=== PATIENT | female | born 1950 | race Caucasian/White ===

== ENCOUNTER 2024-08-17 13:52 | Outpatient (AMB) | payer OTHER, SELFPAY ==
--- NOTE | 2024-08-17 13:57 | A.OFFVIS_ITS ---
Vital Signs 08/17/24 14:08 Height 5 ft Weight 180 lb BMI 35.2 Handedness Right Intake Visit Reasons: Right knee pain and giving way Intake Note: Carmela is a 74 year old male who presents with complaints of progressively worsening right knee pain and giving way. The patient describes her pain as sharp in nature. Most of the pain is along the medial aspect of her knee. She has failed the last 6 weeks of conservative treatment which has included a home exercise program, Tylenol, Celebrex, a knee brace and application of ice. 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 Allergies tramadol [From Ultram] Allergy (Unknown, Verified 08/17/24 14:09) syncope Medication List - Last Reconciled 08/17/24 by Duane Soria MD atorvastatin 40 mg PO DAILY celecoxib 200 mg PO DAILY lisinopril-hydrochlorothiazide 20-25 mg 1 tab PO DAILY nystatin topical DAILY omeprazole 20 mg PO DAILY solifenacin 10 mg PO DAILY valacyclovir 1,000 mg PO TID PFSH Social History (Updated 08/17/24 @ 14:10 by CHAD Yusuf) Patient Tobacco Use Status: Former Tobacco user Current occupational status: retired Current occupation: rt handed Physical Exam Vital Signs: BMI result Body Mass Index 35.2 Const Other: Well-nourished well-developed very friendly female awake alert and oriented x3 in no acute distress Extrem Other: Bilateral lower extremity examination shows good capillary refill, no skin lesions noted, normal sensation light touch Right knee examination shows a minimal effusion, minimal crepitus with range of motion, tenderness along her medial joint line, positive Amna's test, no instability Results Reviewed Results Reviewed: X-rays of the patient's right knee show mild diffuse joint space narrowing, no acute bony abnormalities Assessment & Plan Assessment & Plan (1) Right knee pain: Code(s): M25.561 - Pain in right knee Category: Medical (2) Tear of medial meniscus of right knee: Code(s): S83.241A - Other tear of medial meniscus, current injury, right knee, initial encounter Category: Medical Plan Ms. Linton presents with progressively worsening right knee pain and mechanical symptoms most likely due to a medial meniscus tear. Thus, I will send the patient for an MRI of her right knee for further evaluation. I will see her back once the MRI is completed to discuss the findings and treatment options. Feel free to call me at any time should questions regarding her orthopedic management arise. I spent 20 minutes in reviewing the patient's records and imaging studies, seeing the patient and documenting in the medical record. Orders: Orders MR knee RT wo con 08/17/24 S83.241A - Other tear of medial meniscus, current injury, right knee, initial encounter XR knee RT 3V 08/17/24 M25.561 - Pain in right knee Coding Level of Care Code New Pt Level 3 (11682) Complex EM visit Add On G2211 Diagnoses Right knee pain M25.561 Tear of medial meniscus of right knee S83.241A
[2024-08-17 14:08] VITALS: BMI 35.2
--- OUTSIDE RECORDS SUMMARY | 2024-08-17 14:24 | XMS_ITS | Continuity of Care Document ---
Author Organization [place] - [facility],, DAYANA TAMEZ MD Address [address] [facility] [address] [place] [address] Care Team Providers Care Gold Leaf Gilder Name Role Phone TIFFANY MILIAN Primary Care Provider [phone] Assessment No assessment recorded. Plan of Treatment Reminders Order Date Submit Date Provider Last Modified By Organization Details Last Modified Time Details Appointments None recorded. Lab herpes simplex, culture, unspecified specimen - right vulva 2024 025 [facility] (Centralized Electronic Ordering - All Locations), Patient Can Go To The Location Of Their Choice, [id number] 13:32:51 Referral None recorded. Procedures None recorded. Surgeries None recorded. Imaging None recorded. Medication Orders valacyclovi r 1 gram tablet 2024 025 [id number], [id number] [place], [address], 13:30:17 acyclovir 5 % topical ointment 2024 025 [id number], [address] [place], [address], 14:02:07 Patient TargetsNo targets recorded. Patient Instructions Encounter Date Encounter Id Patient Instructions Last Modified By Organization Details Last Modified Time 08/15/2024 [id number] shingles: care instructions Not available 08/15/2024 13:30:15 genital herpes: care instructions Not available 08/15/2024 13:32:40 She is here for a small cluster of tender blisters on her right labia that she first noted on Thursday, it is Thursday now she has a past history of herpes and has been taking acyclovir without improvement, she feels that this is not typical of a herpes infection. This could be shingles as it does not cross the midline, or could be herpes as she has a past history of herpes. Rx valtrex at shingles dose just in case, and herpes culture taken. Advised on good hand washing, etc. all questions answered. She has had both shingles vaccines. Face to face discussion, chart review and coordination of care: 25 minutes marjan Not available 08/15/2024 14:01:15 Reason for Referral None Reported. 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 Active 2016 Dayana Tamez MD [address], [place], , [place] - [facility], 7 11:19:20 Polyp of corpus uteri 04299045 Active 2016 Dayana Tamez MD [address], [place], , [place] - [facility], 7 12:19:18 Postmenopausa l bleeding 53758780 Active 2016 Dayana Tamez MD [address], [place], , [place] - [facility], 7 12:19:29 Essential hypertension 49609216 Active 2016 Valerie quevedo [place] - [facility], 7 13:17:12 Anogenital hidradenitis suppurativa 618520846 Active Not Available [facility] 3 03:01:06 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 Procedures Surgical History Date Name Laterality Status Provider Name and Address Organization Details Recorded Time 04/12/19 25 Endometrial Biopsy completed Dayana Tamez MD [address], [place], [address], [place] - [facility], 04/12/2024 14:54:20 12/30/19 24 Most Recent Mammogram completed Sasha Lowery [place] - [facility], 03/01/2024 13:46:16 12/30/19 24 Most Recent Bone Density completed Sasha Lowery [place] - [facility], 03/01/2024 13:46:25 03/25/20 16 Endometrial Biopsy completed Dayana Tamez MD [address], [place], [address], [place] - [facility], 03/25/2016 13:50:12 03/30/19 09 Other completed Dayana Tamez MD [address], [place], [address], [place] - [facility], 07/09/2012 14:33:12 03/30/18 76 Tonsillectomy completed Sasha Lowery [place] - [facility], 07/09/2012 14:25:04 Imaging Results None recorded. Procedure Notes None recorded. Medical Equipment None Reported. Allergies Allergen ID Allergen Name Allergen Category Reaction Reaction Severity Criticality Documentation Date Start Date Code Code System Note Provider Name and Address Organization Details Recorded Time 7661 Ultram medicatio n other severe Not available 07/09/2012 36256 6 RxNorm weak and sleep y Sasha Beverley quevedo [place] [facility], 3 14:25:04 Medications Name Sig Start Date Stop Date Status Note LastModified by Organization Details LastModified Time celecoxib 200 mg capsule TAKE 1 CAPSULE BY MOUTH DAILY NEEDED FOR PAIN. TAKE WITH FOOD. active Not Available Not Available No t Available cyclobenzap rine 10 mg tablet 04/28 completed Not Available Not Available Not Available amoxicillin 500 mg capsule TAKE 1 CAPSULE BY MOUTH EVERY 8 HOURS UNTIL FINISHED 03/01 completed Not Available Not Available Not Available medroxyprog esterone 10 mg tablet Take 1 tablet every day by oral route. 09/08 completed Not Available Not Available Not Available atorvastati n 40 mg tablet TAKE 1 TABLET BY MOUTH EVERY DAY active Not Available Not Available No t Available atorvastati n 10 mg tablet 03/01 completed Not Available Not Available Not Available oxybutynin chloride ER 10 mg tablet,exte nded release 24 hr TK 1 T PO QD 09/08 completed Not Available Not Available Not Available azithromyci n 250 mg tablet TAKE 2 TABLETS BY MOUTH TODAY, THEN TAKE 1 TABLET DAILY FOR 4 DAYS 01/21 completed Not Available Not Available Not Available fluconazole 150 mg tablet TAKE 1 TABLET BY MOUTH FOR 1 DOSE 03/01 completed Not Available Not Available Not Available valacyclovi r 1 gram tablet Take 1 tablet 3 times a day by oral route for 7 days. 2024 active Not Available Not Available Not Avai lable meloxicam 15 mg tablet 04/28 completed Not Available Not Available Not Available prednisone 20 mg tablet TAKE 3 TABLETS DAILY FOR 3 DAYS TAKE 2 TABLETS DAILY FOR 3 DAYS TAKE 1 TABLET DAILY FOR 3 DAYS 03/01 completed Not Available Not Available Not Available ciprofloxac in 500 mg tablet TAKE 1 TABLET BY MOUTH 2 TIMES DAILY DIRECTED FOR UTI WHEN TRAVELING 01/21 completed Not Available Not Available Not Available omeprazole 40 mg capsule,del ayed release TAKE 1 CAPSULE BY MOUTH EVERY DAY 04/12 completed Not Available Not Available Not Available simvastatin 40 mg tablet TAKE 1 TABLET BY MOUTH DAILY 09/08 completed Not Available Not Available Not Available acyclovir 5 % topical ointment APPLY 1 APPLICATI ON 5 TIMES A DAY BY TOPICAL ROUTE NEEDED FOR 30 DAYS. 2024 active Not Available Not Available Not Avai lable oxybutynin chloride ER 5 mg tablet,exte nded release 24 hr 02/17 completed Not Available Not Available Not Available gabapentin 300 mg capsule 12/25 completed Not Available Not Available Not Available omeprazole 20 mg capsule,del ayed release TAKE 1 CAPSULE BY MOUTH EVERY DAY -DO NOT CRUSH, CHEW, OR SPLIT active Not Available Not Available No t Available lisinopril 20 mg-hydrochl orothiazide 25 mg tablet TAKE 1 TABLET BY MOUTH EVERY DAY. active Not Available Not Available No t Available bisacodyl 5 mg tablet,filipe yed release TAKE 4 TABLETS BY MOUTH 1 HOUR PRIOR TO DRINKING YOUR LIQUID PREP. 03/01 completed Not Available Not Available Not Available nystatin 100,000 unit/gram topical powder APPLY LOCAL TWICE A DAY active Not Available Not Available No t Available ibuprofen 600 mg tablet TAKE 1 TABLET BY MOUTH EVERY 6 HOURS NEEDED FOR PAIN active Not Available Not Available No t Available oxybutynin chloride 5 mg tablet TK 1 T PO BID 01/21 completed Not Available Not Available Not Available fluticasone propionate 50 mcg/actuati on nasal spray,suspe nsion USE 1 SPRAY BY NASAL ROUTE DAILY active Not Available Not Available No t Available naproxen 500 mg tablet 04/28 completed Not Available Not Available Not Available oxycodone 5 mg tablet TAKE 1 TABLET BY MOUTH EVERY 4 HOURS NEEDED FOR SEVERE PAIN 08/15 completed Not Available Not Available Not Available Asprin Ec Low Dose 81 mg tablet,filipe yed release Take 1 tablet every day by oral route. 04/12 completed Not Available Not Available Not Available cyclobenzap rine 5 mg tablet TAKE 1 TABLET BY MOUTH AT BEDTIME NEEDED FOR MUSCLE SPASMS. 03/01 completed Not Available Not Available Not Available nitrofurant oin monohydrate /macrocryst als 100 mg capsule TAKE 1 CAPSULE BY MOUTH TWICE A DAY 01/21 completed Not Available Not Available Not Available trospium 20 mg tablet TAKE 1 TABLET BY MOUTH TWICE A DAY 01/21 completed Not Available Not Available Not Available solifenacin 5 mg tablet TAKE 1 TABLET BY MOUTH EVERY DAY 03/01 completed Not Available Not Available Not Available solifenacin 10 mg tablet TAKE 1 TABLET BY MOUTH EVERY DAY active Not Available Not Available No t Available Boostrix Tdap 2.5 Lf unit-8 mcg-5 Lf/0.5 mL intramuscul ar suspension ADM 0.5ML IM UTD active Not Available Not Available No t Available calcium 02/17 completed Not Available Not Available Not Available Fish Oil 04/28 completed Not Available Not Available Not Available sodium fluoride 1.1 % dental paste COVER 1/2 OF TOOTHBRUS H AND BRUSH TEETH FOR 2 MINUTES AT BEDTIME. DO NOT RINSE. 03/01 completed Not Available Not Available Not Available Zostavax (PF) 19,400 unit/0.65 mL subcutaneou s suspension TO BE ADMINISTE RED BY PHARMACIS T FOR IMMUNIZAT ION 06/02 completed Not Available Not Available Not Available Glucos Chond Cplx Advanced active Not Available Not Available Not Available Multi Vitamin active Not Available Not Available Not Available Fluzone High-Dose 2064-9262 (PF) 180 mcg/0.5 mL intramuscul ar syringe TO BE ADMINISTE RED BY PHARMACIS T FOR IMMUNIZAT ION active Not Available Not Available No t Available Fluad 65yr up(PF)45 mcg(15 mcgx3)/0.5 mL intramuscul ar syringe ADMINISTE R 0.5ML IN THE MUSCLE DIRECTED active Not Available Not Available No t Available Fluad Quad (6 5yr up)(PF) 60 mcg (15 mcg x 4)/0.5mL IM syringe ADM 0.5ML IM UTD active Not Available Not Available No t Available Vitals Date Recorded Body height Body mass index (BMI) Body weight Heart rate Systolic blood pressure Diastolic blood pressure Provider Name and Address Organization Details Last Updated DateTime 5 152.4 cm 36.2 kg/m2 94850.0 3 g 74 /min 131 mm[Hg] 51 mm[Hg] Sasha Lowery [place] - [facility], 5 13:04:42 Social History Question Answer Notes LastModified by Organizat ion Details LastModified Time Tobacco Smoking Status Former Smoker over 15 yrs ago Not Available [facility] 01/31/2020 03:19:42 How Many Years Have You Consumed Alcohol? 50 Information not available 01/21/2022 What Is Your Level Of Caffeine Consumption? Occasional [id number] Information not available 01/31/2020 In The 14 Days Before Symptom Onset, Have You Had Close Contact With A Laboratory-confi rmed COVID-19 While That Case Was Ill? No Information not available 01/21/2022 In The 14 Days Before Symptom Onset, Have You Had Close Contact With A Person Who Is Under Investigation For COVID-19 While That Person Was Ill? No Information not available 01/21/2022 Have You Been To An Area Known To Be High Risk For COVID-19? No Information not available 01/21/2022 What Type Of Diet Are You Following? REGULAR [id number] Information not available 01/31/2020 Which Illicit Or Recreational Drugs Have You Used? Yes Marijuana On Weekends [id number] Information not available 01/31/2020 Do You Reside In Or Have You Traveled To An Area Where Ebola Virus Transmission Is Active? No [id number] Information not available 01/31/2020 Education 2 Year College Information not available 07/09/2012 What Is The Highest Grade Or Level Of School You Have Completed Or The Highest Degree You Have Received? [id number] Information not available 01/21/2022 How Many Days In The Past Year Have You Had A Heavy Drinking Consumption (4+ Female, 5+ Male)? 0 Information not available 02/18/2016 Are There Any Guns Present In Your Home? No Information not available 01/21/2022 High Number Of Sexual Partners No Information not available 02/18/2016 How Many Years Have You Used Illicit Or Recreational Drugs? 50 Information not available 01/21/2022 To Which Gender Do You Self-identify? Female Information not available 02/18/2016 Marital Status Informatio n not available 07/09/2012 What Was The Date Of Your Most Recent Tobacco Screening? 04/12/2024 Information not available 04/12/2024 What Is Your Relationship Status? Information not available 01/21/2022 Are You Sexually Active? No [id number] Information not available 01/31/2020 At What Age Did You Start Smoking Tobacco? 18 Information not available 01/21/2022 How Much Tobacco Do You Smoke? No [id number] Information not available 01/31/2020 General Stress Level Low Information not available 07/09/2012 How Many Years Have You Smoked Tobacco? 33 [id number] Information not available 01/31/2020 Have You Recently (within The Last 12 Weeks, Or During A Current ) Traveled To Or Lived In A Zika-affected Area? No [place] Information not available 02/18/2016 How Many Days In The Past Year Have You Consumed 4 Or More Drinks? 0 Information not available 01/21/2022 Sex: Female Functional Status Question Answer Note LastModified by Organizat ion Details LastModified Time Do you use any illicit or recreational drugs? Yes Information not available 01/21/2022 Do you or have you ever used any other forms of tobacco or nicotine? Yes Information not available 03/01/2024 What is your level of alcohol consumption? Occasional [id number] Information not available 01/31/2020 Do you or have you ever used smokeless tobacco? Never used smokeless tobacco [id number] Information not available 01/31/2020 Are you currently employed? 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 Never used electronic cigarettes [id number] Information not available 01/31/2020 What is your exercise level? Moderate [id number] Information not available 01/31/2020 Mental Status Question Answer Note LastModified by Organization D etails LastModified Time Do you feel stressed (tense, restless, nervous, or anxious, or unable to sleep at night)? [id number] Information not available 01/21/2022 Family History Relationship Description Onset Age of this Age Resolved Age Notes LastModified by Organization Details LastModified Time Father Myocardial infarction previo usly record ed as Heart Attack ([place]) Not available 08/11/2014 14:42:51 Mother Problem lung/ copd (previ ously record ed as Other) Not available 08/11/2014 14:42:51 Medical History Condition Response Anesthesia complications N High Blood Pressure Y Candidate for MyRisk panel N Autoimmune Condition N Kidney or Bladder Problems N Thyroid Problems N Depression N Lung Disease N GI Problems N Defects or Inherited Disease N Anemia N History of Ovarian Cancer N History of Breast Cancer N GENARO exposure N BRCA testing in past N Osteopenia N Psychiatric Illness N Anxiety Disorder N Diabetes N Arthritis N Headaches or Migraines N Infertility N Asthma N History of Cancer N Endometriosis N Hepatitis N Heart Disease N Hypertension Y Osteoporosis N Gynecological History Statement/Question Response If Post Menopausal, Age at Menopause 53 Most Recent Bone Density 12/30/2023 Menses Monthly N Age at Menarche 13 Most Recent Mammogram 12/30/2023 Age at First Child 28 Hormone Replacement Therapy N Obstetrics History GPAL:G 1 P 1 0 0 1 Type Value Full Term 1 Living 1 Total 1 Immunizations Vaccine Type Date Status Note Provider Nam e and Address Organization Details Recorded Time influenza, unspecified formulation 6 completed JOYCE Piper in [facility], 02/18/2016 13:37:31 pneumococcal, unspecified formulation 6 completed SashaJOYCE Campbell in [facility], 03/25/2016 13:29:20 Influenza, split virus, quadrivalent, preservative 7 completed JOYCE Petty in [facility], 09/08/2017 13:14:34 Pneumococcal Conjugate, unspecified formulation 7 completed JOYCE Petty in [facility], 09/08/2017 13:15:30 influenza, unspecified formulation 8 completed JOYCE Piper in [facility], 12/29/2017 13:32:45 Influenza, split virus, quadrivalent, preservative 9 completed JOYCE Petty in [facility], 04/28/2019 14:33:16 Influenza, split virus, trivalent, preservative 0 completed Sasha Meczywor null[place] [facility], 01/21/2022 10:03:32 COVID-19, mRNA, LNP-S, PF, 30 mcg/0.3 mL dose 1 completed Sasha Meczywor [place] [facility], 01/21/2022 10:03:32 Influenza, split virus, trivalent, preservative 3 completed Sasha Meczywor [place] [facility], 01/21/2022 10:03:32 Influenza, split virus, trivalent, PF 4 completed Sasha Meczywor [place] [facility], 01/21/2022 10:03:32 Influenza, high-dose, trivalent, PF 6 completed Sasha Meczywor [place] [facility], 01/21/2022 10:03:32 zoster recombinant 2 completed Sasha Meczywor [place] [facility], 01/21/2022 10:03:33 Influenza, high-dose, trivalent, PF 8 completed Sasha Meczywor [place] [facility], 01/21/2022 10:03:33 Influenza, split virus, trivalent, preservative 2 completed Sasha Meczywor [place] [facility], 01/21/2022 10:03:33 zoster live 4 completed Sasha Meczywor [place] [facility], 01/21/2022 10:03:33 Pneumococcal conjugate PCV 13 6 completed Sasha Meczywor [place] [facility], 01/21/2022 10:03:33 COVID-19, mRNA, LNP-S, bivalent, PF, 50 mcg/0.5 mL or 25mcg/0.25 mL dose 2 completed Sasha Meczywor [place] [facility], 01/21/2022 10:03:33 Influenza, high-dose, trivalent, PF 9 completed Sasha Meczywor [place] [facility], 01/21/2022 10:03:33 COVID-19, mRNA, LNP-S, PF, 30 mcg/0.3 mL dose 1 completed Sasha Mec[place]wor [place] [facility], 01/21/2022 10:03:33 Influenza, adjuvanted, quadrivalent, PF 1 completed Sasha Meczywor [place] [facility], 01/21/2022 10:03:33 Tdap 8 completed Sasha Meczywor [place] [facility], 01/21/2022 10:03:33 COVID-19, mRNA, LNP-S, PF, 30 mcg/0.3 mL dose 1 completed Sasha Meczywor [place] [facility], 01/21/2022 10:03:33 Influenza, split virus, quadrivalent, PF 5 completed Sasha Meczywor null[place] [facility], 01/21/2022 10:03:33 Influenza, split virus, trivalent, preservative 6 completed Sasha Meczywor null[place] [facility], 01/21/2022 10:03:33 Influenza, split virus, trivalent, preservative 2 completed Sasha Meczywor null[place] [facility], 01/21/2022 10:03:33 Tdap 8 completed Sasha Meczywor null[place] [facility], 01/21/2022 10:03:33 Influenza, split virus, trivalent, preservative 8 completed Sasha Meczywor null[place] [facility], 01/21/2022 10:03:33 Influenza, high-dose, trivalent, PF 7 completed Sasha Meczywor [place] [facility], 01/21/2022 10:03:33 pneumococcal polysaccharide PPV23 7 completed Sasha Meczywor null[place] [facility], 01/21/2022 10:03:33 Influenza, high-dose, quadrivalent, PF 2 completed Sasha Meczywor [place] [facility], 01/21/2022 10:03:33 Influenza, split virus, trivalent, preservative 4 completed Sasha Meczywor [place] [facility], 01/21/2022 10:03:33 Influenza, adjuvanted, quadrivalent, PF 0 completed Sasha Meczywor [place] [facility], 01/21/2022 10:03:33 Influenza, split virus, trivalent, preservative 7 completed Sasha Meczywor [place] [facility], 01/21/2022 10:03:33 COVID-19, mRNA, LNP-S, PF, 30 mcg/0.3 mL dose, hanna-sucrose 2 completed Sasha Meczywor null[place] [facility], 01/21/2022 10:03:33 Influenza, adjuvanted, trivalent, PF 4 completed Sasha Meczywor [place] [facility], 03/01/2024 13:42:05 zoster recombinant 3 completed Sasha Meczywor [place] [facility], 03/01/2024 13:42:05 Influenza, adjuvanted, quadrivalent, PF 3 completed Sasha Meczywor [place] [facility], 03/01/2024 13:42:05 COVID-19, mRNA, LNP-S, PF, 50 mcg/0.5 mL 4 completed Sasha Meczywor [place] qu[place] in [facility], 03/01/2024 13:42:05 COVID-19, mRNA, LNP-S, PF, 50 mcg/0.5 mL 3 completed Sasha Meczywor [place] in [facility], 03/01/2024 13:42:05 Past Encounters Encounter ID Performer Location Encounter Start Date Encounter Closed Date Diagnosis/Indication Diagnosis SNOMED-CT Code Diagnosis ICD10 Code Diagnosis Note [id number] MD DAYANA Herman MD [address] [facility] [place] [id number] 08/15/2024 12:56:29 08/15/2024 15:31:53 Herpes zoster 6518141 B02.9 Ulceration of vulva 6864 0004 N76.6 Herpetic u lceration of vulva 28512793 A60.04 A60.09 Health Concerns Section Related Observation LastModified by Organization Detai ls LastModified Time None Recorded Concern Status LastModified by Organization Details LastModified Time None Recorded Payers Encounter Date Sequence Insurance Name Policy Number Policy Payan Covered Member ID Payan Member ID Guarantor Name 08/15/2024 1 [employer] (MEDICARE REPLACEMENT/ ADVANTAGE - PPO) [id number] Carmela Linton [id number] Carmela Linton Notes Date Note Type Note Provider Name and Address Organization Details Recorded Time 08/15/2024 text/html She is here for a small cluster of tender blisters on her right labia that she first noted on Thursday, it is Thursday now she has a past history of herpes and has been taking acyclovir without improvement, she feels that this is not typical of a herpes infection. Dayana Tamez MD [address] [facility],[address], [place], [address], [place] [facility], 08/15/2024 14:05:34 OBGyn Episode No OBEpisode recorded.
--- OUTSIDE RECORDS SUMMARY | 2024-08-17 14:24 | XMS_ITS | Data Portability ---
Author Organization [facility], Main Office Address [address] [facility] 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 Patient consented to telephone visit Patient was located at at home Provider was located in the office. No other persons participated in the telemedicine visit except for the patient unless otherwise indicated here. Total time of visit was 17 minutes. [email or web address] Not available 02/08/2020 10:17:36 Plan of Treatment Reminders Order Date Submit Date Provider Last Modified By Organization Details Last Modified Time Details Appointments None recorded . Lab unlisted lab - covid-19 (novel coronavi marielle) PCR 2019 020 [facility], [address], [address] , [place], [address], 0 10:13:05 unlisted lab - covid-19 (novel coronavi marielle) PCR 2019 020 [facility], [address], [address], [place], [address], 0 10:15:07 lipid panel, serum 2019 [facility], [address], [place], [address], 1 17:21:25 culture, urine 2019 [facility], [address], [place], [address], 0 08:20:58 urinalys is, complete 2019 [facility], [address], [place], [address], 0 03:04:08 urinalys is, dipstick 2019 [email or web address] In-Office Order, Internal Use Only DO Not Attach Compendium DO Not Attach Compendium, Do Not Delete/merge, [id number] 0 13:30:[address] referral - Intermit tent upper abdomina l pain with radiatio n into the back over the last few years now getting stronger and more frequent . Not related to food or activity . Each episode lasting less than 30 minutes. 2020 021 [email or web address] Gilles [facility], [address] [facility], [place], [address], 1 10:09:11 physical therapis t referral - At risk for falling 2019 020 [facility]iel [facility], [address], [place], [address], 0 16:44:53 Procedures None recorded . Surgeries None recorded . Imaging electroc ardiogra m 2020 021 [email or web address] In-Office Order, Internal Use Only DO Not Attach Compendium DO Not Attach Compendium, Do Not Delete/merge, [id number] 1 16:08:59 XR, cervical spine - Neck pain starting late April . R/o DJD 2019 020 [facility]CHO [facility], [address] [place], [address], 0 13:07:51 US, kidney - Right flank pain for 1 week worse with movement s r/o kidney stones and hydronep hrosis 2019 020 [email or web address] [facility], [address] [facility], [place], [address], 0 11:39:11 Medication Orders Celebrex 100 mg capsule 2020 021 INTERFACE-20 [id number] [facility] #[id number], [address], [place], [id number], 2 08:40:44 atorvast atin 20 mg tablet 2019 020 INTERFACE [facility] #[id number], [address], [place], [id number], 0 18:41:09 gabapent in 300 mg capsule 2019 020 [email or web address] [facility] #08171, [address], [place], [id number], 0 14:57:36 atorvast atin 10 mg tablet 2019 020 [email or web address] [facility] #01018, [address], [place], [id number], 0 18:41:11 Patient TargetsNo targets recorded. Patient Instructions Encounter Date Encounter Id Patient Instructions Last Modified By Organization Details Last Modified Time 05/10/2019 [id number] Urinary Tract Infection (UTI) in Women: Care Instructions [email or web address] Not available 05/10/2019 13:30:00 06/07/2019 [id number] neck pain: care instructions [email or web address] Not available 06/07/2019 13:15:05 high blood pressure: care instructions [email or web address] Not available 06/07/2019 13:04:32 learning about high blood pressure acennerazzo Not available 06/07/2019 13:04:32 high cholesterol: care instructions [email or web address] Not available 06/07/2019 13:12:22 01/04/2020 [id number] bladder training: care instructions [email or web address] Not available 01/04/2020 15:23:36 kegel exercises: care instructions [email or web address] Not available 01/04/2020 15:23:36 Stress Incontinence: Care Instructions [email or web address] Not available 01/04/2020 15:23:36 high blood pressure: care instructions acennerazzo Not available 01/04/2020 15:23:36 learning about high blood pressure acennerazzo Not available 01/04/2020 15:23:36 high cholesterol: care instructions [email or web address] Not available 01/04/2020 15:23:36 preventing falls: care instructions acennerazzo Not available 01/04/2020 16:44:53 medicare preventive services guide (female 74yrs and under) [email or web address] Not available 01/04/2020 16:44:53 02/08/2020 [id number] lab* [email or web address] Not available 02/07 10:59:26 lab* tfrisino Not available 2019 10:58:32 call or return for worsening or concerns [email or web address] Not available 02/08/2020 10:13:02 07/04/2020 [id number] high blood pressure: care instructions acennerazzo Not available 07/04/2020 16:08:59 learning about high blood pressure acennerazzo Not available 07/04/2020 16:08:59 high cholesterol: care instructions acennerazzo Not available 07/04/2020 15:44:40 Reason for Referral Physical Therapist Referral for Adult health examination At risk for falling Referring Physician: [facility], Encounter Date: 01/04/2020 [employer] Referral for Upper abdominal pain Intermittent upper abdominal pain with radiation into the back over the last few years now getting stronger and more frequent. Not related to food or activity. Each episode lasting less than 30 minutes. Referring Physician: Family [facility], Encounter Date: 07/04/2020 Results Created Date Observation Date Name Description Value Unit Range Abnormal Flag Note LastModifiedBy Organization Detail LastModifiedTime 05/10/1905/11/2019 urina lysis , compl ete appear/color LIGHT YELLO W CLEAR Not Available [facility] (Centralized Electronic Ordering - All Locations) Patient Can Go To The Location Of Their Choice, 05/11/2019 03:04:08 05/10/1905/11/2019 urina lysis , compl ete sp. gravity 1.008 (1.002 -1.030 ) Not Available [facility] (Centralized Electronic Ordering - All Locations) Patient Can Go To The Location Of Their Choice, 05/11/2019 03:04:08 05/10/1905/11/2019 urina lysis , compl ete urine pH 7.0 (5.0-8 .0) Not Available [facility] (Centralized Electronic Ordering - All Locations) Patient Can Go To The Location Of Their Choice, 05/11/2019 03:04:08 05/10/1905/11/2019 urina lysis , compl ete urine albumin NEGATI VE (neg) Not Available [facility] (Centralized Electronic Ordering - All Locations) Patient Can Go To The Location Of Their Choice, 05/11/2019 03:04:08 05/10/1905/11/2019 urina lysis , compl ete urine glucose NEGATI VE (neg) Not Available [facility] (Centralized Electronic Ordering - All Locations) Patient Can Go To The Location Of Their Choice, 05/11/2019 03:04:08 05/10/1905/11/2019 urina lysis , compl ete urine ketones NEGATI VE (neg) Not Available [facility] (Centralized Electronic Ordering - All Locations) Patient Can Go To The Location Of Their Choice, 05/11/2019 03:04:08 05/10/1905/11/2019 urina lysis , compl ete urine bilirubin NEGATI VE (neg) Not Available [facility] (Centralized Electronic Ordering - All Locations) Patient Can Go To The Location Of Their Choice, 05/11/2019 03:04:08 05/10/1905/11/2019 urina lysis , compl ete urine hemoglobin NEGATI VE (neg) Not Available [facility] (Centralized Electronic Ordering - All Locations) Patient Can Go To The Location Of Their Choice, 05/11/2019 03:04:08 05/10/1905/11/2019 urina lysis , compl ete urine nitrite NEGATI VE (neg) Not Available [facility] (Centralized Electronic Ordering - All Locations) Patient Can Go To The Location Of Their Choice, 05/11/2019 03:04:08 05/10/1905/11/2019 urina lysis , compl ete urine leukocyte NEGATI VE (neg) Not Available [facility] (Centralized Electronic Ordering - All Locations) Patient Can Go To The Location Of Their Choice, 05/11/2019 03:04:08 05/10/1905/11/2019 urina lysis , compl ete urobilinogen NORMAL mg/dL (norm) Not Available [facility] (Centralized [facility] Ordering - All Locations) Patient Can Go To The Location Of Their Choice, 05/11/2019 03:04:08 05/10/1905/11/2019 urina lysis , compl ete urine WBCs 1 /hpf (0-5) Not Available [facility] (Centralized Electronic Ordering - All Locations) Patient Can Go To The Location Of Their Choice, 05/11/2019 03:04:08 05/10/1905/11/2019 urina lysis , compl ete urine RBCs 1 /hpf (<3) Not Available [facility] (Centralized Electronic Ordering - All Locations) Patient Can Go To The Location Of Their Choice, 05/11/2019 03:04:08 05/10/1905/11/2019 urina lysis , compl ete bacteria SLIGHT hpf (neg) abnormal Not Available [facility] (Centralized Electronic Ordering - All Locations) Patient Can Go To The Location Of Their Choice, 05/11/2019 03:04:08 05/10/1905/11/2019 urina lysis , compl ete squamous epith <1 /hpf Not Available [facility] (Centralized Electronic Ordering - All Locations) Patient Can Go To The Location Of Their Choice, 05/11/2019 03:04:08 05/10/1905/10/2019 cultu re, urine specimen description CLEAN CATCH (URINE ) Not Available [facility] (Centralized Electronic Ordering - All Locations) Patient Can Go To The Location Of Their Choice, [id number] 05/12/2019 08:20:58 05/10/19 20 05/10/2019 cultu re, urine special requests NONE Not Available [facility] (Centralized Electronic Ordering - All Locations) Patient Can Go To The Location Of Their Choice, [id number] 05/12/2019 08:20:58 05/10/19 20 05/12/2019 cultu re, urine culture NO GROWTH Not Available [facility] (Centralized Electronic Ordering - All Locations) Patient Can Go To The Location Of Their Choice, [id number] 05/12/2019 08:20:58 05/10/1905/12/2019 cultu re, urine report status FINAL 2019 Not Available [facility] (Centralized Electronic Ordering - All Locations) Patient Can Go To The Location Of Their Choice, [id number] 05/12/2019 08:20:58 05/10/1905/10/2019 urina lysis , dipst ick Leukocytes Negati ve Not Available In-Office Order Internal Use Only DO Not Attach Compendium DO Not Attach Compendium, Do Not Delete/merge, 05/10/2019 13:05:01 05/10/19 20 05/10/2019 urina lysis , dipst ick Nitritie negati ve Not Available In-Office Order Internal Use Only DO Not Attach Compendium DO Not Attach Compendium, Do Not Delete/merge, 05/10/2019 13:05:01 05/10/19 20 05/10/2019 urina lysis , dipst ick Urobilinogen .2 Not Available In-Of fice Order Internal Use Only DO Not Attach Compendium DO Not Attach Compendium, Do Not Delete/merge, [id number] 05/10/2019 13:05:01 05/10/19 20 05/10/2019 urina lysis , dipst ick Protein Negati ve Not Available In-Office Order Internal Use Only DO Not Attach Compendium DO Not Attach Compendium, Do Not Delete/merge, 05/10/2019 13:05:01 05/10/19 20 05/10/2019 urina lysis , dipst ick pH 7.0 Not Available In-Office Order Internal Use Only DO Not Attach Compendium DO Not Attach Compendium, Do Not Delete/merge, [id number] 05/10/2019 13:05:01 05/10/19 20 05/10/2019 urina lysis , dipst ick Blood Negati ve Not Available In-Office Order Internal Use Only DO Not Attach Compendium DO Not Attach Compendium, Do Not Delete/merge, [id number] 05/10/2019 13:05:01 05/10/19 20 05/10/2019 urina lysis , dipst ick Specific Preston 1.010 Not Available In-Off ice Order Internal Use Only DO Not Attach Compendium DO Not Attach Compendium, Do Not Delete/merge, 05/10/2019 13:05:01 05/10/19 20 05/10/2019 urina lysis , dipst ick Ketone Negati ve Not Available In-Office Order Internal Use Only DO Not Attach Compendium DO Not Attach Compendium, Do Not Delete/merge, 05/10/2019 13:05:01 05/10/19 20 05/10/2019 urina lysis , dipst ick Bilirubin Negati ve Not Available In-Office Order Internal Use Only DO Not Attach Compendium DO Not Attach Compendium, Do Not Delete/merge, 05/10/2019 13:05:01 05/10/19 20 05/10/2019 urina lysis , dipst ick Glucose Negati ve Not Available In-Office Order Internal Use Only DO Not Attach Compendium DO Not Attach Compendium, Do Not Delete/merge, 05/10/2019 13:05:01 05/10/19 20 05/10/2019 urina lysis , dipst ick Appearance Cloudy Not Available In-Offi ce Order Internal Use Only DO Not Attach Compendium DO Not Attach Compendium, Do Not Delete/merge, 05/10/2019 13:05:01 05/10/19 20 05/10/2019 urina lysis , dipst ick Color Yellow Not Available In-Office Order Internal Use Only DO Not Attach Compendium DO Not Attach Compendium, Do Not Delete/merge, 05/10/2019 13:05:01 05/30/19 20 05/30/2019 CMP, serum or plasm a comments [facility] [address] [facility] [place] [address] Medic al Direc brandon plascencia MD Not Available [facility] [address] [place] [address], [id number], 05/30/2019 11:52:54 05/30/19 20 05/30/2019 CMP, serum or plasm a glucose 90 mg/dL 70-100 Refer ence range appli cable to fasti ng speci mens only Not Available [facility] [address] [place] [address], [id number], 05/30/2019 11:52:54 05/30/1905/30/2019 CMP, serum or plasm a BUN 16 mg/dL 5-25 Not Available [facility] [address] [place] [address], [id number], 05/30/2019 11:52:54 05/30/1905/30/2019 CMP, serum or plasm a creat 0.58 mg/dL 0.5-1. 1 Not Available [facility] [address] [place] [address], [id number], 05/30/2019 11:52:54 05/30/1905/30/2019 CMP, serum or plasm a glomerular filtration rate > 60 If patie nt is Afric an-Am yeny n, multi ply resul t by 1.21 Chron ic Kidne y Disea se: < 60 ml/mi n/1.7 3 squar e meter s Kidne y Failu re: < 15 ml/mi n/1.7 3 squar e meter s Not Available [facility] [address] [place] [address], [id number], 05/30/2019 11:52:54 05/30/1905/30/2019 CMP, serum or plasm a sodium 139 mEq/L 135-14 5 Not Available [facility] [address] [place] [address], [id number], 05/30/2019 11:52:54 05/30/19 20 05/30/2019 CMP, serum or plasm a potassium 4.2 mmol/ L 3.5-5. 5 Not Available [facility] [address] [place], [address], 05/30/2019 11:52:54 05/30/1905/30/2019 CMP, serum or plasm a chloride 106 mmol/ L 96-110 Not Available [facility] [address] [place], [address], 05/30/2019 11:52:54 05/30/1905/30/2019 CMP, serum or plasm a CO2 27 mmol/ L 21-32 Not Available [facility] [address] [place], [address], 05/30/2019 11:52:54 05/30/1905/30/2019 CMP, serum or plasm a anion gap 6 3-11 Not Available [facility] [address] [place] [address], [address], 05/30/2019 11:52:54 05/30/1905/30/2019 CMP, serum or plasm a calcium 9.1 mg/dL 8.5-10 .5 Not Available [facility] [address] [place], [address], 05/30/2019 11:52:54 05/30/1905/30/2019 CMP, serum or plasm a total protein 7.1 g/dL 6.0-8. 0 Not Available [facility] [address] [place], [address], 05/30/2019 11:52:54 05/30/1905/30/2019 CMP, serum or plasm a albumin 3.6 g/dL 3.2-5. 0 Not Available [facility] [address] [place], [address], 05/30/2019 11:52:54 05/30/1905/30/2019 CMP, serum or plasm a bili,total 0.5 mg/dL 0.0-1. 4 Not Available [facility] [address] [place], [address], 05/30/2019 11:52:54 05/30/1905/30/2019 CMP, serum or plasm a SGOT 16 U/L 10-42 Not Available [facility] [address] [place] [address], [id number], 05/30/2019 11:52:54 05/30/1905/30/2019 CMP, serum or plasm a SGPT 26 U/L 10-60 Not Available [facility] [address] [place] [address], [id number], 05/30/2019 11:52:54 05/30/1905/30/2019 CMP, serum or plasm a alk phos 62 U/L 42-121 Not Available [facility] [address] [place] [address], [id number], 05/30/2019 11:52:54 05/30/1905/30/2019 lipid panel , serum comments [facility] [address] [place] [address] Medic al Direc brandon plascencia MD Not Available [facility] [address] [place] [address], [address], 05/30/2019 11:52:57 05/30/1905/30/2019 lipid panel , serum cholesterol 171 mg/dL 0-200 Not Available [facility] [address] [place] [address], [address], 05/30/2019 11:52:57 05/30/1905/30/2019 lipid panel , serum triglyceride s 185 mg/dL 0-150 high Not Available [facility] [address] [place] [address], [address], 05/30/2019 11:52:57 05/30/1905/30/2019 lipid panel , serum HDL cholesterol 56 mg/dL >40 Not Available [facility] [address] [place] [address], [address], 05/30/2019 11:52:57 05/30/1905/30/2019 lipid panel , serum LDL calculated 78 mg/dL 0-100 Not Available [facility] [address] [place] [address], [id number], 05/30/2019 11:52:57 05/30/1905/30/2019 lipid panel , serum TC-HDLC ratio 3.1 mg/dL 0-4.4 Not Available [facility] [address] [place] [address], [place], [address], 05/30/2019 11:52:57 01/02/2001/02/2020 CBC w/ auto diff WBC 7.0 K/mm3 (4.0-1 1.0) Not Available [facility] (Centralized Electronic Ordering - All Locations) Patient Can Go To The Location Of Their Choice, 01/02/2020 15:29:01/02/2001/02/2020 CBC w/ auto diff RBC 4.18 M/mm3 (4.20- 5.40) low Not Available [facility] (Centralized Electronic Ordering - All Locations) Patient Can Go To The Location Of Their Choice, 01/02/2020 15:29:01/02/2001/02/2020 CBC w/ auto diff HGB 13.2 gm/dL (11.7- 15.5) Not Available [facility] (Centralized Electronic Ordering - All Locations) Patient Can Go To The Location Of Their Choice, 01/02/2020 15:29:01/02/2001/02/2020 CBC w/ auto diff HCT 40.4 % (35.7- 45.8) Not Available [facility] (Centralized Electronic Ordering - All Locations) Patient Can Go To The Location Of Their Choice, 01/02/2020 15:29:01/02/2001/02/2020 CBC w/ auto diff MCV 96.7 fL (80.0- 100.0) Not Available [facility] (Centralized Electronic Ordering - All Locations) Patient Can Go To The Location Of Their Choice, 01/02/2020 15:29:06 01/02/2001/02/2020 CBC w/ auto diff MCH 31.6 pg (27.0- 34.0) Not Available [facility] (Centralized Electronic Ordering - All Locations) Patient Can Go To The Location Of Their Choice, 01/02/2020 15:29:06 01/02/2001/02/2020 CBC w/ auto diff MCHC 32.7 g/dL (33.0- 37.0) low Not Available [facility] (Centralized Electronic Ordering - All Locations) Patient Can Go To The Location Of Their Choice, 01/02/2020 15::01/02/2001/02/2020 CBC w/ auto diff plt 384 K/mm3 (150-4 60) Not Available [facility] (Centralized Electronic Ordering - All Locations) Patient Can Go To The Location Of Their Choice, 01/02/2020 15:29:01/02/2001/02/2020 CBC w/ auto diff RDW-SD 44.9 fL (<47.0 ) Not Available [facility] (Centralized Electronic Ordering - All Locations) Patient Can Go To The Location Of Their Choice, 01/02/2020 15:01/02/2001/02/2020 CBC w/ auto diff MPV 9.1 fL (9.4-1 2.4) low Not Available [facility] (Centralized Electronic Ordering - All Locations) Patient Can Go To The Location Of Their Choice, 01/02/2020 15:29:01/02/2001/02/2020 CBC w/ auto diff automated NRBC 0.0 #/100 _WBC' s Not Available [facility] (Centralized Electronic Ordering - All Locations) Patient Can Go To The Location Of Their Choice, 01/02/2020 15:01/02/2001/02/2020 CBC w/ auto diff abs. NRBC 0.0 K/mm3 Not Available [facility] (Centralized Electronic Ordering - All Locations) Patient Can Go To The Location Of Their Choice, 01/02/2020 15:29:01/02/2001/02/2020 CMP, serum or plasm a glucose 99 mg/dL (70-99 ) Not Available [facility] (Centralized Electronic Ordering - All Locations) Patient Can Go To The Location Of Their Choice, 01/02/2020 20:40:42 01/02/2001/02/2020 CMP, serum or plasm a BUN 16 mg/dL (8-23) Not Available [facility] (Centralized Electronic Ordering - All Locations) Patient Can Go To The Location Of Their Choice, 01/02/2020 20:40:42 01/02/2001/02/2020 CMP, serum or plasm a creatinine 0.6 mg/dL (0.5-1 .0) Not Available [facility] (Centralized Electronic Ordering - All Locations) Patient Can Go To The Location Of Their Choice, 01/02/2020 20:40:42 01/02/2001/02/2020 CMP, serum or plasm a sodium 140 mmol/ L (133-1 45) Not Available [facility] (Centralized Electronic Ordering - All Locations) Patient Can Go To The Location Of Their Choice, 01/02/2020 20:40:42 01/02/2001/02/2020 CMP, serum or plasm a potassium 4.3 mmol/ L (3.6-5 .2) Not Available [facility] (Centralized Electronic Ordering - All Locations) Patient Can Go To The Location Of Their Choice, 01/02/2020 20:40:42 01/02/2001/02/2020 CMP, serum or plasm a chloride 100 mmol/ L (98-10 7) Not Available [facility] (Centralized Electronic Ordering - All Locations) Patient Can Go To The Location Of Their Choice, 01/02/2020 20:40:42 01/02/2001/02/2020 CMP, serum or plasm a bicarbonate 28 mmol/ L (22-29 ) Not Available [facility] (Centralized Electronic Ordering - All Locations) Patient Can Go To The Location Of Their Choice, 01/02/2020 20:40:42 01/02/2001/02/2020 CMP, serum or plasm a anion gap 12 (4-17) Not Available [facility] (Centralized Electronic Ordering - All Locations) Patient Can Go To The Location Of Their Choice, 01/02/2020 20:40:42 01/02/2001/02/2020 CMP, serum or plasm a albumin 4.4 gm/dL (3.4-4 .8) Not Available [facility] (Centralized Electronic Ordering - All Locations) Patient Can Go To The Location Of Their Choice, 01/02/2020 20:40:42 01/02/2001/02/2020 CMP, serum or plasm a calcium 9.8 mg/dL (8.6-1 0.5) Not Available [facility] (Centralized Electronic Ordering - All Locations) Patient Can Go To The Location Of Their Choice, 01/02/2020 20:40:42 01/02/2001/02/2020 CMP, serum or plasm a bilirubin,to ector 0.3 mg/dL (0-1.2 ) Not Available [facility] (Centralized Electronic Ordering - All Locations) Patient Can Go To The Location Of Their Choice, 01/02/2020 20:40:42 01/02/2001/02/2020 CMP, serum or plasm a total protein 6.7 gm/dL (6.2-8 .2) Not Available [facility] (Centralized Electronic Ordering - All Locations) Patient Can Go To The Location Of Their Choice, 01/02/2020 20:40:42 01/02/2001/02/2020 CMP, serum or plasm a Ag ratio 1.9 Not Available [facility] (Centralized Electronic Ordering - All Locations) Patient Can Go To The Location Of Their Choice, 01/02/2020 20:40:42 01/02/2001/02/2020 CMP, serum or plasm a AST 15 U/L (0-32) Not Available [facility] (Centralized Electronic Ordering - All Locations) Patient Can Go To The Location Of Their Choice, 01/02/2020 20:40:42 01/02/2001/02/2020 CMP, serum or plasm a alk phos 55 U/L (35-10 4) Not Available [facility] (Centralized Electronic Ordering - All Locations) Patient Can Go To The Location Of Their Choice, 01/02/2020 20:40:42 01/02/2001/02/2020 CMP, serum or plasm a ALT 19 U/L (0-33) Not Available [facility] (Centralized Electronic Ordering - All Locations) Patient Can Go To The Location Of Their Choice, 01/02/2020 20:40:42 01/02/2001/02/2020 CMP, serum or plasm a est GFR non 95 mL/mi n/1.7 3_M2 Creat inine based estim ated glome rular filtr ation rate (eGFR ) is calcu lated using the Chron ic Kidne y Disea se Epide miolo gy Colla borat ion (CKD- EPI). The CKD-E PI creat inine equat ion has not been valid ated in child nguyen (<18 years ), pregn ant women or in some racia l or ethni c subgr oups other than Cauca sians and Afric an Ameri cans. Not Available [facility] (Centralized Electronic Ordering - All Locations) Patient Can Go To The Location Of Their Choice, 01/02/2020 20:40:42 01/02/2001/02/2020 CMP, serum or plasm a est GFR 110 mL/mi n/1.7 3_M2 Creat inine based estim ated glome rular filtr ation rate (eGFR ) is calcu lated using the Chron ic Kidne y Disea se Epide miolo gy Colla borat ion (CKD- EPI). The CKD-E PI creat inine equat ion has not been valid ated in child nguyen (<18 years ), pregn ant women or in some racia l or ethni c subgr oups other than Cauca sians and Afric an Ameri cans. Not Available [facility] (Centralized Electronic Ordering - All Locations) Patient Can Go To The Location Of Their Choice, 01/02/2020 20:40:42 01/02/2001/02/2020 lipid panel , serum cholesterol, total 217 mg/dL (<200) high Not Available [facility] (Centralized [facility] Ordering - All Locations) Patient Can Go To The Location Of Their Choice, 01/02/2020 20:40:44 01/02/2001/02/2020 lipid panel , serum triglyceride 226 mg/dL (<150) high Fasti ng Not Available [facility] (Centralized Electronic Ordering - All Locations) Patient Can Go To The Location Of Their Choice, 01/02/2020 20:40:44 01/02/2001/02/2020 lipid panel , serum HDL chol 55 mg/dL (>39) Not Available [facility] (Centralized Electronic Ordering - All Locations) Patient Can Go To The Location Of Their Choice, 01/02/2020 20:40:44 01/02/2001/02/2020 lipid panel , serum LDL cholesterol, calculated 117 mg/dL (0-130 ) Not Available [facility] (Centralized Electronic Ordering - All Locations) Patient Can Go To The Location Of Their Choice, 01/02/2020 20:40:44 01/02/20 20 01/02/2020 lipid panel , serum non HDL cholesterol (calc) 162 mg/dL (<160) high Not Available [facility] (Centralized Electronic Ordering - All Locations) Patient Can Go To The Location Of Their Choice, [id number] 01/02/2020 20:40:44 02/16/20 20 02/18/2020 SARS CoV 2 RNA (COVI D-19) , QL, 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 This nucle ic acid ampli ficat ion test was devel oped and its perfo rmanc e eve cteri stics deter mined by [facility]. Nucle ic acid ampli ficat ion tests inclu de PCR and TMA. This test has not been FDA clear ed or appro radha. This test has been autho rized by FDA under an Emerg ency Use Autho rizat ion (EUA) . This test is only autho rized for the durat ion of time the decla ratio n that circu mstan justen exist justi fying the autho rizat ion of the emerg ency use of in vitro diagn ostic tests for detec tion of SARS- CoV-2 virus and/o r diagn osis of COVID -19 infec tion under secti on 564(b )(1) of the Act, 21 U.S.C . 360bb b-3(b ) (1), unles s the autho rizat ion is termi nated or revok ed soone r. When diagn ostic testi ng is negat brittney, the possi bilit y of a false negat brittney resul t shoul d be consi dered in the jennifer xt of a patie nt's recen t expos ures and the prese nce of clini bebeto signs and sympt oms consi stent with COVID -19. An indiv idual witho ut sympt oms of COVID - 19 and who is not joshua ing SARS- CoV-2 virus would expec t to have a negat brittney (not detec jacey) resul t in this assay . TEST PERFO RMED BY [facility], ENRIQUETA AN, CELENA BARBOZA Y Not Available [facility] (Centralized Electronic Ordering - All Locations) Patient Can Go To The Location Of Their Choice, [id number] 02/18/2020 10:14:35 04/06/19 21 04/06/2020 lipid panel , serum cholesterol, total 187 mg/dL (<200) Not Available [facility] (Centralized Electronic Ordering - All Locations) Patient Can Go To The Location Of Their Choice, [id number] 04/06/2020 17:21:25 04/06/1904/06/2020 lipid panel , serum triglyceride 210 mg/dL (<150) high Fasti ng Not Available [facility] (Centralized Electronic Ordering - All Locations) Patient Can Go To The Location Of Their Choice, [id number] 04/06/2020 17:21:25 04/06/1904/06/2020 lipid panel , serum HDL chol 52 mg/dL (>39) Not Available [facility] (Centralized Electronic Ordering - All Locations) Patient Can Go To The Location Of Their Choice, [facility] 04/06/2020 17:21:25 04/06/1904/06/2020 lipid panel , serum LDL cholesterol, calculated 93 mg/dL (0-130 ) Not Available [facility] (Centralized Electronic Ordering - All Locations) Patient Can Go To The Location Of Their Choice, [id number] 04/06/2020 17:21:25 04/06/1904/06/2020 lipid panel , serum non HDL cholesterol (calc) 135 mg/dL (<160) Not Available [facility] (Centralized Electronic Ordering - All Locations) Patient Can Go To The Location Of Their Choice, [id number] 04/06/2020 17:21:25 06/08/19 20 06/08/2019 XR, cervi bebeto spine Cervic al Spine 3 Views or Less Reason : cervic algia COMPAR DAWSON: 019 and chest films dating back to 007 FINDIN GS: Stable josh listhe sis C4-C5 and C7-T1. Stable disc space narrow ing and endpla te osteop hytes throug hout the cervic al spine. Findin gs are most signif icant at C6-C7 Stable facet arthro sis throug hout the cervic al spine. 0.3 cm right apical pulmon amee nodule IMPRES MONICA: Stable degene rative change s throug hout the cervic al spine Right apical pulmon amee nodule stable since at least 018. WSN: [id number] Orderi ng Physic marysol: Brendan Goodson Dictat ed By: Ab Delgado MD Dictat ed Date/T jaclyn: 1:04 pm Review ed By: Ab Delgado MD Signed By: Ab Delgado MD Signed Date/T jaclyn: 1:04 pm Transc ribed By: SWAPNIL Transc ribed Date/T jaclyn: 1:01 pm Patien t Class: [facility] [address] [place], [address], 06/22/2019 07:21:31 12/30/19 20 12/30/2019 bone densi ty No observ ation record ed. [address] Diagnosit Imaging Dept [address] [place], [address], 01/02/2020 08:41:53 12/30/19 20 12/30/2019 MAMMO , scree christiano, digit al, bilat eral No observ ation record ed. [address] [facility] Dept [address] [place], [address], 01/02/2020 08:41:53 01/11/20 20 12/30/2019 bone densi ty No observ ation record ed. acenneracarissa Not Available 12/28 19:44:42 07/05/19 21 07/05/2020 norma lafleur am No observ ation record ed. acennerazzo In-Office Order Internal Use Only DO Not Attach Compendium DO Not Attach Compendium, Do Not Delete/merge, [id number] 07/06/2020 14:43:50 07/05/19 21 elect rocar diogr am No observ ation record ed. [facility] Order Internal Use Only DO Not Attach Compendium DO Not Attach Compendium, Do Not Delete/merge, [id number] 07/04/2020 16:05:08 08/01/19 21 07/31/2020 XR, chest , 2 view No observ ation record ed. [address], [address], 07/31/2020 18:47:11 08/09/19 21 08/08/2020 US, abdom en No observ ation record ed. [address], [address], 08/09/2020 08:10:37 Result Notes None recorded. Problems Name Problem SNOMED Code Status Onset Date Resolution Date Notes Provider Name and Address Organization Details Recorded Time Acute pharyngi tis 824880892 Completed 200710/11/2013 RESOLVED DATE: 08/20/19 08; RECORDED 08/20/19 08 1:38PM BY BRENDAN YOUNG MD, ANNOTATI ON/ADDEN DUM Brendan Burnett MD [address] [address], [place], [address] , [facility] 6 17:09:31 Tobacco user [id number] Completed 201301/19/2014 RECORDED 07/06/19 14 1:20PM BY AHSAN SALDANA I, OFFICE VISIT Brendan Burnett MD [address] [address], [place], [address] , [facility] 6 17:09:31 History of clinical finding in subject [id number] Completed 201301/19/2014 RECORDED 07/06/19 14 1:20PM BY AHSAN SALDANA I, OFFICE VISIT Brendan Burnett MD [address] [place], [address] , [facility] 6 17:09:31 Screenin g for malignan t neoplasm of breast Completed 201110/11/2013 RECORDED 11/14/19 12 12:57PM BY DEENA ZARATE ON/RA Burnett MD [address] [facility] [address], [place], [address] , [facility] 6 17:09:31 Screenin g for malignan t neoplasm of colon Completed 200710/11/2013 RECORDED 02/15/20 08 9:45AM BY DEENA ROMERO ON/RA Burnett MD [address] [facility] [address], [place], [address] , [facility] 6 17:09:31 Contact dermatit is [id number] Completed 200810/11/2013 RECORDED 10/04/19 09 10:05AM BY DEENA SALMERON ON/RA Burnett MD [address] [facility] [address], [place], [address] , [facility] 6 17:09:31 Essentia l hyperten monica [id number] Completed 201210/11/2013 RECORDED 04/22/19 13 1:46AM BY RONALD REYES MA, DEENA ON/RA Burnett MD [address] [facility] [address], [place], [address] , [facility] 6 17:09:31 Syncope and collapse 858637246 Completed 201210/11/2013 IMPRESSI ON: OVER THE WEEKEND WHILE AT FRIENDS HOUSE, SITTING PLAYING GAMES AFTER TWO GLASSES OF WINE. NO CLEAR S/SXS TO SUGGEST UNDERLYI NG CARDIO, PULM OR NEURO CAUSE. NL EXAM IN OFFICE, NL EKG. CHECK LABS. LIKELY VASOVAGA L EPISODE, COUNSELE D PT RE COMMON CAUSES. WILL REVIEW WITH PCP TO SEE IF FURTHER W/U DESIRED, FROM WHAT I CAN SEE WE CAN CONTINUE TO MONITOR. ; RECORDED 06/11/19 13 10:04AM BY AHSAN SALDANA I, BLANCAATI ON/ADDEN DUM Brendan Burntet MD [address], [place], [address] , [facility] 6 17:09:31 Influenz a vaccine needed [id number] 06 Completed 201210/11/2013 RECORDED 06/01/19 13 1:37PM BY RONALD REYES MA, DEENA ON/ADDEN DUM Brendan Burnett MD [address] [facility] [address], [place], [address] , [facility] 6 17:09:31 General examinat ion of patient Completed 200710/11/2013 RECORDED 08/20/19 08 1:38PM BY BRENDAN YOUNG MD, DEENA ON/RA Burnett MD [address] [facility] [address], [place], [address] , [facility] 6 17:09:31 Herpes simplex 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 Active Not Available [facility] 2 08:40:45 Hyperlip idemia 07320036 Active Not Available [facility] 2 08:40:45 Essentia l hyperten monica 47620074 Active Not Available [facility] 2 08:40:45 Knee pain Completed 201210/11/2013 RECORDED 06/01/19 13 1:37PM BY RONALD REYES MA, DEENA ON/RA Burnett MD [address] [facility] [address], [place], [address] , [facility] 6 17:09:31 Major depressi on single episode, in partial remissio n 05028636 Completed 12/09/2018 Brendan Burnett MD [address] [facility] [address], [place], [address] , [facility] 9 13:35:28 Screenin g for malignan t neoplasm of breast Completed 201301/19/2014 RECORDED 08/16/19 14 3:00PM BY DARIUS CORRALES AL SUMMARY Brendan Burnett MD [address] [facility] [address], [place], [address] , [facility] 6 17:09:31 Amnesia 83607665 Completed 200810/11/2013 RECORDED 10/04/19 09 10:04AM BY DEENA SALMERON ON/RA Burnett MD [address] [facility] [address], [place], [address] , [facility] 6 17:09:31 Administ ration of bacteria l and viral vaccine Completed 200710/11/2013 RECORDED 02/15/20 08 3:19PM BY ROSY REYES, OFFICE VISIT Brendan Burnett MD [address] [facility] [address], [place], [address] , [facility] 6 17:09:31 Clinical finding Completed 200810/11/2013 RECORDED 10/04/19 09 10:04AM BY DEENA SALMERON ON/RA Burnett MD [address] [facility] [address], [place], [address] , [facility] 6 17:09:31 Pain of joint 61097033 Completed 200810/11/2013 IMPRESSI ON: LEFT BUTTOCKS PAIN WITH PYRIFORM IS PAIN, PT WAS TAUGHT HOW TO STRETCH, USE MOTRIN 800MG TID AND STRETCH, CALL IF NOT BETTER; RECORDED 10/04/19 09 10:04AM BY DEENA SALMERON ON/RA Burnett MD [address] [facility] [address], [place], [address] , [facility] 6 17:09:31 Adult health examinat ion Completed 201301/19/2014 RECORDED 07/06/19 14 1:14PM BY AHSAN SALDANA I, OFFICE VISIT Brendan Burnett MD [address] [facility] [address], [place], [address] , [facility] 6 17:09:31 Adult health examinat ion Completed 201110/11/2013 RECORDED 11/14/19 12 12:57PM BY DEENA ZARATE ON/RA Burnett MD [address] [facility] [address], [place], [address] , [facility] 6 17:09:31 Sciatica 34650199 Completed 201110/11/2013 RECORDED 11/14/19 12 12:57PM BY DEENA ZARATE ON/RA Burnett MD [address] [facility] [address], [place], [address] , [facility] 6 17:09:31 Dermatop hytosis of the perianal area Completed 201110/11/2013 RECORDED 11/14/19 12 12:57PM BY DEENA ZARATE ON/RA Burnett MD [address] [facility] [address], [place], [address] , [facility] 6 17:09:31 Hearing loss 45304749 Completed 200810/11/2013 RECORDED 10/04/19 09 10:05AM BY DEENA SALMERON ON/RA Burnett MD [address] [facility] [address], [place], [address] , [facility] 6 17:09:31 Acute upper respirat ory infectio n 91676887 Completed 201110/11/2013 IMPRESSI ON: SORE THROAT WITH COUGH STARTED ONE DAY AGO, NORMAL EXAM, APPEARS VIRAL; RECORDED 11/14/19 12 12:57PM BY DEENA ZARATE ON/ DUM Brendan Burnett MD [address] [facility] [address], [place], [address] , [facility] 6 17:09:31 Urinary incontin ence 040272096 Completed 10/24/2015 Brendan Burnett MD [address] [facility] [address], [place], [address] , [facility] 6 17:09:31 Administ ration of viral vaccine Completed 201301/19/2014 RECORDED 07/06/19 14 1:39PM BY BRENDAN YOUNG MD, OFFICE VISIT Brendan Burnett MD [address] [facility] [address], [place], [address] , [facility] 6 17:09:31 Acute pharyngi tis 403743029 Completed 200711/07/2013 RESOLVED DATE: 08/20/19 08; RECORDED 08/20/19 08 1:38PM BY BRENDAN YOUNG MD, ANNOTATI ON/ Brendan Burnett MD [address] [facility] [address], [place], [address] , [facility] 6 17:09:31 Screenin g for malignan t neoplasm of breast Completed 201111/07/2013 RECORDED 11/14/19 12 12:57PM BY DEENA ZARATE ON/ADD DUM Brendan Burnett MD [address] [facility] [address], [place], [address] , [facility] 6 17:09:31 Screenin g for malignan t neoplasm of colon Completed 200711/07/2013 RECORDED 02/15/20 08 9:45AM BY DEENA ROMERO ON/RA Burnett MD [address] [facility] [address], [place], [address] , [facility] 6 17:09:31 Contact dermatit is [id number] Completed 200811/07/2013 RECORDED 10/04/19 09 10:05AM BY DEENA SALMERON ON/RA Burnett MD [address] [facility] [address], [place], [address] , [facility] 6 17:09:31 Essentia l hyperten monica 64070087 Completed 201211/07/2013 RECORDED 04/22/19 13 1:46AM BY RONALD REYES MA, ANNOTATI ON/RA Burnett MD [address] [facility] [address], [place], [address] , [facility] 6 17:09:31 Syncope and collapse 564534811 Completed 201211/07/2013 IMPRESSI ON: OVER THE WEEKEND WHILE AT [employer]RIENDS HOUSE, SITTING PLAYING GAMES AFTER TWO GLASSES OF WINE. NO CLEAR S/SXS TO SUGGEST UNDERLYI NG CARDIO, PULM OR NEURO CAUSE. NL EXAM IN OFFICE, NL EKG. CHECK LABS. LIKELY VASOVAGA L EPISODE, COUNSELE D PT RE COMMON CAUSES. WILL REVIEW WITH PCP TO SEE IF FURTHER W/U DESIRED, FROM WHAT I CAN SEE WE CAN CONTINUE TO MONITOR. ; RECORDED 06/11/19 13 10:04AM BY DEENA ZARATE/RA Burnett MD [address] [facility] [address], [place], [address] , [facility] 6 17:09:31 Influenz a vaccine needed [id number] 06 Completed 201211/07/2013 RECORDED 06/01/19 13 1:37PM BY RONALD REYES MA, ANNOTATI ON/RA Burnett MD [address], [place], [address] , [facility] 6 17:09:31 General examinat ion of patient Completed 200711/07/2013 RECORDED 08/20/19 08 1:38PM BY BRENDAN YOUNG MD, ANNOTATI ON/RA Burnett MD [address] [facility] [address], [place], [address] , [facility] 6 17:09:31 Knee pain Completed 201211/07/2013 RECORDED 06/01/19 13 1:37PM BY RONALD REYES MA, ANNOTATI ON/RA Burnett MD [address] [facility] [address], [place], [address] , [facility] 6 17:09:31 Amnesia [id number] Completed 200811/07/2013 RECORDED 10/04/19 09 10:04AM BY DEENA SALMERON ON/RA Burnett MD [address] [facility] [address], [place], [address] , [facility] 6 17:09:31 Administ ration of bacteria l and viral vaccine Completed 200711/07/2013 RECORDED 02/15/20 08 3:19PM BY ROSY REYES, OFFICE VISIT Brendan Burnett MD [address] [facility] [address], [place], [address] , [facility] 6 17:09:31 Clinical finding Completed 200811/07/2013 RECORDED 10/04/19 09 10:04AM BY DEENA SALMERON ON/RA Burnett MD [address] [facility] [address], [place], [address] , [facility] 6 17:09:31 Pain of joint 47929049 Completed 200811/07/2013 IMPRESSI ON: LEFT BUTTOCKS PAIN WITH PYRIFORM IS PAIN, PT WAS TAUGHT HOW TO STRETCH, USE MOTRIN 800MG TID AND STRETCH, CALL IF NOT BETTER; RECORDED 10/04/19 09 10:04AM BY DEENA SALMERON ON/RA Burnett MD [address] [address], [place], [address] , [facility] 6 17:09:31 Sciatica 04677365 Completed 201111/07/2013 RECORDED 11/14/19 12 12:57PM BY DEENA ZARATE/RA Burnett MD [address] [address], [place], [address] , [facility] 6 17:09:31 Dermatop hytosis of the perianal area Completed 201111/07/2013 RECORDED 11/14/19 12 12:57PM BY DEENA ZARATE/RA Burnett MD [address] [address], [place], [address] , [facility] 6 17:09:31 Hearing loss 50697807 Completed 200811/07/2013 RECORDED 10/04/19 09 10:05AM BY DEENA SALMERON ON/RA Burnett MD [address] [address], [place], [address] , [facility] 6 17:09:31 Acute upper respirat ory infectio n 87781222 Completed 201111/07/2013 IMPRESSI ON: SORE THROAT WITH COUGH STARTED ONE DAY AGO, NORMAL EXAM, APPEARS VIRAL; RECORDED 11/14/19 12 12:57PM BY DEENA ZARATE/RA Burnett MD [address] [facility] [address], [place], [address] , [facility] 6 17:09:31 Body mass index 30+ - obesity 165119301 Active Not Available [facility] 2 08:40:45 Pain of joint of wrist 459674002 Completed 11/24/2016 Ninfa Burnette MA [facility], [facility] 7 14:58:56 Female stress incontin ence 75737834 Active sees Dr Richardson Not Available [facility] 2 08:40:45 Urge incontin ence of urine 07099599 Active followed by urology Not Available [facility] 2 08:40:45 Polyp of corpus uteri 39969233 Active 2016 Not Available [facility] 2 08:40:45 Complex endometr ial hyperpla cortney 514969754 Active 2016 Not Available [facility] 2 08:40:45 Postmeno pausal bleeding 80056142 Active 2016 Not Available [facility] 2 08:40:45 Anogenit al hidraden itis suppurat medardo 141638393 Active Not Available [facility] 08:40:45 Candidia sis of skin 96590579 Active Not Available [facility] 2 08:40:45 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 Not Available [facility] 2 08:40:45 Neck pain 46826898 Active 2018 Not Available [facility] 2 08:40:45 Exposure to SARS-CoV -2 Completed 07/04/2020 Removal Reason: Problem added by user raya ferrer from the COVID-19 watch flag Brendan Burnett MD [address] [facility] [address], [place], [address] , [facility] 1 15:40:17 Pain in left knee Active 2020 Not Available [facility] 2 08:40:45 Steatoti c liver disease 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 Procedures Surgical History Date Name Laterality Status Provider Name and Address Organization Details Recorded Time 01/04/20 20 Six-Item Cognitive Test completed Inez Knott MA [facility] 01/04/2020 15:00:50 12/30/19 20 Most Recent Mammogram completed [facility] 01/02/2020 08:41:48 12/30/19 20 Mammogram screening completed [facility] 01/02/2020 08:41:42 12/30/19 20 Dxa bone density josé vrt fx completed [facility] 01/02/2020 08:41:15 12/10/19 19 Mini-Cog Test completed Ahsan Garcia [facility] 12/09/2018 13:07:35 01/19/20 18 Date of Last Colonoscopy completed Marylou Saldana [facility] 01/18/2018 15:00:01 01/19/20 18 colonoscopy completed Marylou Saldana [facility] 01/18/2018 14:59:45 12/08/19 18 Most Recent Bone Density completed Marylou Saldana [facility] 12/15/2017 14:14:35 12/02/19 18 Mini-Cog Test completed Katie Deras MA [facility] 12/01/2017 13:12:11 11/25/19 17 Fall Risk Assessment completed Ninfa Burnette MA [facility] 11/24/2016 15:13:38 11/25/19 17 Mini-Cog Test completed Ninfa Burnette MA [facility] 11/24/2016 15:15:21 06/17/19 17 Hysteroscopy completed Ronald rodríguez MA [facility] 02/08/2020 09:40:17 06/17/19 17 Dilation and curettage completed Ronald rodríguez MA [facility] 02/08/2020 09:40:12 09/28/19 16 Fall Risk Assessment [facility] 09/28/2015 14:42:10 09/28/19 16 [facility] 09/28/2015 14:42:10 09/28/19 16 Advanced Care Planning completed [facility] 09/28/2015 14:42:10 08/12/19 15 Date of Last Pap Smear completed [facility] 09/28/2015 14:42:09 06/08/19 11 repair of stress incontinence by suprapubic sling completed Ronald rodríguez [facility] 02/08/2020 09:39:54 Tonsillectomy completed Brendan Burnett MD [address] [address], [place], [address], [facility] 01/19/2014 14:56:33 Imaging Results Imaging Date Name Status LastModified by Organization Details LastModified Time 06/08/2019 XR, cervical spine completed [facility] (Outpt Imaging) [address] [place], [address], 06/22/2019 07:21:31 12/30/2019 bone density completed [address] Diagnosit Imaging Dept [address] [place], [address], 01/02/2020 08:41:53 12/30/2019 MAMMO, screening, digital, bilateral completed [address] [facility] Dept [address] [place], [address], 01/02/2020 08:41:53 12/30/2019 bone density completed Information not available 01/11/2020 19:44:42 07/05/2020 electrocardiogram completed acennerazzo In-Off ice Order Internal Use Only DO Not Attach Compendium DO Not Attach Compendium, Do Not Delete/merge, [id number] 07/06/2020 14:43:50 07/04/2020 electrocardiogram completed acennerazzo In-Off ice Order Internal Use Only DO Not Attach Compendium DO Not Attach Compendium, Do Not Delete/merge, [id number] 07/04/2020 16:05:08 07/31/2020 XR, chest, 2 view completed [facility]enner[facility] [address], [address], 07/31/2020 18:47:11 08/08/2020 US, abdomen completed acennerazzo [facility] [address], [address], 08/09/2020 08:10:37 Procedure Notes None recorded. Medical Equipment None Reported. Allergies Allergen ID Allergen Name Allergen Category Reaction Reaction Severity Criticality Documentation Date Start Date Code Code System Note Provider Name and Address Organization Details Recorded Time 7678 Ultra medicatio n Not available Not available Not available 10/11/2013 08795 6 RxNorm Synco pe Gabriel Corrales, [place] [address] [facility] [address], [place], [address], [facility] 5 22:23:38 Medications Name Sig Start Date Stop Date Status Note LastModified by Organization Details LastModified Time cyclobenz aprine 10 mg tablet Take 1 tablet 3 times a day by oral route for 7 days. 05/10 completed Not Available Not Available Not Available amoxicill in 500 mg capsule TAKE 1 CAPSULE BY MOUTH EVERY 8 HOURS UNTIL GONE active Not Available Not Available No t Available medroxypr ogesteron e 10 mg tablet Take 1 tablet every day by oral route. 11/24 completed Not Available Not Available Not Available atorvasta tin 40 mg tablet TAKE 1 TABLET BY MOUTH EVERY DAY 03/01 completed Not Available Not Available Not Available atorvasta tin 20 mg tablet TAKE 1 TABLET BY MOUTH EVERY DAY 2020 active Not Available Not Available Not Avai lable atorvasta tin 10 mg tablet Take 1 tablet every day by oral route for 90 days. 01/03 completed Not Available Not Available Not Available oxybutyni n chloride ER 10 mg tablet,ex tended release 24 hr Take 1 tablet every day by oral route as directed for 90 days. 06/24 completed Not Available Not Available Not Available azithromy laura 250 mg tablet 02/17 completed Not Available Not Available Not Available valacyclo vir 1 gram tablet TAKE 1 TABLET BY MOUTH TWICE A DAY FOR 7 DAYS active Not Available Not Available No t Available meloxicam 15 mg tablet TAKE 1 TABLET BY MOUTH EVERY DAY 05/10 completed Not Available Not Available Not Available Paxil 20 mg tablet DAILY 12/18 completed RECORDED 12/19/19 10 9:13AM BY BRENDAN YOUNG MD, ANNOTATI ON/ADDCODY DUM; Not Available Not Available Not Available simvastat in 40 mg tablet TAKE ONE TABLET BY MOUTH AT BEDTIME 12/03 completed Not Available Not Available Not Available oxycodone -acetamin ophen 5 mg-325 mg tablet Q8 HRS PRN PAIN 05/02 completed RECORDED 05/02/19 09 3:54PM BY BRENDAN YOUNG MD, MEDICATI ON AUTO-SHYANN CTIVATIO N; Not Available Not Available Not Available ascorbic acid (vitamin C) ER 500 mg capsule,e xtended release DAILY 05/31 completed RECORDED 06/01/19 13 1:40PM BY RONALD REYES MA, OFFICE VISIT; Not Available Not Available Not Available oxybutyni n chloride ER 5 mg tablet,ex tended release 24 hr 02/26 completed Not Available Not Available Not Available gabapenti n 300 mg capsule Take 1 capsule 3 times a day by oral route. 01/03 completed Not Available Not Available Not Available lisinopri l 20 mg-hydroc hlorothia zide 25 mg tablet TAKE 1 TABLET BY MOUTH EVERY DAY active Not Available Not Available No t Available folic acid 1 mg tablet DAILY 05/31 completed RECORDED 06/01/19 13 1:40PM BY RONALD REYES MA, OFFICE VISIT; Not Available Not Available Not Available nystatin 100,000 unit/gram topical powder APPLY 2-3 TIMES PER DAY 06/01 completed prn Not Available Not Available Not Available Transderm -Scop 1 mg over 3 days transderm al patch Apply 1 patch every 72 hours by transder mal route. 12/09 completed Not Available Not Available Not Available triamcino lone acetonide 0.1 % lotion BID/PRN 12/18 completed RECORDED 12/19/19 10 9:13AM BY BRENDAN YOUNG MD, DEENA ON/ADDEN DUM; Not Available Not Available Not Available celecoxib 100 mg capsule Take 1 capsule every day by oral route as needed for 30 days. 2020 active TAKE 1 CAPSULE BY MOUTH EVERY DAY NEEDED Not Available Not Available Not Available ketoconaz ole 2 % topical cream TWO TIMES DAILY 12/18 completed RECORDED 12/19/19 10 9:13AM BY BRENDAN YOUNG MD, DEENA ON/ADDEN DUM; Not Available Not Available Not Available oxybutyni n chloride 5 mg tablet TAKE 1 TABLET BY MOUTH TWICE DAILY 2020 active Not Available Not Available Not Avai lable dicyclomi ne 10 mg capsule TAKE 1 CAPSULE BY MOUTH THREE TIMES DAILY NEEDED active Not Available Not Available No t Available naproxen 500 mg tablet 12/01 completed Not Available Not Available Not Available Calcium 500 + D 500 mg-5 mcg (200 unit) tablet Take 1 tablet every day by oral route as directed . active Not Available Not Available No t Available Asprin Ec Low Dose 81 mg tablet,de layed release Take 1 tablet every day by oral route. active Not Available Not Available No t Available acyclovir 5 % topical cream NEEDED 05/31 completed RECORDED 06/01/19 13 11:09AM BY DEENA SHANKAR ON/ADDEN DUM; Not Available Not Available Not Available nitrofura ntoin monohydra te/macroc rystals 100 mg capsule 05/10 completed Not Available Not Available Not Available Boostrix Tdap 2.5 Lf unit-8 mcg-5 Lf/0.5 mL intramusc ular suspensio n 06/01 completed Not Available Not Available Not Available vitamin A TAKE 1 TAB DAILY PO 12/01 completed Not Available Not Available Not Available calcium TAKE 1 TAB DAILY PO 06/09 completed Not Available Not Available Not Available Fish Oil 06/09 completed Not Available Not Available Not Available Glucosami ne Complex DAILY 06/09 completed Not Available Not Available Not Available Triamcino lone Acetate BID/PRN 12/18 completed RECORDED 12/19/19 10 9:13AM BY BREDNAN YOUNG MD, ANNOTATI ON/ADDEN DUM; Not Available Not Available Not Available Zostavax (PF) 19,400 unit/0.65 mL subcutane ous suspensio n TO BE ADMINIST ERED BY PHARMACI ST FOR IMMUNIZA TION 06/02 completed Not Available Not Available Not Available Vitamin D2 1 daily 06/09 completed Not Available Not Available Not Available Multi Vitamin TAKE 1 TABLET PO DAILY active Not Available Not Available No t Available Belviq 10 mg tablet Take 1 tablet twice a day by oral route for 15 days. 02/07 completed Not Available Not Available Not Available glucosami ne 116 mg-chondr oitin 100 mg-dietar y supplemen t no.25 capsule Take 1 capsule every day by oral route as directed . active Not Available Not Available No t Available Fluzone High-Dose 8102-0754 (PF) 180 mcg/0.5 mL intramusc ular syringe TO BE ADMINIST ERED BY PHARMACI Easy Eye FOR IMMUNIZA TION 11/24 completed Not Available Not Available Not Available Fish Oil 1,000 mg (120 mg-180 mg) capsule Take 1 capsule every day by oral route as directed . 06/01 completed Not Available Not Available Not Available Fluad Quad 4274-3508 (65yr up)(PF) 60 mcg (15 mcg x 4)/0.5mL IM syringe ADM 0.5ML IM UTD 01/03 completed Not Available Not Available Not Available Vitals Date Recorded Body height Body mass index (BMI) Body weight Body temperature Oxygen saturation Oxygen saturation in Arterial blood by Pulse oximetry Heart rate Systolic blood pressure Diastolic blood pressure Provider Name and Address Organization Details Last Updated DateTime 0 152.4 cm 29.5 kg/m2 02664.4 5 g 98.2 [degF] 98 % 98 % 57 /min 116 mm[Hg] 63 mm[Hg] Katie Deras MA [facility] 0 13:03:05 Date Recorded Body height Body mass index (BMI) Body weight Heart rate Oxygen saturation Oxygen saturation in Arterial blood by Pulse oximetry Body temperature Systolic blood pressure Diastolic blood pressure Provider Name and Address Organization Details Last Updated DateTime 0 152.4 cm 29.9 kg/m2 74339.6 3 g 60 /min 98 % 98 % 97.5 [degF] 114 mm[Hg] 62 mm[Hg] Ahsan Garcia [facility] 0 12:52:21 Date Recorded Body height Body mass index (BMI) Body weight Heart rate Oxygen saturation Oxygen saturation in Arterial blood by Pulse oximetry Body temperature Systolic blood pressure Diastolic blood pressure Provider Name and Address Organization Details Last Updated DateTime 0 152.4 cm 30.1 kg/m2 44034.2 2 g 56 /min 98 % 98 % 97.88 [degF] 122 mm[Hg] 61 mm[Hg] Inez Knott MA [facility] 0 15:02:48 Date Recorded Body height Provider Name an d Address Organization Details Last Updated DateTime 02/08/2020 152.4 cm Ronald Vega MA [facility] 02/08/2020 09:37:46 Date Recorded Body height Body mass index (BMI) Body weight Heart rate Oxygen saturation Oxygen saturation in Arterial blood by Pulse oximetry Body temperature Systolic blood pressure Diastolic blood pressure Provider Name and Address Organization Details Last Updated DateTime 1 152.4 cm 31.6 kg/m2 97414.9 6 g 60 /min 98 % 98 % 97.52 [degF] 100 mm[Hg] 64 mm[Hg] Inez Knott MA [facility] 1 15:35:01 Social History Question Answer Notes LastModified by Organizat ion Details LastModified Time Tobacco Smoking Status Former Smoker Not Available [facility] 01/31/2020 03:36:37 Do You Have An Advance Directive? No [id number] Information not available 01/31/2020 Is Blood Transfusion Acceptable In An Emergency? Yes [id number] Information not available 01/31/2020 What Is Your Level Of Caffeine Consumption? Moderate [id number] Information not available 01/31/2020 How Much Tobacco Do You Chew? None [id number] Information not available 01/31/2020 What Type Of Diet Are You Following? REGULAR [id number] Information not available 01/31/2020 Which Illicit Or Recreational Drugs Have You Used? No [id number] Information not available 01/31/2020 Live Alone Or With Others? With Others Roommate Information not available 01/19/2014 Do You Take Precautions To Prevent Distracted Driving? Yes Information not available 09/28/2015 How Often Do You Need To Have Someone Help You When You Read Instructions, Pamphlets, Or Other Written Material From Your Doctor Or Pharmacy? Never Information not available 09/28/2015 Have You Served In The ? No [email or web address] Information not available 11/24/2016 Have You Or Anyone In Your Household Had Any Of The Following Symptoms In The Last 14 Days: Sore Throat, Cough, Chills, Body Aches For Unknown Reasons, Shortness Of Breath For Unknown Reasons, Loss Of Smell, Loss Of Taste, Fever At Or Greater Than 100 Degrees Fahrenheit? No [email or web address] Information not available 01/04/2020 Are You Or Anyone In Your Household A Health Care Provider Or Emergency Responder? No [email or web address] Information not available 01/04/2020 To The Best Of Your Knowledge Have You Been In Close Proximity To Any Individual Who Tested Positive For COVID-19? Yes [email or web address] Information not available 02/08/2020 What Was The Date Of Your Most Recent Tobacco Screening? 01/04/2020 [id number] Information not available 01/31/2020 How Many Children Do You Have? 1 Daughter [id number] Information not available 01/31/2020 Seat Belts Used Routinely Yes Information not available 09/28/2015 Are You Sexually Active? No [id number] Information not available 01/31/2020 Smoke Alarm In Home Yes Information not available 09/28/2015 Are You Passively Exposed To Smoke? No Information not available 09/28/2015 Do You Use Sunscreen Routinely? Yes [id number] Information not available 01/31/2020 Sex: Unknown Functional Status Question Answer Note LastModified by Organizat ion Details LastModified Time What is your level of alcohol consumption? Occasional [id number] Information not available 01/31/2020 Do you or have you ever used smokeless tobacco? Never used smokeless tobacco [id number] Information not available 01/31/2020 Are you currently employed? No retired February 2015 [email or web address] Information not available 02/08/2020 Are you able to care for yourself? 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 Never used electronic cigarettes [id number] Information not available 01/31/2020 What is your exercise level? Moderate walking [id number] Information not available 01/31/2020 Mental Status None recorded. Family History Relationship Description Onset Age of this Age Resolved Age Notes LastModified by Organization Details LastModified Time Mother Chronic obstructive pulmonary disease 80 [email or web address] Not available 03/2015 14:42:10 Father Coronary arterioscler osis 60 [email or web address] Not available 03/2015 14:42:10 Medical History No medical history recorded. Gynecological History Statement/Question Response HPV Vaccine N Age at Menarche 15 Current Control Method None Most Recent Mammogram 12/30/2019 Age at First Child 28 Date of Last Colonoscopy 01/18/2018 Most Recent Bone Density 12/07/2017 Menses Monthly N Date of Last Pap Smear 08/11/2014 Sexual Problems? N LMP Unknown Desired Control Method N/A Obstetrics History GPAL:G 0 P 0 0 0 0 Immunizations Vaccine Type Date Status Note Provider Nam e and Address Organization Details Recorded Time zoster live 4 completed Kmii Kamara null, [facility] 07/26/2021 15:00:52 influenza, unspecified formulation 6 completed Kimi Kamara null, [facility] 07/26/2021 15:00:52 pneumococcal, unspecified formulation 6 completed Kimi Kamara null, [facility] 07/26/2021 15:00:52 Tdap 8 completed Kimi Kamara null, [facility] 07/26/2021 15:00:52 Influenza, high-dose, trivalent, PF 9 completed Kimi Kamara null, [facility] 07/26/2021 15:00:52 Influenza, split virus, quadrivalent, preservative 0 completed Kimi Kamara null, [facility] 07/26/2021 15:00:52 Influenza, adjuvanted, quadrivalent, PF 1 completed Kimi Kamara null, [facility] 07/26/2021 15:00:52 Influenza, split virus, quadrivalent, PF 5 completed Not Available [facility] 04/16/2019 02:22:01 COVID-19, mRNA, LNP-S, PF, 30 mcg/0.3 mL dose, hanna-sucrose 2 completed Kimi Kamara null, [facility] 07/26/2021 15:00:52 Pneumococcal conjugate PCV 13 6 completed Not Available [facility] 04/16/2019 02:21:36 Influenza, high-dose, trivalent, PF 7 completed Not Available [facility] 04/16/2019 02:22:21 pneumococcal polysaccharide PPV23 7 completed Not Available [facility] 04/16/2019 02:21:26 Influenza, high-dose, trivalent, PF 8 completed Not Available [facility] 04/16/2019 02:22:14 Influenza, split virus, trivalent, PF 4 completed Not Available [facility] 04/16/2019 02:21:57 Influenza, split virus, trivalent, preservative 6 completed Kimi Kamara null, [facility] 07/26/2021 15:00:52 Influenza, split virus, trivalent, preservative 7 completed Kimi Kamara null, [facility] 07/26/2021 15:00:52 Tdap 8 completed Kimi Kamara null, [facility] 07/26/2021 15:00:52 Influenza, split virus, trivalent, preservative 8 completed Kimi Kamara null, [facility] 07/26/2021 15:00:52 Influenza, split virus, trivalent, preservative 0 completed Kimi Kamara null, [facility] 07/26/2021 15:00:52 Influenza, split virus, trivalent, preservative 2 completed Kimi Kamara null, [facility] 07/26/2021 15:00:52 Past Encounters Encounter ID Performer Location Encounter Start Date Encounter Closed Date Diagnosis/Indication Diagnosis SNOMED-CT Code Diagnosis ICD10 Code Diagnosis Note [id number] [facility] [id number] [facility],[address] [place] [address] 03/04/2006 00:00:00 [id number] [facility] [address] [facility] [place] [address] 03/04/2005 00:00:00 [id number] [facility] [address] [facility],[address] [place] [address] 09/01/2006 00:00:00 [id number] [facility] [address] [facility],[address] [place] [address] 11/04/2006 00:00:00 [id number] [facility] [address] [facility],[address] [place] [address] 01/18/2007 00:00:00 [id number] [facility] [address] [facility] [place] [address] 02/04/2007 00:00:00 [id number] [facility] [address] [facility],[address] [place] [address] 08/20/2007 00:00:00 [id number] [facility] [address] [facility],[address] [place] [address] 09/24/2007 00:00:00 [id number] [facility] [address] [place] [address] 02/15/2008 00:00:00 [id number] [facility] [address] [place] [address] 04/20/2008 00:00:00 [id number] [facility] [address] [place] [address] 10/03/2008 00:00:00 [id number] [facility] [address] [place] [address] 10/16/2009 00:00:00 [id number] auto[facility] [address] [place] [address] 08/20/2010 00:00:00 [id number] auto[facility] er[facility] [address] [facility],[address] [place] [address] 11/05/2010 00:00:00 [id number] [facility] [address] [facility] [place] [address] 11/14/2011 00:00:00 [id number] auto[facility] er[facility] [address] [facility],[address] [place] [address] 05/31/2012 00:00:00 [id number] [facility] [address] [facility],[address] [place] [address] 06/10/2012 00:00:00 [id number] auto[facility]Comm erce [address] [facility] [place] [address] 07/05/2013 00:00:00 [id number] Brendan Burnett MD Main Office [address] [facility] [address] [place], [place] [address] 01/19/2014 14:14:21 01/19/2014 15:22:41 Needs influenza immunization 311831138 Essential hypertension 73522800 Body mass index 30+ - obesity 237469047 [id number] Brendan Burnett MD Main Office [address] [address] [place] [address] 07/24/2014 15:01:58 07/24/2014 15:34:52 Adult health examination 521106860 Hyperlipidemia 62701381 Essential hypertension 66075642 [id number] Brendan Burnett MD Main Office [address] [address] [place] [address] 11/24/2014 15:32:09 11/24/2014 16:16:30 Pain of joint of wrist 460970984 advised her to take NSAIDs on a regular basis and to make an appointmen t with hand surgery. 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 Adult [facility] th examination 118479784 Z00.00 UTD with colonoscop y, bone density and mammogram. Will give pneumovax today. At [facility] risk for falls 342260898 Z91.81 Administra tion of pneumococcal vaccine 03366158 Z23 [id number] Brendan Burnett MD Main Office [address] [address] [place] [address] 2016 11:32:38 2016 12:01:49 Essential hypertension 59834793 I10 good control; continue current meds Chest pain 54620058 R07. 9 She had 2 episodes of CP and has concerns because her father in his 60's of heart disease. We will get a stress test to look at this further. [id number] Juan Pablo Hernández PA-C Main Office [address] [address] [place] [address] 06/09/2016 13:59:14 06/09/2016 14:50:51 Pre-surgery evaluation 666102927 Z01.818 Endometria l hyperplasia 447995769 N85.00 Essential hypertension 70332201 I10 Hyperlipidemia 26559578 E78.5 [id number] Brendan Burnett MD Main Office [address] [address] [place] [address] 11/24/2016 14:58:00 11/24/2016 15:56:20 Adult health examination 233890072 Z00.00 UTD with colonoscop y, bone density and mammogram. Will give pneumovax today. Influenza vaccine needed 4926265596 106 Z23 Administra tion of pneumococcal vaccine 79259812 Z23 Hyperlipidemia 15146202 E78.5 [id number] Brendan Burnett MD Main Office [address] [address] [place] [address] 06/24/2017 12:45:12 06/24/2017 13:21:20 Essential hypertension 87706295 I10 good control; continue current meds Hyperlipidemia 93232360 E78.5 Started a new cholestero l med (lipitor) 6 months ago so will check cholestero l level. 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 [id number] Brendan Burnett MD Main Office [address] [place] [address] 12/01/2017 12:59:34 12/01/2017 14:11:33 Adult health examination 328420744 Z00.00 UTD with colonoscop y, bone density and mammogram. Will give pneumovax today. 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 Upper resp iratory infection 55259516 J06.9 Symptomati c treatment Hyperlipidemia 15369475 E78.5 Started a new cholestero l med (lipitor) 6 months ago so will check cholestero l level. [id number] Brendan Burnett MD Main Office [address] [address] [place] [address] 12/09/2018 12:53:45 12/09/2018 14:52:38 Adult health examination 431885031 Z00.00 UTD with colonoscop y (due again in 2022), bone density and mammogram. Urge incon tinence of urine 89893424 N39.41 Hyperlipidemia 56604978 E78.5 We will cut back on her atorvastat in from 40 to 20 mg and recheck her lipids next appointmen t. Essential hypertension 99841707 I10 good control; continue current meds [id number] Brendan Burnett MD Main Office [address] [address] [place] [address] 03/01/2019 12:33:51 03/01/2019 13:20:57 Neck pain 41159895 M54.2 [id number] Brendan Burnett MD Main Office [address] [address] [place] [address] 05/10/2019 12:37:55 05/10/2019 13:25:31 Dysuria 47400342 R30.0 Right flank pain 0810857 09 R10.9 Possible muscle pain vs kidney stone. She will try NSAIDs and we will get an U/S. [id number] Brendan Burnett MD Main Office [address] [address] [place] [address] 06/07/2019 12:43:05 06/07/2019 13:18:43 Essential hypertension 32533137 I10 good control; continue current meds Hyperlipidemia 78215832 E78.5 Will cut dose of lipitor to 10 mg daily and follow her lipid level. 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 Influenza vaccine needed 6698472625 106 Z23 Had at her pharmacy Essential hypertension 49317318 I10 good control; continue current meds Female str ess incontinence 34266056 N39.[address] Richardson. On meds and currently under control. Hyperlipidemia 04055051 E78.5 Will increase her lipitor from 10 to 20 mg. [id number] Brendan Burnett MD [facility] [address] [place] [address] 02/08/2020 09:05:48 02/08/2020 11:28:24 Exposure to viral disease 2763763241 09872 Z03.818 1 week ago was exposed to friend with sx of covid/ fever. friends result is pending. Patient currently has no symptoms. She [place] also [place] for the [place] and would like to be tested before she goes. [id number] Brendan Burnett MD Main Office [address] [place] [address] 07/04/2020 15:29:16 07/04/2020 15:56:48 Essential hypertension 80690886 I10 good control; continue current meds Hyperlipidemia 22532953 E78.5 Increased her dose of atorvastat in from 10 to 20 mg 6 months ago and LDL at goal. Pain in left knee 342920 5322 01731 M25.562 Probable OA. Seen by ortho in the past. Upper abdominal pain 831 85012 R10.10 Chronic and intermitte nt. Health Concerns Section Related Observation LastModified by Organization Detai ls LastModified Time None Recorded Concern Status LastModified by Organization Details LastModified Time None Recorded Advance Directives Directive N: Payers Encounter Date Sequence Insurance Name Policy Number Policy Payan Covered Member ID Payan Member ID Guarantor Name 05/10/2019 2 [place] [id number] Sosa Blue Royer [id number] Sosa Blue Royer 05/10/2019 2 [place] Sosa Blue Royer [id number] Sosa Blue Royer 06/07/2019 2 [place] [id number] Sosa Blue Royer [id number] Sosa Blue Royer 06/07/2019 2 [place] SERVICES Sosa Blue Royer [id number] Sosa Mirza Royer 01/04/2020 2 [place] [id number] Sosa Blue Royer [id number] Sosa Blue Royer 01/04/2020 2 [place] Sosa Blue Royer [id number] Sosa Blue Royer 02/08/2020 2 [place] [id number] Sosa Blue Royer [id number] Sosa Mirza Royer 02/08/2020 2 [place] Sosa Blue Royer [id number] Sosa Blue Royer 07/04/2020 2 [place] [id number] Sosa Blue Royer [id number] Sosa M Royer 07/04/2020 2 [place] Sosa Blue Royer [id number] Sosa Blue Royer Notes Date Note Type Note Provider Name and Address Organization Details Recorded Time 0 text/html She was treated for a presumed UTI 04/28 with abx for dysuria. This improved but a few days later she developed right flank pain which has persisted. She gets the pain with certain movements. Hasn't taken any meds. Denies f/c or n/v. Brendan Burnett MD [address], [phone], [facility] 05/10/2019 13:30:37 0 text/html HyperlipidemiaReported bypatient.Type of hyperlipidemia:hypercholest erolemia Duration:chronic Control:usually well controlled; at goal Current Therapy:currently taking: (lipitor) Compliance:compliant; compliant with diet; exercises Complications:no coronary artery disease; no peripheral artery disease; no cardiovascular diseaseHypertension F/UReported bypatient.Associated Symptoms:no dizziness; no lightheadedness; no chest pain; no shortness of breath; no palpitations; no edema; no calf pain with exertion Lifestyle:regular exercise; limiting/avoiding salt Medications:taking medications as directed; no side effects from medication She has been having neck pain at the left side for about 10 days. Denies radiation. Meds (NSAIDs, flexeril) not helping. No weakness. There day and night. Has a burning sensation in the area but no rash. Brendan Burnett MD [address], [phone], [facility] 06/07/2019 13:25:59 0 text/html Medicare Annual Wellness VisitReported bypatient.Diet and Nutrition:healthy diet Fracture Risk:no history of fractures Physical Activity:exercises on a regular basis (walks 2 miles 3-4 times balance); discussed exercise habits Depression Risk:never feels sad, empty, or tearful; no loss of interest in activities; no significant changes in weight; no sleep disturbances or insomnia; no agitation; no loss of energy; no feelings of worthlessness or guilt; no thoughts of suicide; no history of depression; no history of mood disorders Orientation:no disorientation to time; no disorientation to date; no disorientation to place Concentration and Memory:no decreased concentrating ability; no memory lapses or loss; does not forget words Activities of Daily Living:able to bathe with limited or no assistance; able to contol urination and bowels; able to dress with limited or no assistance; able to feed self with limited or no assistance; able to get out of chair or bed with limited or no assistance; able to groom with limited or no assistance; able to toilet with limited or no assistance Instrumental Activities of Daily Living:able to do house work with limited or no assistance; able to grocery shop with limited or no assistance; able to manage medications with limited or no assistance; able to manage money with limited or no assistance; able to prepare meals with limited or no assistance; able to use the phone with limited or no assistance Falls Risk Assessment:no frequent falls while walking; no fall in the past year; no fall since last visit; no dizziness/vertigo Brendan Burnett MD [address], [phone], [facility] 01/04/2020 18:43:08 0 text/html COVID- Symptoms July 2019Reported bypatient.Notes:Phone visit: last thu she took a friend to a 's appt. they wore maska but her car is small. Over the weekend her friend had cold sx, risky behaviors and fever. patient has no symptoms. Was exposed 1 week ago today. GABRIELA Garnett [address], [phone], [facility] 02/08/2020 10:19:08 1 text/html HyperlipidemiaReported bypatient.Type of hyperlipidemia:hypercholest erolemia Duration:chronic Control:usually well controlled; at goal Current Therapy:currently taking: (lipitor) Compliance:compliant; compliant with diet; exercises Complications:no coronary artery disease; no peripheral artery disease; no cardiovascular diseaseHypertension F/UReported bypatient.Associated Symptoms:no dizziness; no lightheadedness; no chest pain; no shortness of breath; no palpitations; no edema; no calf pain with exertion Lifestyle:regular exercise; limiting/avoiding salt Medications:taking medications as directed; no side effects from medication She has been having intermittent upper abdominal pain with radiation into her back over the last few years which has been getting more severe and more frequent. She denies n/v. Each episode lasts for less than 30 minutes. She may get multiple episodes in a week or can go for weeks w/o a problem. The episodes are not related to activity or foods. She has chronic left knee pain that is currently manageable with NSAIDs. Brendan Burnett MD [address] [address], [place], [phone], [facility] 07/04/2020 16:46:59 OBGyn Episode No OBEpisode recorded.
--- OUTSIDE RECORDS SUMMARY | 2024-08-17 14:24 | XMS_ITS | Data Portability ---
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 Plan of Treatment Reminders Order Date Submit Date Provider Last Modified By Organization Details Last Modified Time Details Appointments None recorded. Lab herpes simplex, culture, unspecifie d specimen - right vulva 2024 025 [facility] (Centralized Electronic Ordering - All Locations), Patient Can Go To The Location Of Their Choice, [address] 5 13:32:51 biopsy, endometria l 2024 025 [facility] - [facility]), Patient Can Go To The Location Of Their Choice, [address] 5 07:16:45 pap test, thinprep, cervical 2021 022 [facility] (Central[facility] Ordering - All Locations), Patient Can Go To The Location Of Their Choice, [address] 07:44:41 Referral None recorded. Procedures biopsy, endometriu m (PROC) 2024 025 [email or web address] In-Office Order, Internal Use Only DO Not Attach Compendium DO Not Attach Compendium, Do Not Delete/merge, [address] 15:39:27 Surgeries None recorded. Imaging US, pelvis, transabdom inal + transvagin al - pmb for a week 2023 024 [facility] (Central Scheduling Radiology), [address] [place] [address], [address], 4 08:46:36 MAMMO, screening, digital, bilateral 2021 [facility] (Mammography) , [address] [place], [address], 3 13:24:37 bone density 2021 [facility] (Central Scheduling Radiology), [address] [place], [address], 4 07:22:38 Medication Orders valacyclov ir 1 gram tablet 2024 025 [facility]/Pharmacy #[id number], [address] [place], [address], 5 13:30:17 acyclovir 5 % topical ointment 2024 025 smacmillan 1 [facility]/Pharmacy #[id number], [address] [place], [address], 5 14:02:07 Patient TargetsNo targets recorded. Patient Instructions Encounter Date Encounter Id Patient Instructions Last Modified By Organization Details Last Modified Time 01/21/2022 [id number] atrophic vaginitis: care instructions Not available 01/21/2022 10:29:49 learning about healthy weight Not available 01/21/2022 10:29:49 She is here for annual exam, is doing well, recently returned from [facility]. She appears to be doing well. Monthly self breast exam was taught, and stressed, and is advised to call if she discovers any new mass in the breast. Not available 01/21/2022 10:30:00 03/01/2024 [id number] vaginal bleeding after menopause: care instructions Not available 03/01/2024 13:52:47 She is here for a one week history of red vaginal bleeding, it was like a flow at first, now is more like mucous every day . In 2017 she had a D and C to remove a hyperplastic endometrial polyp without atypia. She had no bleeding from then until now. She is not taking HRT, nor any menopause or soy supplement, has never had a steroid injection. In 2017 she had a D and C to remove a hyperplastic polyp, she may have one again. Will check pelvic sonogram and then decide it f we will do an emb, or a D and C again. All questions answered, the decision tree was reviewed in detail. Face to face discussion, chart review and coordination of care: 25 minutes Not available 03/01/2024 14:44:33 04/12/2024 [id number] postmenopausal bleeding information Not available 04/12/2024 14:42:42 endometrial biopsy: about this test Not available 04/12/2024 14:42:42 She is here for emb for PMB, the sono shows an endometrial thickness of 1.0 cm. She has a past history of hyperplastic endometrial polyp without atypia. ____ Note from 03/01/24: She is here for a one week history of red vaginal bleeding, it was like a flow at first, now is more like mucous every day . In 2017 she had a D and C to remove a hyperplastic endometrial polyp without atypia. She had no bleeding from then until now. She is not taking HRT, nor any menopause or soy supplement, has never had a steroid injection. In 2017 she had a D and C to remove a hyperplastic polyp, she may have one again. Will check pelvic sonogram and then decide it f we will do an emb, or a D and C again. She tolerated emb well, the tissue was lush, await results. We discussed the possible options for management depending on the findings and we discussed that if EIN or atypia or cancer is found we will refer to online community manager oncology, and discussed possible hysterectomy in that case. She understands. All questions answered. Not available 04/12/2024 14:56:03 04/19/2024 [id number] She is here to discuss the results of her recent endometrial biopsy, it shows FIGO grade 3, favor poorly differentiated endometrioid carcinoma. She is aware that this is cancer of the uterus. She is aware that the grade is grade 3, which is usually more aggressive than grade 1, ad so will need a specialized management plan. The emb was done for pmb, the sonogram shows a normal size uterus, and a 1 cm endometrium. We discussed the diagnosis, and the usual management. We discussed that after hysterectomy/ lymph node dissection she may need chemo and /or radiation because of the histology, and she understands. We discussed the typical surgery, and post op course. All questions answered. 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 Will refer to online community manager oncology for consultation and management. Face to face discussion, chart review and coordination of care: 25 minutes Not available 04/19/2024 15:50:51 08/15/2024 [id number] shingles: care instructions Not available 08/15/2024 13:30:15 [...] review and coordination of care: 25 minutes Not available 08/15/2024 14:01:15 Reason for Referral None Reported. Results Created Date Observation Date Name Description Value Unit Range Abnormal Flag Note LastModifiedBy Organization Detail LastModifiedTime 01/22/20 22 01/21/2022 [facility] CYTOL OGY results Christianne garcia Name: CARMELA LINTON radha : 1949 (Age: 71) Lab Acces monica #: [id number] Colle ction Date: 01/21 Acces monica Date: 01/22 Sign Out Date: 01/23 Tissu e Sourc e: 1: THINP REP DEPARTMENTAL SHIPPING CLERK PAP TEST, CERVI BEBETO: Final Diagn osis: NEGAT CT FOR INTRA EPITH ELIAL LESIO N OR MALIG ROGER . Satis facto ry for evalu ation . Endoc ervic al/tr ansfo rmati on zone prese nt. Clini bebeto Histo ry: Date of Last Menst rual Perio d: not avail able Menst rual Histo ry: Post- menop ausal Contr acept ct Histo ry: not avail able Ancil lisa Testi ng: HPV (ASCU S) Case image d by the ThinP rep Imagi ng Syste m with rosa mtzr jc marina or reji tineo. Perfo rmed at [facility] ate Refer ence [facility] Cytol ogy, [address] [place] Clini bebeto Histo ry (othe r): Z12.4 , LPS 12/[address], routi ne scree n Phone #: [phone], On-Ca ll Patho logis t: [id number] Not Available [facility] (Centralized Electronic Ordering - All Locations) Patient Can Go To The Location Of Their Choice, [id number] 01/23/2022 10:25:18 04/12/19 25 04/12/2024 [facility] SURGI BEBETO PATHO LOGY results Patie nt Name: CARMELA LINTON Lab Acces monica #: [id number] Patie nt : 1949 (Age: 74) Colle ction Date: 2024 Acces monica Date: 2024 Sign Out Date: 2024 Tissu e Sourc e: 1:EMB Final Diagn osis: Endom etria l biops y: - High- grade mulle hasmukh carci noma, favor poorl y diffe renti ated endom etrio id carci noma, FIGO grade 3. Note: A p53 stain is mildl y incre ased, but inter prete d as wild- type. HER2/ ivone stain ing is negat ct (scor e 0-1+) . There is nucle ar loss of MLH1 and PMS2; studi es for MLH1 hyper -meth ylati on will be submi tted and the resul t will be repor jacey separ ately . Micro scopi c Descr iptio n: Recog nizab le gland formi ng endom etrio id carci noma, FIGO grade 1-2 is seen withi n infla med mikey a formi ng singl e gland s and cribr iform struc tures . Most of the tumor consi sts of sheet s and papil lisa struc tures lined by thick ened, atypi bebeto epith elium compo sed of monom orphi c mediu m to large sized , round cells with promi nent nucle ton, abund ant mitot ic figur es and apopt otic debri s. The high- grade compo nent has trans ition al cell like featu res. - Immun ohist ochem ical studi es are perfo rmed; the resul ts are as follo ws: Kerat in cockt ail: Posit ct in both low-g rade and high- grade tumor . p53: Incre ased, heter ogene ous stain ing in both low and high- grade tumor , inter prete d as wild- type. PAX8: Posit ct in low-g rade tumor and negat ct in high- grade tumor . p16: Patch y, heter ogene ous stain ing. Ki-67 : 85% proli ferat ion in both low and high- grade tumor . p63: Mostl y negat ct. WT1: Mostl y negat ct, membr anous posit ivity in high- grade tumor . ER: Stron gly posit ct in low-g rade tumor , mostl y negat ct in high- grade tumor . LIBERTY: Stron g membr anous posit ivity in low-g rade tumor , patch y membr anous stain ing in high- grade tumor . PAX2: Focal nucle ar posit ivity in high- grade tumor and negat ct in low-g rade tumor . GATA3 : Rare focal nucle ar posit ivity in high- grade tumor ; negat ct in low-g rade tumor . Chrom ogran in: Negat ct. INSM1 : Heter ogene ous nucle ar posit ivity in high- grade tumor ; negat ct in low-g rade tumor . BAF 47 (INI1 ): Retai lorena. BRG1: Retai lorena. Her-2 /ivone: Negat ct membr anous stain ing in high grade tumor ; weak- membr anous stain ing in low grade tumor . Inter preta tion: Immun ohist ochem ical profi le is somew hat nonsp ecifi c, but suppo rts the diagn ostic impre ssion . Misma tch repai r immun ohist ochem istry (MMR IHC): Retai lorena nucle ar stain ing for MSH6 and MSH2 in entir e tumor ; loss of nucle ar MLH1 and PMS2 expre ssion in entir e tumor . Studi es for MLH1 hyper -meth ylati on will be perfo rmed and the resul t will be repor jacey separ ately . As of June 06, 2023, the techn ical compo nent is perfo rmed by [facility], [address], [place] [address] . This test was devel oped, and its perfo rmanc e eve cteri stics deter mined by [facility]. It has not been clear ed or appro radha by the U.S. Food and Drug Admin istra tion. The FDA has deter mined that such clear ance or appro alfa is not neces lionel. This test is used for clini bebeto purpo ses. It shoul d not be regar ded as inves tigat ional or for resea rch. The posit ct and negat ct contr ols have been revie wed and are satis facto ry. Prima ry Patho logis t:David greco M.D. elect stephanie garcia sujata d out by: Tunde greco M.D. / Clini bebeto Histo ry: Postm enopa usal bleed ing Thick ened endom etriu m Histo ry hyper plasi a polyp Gross Descr iptio n: Label ed endo metri al biops y . Recei radha in forma omaira is a 4.8 x 4.0 x 0.[address] of demarco, red tissu e with trans lucen t mucus . The speci men is entir ankita submi tted. 1 and 2-mul tiple piece s, x 2. (EG)* As of June 06, 2023, the speci men proce ssing and stain ing is perfo rmed at [facility] [place] [facility] , [address], [place] (CLIA #[id number]). Its perfo rmanc e eve cteri stics deter mined by [facility]. Shanika Doss M.D. [facility] Surgi bebeto Patho logy, Antonia good M.D. Medic al Direc tor Cytop athol ogy Phone #: [phone], On-Ca ll Patho logis t: [id number] Not Available [facility] (Centralized Electronic Ordering - All Locations) Patient Can Go To The Location Of Their Choice, [id number] 04/19/2024 12:38:33 04/12/19 25 04/12/2024 [facility]O LOG[facility] results Patie nt Name: CARMELA LINTON Lab Acces monica #: [id number] Patie nt : 1949 (Age: 74) Colle ction Date: 2024 Acces monica Date: 2024 Sign Out Date: 2024 ADD ENDUM (See Entri es Benea th Diagn osis) Tissu e Sourc e: 1:EMB Final Diagn osis: Endom etria l biops y: - High- grade mulle hasmukh carci noma, favor poorl y diffe renti ated endom etrio id carci noma, FIGO grade 3. Note: A p53 stain is mildl y incre ased, but inter prete d as wild- type. HER2/ ivone stain ing is negat ct (scor e 0-1+) . There is nucle ar loss of MLH1 and PMS2; studi es for MLH1 hyper -meth ylati on will be submi tted and the resul t will be repor jacey separ ately . Micro scopi c Descr iptio n: Recog nizab le gland formi ng endom etrio id carci noma, FIGO grade 1-2 is seen withi n infla med mikey a formi ng singl e gland s and cribr iform struc tures . Most of the tumor consi sts of sheet s and papil lisa struc tures lined by thick ened, atypi bebeto epith elium compo sed of monom orphi c mediu m to large sized , round cells with promi nent nucle ton, abund ant mitot ic figur es and apopt otic debri s. The high- grade compo nent has trans ition al cell like featu res. - Immun ohist ochem ical studi es are perfo rmed; the resul ts are as follo ws: Kerat in cockt ail: Posit ct in both low-g rade and high- grade tumor . p53: Incre ased, heter ogene ous stain ing in both low and high- grade tumor , inter prete d as wild- type. PAX8: Posit ct in low-g rade tumor and negat ct in high- grade tumor . p16: Patch y, heter ogene ous stain ing. Ki-67 : 85% proli ferat ion in both low and high- grade tumor . p63: Mostl y negat ct. WT1: Mostl y negat ct, membr anous posit ivity in high- grade tumor . ER: Stron gly posit ct in low-g rade tumor , mostl y negat ct in high- grade tumor . LIBERTY: Stron g membr anous posit ivity in low-g rade tumor , patch y membr anous stain ing in high- grade tumor . PAX2: Focal nucle ar posit ivity in high- grade tumor and negat ct in low-g rade tumor . GATA3 : Rare focal nucle ar posit ivity in high- grade tumor ; negat ct in low-g rade tumor . Chrom ogran in: Negat ct. INSM1 : Heter ogene ous nucle ar posit ivity in high- grade tumor ; negat ct in low-g rade tumor . BAF 47 (INI1 ): Retai lorena. BRG1: Retai lorena. Her-2 /ivone: Negat ct membr anous stain ing in high grade tumor ; weak- membr anous stain ing in low grade tumor . Inter preta tion: Immun ohist ochem ical profi le is somew hat nonsp ecifi c, but suppo rts the diagn ostic impre ssion . Misma tch repai r immun ohist ochem istry (MMR IHC): Retai lorena nucle ar stain ing for MSH6 and MSH2 in entir e tumor ; loss of nucle ar MLH1 and PMS2 expre ssion in entir e tumor . Studi es for MLH1 hyper -meth ylati on will be perfo rmed and the resul t will be repor jacey separ ately . As of June 06, 2023, the techn ical compo nent is perfo rmed by [facility] [place], [address], [place] [address] . This test was devel oped, and its perfo rmanc e eve cteri stics deter mined by [employer] [facility]. It has not been clear ed or appro radha by the U.S. Food and Drug Admin istra tion. The FDA has deter mined that such clear ance or appro alfa is not neces lionel. This test is used for clini bebeto purpo ses. It shoul d not be regar ded as inves tigat ional or for resea rch. The posit ct and negat ct contr ols have been revie wed and are satis facto ry. Prima ry Patho logis t:David greco M.D. elect stephanie garcia sujata d out by: Tunde greco M.D. / Proce dures /Adde nda Adden dum Statu s: Sujata d Out Date Order ed: 025 Date Compl ete: 025 By: Tunde greco M.D. Date Repor jacey: 025 Adden dum Diagn osis: Posit ct for MLH1 hyper methy latio n (outs qasim repor t, [facility]). Tunde greco M.D. Clini bebeto Histo ry: Postm enopa usal bleed ing Thick ened endom etriu m Histo ry hyper plasi a polyp Gross Descr iptio n: Label ed endo metri al biops y . Recei radha in forma omaira is a 4.8 x 4.0 x 0.[address] gate of demarco, red tissu e with trans lucen t mucus . The speci men is entir ankita submi tted. 1 and 2-mul tiple piece s, x 2. (EG)* As of June 06, 2023, the speci men proce ssing and stain ing is perfo rmed at [facility] [place] [facility] , [address], [place] (CLIA #[id number]). Its perfo rmanc e eve cteri stics deter mined by [facility]. Shanika Doss M.D. Medic al [facility] Surgi bebeto Antonia Mohr M.D. Medic al Direc tor Cytop athol ogy Phone #: [phone], On-Ca ll Patho logis t: [id number] Not Available [facility] (Centralized Electronic Ordering - All Locations) Patient Can Go To The Location Of Their Choice, [id number] 05/03/2024 11:20:30 05/15/19 23 05/15/2022 MAMMO , scree christiano, digit al, bilat eral No observ ation record ed. [facility]osit Imaging Dept [address] [place], [address], 05/16/2022 08:54:30 03/17/20 24 03/15/2024 US, pelvi s, trans abdom inal + trans vagin al No observ ation record ed. [email or web address] [facility] [address] [facility], [place], [address], 03/17/2024 10:41:52 Result Notes None recorded. Problems Name Problem SNOMED Code Status Onset Date Resolution Date Notes Provider Name and Address Organization Details Recorded Time Candidiasis of skin 65161343 Active Dayana Bey MD [address], [place], [address] , [place] - [facility], 5 15:53:04 Menopausal syndrome 519122853 Active Dayana Bey MD [address], [place], [address] , [place] - [facility], 5 09:05:05 Complex endometrial hyperplasia 665687523 Active 2016 Dayana Bey MD [address], [place], [address] , [place] - [facility], 7 11:19:20 Polyp of corpus uteri 38275862 Active 2016 Dayana Bey MD [address], [place], [address] , [place] - [facility], 7 12:19:18 Postmenopausa l bleeding 10760062 Active 2016 Dayana Bey MD [address], [place], [address] , [place] - [facility], 7 12:19:29 Essential hypertension 96521996 Active 2016 Valerie quevedo [place] - 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, 8 14:06:34 Endometrioid carcinoma of endometrium Active 2024 FIGO grade 3 Dayana Bey MD [address], [place], [address] , [place] - [facility], 5 15:34:34 Problem Notes None recorded. Procedures Surgical History Date Name Laterality Status Provider Name and Address Organization Details Recorded Time 04/12/19 25 Endometrial Biopsy completed Dayana Bey MD [address], [place], , [place] - [facility], 04/12/2024 14:54:20 12/30/19 24 Most Recent Mammogram completed aSsha Roas in [facility], 03/01/2024 13:46:16 12/30/19 24 Most Recent Bone Density completed Sasha Rosa in [facility], 03/01/2024 13:46:25 03/25/20 16 Endometrial Biopsy completed Dayana Bey MD [address], [place], [address], [place] - [facility], 03/25/2016 13:50:12 03/30/19 09 Other completed Dayana Bey MD [address], [place], [address], [place] - [facility], 07/09/2012 14:33:12 03/30/18 76 Tonsillectomy completed Sasha Rosa in [facility], 07/09/2012 14:25:04 Imaging Results Imaging Date Name Status LastModified by Organization Details LastModified Time 05/15/2022 MAMMO, screening, digital, bilateral completed [email or web address] [facility] Dept [address] [place] [address], [address], 05/16/2022 08:54:30 03/15/2024 US, pelvis, transabdominal + transvaginal completed [email or web address], [address], 03/17/2024 10:41:52 Procedure Notes None recorded. Medical Equipment None Reported. Allergies Allergen ID Allergen Name Allergen Category Reaction Reaction Severity Criticality Documentation Date Start Date Code Code System Note Provider Name and Address Organization Details Recorded Time 7661 Ultram medicatio n other severe Not available 07/09/2012 94734 6 RxNorm weak and sleep y Sasha quevedo, [place] - [facility], 3 14:25:04 Medications Name Sig Start Date [...] Available Not Available Not Available Fluzone High-Dose (PF) 180 mcg/0.5 mL intramuscul ar syringe [...] No t Available Vitals Date Recorded Body weight Body mass index (BMI) Body height Body temperature Heart rate Systolic blood pressure Diastolic blood pressure Provider Name and Address Organization Details Last Updated DateTime 2 89655.3 8 g 34.2 kg/m2 152.4 cm 97.2 [degF] 69 /min 135 mm[Hg] 52 mm[Hg] Sasha Rosa in [facility], 2 10:02:26 Date Recorded Body weight Body mass index (BMI) Body height Heart rate Systolic blood pressure Diastolic blood pressure Provider Name and Address Organization Details Last Updated DateTime 4 41914.9 4 g 35.4 kg/m2 152.4 cm 69 /min 125 mm[Hg] 55 mm[Hg] Sasha Rosa in [facility], 4 13:42:28 Date Recorded Body height Body mass index (BMI) Body weight Body temperature Heart rate Systolic blood pressure Diastolic blood pressure Provider Name and Address Organization Details Last Updated DateTime 5 152.4 cm 35.4 kg/m2 11408.6 6 g 97.4 [degF] 55 /min 129 mm[Hg] 49 mm[Hg] Sasha Rosa in [facility], 5 14:36:51 Date Recorded Body height Body mass index (BMI) Body weight Heart rate Systolic blood pressure Diastolic blood pressure Provider Name and Address Organization Details Last Updated DateTime 5 152.4 cm 35.3 kg/m2 71984.2 2 g 58 /min 155 mm[Hg] 51 mm[Hg] Sasha Lowery [place] - Moe in [facility], 5 14:54:30 Date Recorded Body height Body mass index (BMI) Body weight Heart rate Systolic blood pressure Diastolic blood pressure Provider Name and Address Organization Details Last Updated DateTime 5 152.4 cm 36.2 kg/m2 62169.0 3 g 74 /min 131 mm[Hg] 51 mm[Hg] Sasha Rosa in [facility], 5 13:04:42 Social History Question Answer Notes LastModified by Organizat ion Details LastModified Time Tobacco Smoking Status Former Smoker over 15 yrs ago Not Available [facility] 01/31/2020 03:19:42 How Many Years Have You Consumed Alcohol? 50 Information not available 01/21/2022 What Is Your Level Of Caffeine Consumption? Occasional [id number] Information not available 01/31/2020 In The 14 [...] Type Of Diet Are You Following? REGULAR [id number] Information not available 01/31/2020 Which Illicit Or Recreational Drugs Have You Used? Yes Marijuana On Weekends [id number] Information not available 01/31/2020 Do You Reside In Or Have You Traveled To An Area Where Ebola Virus Transmission Is Active? No [id number] Information not available 01/31/2020 Education 2 Year College Information not available 07/09/2012 What Is The Highest Grade Or Level Of School You Have Completed Or The Highest Degree You Have Received? [id number] Information not available 01/21/2022 How Many Days [...] available 01/21/2022 Are You Sexually Active? No [id number] Information not available 01/31/2020 At What Age Did You Start Smoking Tobacco? 18 Information not available 01/21/2022 How Much Tobacco Do You Smoke? No [id number] Information not available 01/31/2020 General Stress Level Low Information not available 07/09/2012 How Many Years Have You Smoked Tobacco? 33 [id number] Information not available 01/31/2020 Have You Recently (within The Last 12 Weeks, Or During A Current ) Traveled To Or Lived In A Zika-affected Area? No Information not available 02/18/2016 How Many Days [...] is your level of alcohol consumption? Occasional [id number] Information not available 01/31/2020 Do you or have you ever used smokeless tobacco? Never used smokeless tobacco [id number] Information not available 01/31/2020 Are you currently employed? 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 Never used electronic cigarettes [id number] Information not available 01/31/2020 What is your exercise level? Moderate [id number] Information not available 01/31/2020 Mental Status Question Answer Note LastModified by Organization D etails LastModified Time Do you feel stressed (tense, restless, nervous, or anxious, or unable to sleep at night)? [id number] Information not available 01/21/2022 Family History Relationship Description Onset Age of this Age Resolved Age Notes LastModified by Organization Details LastModified Time Father Myocardial infarction previo usly record ed as Heart Attack ([place]) Not available 08/11/2014 14:42:51 Mother Problem lung/ copd (previ ously record ed as Other) Not available 08/11/2014 14:42:51 Medical History Condition Response Anesthesia complications N High Blood Pressure Y Candidate for MyRisk panel N Autoimmune Condition N Thyroid Problems N Kidney or Bladder Problems N GI Problems N Lung Disease N Depression N Defects or Inherited Disease N Anemia [...] Recorded Time influenza, unspecified formulation 6 completed Valerie Potorski null, [place] [facility], 02/18/2016 13:37:31 pneumococcal, unspecified formulation 6 completed Sasha Meczywor null, [place] - [facility], 03/25/2016 13:29:20 Influenza, split virus, quadrivalent, preservative 7 completed Sasha Meczywor null, [place] - [facility], 09/08/2017 13:14:34 Pneumococcal Conjugate, unspecified formulation 7 completed Sasha Meczywor null, [place] - [facility], 09/08/2017 13:15:30 influenza, unspecified formulation 8 completed Valerie Potorski null, [place] - [facility], 12/29/2017 13:32:45 Influenza, split virus, quadrivalent, preservative 9 completed Sasha Meczywor null, [place] - [facility], 04/28/2019 14:33:16 Influenza, split virus, trivalent, preservative 0 completed Sasha Meczywor null, [place] - [facility], 01/21/2022 10:03:32 COVID-19, mRNA, LNP-S, PF, 30 mcg/0.3 mL dose 1 completed [facility], [place] [facility] 01/21/2022 10:03:32 Influenza, split virus, trivalent, preservative 3 completed Sasha Meczywor null, [place] - [facility], 01/21/2022 10:03:32 Influenza, split virus, trivalent, PF 4 completed Sasha Meczywor null, [place] - [facility], 01/21/2022 10:03:32 Influenza, high-dose, trivalent, PF [...] Sasha Meczywor null, [place] [facility], 01/21/2022 10:03:33 COVID-19, mRNA, LNP-S, PF, 30 mcg/0.3 mL dose, hanna-sucrose 2 completed Sasha Meczywor null, [place] - [facility], 01/21/2022 10:03:33 Influenza, adjuvanted, trivalent, PF 4 completed Sasha Meczywor null, [place] - [facility], 03/01/2024 13:42:05 zoster recombinant 3 completed Sasha Meczywor null, [place] - [facility], 03/01/2024 13:42:05 Influenza, adjuvanted, quadrivalent, PF 3 completed Sasha Meczywor null, [place] - [facility], 03/01/2024 13:42:05 COVID-19, mRNA, LNP-S, PF, 50 mcg/0.5 mL 4 completed Sasha Meczywor null, [place] - [facility], 03/01/2024 13:42:05 COVID-19, mRNA, LNP-S, PF, 50 mcg/0.5 mL 3 completed Sasha Meczywor null, [place] - [facility], 03/01/2024 13:42:05 Past Encounters Encounter ID Performer Location Encounter Start Date Encounter Closed Date Diagnosis/Indication Diagnosis SNOMED-CT Code Diagnosis ICD10 Code Diagnosis Note [id number] MD DAYANA Herman MD [address] [facility] [address] [place] [address] 07/09/2012 14:07:52 07/09/2012 16:06:14 [id number] MD DAYANA Herman MD [address] [place] [address],[place] [address] 03/24/2014 10:38:35 03/24/2014 11:39:24 Candidiasis of skin [id number] MD DAYANA Herman MD [address] [place] [address], [place] [address] 08/11/2014 13:59:37 08/11/2014 16:11:48 Specialized medical examination [id number] Screening for malignant neoplasm of rectum 984966363 Screening mammography [id number] MD DAYANA Herman MD [address] [place] [address],[facility] [address] 02/18/2016 13:23:38 02/18/2016 16:13:04 Acute lower urinary tract infection 014443534 R30.0 Postmenopa usal bleeding 12895895 N95.0 [id number] MD DAYANA Herman MD [address] [place] [address],[facility] [place] [address] 03/25/2016 13:22:00 03/25/2016 15:17:36 Endometrium thickened 719313472 R93.8 Postmenopa usal bleeding 12555428 N95.0 [id number] MD DAYANA Herman MD [address] [place] [address],[address] [address] 04/02/2016 10:44:29 04/03/2016 10:35:26 Complex endometrial hyperplasia 202741443 N85.02 Polyp of corpus uteri 11 363140 N84.0 Postmenopa usal bleeding 63413852 N95.0 Cares for self 423961227 Z76.89 [id number] MD DAYANA Herman MD [address] [place] [address],[facility] [address] 06/02/2016 13:02:10 06/02/2016 16:24:23 Polyp of corpus uteri 82019210 N84.0 Endometria l hyperplasia 721840708 N85.00 [id number] MD DAYANA Herman MD [address] [place] [address],[address] [place] [address] 06/24/2016 13:00:56 06/24/2016 14:34:38 Polyp of corpus uteri 30245730 N84.0 Complex en dometrial hyperplasia 501293910 N85.02 [id number] MD DAYANA Herman MD [address] [place] [address] [place] [address] 09/08/2017 12:59:41 09/08/2017 15:26:23 Screening for malignant neoplasm of cervix 742997835 Z12.4 Screening mammography 24 571014 Z12.31 Menopausal syndrome 1237 16126 N95.9 Cares for self 868554172 Z76.89 [id number] MD DAYANA Herman MD [address] [place], [place] [address] [place] [address] 12/29/2017 13:20:54 12/29/2017 14:55:38 Anogenital hidradenitis suppurativa 302097529 L73.2 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 [id number] MD DAYANA Herman MD [address] [place] [address] [place] [address] 04/28/2019 14:21:07 04/28/2019 15:35:51 Dysuria 91236838 R30.0 [id number] MD DAYANA Herman MD [address] [place] [address] [place] [address] 12/26/2019 10:32:43 12/26/2019 11:17:29 Screening for malignant neoplasm of cervix 949324294 Z12.4 Screening mammography 24 834651 Z12.31 Screening for osteoporosis 625661479 Z13.820 [id number] MD DAYANA Herman MD [address] [place], [place] [address] [address] 01/21/2022 09:57:40 01/21/2022 12:08:16 Screening for malignant neoplasm of cervix 127262335 Z12.4 Screening mammography 24 897851 Z12.31 Screening for osteoporosis 974586935 N95.8 [id number] MD DAYANA Herman MD [address] [place] [address] 03/01/2024 13:34:46 03/02/2024 10:00:03 Postmenopausal bleeding 79703415 N95.0 [id number] MD DAYANA Herman MD [address] [facility],[place] [address] 04/12/2024 14:27:00 04/12/2024 15:39:09 Postmenopausal bleeding 05302761 N95.0 [id number] MD DAYANA Herman MD [address] [facility],[place] [address] 04/19/2024 14:40:51 04/19/2024 15:53:28 Endometrioid carcinoma of endometrium 2497887494 C54.1 [id number] MD DAYANA Herman MD [address] [facility], [place] [address] 08/15/2024 12:56:29 08/15/2024 15:31:53 Herpes zoster 4788200 B02.9 Ulceration of vulva 6864 0004 N76.6 Herpetic u lceration of vulva 35991353 A60.04 A60.09 Health Concerns Section Related Observation LastModified by Organization Detai ls LastModified Time None Recorded Concern Status LastModified by Organization Details LastModified Time None Recorded Advance Directives Directive None Recorded Payers Encounter Date Sequence Insurance Name Policy Number Policy Payan Covered Member ID Payan Member ID Guarantor Name 01/21/2022 1 [employer] (MEDICARE REPLACEMENT/ ADVANTAGE - PPO) [id number] Carmela Royer [id number] Carmela Royer 03/01/2024 1 [employer] (MEDICARE REPLACEMENT/ ADVANTAGE - PPO) [id number] Carmela Royer [id number] Carmela Royer 04/12/2024 1 [employer] (MEDICARE REPLACEMENT/ ADVANTAGE - PPO) [id number] Carmela Royer [id number] Carmela Royer 04/19/2024 1 [employer] (MEDICARE REPLACEMENT/ ADVANTAGE - PPO) [id number] Caremla Royer [id number] Carmela Royer 08/15/2024 1 [employer] (MEDICARE REPLACEMENT/ ADVANTAGE - PPO) [id number] Carmela Linton [id number] Carmela Linton Notes Date Note Type Note Provider Name and Address Organization Details Recorded Time 01/21/2022 text/html She is here for annual exam, is doing well, recently returned from [facility]. Dayana Bey MD [address] [facility],[address], [place], [address], [employer] [facility], 01/21/2022 10:30:19 03/01/2024 text/html She is here for a one week history of red vaginal bleeding, it was like a flow at first, now is more like mucous every day . In 2017 she had a D and C to remove a hyperplastic endometrial polyp without atypia. She had no bleeding from then until now. She is not taking HRT, nor any menopause or soy supplement, has never had a steroid injection. Dayana Bey MD [address] [facility],[address], [place], [address], [employer] [facility], 03/01/2024 14:46:10 04/12/2024 text/html She is here for emb for PMB, the sono shows an endometrial thickness of 1.0 cm. She has a past history of hyperplastic endometrial polyp without atypia. __ Note from 03/01/24: She is here for a one week history of red vaginal bleeding, it was like a flow at first, now is more like mucous every day .In 2017 she had a D and C to remove a hyperplastic endometrial polyp without atypia. She had no bleeding from then until now.She is not taking HRT, nor any menopause or soy supplement, has never had a steroid injection.In 2017 she had a D and C to remove a hyperplastic polyp, she may have one again. Will check pelvic sonogram and then decide it f we will do an emb, or a D and C again. Dayana Bey MD [address], [place], [address], [employer] [facility], 04/12/2024 14:56:19 04/19/2024 text/html She is here to discuss the results of her recent endometrial biopsy, it shows FIGO grade 3, favor poorly differentiated endometrioid carcinoma. The emb was done for pmb, the sonogram shows a normal size uterus, and a 1 cm endometrium. Dayana Bey MD [address] [facility],[address], [place], [address], [place] - [facility], 04/19/2024 15:51:06 08/15/2024 text/html She is here for a small cluster of tender blisters on her right labia that she first noted on Thursday, it is Thursday now she has a past history of herpes and has been taking acyclovir without improvement, she feels that this is not typical of a herpes infection. Dayana Bey MD [address] [facility],[address], [place], [address], [place] - [facility], 08/15/2024 14:05:34 OBGyn Episode No OBEpisode recorded.
--- OUTSIDE RECORDS SUMMARY | 2024-08-17 14:24 | XMS_ITS | Clinical Summary ---
Author Organization 175 [facility] Address [address] [place] [address] Phone Care Team Providers Care Maintenance Mechanic 2Nd Shift Name Role Phone Judith Gill MD Primary Care Provider [phone] Allergies Active Allergy Reactions Criticality Noted Date Comments Tramadol Disorientated Medium 06/08/2017 Medications solifenacin (VESICARE) 5 mg tablet 09/10/19 22 Active multivitamin (MULTIPLE VITAMINS ORAL) Multi Vitamin Active lisinopril-hyd roCHLOROthiazi de (PRINZIDE,ZEST ORETIC) 20-25 mg per tablet TAKE 1 TABLET BY MOUTH EVERY DAY. 90 tablet 3 03/04/20 24 Active vibegron (GEMTESA) 75 mg tablet tablet Take 1 tablet (75 mg total) by mouth 1 (one) time each day. Active celecoxib (CeleBREX) 200 mg capsule Take 1 capsule (200 mg total) by mouth 1 (one) time each day. 90 capsule 07/26/19 25 Active omeprazole OTC (PriLOSEC OTC) 20 mg EC tablet Take 1 tablet (20 mg total) by mouth 1 (one) time each day. Do not crush, chew, or split. 90 tablet 3 07/26/19 25 Active atorvastatin (LIPITOR) 40 mg tablet TAKE 1 TABLET BY MOUTH EVERY DAY 90 tablet 1 07/28/19 25 Active omeprazole (PriLOSEC) [address] capsule Take 1 capsule (40 mg total) by mouth 1 (one) time each day. 04/27/19 24 025 Discontinued(Do se adjustment) celecoxib (CeleBREX) 200 mg capsule Take 1 Capsule by mouth daily as needed for Pain. Take with food. 08/03/19 24 025 Discontinued(Re order) aspirin 81 mg chewable tablet Asprin Ec Low Dose 81 mg tablet,filipe yed release Take 1 tablet every day by oral route. 025 Discontinued atorvastatin (LIPITOR) 40 mg tablet TAKE 1 TABLET BY MOUTH EVERY DAY 90 tablet 1 03/29/20 24 025 Discontinued aspirin/calciu m carb/magnesium (BUFFERIN ORAL) Take 81 mg by mouth. 025 Discontinued ibuprofen (ADVIL,MOTRIN) 600 mg tablet Take 1 tablet (600 mg total) by mouth every 6 (six) hours if needed. for pain 10/12/19 24 025 Discontinued oxyCODONE (ROXICODONE) 5 mg immediate release tabletIndicati ons:Endometria l cancer ([facility] V24, [facility] V28) Take 1 tablet (5 mg total) by mouth every 4 (four) hours if needed for severe pain. Max Daily Amount: 30 mg 12 tablet 05/09/19 25 025 Discontinued omeprazole OTC (PriLOSEC OTC) 20 mg EC tablet Take 1 tablet (20 mg total) by mouth 1 (one) time each day. Do not crush, chew, or split. 025 Discontinued(Re order) Active Problems Problem Noted Date Diagnosed Date Endometrial cancer ([facility] V24, [facility] V28) Assessment & Plan (07/25/2024 9:45 AM EDT): Prediabetes 08/22/2022 Assessment & Plan (07/25/2024 9:45 AM EDT): Orders: Hemoglobin A1c; Future Lipid panel with reflex to direct LDL; Future Magnesium; Future Candidiasis of skin 01/01/2021 Chronic pain of left knee 01/01/2021 Overview (12/28/2023): Manageable with NSAIDS. DDD (degenerative disc disease), cervical 2020 Overview (12/28/2023): 06/08/2019 imaging Essential hypertension 01/01/2021 Female stress incontinence 01/01/2021 Overview (12/28/2023): Dr. Richardson Herpes simplex 01/01/2021 Hidradenitis suppurativa of anus 01/01/2021 Hyperlipidemia 01/01/2021 Assessment & Plan (07/25/2024 9:45 AM EDT): Orders: Hemoglobin A1c; Future Lipid panel with reflex to direct LDL; Future Magnesium; Future Polyp of corpus uteri 01/01/2021 Overview (12/28/2023): 04/02/2016 Pulmonary nodule 01/01/2021 Overview (12/28/2023): Right apical, stable since at least 06/24/2017. Urge incontinence 01/01/2021 Overview (12/28/2023): Followed by urology. Resolved Problems Problem Noted Date Diagnosed Date Resolved Date Complex endometrial hyperplasia 01/01/2021 04/28/2024 Overview (12/28/2023): 04/02/2016 Encounters Date Type Department Care Team Description 07/25/2024 8:45 AM EDT Office Visit Internal Medicine [facility] 175 [facility] [address] [place] [phone] Judith Gill MD Mixed hyperlipidemia (Primary Dx); Prediabetes; Hyperglycemia; Encounter for subsequent annual wellness visit (AWV) in Medicare patient; Endometrial cancer (CMS/HCC V24, CMS/HCC V28) 07/25/2024 Telephone [facility] 271 [facility] [address] [place] [phone] Gustavo Azar MD 07/04/2024 11:00 AM EDT Office Visit [facility] [address] [phone] Gustavo Azar MD Endometrial cancer (CMS/[facility] V24, CMS/HCC V28) (Primary Dx) 06/13/[address] [place] [address] Gustavo Azar MD 05/24/2024 11:40 AM EST Office Visit [address] [phone] Gustavo Azar MD S/P total hysterectomy and bilateral salpingo-oophorectomy (Primary Dx) from Last 3 Months Immunizations Name Administration Dates Next Due Influenza trivalent, 0.5mL ( Fluzone High-dose) 65yo and older 12/23/2019,12/12/2018,12/01/2017,11/24,12/28/2015 Influenza trivalent, 0.5mL, preservative free (Fluarix; FluLaval; Fluzone) ages 6mo and older (Afluria) 3 years and older 01/19/2014 Influenza trivalent, with pr eservative (Fluzone; Afluria) 6mo and older 01/19/2019,12/25/2017,12/30/2016,11/05,01/22/2015,12/28/2013,02/11/2013 ,02/28/2012,11/14/2011,03/08/2010,01/28,02/04/2007,03/04/2006 Pneumococcal conjugate 13 va lent (Prevnar 13, PCV13) 2mo and older 09/28/2015 Pneumococcal polysaccharide 23 valent (Pneumovax 23) 2yo and older 03/09/2017,11/24/2016,01/29/2016 Tdap Tetanus diptheria acell ular pertussis (Boostrix; Adacel) 7yo and older 12/07/2017,02/15/2008 Zoster Live 05/21/2022,11/29/2013 Surgical History Surgery Date Site/Laterality Comments TONSILLECTOMY PROCEDURE: HISTORICAL TONSILLECTOMY COLONOSCOPY 01/18/2018 PROCEDURE: HISTORICAL COLONOSCOPY OTHER SURGICAL HISTORY 06/16/2016 PROCEDURE: IN DILATION & CURETTAGE DX&/THER NONOBSTETRIC; COMMENT: and hysteroscopy OTHER SURGICAL HISTORY 06/07/2010 PROCEDURE: IN RMVL/REVJ SLING STRESS INCONTINENCE; COMMENT: Repair suprapubic sling ROBOTIC ASSISTED HYSTERECTOMY 05/09/2024 Robot assisted total laparoscopic hysterectomy, bilateral salpingo-oophorectomy, sentinel lymph node biopsy. Medical History Medical History Date Comments Essential hypertension 01/01/2021 DX:Essent ial hypertension Polyp of corpus uteri 01/01/2021 DX:Polyp o f corpus uteri; COMMENT: 04/02/2016 Hidradenitis suppurativa of anus 01/01/2021 DX:Hidradenitis suppurativa of anus Urge incontinence 01/01/2021 DX:Urge incont inence; COMMENT: Followed by urology. Female stress incontinence 01/01/2021 DX:Fe male stress incontinence; COMMENT: Dr. Richardson Herpes simplex 01/01/2021 DX:Herpes simple x Hyperlipidemia 01/01/2021 DX:Hyperlipidemi a Candidiasis of skin 01/01/2021 DX:Candidias is of skin Chronic pain of left knee 01/01/2021 DX:Chr onic pain of left knee; COMMENT: Manageable with NSAIDS. DDD (degenerative disc disea se), cervical 01/01/2021 DX:DDD (degenerative disc di sease), cervical; COMMENT: 06/08/2019 imaging Pulmonary nodule 01/01/2021 DX:Pulmonary no dule; COMMENT: Right apical, stable since at least 06/24/2017. Prediabetes DX:Prediabetes Family History Medical History Relation Name Comments Coronary artery disease Father at 60 COPD Mother at 80 Relation Name Status Comments Father Mother Social History Tobacco Use Types Packs/Day Years Used Date Smoking Tobacco: Former Cigarettes Smokeless Tobacco: Never Tobacco Cessation:Counseling Given: Not Answered Alcohol Use Standard Drinks/Week Comments Not Currently 0 (1 standard drink = 0.6 oz pur e alcohol) Interpersonal Safety Answer Date Record ed Physical Abuse 05/09/2024 Verbal Abuse 05/09/2024 Comments Unknown Sex and Gender Information Value Date Recorded Sex Assigned at Female 05/04/2024 10:08 AM EST Legal Sex Female 4:08 PM EST Gender Identity Female 05/04/2024 10:08 AM EST Sexual Orientation Straight 05/04/2024 10 :08 AM EST Obstetrics History Last Filed Vital Signs Vital Sign Reading Time Taken Comments Blood Pressure 130/80 07/25/2024 8:51 AM EDT Pulse 73 07/25/2024 8:51 AM EDT Temperature 36.4 ??C (97.5 ??F) 07/25/2024 8:51 AM ED T Respiratory Rate 20 05/09/2024 5:58 PM EST Oxygen Saturation 98% 07/25/2024 8:51 AM EDT Inhaled Oxygen Concentration - - Weight 85.3 kg (188 lb) 07/25/2024 8:51 AM EDT Height 152.4 cm (5') 05/09/2024 12:46 PM EST Body Mass Index 36.72 05/09/2024 12:46 PM EST Plan of Treatment Upcoming Encounters Date Type Department Care Team (Late st Contact Info) Description 09/29/2024 9:40 AM EDT Office Visit [facility] [address] [phone] Gustavo Azar MD [address] [phone] 01/05/2025 11:00 AM EDT Office Visit [facility] [address] [phone] Gustavo Azar MD [address] [phone] 01/24/2025 1:00 PM EDT Office Visit Internal Medicine [facility] [address] [phone] Judith Gill MD [address] [phone] Health Maintenance Due Date Last Done Comments Cervical Cancer Screening: Pap Smear 08/15/2015 08/14/2014 Hepatitis C Screening 03/09/2022 Social Influencers of Health Screening 03/09/2022 Zoster Vaccines (2 of 2) 07/16/2022 023, 11/14/2021, 11/29/2013 COVID-19 Vaccine ( season) 2024 11/13/2023, 01/16/2023, 01/20/2022, Additional history exists RSV Immunization Adult Patients (1 - 1-dose 75+ series) 2025 Hypertension/CHF/CAD Annual BMP Blood Test 05/03/2025 05/03/2024, 03/18/2024, 08/03/2023, Additional history exists Breast Cancer Screening 06/25/2025 06/26/19 24, 05/15/2022, 04/17/2021, Additional history exists Depression Screening 07/25/2025 07/25/2024 Falls Risk Assessment 07/25/2025 07/25/2024, 025 Medicare Annual Wellness Visit 07/25/2025 07/25/2024 DTaP,Tdap,and Td Vaccines (3 - Td or Tdap) 12/08/2027 12/07/2017, 02/15/2008 Colorectal Cancer Screening: Colonoscopy 10/20/2028 10/21/2023 Cholesterol Screening (Lipid Panel) 08/03/2029 08/03/2024, 03/18/2024, 08/03/2023, Additional history exists Osteoporosis Screening (Bone Density Screening) 02/14/2034 02/15/2024, 01/15/2022, 12/30/2019, Additional history exists Pneumococcal Vaccine: 50+ Years Completed 03/09/2017, 11/24/2016, 01/29/2016, Additional history exists Influenza Vaccine Completed 01/26/2024, , 01/20/2022, Additional history exists HIB Vaccines Aged Out No longer eligi ble based on patient's age to complete this topic HPV Vaccines Aged Out No longer eligi ble based on patient's age to complete this topic Hepatitis A Vaccines Aged Out No long er eligible based on patient's age to complete this topic Hepatitis B Vaccines Aged Out No long er eligible based on patient's age to complete this topic IPV Vaccines Aged Out No longer eligi ble based on patient's age to complete this topic MMR Vaccines Aged Out No longer eligi ble based on patient's age to complete this topic Meningococcal ACWY Vaccine Aged Out N o longer eligible based on patient's age to complete this topic Meningococcal B Vaccine Aged Out No l onger eligible based on patient's age to complete this topic RSV Immunization Patients Under 20 months Aged Out No longer eligible based on patient's age to complete this topic Varicella Vaccines Aged Out No longer eligible based on patient's age to complete this topic Medical Devices Implanted Type Area Duco Polisher Device Identifier Shelf Expiration Date Model / Serial / Lot Hemostat Absorb Surgicel 2x4in [facility] - [id number] Implanted:Qty: 1 on 05/09/2024 by Gustavo Azar MD at [facility] Hemostasis N/A: Abdomen [employer] [id number] 05/27/2026 1962 / NA / [id number] Procedures Procedure Name Priority Date/Time Associated Diagnosis Comments LIPID PANEL WITH REFLEX TO DIRECT LDL Routine 08/03/2024 10:10 AM EDT Mixed hyperlipidemia Prediabetes Hyperglycemia HEMOGLOBIN A1C Routine 08/03/2024 10:10 AM EDT Mixed hyperlipidemia Prediabetes Hyperglycemia MAGNESIUM Routine 08/03/2024 10:10 AM EDT Mixed hyperlipidemia Prediabetes Hyperglycemia BASIC METABOLIC PANEL Routine 05/03/2024 12:00 PM EST Endometrial cancer (CMS/HCC V24, CMS/HCC V28) BD BONE DENSITY DXA AXIAL SKELETON Routine 02/15/2024 10:24 AM EST Postmenopausal state HM COLONOSCOPY Routine 10/21/2023 JACK SCREENING DIGITAL Routine 06/26/2023 2:17 PM EDT Encounter for screening mammogram for malignant neoplasm of breast HM PAP SMEAR Routine 08/14/2014 from Last 3 Months or Most Recently Relevant to Health Maintenance Results * (ABNORMAL) Lipid panel with reflex to direct LDL (08/03/2024 10:10 AM EDT) Cholesterol 163 0 - 200 mg/dL LAB CHEMISTRY METHOD 08/03/2024 1:16 PM EDT [facility] Triglycerides 279(H) 0 - 150 mg/dL LAB CHEMISTRY METHOD 08/03/2024 1:16 PM EDT [facility] HDL 46 >=40 mg/dL LAB CHEMISTRY METHOD 08/03/2024 1:16 PM EDT [facility] LDL Calculated 61 0 - 100 mg/dL LAB CHEMISTRY METHOD 08/03/2024 1:16 PM EDT [facility] VLDL Cholesterol David 55.8 mg/dL LAB CHEMISTRY METHOD 08/03/2024 1:16 PM EDT [facility] Non HDL Chol. (LDL+VLDL) 117 <145 mg/dL LAB CHEMISTRY METHOD 08/03/2024 1:16 PM EDT [facility] Chol/HDL Ratio 3.5 0.0 - 4.4 LAB CHEMISTRY METHOD 08/03/2024 1:16 PM EDT [facility] Blood Venous blood specimen / Unknown Venipuncture / Unknown 08/03/2024 10:10 AM EDT 08/03/2024 10:11 AM EDT us Judith Gill MD LAB BLOOD ORDERABLES Final Res ult [facility] [address] [place] [address], * Magnesium (08/03/2024 10:10 AM EDT) Magnesium 1.9 1.9 - 2.6 mg/dL LAB CHEMISTRY METHOD 08/03/2024 1:07 PM EDT [facility] Blood Venous blood specimen / Unknown Venipuncture / Unknown 08/03/2024 10:10 AM EDT 08/03/2024 10:11 AM EDT us Judith Gill MD LAB BLOOD ORDERABLES Final Res ult Performing Organization Address City/[facility]/ZIP Co de Phone Number [facility] [address] [place] [address], [place] [phone] * Hemoglobin A1c (08/03/2024 10:10 AM EDT) Pathologist [facility] Hemoglobin A1C 6.1 <6.5 % LAB CHEMISTRY METHOD 08/03/2024 9:30 PM EDT [facility] Mean Bld Glu Estim. 128 mg/dL LAB CHEMISTRY METHOD 08/03/2024 9:30 PM EDT [facility] Blood Venous blood specimen / Unknown Venipuncture / Unknown 08/03/2024 10:10 AM EDT 08/03/2024 10:11 AM EDT Judith Gill MD LAB BLOOD ORDERABLES Final Res ult Performing Organization Address [facility]/ZIP Co de Phone Number [facility] [address] [place] [address], [place] [phone] * (ABNORMAL) Basic metabolic panel (05/03/2024 12:00 PM EST) [facility] Sodium 136 133 - 145 mmol/L LAB CHEMISTRY METHOD 05/03/2024 1:26 PM EST [facility] Potassium 4.1 3.5 - 5.5 mmol/L LAB CHEMISTRY METHOD 05/03/2024 1:26 PM EST [facility] Chloride 104 96 - 110 mmol/L LAB CHEMISTRY METHOD 05/03/2024 1:26 PM [facility] CO2 28 21 - 32 mmol/L LAB CHEMISTRY METHOD 05/03/2024 1:26 PM EST [facility] Anion Gap 4 3 - 11 LAB CHEMISTRY METHOD 05/03/2024 1:26 PM [facility] Glucose 125(H) 70 - 100 mg/dL LAB CHEMISTRY METHOD 05/03/2024 1:26 PM [facility] BUN 15 5 - 25 mg/dL LAB CHEMISTRY METHOD 05/03/2024 1:26 PM EST [facility] Creatinine 0.76 0.50 - 1.10 mg/dL LAB CHEMISTRY METHOD 05/03/2024 1:26 PM EST [facility] eGFR 82 >=60 mL/min/1. 73m2 LAB CHEMISTRY METHOD 05/03/2024 1:26 PM EST [facility] Comment:Calculation based on the??Chronic Kidney Disease Epidemiology Collaboration (CKD-EPI) equation refit??without adjustment for race. BUN/Creatinine Ratio 19.7 LAB CHEMISTRY METHOD 05/03/2024 1:26 PM EST [facility] Calcium 9.3 8.5 - 10.5 mg/dL LAB CHEMISTRY METHOD 05/03/2024 1:26 PM EST [facility] Blood Venous blood specimen / Unknown Venipuncture / Unknown 05/03/2024 12:00 PM EST 05/03/2024 12:54 PM EST us Gustavo Azar MD LAB BLOOD ORDERABLES Final Resul t [facility] [address] [place] [address], * BD Bone Density DXA Axial Skeleton (02/15/2024 10:24 AM EST) Anatomical Region Laterality Modality Wrist, Hip, L-spine Bone Densito metry 02/15/2024 10:3 2 AM EST Addenda Addendum by Seamus Varner MD on 02/15/2024 10:34 AM EST HISTORY: ??The patient is a 73-year-old postmenopausal female with clinical concern for metabolic bone disease. FINDINGS: ??Dual energy x-ray absorptiometry of the lumbar spine and femurs is performed. The mean bone mineral density at L1-L4 is 1.191 gm/cm2 which is 101% of that of young normals and 115% of that of age matched controls. This yields a T-score of 0.1 and a Z-score of 1.3 and there is therefore no evidence of osteoporosis or osteopenia here. The mean bone mineral density of the femurs bilaterally is 1.122 gm/cm2 which is 111% of that of young normals and 132% of that of age matched controls. ??This yields a T-score of 0.9 and a Z-score of 2.2 and there is therefore no evidence of osteoporosis or osteopenia here. IMPRESSION: 1. There is no evidence of osteoporosis or osteopenia. ??There has been a decrease of 1.8% in bone mineral density in the lumbar spine since the prior examination of 01/14/2022. ??There has been an increase of 1.4% in bone mineral density in the right femur and an increase of 1.7% in bone mineral density in the left femur. 2. FRAX analysis yields a 10-year probability of major osteoporotic fracture of 6.6% and a 10-year probability of hip fracture of 0.4%. Code 98889 CT Teleradiology -------- FINAL REPORT -------- Dictated By: Seamus Varner Dictated Date: 02/15/2024 10:32 ET Assigned Physician: Seamus Varner Reviewed and Electronically Signed By: Seamus Varner Signed Date: 02/15/2024 10:34 ET Workstation ID: [id number] Transcribed By: Self Edit Transcribed Date: 02/15/2024 10:32 ET Impressions 02/15/2024 10:34 AM EST 1. There is no evidence of osteoporosis or osteopenia. ??There has been a decrease of 1.8% in bone mineral density in the lumbar spine since the prior examination of 01/14/2022. ??There has been an increase of 1.4% in bone mineral density in the right femur and an increase of 1.7% in bone mineral density in the left femur. 2. FRAX analysis yields a 10-year probability of major osteoporotic fracture of 6.6% and a 10-year probability of hip fracture of 0.4%. Code 83970 CT Teleradiology -------- FINAL REPORT -------- Dictated By: Seamus Varner Dictated Date: 02/15/2024 10:32 ET Assigned Physician: Seamus Varner Reviewed and Electronically Signed By: Seamus Varner Signed Date: 02/15/2024 10:34 ET Workstation ID: [id number] Transcribed By: Self Edit Transcribed Date: 02/15/2024 10:32 ET Narrative 02/15/2024 10:34 AM EST HISTORY: ??The patient is a 73-year-old postmenopausal female with clinical concern for metabolic bone disease. FINDINGS: ??Dual energy x-ray absorptiometry of the lumbar spine and femurs is performed. The mean bone mineral density at L1-L4 is 1.191 gm/cm2 which is 101% of that of young normals and 115% of that of age matched controls. This yields a T- score of 0.1 and a Z-score of 1.3 and there is therefore no evidence of osteoporosis or osteopenia here. The mean bone mineral density of the femurs bilaterally is 1.122 gm/cm2 which is 111% of that of young normals and 132% of that of age matched controls. ??This yields a T-score of 0.9 and a Z-score of 2.2 and there is therefore no evidence of osteoporosis or osteopenia here. Procedure Note Seamus Varner MD - 02/15/2024 HISTORY: The patient is a 73-year-old postmenopausal female with clinicalconcern for metabolic bone disease. FINDINGS: Dual energy x-ray absorptiometry of the lumbar spine and femursis performed. The mean bone mineral density at L1-L4 is 1.191 gm/cm2 whichis 101% of that of young normals and 115% of that of age matched controls.This yields a T- score of 0.1 and a Z-score of 1.3 and there is thereforeno evidence of osteoporosis or osteopenia here. The mean bone mineral density of the femurs bilaterally is 1.122 gm/qc4dmzly is 111% of that of young normals and 132% of that of age matchedcontrols. This yields a T-score of 0.9 and a Z-score of 2.2 and there istherefore no evidence of osteoporosis or osteopenia here. IMPRESSION: 1. There is no evidence of osteoporosis or osteopenia. There has been adecrease of 1.8% in bone mineral density in the lumbar spine since theprior examination of 01/14/2022. There has been an increase of 1.4% inbone mineral density in the right femur and an increase of 1.7% in bonemineral density in the left femur. 2. FRAX analysis yields a 10-year probability of major osteoporoticfracture of 6.6% and a 10-year probability of hip fracture of 0.4%. Code 74909 CT Teleradiology -------- FINAL REPORT -------- Dictated By: Seamus Varner Dictated Date: 02/15/2024 10:32 ET Assigned Physician: Seamus Varner Reviewed and Electronically Signed By: Seamus Varner Signed Date: 02/15/2024 10:34 ET Workstation ID: [id number] Transcribed By: Self Edit Transcribed Date: 02/15/2024 10:32 ET Judith Gill MD IM DXA PROCEDURES Edited Resu lt - Final * Colonoscopy (10/21/2023) Colonoscopy no interpretation , abstracted Anatomical Region Laterality Modality Other us Historical Provider HEALTH MAINTENANCE Final Result * JACK SCREENING DIGITAL (06/26/2023 2:17 PM EDT) Anatomical Region Laterality Modality Mammography 06/26/2023 1:32 PM EDT Narrative 06/26/2023 2:17 PM EDT [facility] Diagnostic Imaging Department [address] [place] [phone] Patient: ??CARMELA CARTER ?/Age/Sex: 1950 - 73 - F Unit#: ??[id number] ? Location/Status: ??SPDIMAM/REG CLI ? Mnemonic/Ordering Site: ??DIGSC/SPMAM Ordering Physician: ??JUDITH GILL MD [facility] Screening Digital - 06/26/23 - 1350 Report Status:Signed EXAM: [facility] Screening Digital EXAM DATE AND TIME: 06/26/2023 1:51 PM HISTORY: ??Annual screening COMPARISON: ??Multiple exams dating back to 2003 TECHNIQUE: Bilateral digital breast tomosynthesis was performed in the CC and MLO projections. Computer aided detection with SomnoMed 3D 3.1 was employed. TISSUE DENSITY: b. There are scattered areas of fibroglandular density. FINDINGS: No suspicious masses, grouped microcalcifications, or areas of architectural distortion are seen. The skin and vascularity are unremarkable. IMPRESSION: Stable mammographic appearance of the breasts. ??No evidence of malignancy is seen. A negative mammogram in the presence of a clinically suspicious palpable abnormality does not preclude the possibility of malignancy or alter the indications for biopsy. BI-RADS: ??Category 1: Negative RECOMMENDATION(S): 1: Routine screening mammogram BILATERAL in 1 year. 3341F, 7025F Dictating Physician: ??ANNE-MARIE HAMMOND MD Electronically Signed by: ??ANNE-MARIE HAMMOND MD Dic Date/Time: ??06/26/23 1416 Sign date/Time: ??06/26/23 1417 Procedure Note Anne-Marie Hammond MD - 11/16/2023 [facility] Diagnostic Imaging Department [address] [place] [address] Patient: CARMELA CARTER./Age/Sex: 1950 - 73 - F Unit#: [id number] Location/Status: SPDIMAM/REG CLI Mnemonic/Ordering Site: [facility] Ordering Physician: JUDITH GILL MD [facility] Screening Digital - 06/26/23 - 1350 Report Status:Signed EXAM: [facility] Screening Digital EXAM DATE AND TIME: 06/26/2023 1:51 PM HISTORY: Annual screening COMPARISON: Multiple exams dating back to 2003 TECHNIQUE: Bilateral digital breast tomosynthesis was performed in the CCand MLO projections. Computer aided detection with SomnoMed 3D 3.1was employed. TISSUE DENSITY: b. There are scattered areas of fibroglandular density. FINDINGS: No suspicious masses, grouped microcalcifications, or areas ofarchitectural distortion are seen. The skin and vascularity are unremarkable. IMPRESSION: Stable mammographic appearance of the breasts. No evidence of malignancyis seen. A negative mammogram in the presence of a clinically suspicious palpable abnormality does not preclude the possibility of malignancy or alter the indications for biopsy. BI-RADS: Category 1: Negative RECOMMENDATION(S): 1: Routine screening mammogram BILATERAL in 1 year. 3341F, [id number] Dictating Physician: ANNE-MARIE HAMMOND MD Electronically Signed by: ANNE-MARIE HAMMOND MD Dic Date/Time: 06/26/23 1416 Sign date/Time: 06/26/23 1417 Judith Gill MD IMG BI PROCEDURES Final Result * Pap Smear (08/14/2014) Pap smear no interpretation , abstracted Historical Provider HEALTH MAINTENANCE Final Result from Last 3 Months or Most Recently Relevant to Health Maintenance Insurance [employer] MEDICARE ADVANTAGE Advance Directives * Full Code - Default (Latest Code Status on File) Date Activated Date Inactivated Comments 05/09/2024 12:42 PM 05/09/2024 9:13 PM This is ord er is used when code status has not been discussed with the patient, or code status is otherwise unknown/unconfirmed To update the patient's code status, place a code status order. Do not modify or discontinue any currently active code status orders. Care Teams Maintenance Mechanic 2Nd Shift Relationship Specialty Start Date End Date Judith Gill MD [address] [place] [address] [address] [place] [address] PCP - General Internal Medicine 12/24/20
--- OUTSIDE RECORDS SUMMARY | 2024-08-17 14:24 | XMS_ITS | Clinical Summary ---
Author Organization [facility] Address [address] [place] [address] Care Team Providers Care Cream Beater Name Role Phone Tom Burnett MD Primary Care Provider [phone] [phone] Allergies Active Allergy Reactions Criticality Noted Date Comments Tramadol Other (See Comments) High 06/08/2017 Medications Medication Sig Dispensed Refills Start Date End Date Status Aspirin Buf,VpEhyc-DqGgfi-Yk O, 81 MG TABS Take 81 mg by mouth. 0 A ctive atorvastatin (LIPITOR) tablet 20 mg Take 20 mg by mouth daily. 0 08/13/2020 Active oxybutynin (DITROPAN) 5 MG tablet Take 5 mg by mouth 2 (two) times a day. 0 06/18/2020 Active lisinopril-hydroCHLO ROthiazide (PRINZIDE,ZESTORETIC ) tablet 20-25 mg lisinopril 20 mg-hydrochlorothiazi de 25 mg tablet 0 Active Social History Tobacco Use Types Packs/Day Years Used Date Smoking Tobacco: Never Assessed Sex and Gender Information Value Date Recorded Sex Assigned at Not on file Gender Identity Not on file Sexual Orientation Not on file Job Start Date Occupation Industry Not on file Not on file Not on file Last Filed Vital Signs Vital Sign Reading Time Taken Comments Blood Pressure - - Pulse - - Temperature - - Respiratory Rate - - Oxygen Saturation - - Inhaled Oxygen Concentration - - Weight 74.8 kg (165 lb) 09/13/2020 10:02 AM EDT Height 152.4 cm (5') 09/13/2020 10:02 AM EDT Body Mass Index 32.22 09/13/2020 10:02 AM EDT Plan of Treatment Health Maintenance Due Date Last Done Comments Hepatitis C Screening 1950 COVID-19 Vaccine (#1) 1950 Depression Screening 1962 BMI Counseling 02/28/1968 Preventative Health Evaluation 02/28/1968 DTap / Tdap / Td (1 - Tdap) 1969 Colon Cancer Screening (Colonoscopy) 1995 Breast Cancer Screening (Mammogram) 02/28/2000 Shingrix-Zoster Vaccine (1 of 2) 02/28/2000 Fall Risk Assessment 2015 Osteoporosis Screening (DEXA Scan) 2015 Pneumococcal Vaccine (1 of 1 - PCV) 2015 Influenza Vaccine (#1) 2023 0, 01/19/2019, 12/30/2016, Additional history exists RSV Adult > 60+ Yrs or (1 - 1-dose 75+ series) 2025 Hepatitis B Vaccines Aged Out No long er eligible based on patient's age to complete this topic RSV Ped < 20 months Aged Out No longe r eligible based on patient's age to complete this topic Care Teams Cream Beater Relationship Specialty [place] [address] [place] [id number] PCP - General Internal Medicine 09/10/20
== END 2024-08-17 14:18 | disposition home or self-care (01) ==
LOC: HO.HOS 13:52
PROVIDERS: PCP Internal Medicine; Visit Provider Orthopaedic Surgery
DX: M25.561 Pain in right knee (principal); S83.241A Other tear of medial meniscus, current injury, right knee, initial encounter
CPT/HCPCS: 99203; G2211

== ENCOUNTER 2024-08-17 13:52 | Outpatient (REF) | payer OTHER, SELFPAY ==
--- NOTE | ~2024-08-17 | XR_ITS ---
CLINICAL HISTORY: M25.561 - Pain in right knee 3 view right knee Comparison: None Findings: No fractures or dislocations. Mild medial compartment joint space narrowing. No joint effusion. No radiopaque foreign body. IMPRESSION: 1. No acute osseous injury. 2. Mild medial compartment joint space narrowing. This document has been electronically signed by: Byron Carrington MD on 08/17/2024 21:45:19
--- OUTSIDE RECORDS SUMMARY | 2024-08-17 14:26 | XMS_ITS | Encounter Summary ---
Author Organization [facility] Address [address] [place] [address] Care Team Providers Care Political Science Faculty Member Name Role Phone Judith Gill MD Primary Care Provider [phone]- [phone] [facility], Pcp [facility] Judith Booth MD Primary Care Provider [phone]- [phone] Reason for Visit * Reason Onset Date Comments Prior Authorization 10/02/2021 Encounter Details Date Type Department Care Team Description 10/02/2021 Telephone Gastroenterology - [place] [address] [facility] [address] [place] [phone] Bruce Stallings MD [address] [facility] [address] [place] [address] Prior Authorization Social History Tobacco Use Types Packs/Day Years Used Date Smoking Tobacco: Former Cigarettes 1 35 Smokeless Tobacco: Never Comments:Smoked from 15 to [age] years old Alcohol Use Standard Drinks/Week Comments Not Currently 0 (1 standard drink = 0.6 oz pur e alcohol) Glass of wine rarely Sex Assigned at Date Recorded Not on file Job Start Date Occupation Industry Not on file Not on file Not on file COVID-19 Exposure Response Date Recorded In the last 10 days, have yo u been in contact with someone who was confirmed or suspected to have Coronavirus/COVID-19? No / Unsure 10/02/2021 2:58 PM EDT documented as of this encounter Miscellaneous Notes * Telephone Encounter - Jasmin Ojeda - 10/02/2021 3:45 PM EDT PRIOR AUTH SENT VIA STAFF MESSAGE documented in this encounter Plan of Treatment Not on file documented as of this encounter Visit Diagnoses Not on filedocumented in this encounter Care Teams Political Science Faculty Member Relationship Specialty Start Date End Date Judith Gill MD PCP - General Internal Medicine 12/24/20 04/03/22 [facility], Pcp PCP - General Internal Medicine 04/04/22 07/30/22 Judith Gill MD PCP - General Internal Medicine 07/31/22 documented as of this encounter
--- OUTSIDE RECORDS SUMMARY | 2024-08-17 14:27 | XMS_ITS | Encounter Summary ---
Author Organization [facility] Address [address] [place] [address] Care Team Providers Care Collar Padder Blindstitch Name Role Phone Judith Gill MD Primary Care Provider [phone] Encounter Details Date Type Department Care Team Description 12/03/2023 Orders Only Internal Medicine - [address], [address] [place] [address] Judith Gill MD [address] [place] [phone] Pain of right hip Social History Tobacco Use Types Packs/Day Years [...] file Not on file Not on file documented as of this encounter Plan of Treatment Not on file documented as of this encounter Procedures Procedure Name Priority Date/Time Associated Diagnosis Comments CHG RADEX HIP UNILATERAL WITH PELVIS 2-3 VIEWS Routine 12/02/2023 Pain of right hip documented in this encounter Results * RADEX HIP UNILATERAL WITH PELVIS 2-3 VIEWS (12/02/2023) Judith Gill MD RADIOLOGY documented in this encounter Visit Diagnoses Diagnosis Pain of right hip documented in this encounter Care Teams Collar Padder Blindstitch Relationship Specialty Start Date End Date Judith Gill MD PCP - General Internal Medicine 07/31/22 documented as of this encounter
--- OUTSIDE RECORDS SUMMARY | 2024-08-17 14:27 | XMS_ITS | Encounter Summary ---
Author Organization [facility] Address [address] [place] [address] Care Team Providers Care Kettle Chipper Name Role Phone Judith Gill MD Primary Care Provider [phone]- [phone] [facility], Pcp [facility] Judith Gill MD Primary Care Provider +1- [phone] Reason for Referral * Non SONA (Routine) - Closed Specialty Diagnoses / Procedures Referred By Jennie pratt Referred To Contact General Surgery Procedures REFERRAL TO GENERAL SURGERY (IN NETWORK) Judith Gill MD [address] [place] [phone] Terrence Kay MD [address] [place] [phone] Referral ID Status Reason Start Date Expiration Date Visits Re quested Visits Authorized [id number] Closed 09/04/2021 09/04/2022 1 1 Encounter Details Date Type Department Care Team Description 09/04/2021 Orders Only Internal Medicine - [place] [address] [facility], [address] [place] [address] Judith Gill MD [address] [place] [phone] Splenomegaly Social History Tobacco Use Types Packs/Day Years [...] suspected to have Coronavirus/COVID-19? No / Unsure 08/12/2021 2:27 PM EDT documented as of this encounter Plan of Treatment Not on file documented as of this encounter Procedures Procedure Name Priority Date/Time Associated Diagnosis Comments MRI ABD W/WO CONTRAST Routine 09/04/2021 Splenomegaly documented in this encounter Results * MRI ABD W/WO CONTRAST (09/04/2021) Judith Gill MD MRI documented in this encounter Visit Diagnoses Diagnosis Splenomegaly documented in this encounter Care Teams Kettle Chipper Relationship Specialty Start Date End Date Judith Gill MD PCP - General Internal Medicine 12/24/20 04/03/22 [facility], Pcp PCP - General Internal Medicine 04/04/22 07/30/22 Judith Gill MD PCP - General Internal Medicine 07/31/22 documented as of this encounter
--- OUTSIDE RECORDS SUMMARY | 2024-08-17 14:27 | XMS_ITS | Encounter Summary ---
Author Organization [facility] Address [address] [place] [address] Care Team Providers Care Blow Molder Name Role Phone Judith Gill MD Primary Care Provider [phone]- [phone] Community, Pcp [facility] Judith Booth MD Primary Care Provider [phone]- [phone] Reason for Visit * Reason Onset Date Comments Medication 01/13/2022 Encounter Details Date Type Department Care Team Description 01/13/2022 Refill Gastroenterology - [place] [address] [facility] [address] [place] [phone] Bruce Stallings MD [address] [facility] [address] [place] [address] Medication Social History Tobacco Use Types Packs/Day Years [...] on filedocumented in this encounter Care Teams Blow Molder Relationship Specialty Start Date End Date Judith Gill MD PCP - General Internal Medicine 12/24/20 04/03/22 [facility], Pcp PCP - General Internal Medicine 04/04/22 07/30/22 Judith Gill MD PCP - General Internal Medicine 07/31/22 documented as of this encounter
--- OUTSIDE RECORDS SUMMARY | 2024-08-17 14:27 | XMS_ITS | Encounter Summary ---
Author Organization [facility] Address [address] [place] [address] Care Team Providers Care Computer Patternmaker Name Role Phone Community, Pcp Primary Care Provider Judith Sellers MD Primary Care Provider [phone]- [phone] Reason for Visit * Reason Comments E-prescribe Rx Request Encounter Details Date Type Department Care Team Description 07/03/2022 Refill Gastroenterology - [address] [place] [address] Dayana Katz DScPAS E-prescribe Rx Request Social History Tobacco Use Types Packs/Day Years [...] on file documented as of this encounter Miscellaneous Notes * Telephone Encounter - Dorota Arreola - 07/03/2022 8:58 AM EDT Arelis- 10/02/21 Nov- none documented in this encounter Plan of Treatment Not on file documented as of this encounter Visit Diagnoses Not on filedocumented in this encounter Care Teams Computer Patternmaker Relationship Specialty Start Date End Date Community, Pcp PCP - General Internal Medicine 04/04/22 07/30/22 Judith Gill MD PCP - General Internal Medicine 07/31/22 documented as of this encounter
--- OUTSIDE RECORDS SUMMARY | 2024-08-17 14:27 | XMS_ITS | Encounter Summary ---
Author Organization [facility] Address [address] [place] [address] Care Team Providers Care Director Of Staff Development Name Role Phone Judith Gill MD Primary Care Provider [phone]- [phone] [facility], Pcp [facility] Judith Booth MD Primary Care Provider [phone]- [phone] Reason for Visit * Reason Onset Date Comments Provider Call Back 08/28/2021 Encounter Details Date Type Department Care Team Description 08/28/2021 Telephone Internal Medicine - [address], [address] [place] [address] Judith Gill MD [address] [place] [phone] Provider Call Back Social History Tobacco Use Types Packs/Day Years [...] encounter Miscellaneous Notes * Telephone Encounter - Christina Begum M.A. - 09/06/2021 9:37 AM EDT I spoke with patient and informed her reviewed her MRI results. Also, informed her that[facility] * Telephone Encounter - Lacey Peacock - 09/05/2021 12:55 PM EDT Patient was notified that she now needs an ultrasound- her question is WHY - she has no idea why all these tests have been ordered. Her diagnosis has not been shared - She does realize something was found on CT scan - other than that -has no Idea what they are looking for. She needs to be contacted today due to her concern. * Telephone Encounter - Christina Begum M.A. - 08/28/2021 3:21 PM EDT I spoke to patient and she was happy to hear back from me. I just called to confirm that she did schedule her MRI * Telephone Encounter - Jeni Patel - 08/28/2021 2:47 PM EDT Caller requesting call back from provider: Is the caller the patient? YES If caller is not the patient, what is the callers name? N/A Callers relationship to patient? N/A If person calling is not the patient themselves, is there a verbal release in FYI or permanent comments for this person: NO / Reason for call back: Patient is calling to notify Christina that her MRI was approved and she is schedule for 09/04/2021. Caller offered to speak with the nurse for assistance: YES Response: Patient offered to speak with nurse for assistance and patient agreed. Message forwarded to nurse. documented in this encounter Plan of Treatment Not on file documented as of this encounter Visit Diagnoses Not on filedocumented in this encounter Care Teams Director Of Staff Development Relationship Specialty Start Date End Date Judith Gill MD PCP - General Internal Medicine 12/24/20 04/03/22 [facility], Pcp PCP - General Internal Medicine 04/04/22 07/30/22 Judith Gill MD PCP - General Internal Medicine 07/31/22 documented as of this encounter
--- OUTSIDE RECORDS SUMMARY | 2024-08-17 14:27 | XMS_ITS | Encounter Summary ---
Author Organization [facility] Address [address] [place] [address] Care Team Providers Care File Clerk Name Role Phone Judith Gill MD Primary Care Provider [phone]- [phone] Encounter Details Date Type Department Care Team Description 10/26/2023 Orders Only Medical Records [address] [id number] Deven Hernandez DO [address] [facility] [address] [facility] [place] [address] Social History Tobacco Use Types Packs/Day Years [...] on file documented as of this encounter Progress Notes * Dorota Arreola - 11/09/2023 1:17 PM EDT Letter mailed. Recall placed. * Deven Hernandez DO - 11/06/2023 5:48 AM EDT Please let the patient know that her colon biopsies were completely normal. There are no signs of infection, inflammation, precancer lesions or allergic conditions identified. These are great news. Her colon polyp was benign and not precancerous. Given her personal history of colon polyps in the past, I recommend that she has a repeat screening colonoscopy in 5 years. Thank you. documented in this encounter Plan of Treatment Not on file documented as of this encounter Procedures Procedure Name Priority Date/Time Associated Diagnosis Comments OUTSIDE PATHOLOGY Routine 10/21/2023 documented in this encounter Results * OUTSIDE PATHOLOGY (10/21/2023) Deven Hernandez DO OUTSIDE LAB documented in this encounter Visit Diagnoses Not on filedocumented in this encounter Care Teams File Clerk Relationship Specialty Start Date End Date Judith Gill MD PCP - General Internal Medicine 07/31/22 documented as of this encounter
--- OUTSIDE RECORDS SUMMARY | 2024-08-17 14:27 | XMS_ITS | Encounter Summary ---
Author Organization [facility] Address [facility] [place] [address] Care Team Providers Care Dyeing Machine Back Tender Name Role Phone Community, Pcp Primary Care Provider Judith Sellers MD Primary Care Provider Reason for Visit * Reason Onset Date Comments Prior Authorization 05/12/2022 MRI abd Encounter Details Date Type Department Care Team Description 05/12/2022 Telephone General Surgery - [place] 175 [facility] [address] [place] [phone] Terrence Kay MD 175 [facility] [address] [place] [address] Prior Authorization (MRI abd) Social History Tobacco Use Types Packs/Day Years [...] encounter Miscellaneous Notes * Telephone Encounter - Ning Cuenca - 05/12/2022 10:15 AM EST Re: MRI abd / [id number] Patient is Self-Pay as no insurance is listed. Self-Pay patients book their own appt. Thank you. documented in this encounter Plan of Treatment Not on file documented as of this encounter Visit Diagnoses Not on filedocumented in this encounter Care Teams Dyeing Machine Back Tender Relationship Specialty Start Date End Date Community, Pcp PCP - General Internal Medicine 04/04/22 07/30/22 Judith Gill MD PCP - General Internal Medicine 07/31/22 documented as of this encounter
--- OUTSIDE RECORDS SUMMARY | 2024-08-17 14:27 | XMS_ITS | Encounter Summary ---
Author Organization [facility] Address [address] [place] [address] Care Team Providers Care Growth Media Mixer Mushroom Name Role Phone Judith Gill MD Primary Care Provider [phone]- [phone] [facility], Pcp Primary Care Provider Unavailabl e Judith Gill MD Primary Care Provider +1- [phone] Reason for Visit * Reason Comments E-prescribe Rx Request Encounter Details Date Type Department Care Team Description 10/10/2021 Refill Gastroenterology - [place] [address] [phone] Gonzalez Rajput PA-C [address] [address] E-prescribe Rx Request Social History Tobacco Use [...] on filedocumented in this encounter Care Teams Growth Media Mixer Mushroom Relationship Specialty Start Date End Date Judith Gill MD PCP - General Internal Medicine 12/24/20 04/03/22 [facility], Pcp PCP - General Internal Medicine 04/04/22 07/30/22 Judith Gill MD PCP - General Internal Medicine 07/31/22 documented as of this encounter
--- OUTSIDE RECORDS SUMMARY | 2024-08-17 14:27 | XMS_ITS | Encounter Summary ---
Author Organization [facility] Address [address] [place] [address] Care Team Providers Care Silk Crepe Machine Operator Name Role Phone Judith Gill MD Primary Care Provider [phone]- [phone] Community, Pcp [facility] Judith Gill MD Primary Care Provider [phone]- [phone] Encounter Details Date Type Department Care Team Description 08/08/2021 Release of Information Medical Records [address] [place] [address] Abstract, Provider Social History Tobacco Use Types Packs/Day Years [...] suspected to have Coronavirus/COVID-19? No / Unsure 08/06/2021 9:11 AM EDT documented as of this encounter Plan of Treatment Not on file documented as of this encounter Visit Diagnoses Not on filedocumented in this encounter Care Teams Silk Crepe Machine Operator Relationship Specialty Start Date End Date Judith Gill MD PCP - General Internal Medicine 12/24/20 04/03/22 [facility], Pcp PCP - General Internal Medicine 04/04/22 07/30/22 Judith Gill MD PCP - General Internal Medicine 07/31/22 documented as of this encounter
--- OUTSIDE RECORDS SUMMARY | 2024-08-17 14:27 | XMS_ITS | Encounter Summary ---
Author Organization [facility] Address [address] [place] [address] Care Team Providers Care Animal Tech Name Role Phone Judith Gill MD Primary Care Provider +[phone] Reason for Visit * Reason Onset Date Comments refill request 07/08/2023 Encounter Details Date Type Department Care Team Description 07/08/2023 Refill Internal Medicine - [address], [address] [place], [place] [phone] Judith Gill MD [address] [place] [phone] refill request Social History Tobacco Use Types Packs/Day Years [...] encounter Miscellaneous Notes * Telephone Encounter - Teresa Tapia - 07/08/2023 12:59 PM EDT Patient would like script to be: E-PRESCRIBED/FAXED TO PHARMACY WHEN WAS THE PATIENT'S LAST APPOINTMENT IN ADULT MEDICINE? 02/02/2023 WHEN WAS THE LAST TIME THE PATIENT SAW THEIR PCP? Same as above Does patient have an upcoming appointment? Yes 08/03/2023 (THE MEDICATION REQUESTED IS ON THE MED LIST ABOVE) All of the medications requested were on the CURRENT MEDS list Did you check the Pharmacy information above?: YES Patient wants: 30 -day supply Is this a mail order prescription request ? NO If the refill is from a FAXED refill request what is the RX # listed on the fax? N/A Patients current insurance carrier is: Payor: AET[employer] / Plan: [employer] PPO F 1- 30/$0/$[id number]/20% / Product Type: PPO [id number] documented in this encounter Plan of Treatment Not on file documented as of this encounter Visit Diagnoses Not on filedocumented in this encounter Care Teams Animal Tech Relationship Specialty Start Date End Date Judith Gill MD PCP - General Internal Medicine 07/31/22 documented as of this encounter
--- OUTSIDE RECORDS SUMMARY | 2024-08-17 14:27 | XMS_ITS | Encounter Summary ---
Author Organization [facility] Address [address] [place] [address] Care Team Providers Care Bilingual Speech Therapist Name Role Phone Judith Gill MD Primary Care Provider [phone]- [phone] Community, Pcp [facility] Judith Booth MD Primary Care Provider Reason for Visit * Reason Onset Date Comments Medication 01/21/2022 Encounter Details Date Type Department Care Team Description 01/21/2022 Refill Gastroenterology - [place] 175 [facility] [address] [place] [phone] Kishan Verdugo MD [address] [place] [phone] Medication Social History Tobacco Use Types Packs/Day [...] on filedocumented in this encounter Care Teams Bilingual Speech Therapist Relationship Specialty Start Date End Date Judith Gill MD PCP - General Internal Medicine 12/24/20 04/03/22 [facility], Pcp PCP - General Internal Medicine 04/04/22 07/30/22 Judith Gill MD PCP - General Internal Medicine 07/31/22 documented as of this encounter
--- OUTSIDE RECORDS SUMMARY | 2024-08-17 14:27 | XMS_ITS | Encounter Summary ---
Author Organization [facility] Address [address] [place] [address] Care Team Providers Care Clinical Dietician Name Role Phone Judith Gill MD Primary Care Provider +1 [phone] Encounter Details Date Type Department Care Team Description 09/04/2022 Telephone Internal Medicine - [address], [address] [place], [place] [phone] Judith Gill MD [address] [place] [phone] Social History Tobacco Use Types Packs/Day Years [...] suspected to have Coronavirus/COVID-19? No / Unsure 08/26/2022 1:00 PM EDT documented as of this encounter Miscellaneous Notes * Telephone Encounter - Naya Vivas - 09/04/2022 3:07 PM EDT Lvm for pt to contact our office regarding lab results. * Telephone Encounter - Naya Vivas - 09/04/2022 3:07 PM EDT ----- Message from Lizzy Anderson PA-C sent at 08/31/2022 10:23 AM EDT ----- Please advise patient that her chest x-ray is negative. I will reexamine her lungs at her follow-upin October. Wondering if she may be has some underlying COPD as she has history of smoking. Regardless she is asymptomatic at this time, so we will continue to monitor. Thank you. documented in this encounter Plan of Treatment Not on file documented as of this encounter Visit Diagnoses Not on filedocumented in this encounter Care Teams Clinical Dietician Relationship Specialty Start Date End Date Judith Gill MD PCP - General Internal Medicine 07/31/22 documented as of this encounter
--- OUTSIDE RECORDS SUMMARY | 2024-08-17 14:27 | XMS_ITS | Encounter Summary ---
Author Organization [facility] Address [address] [place] [address] Care Team Providers Care Dyer And Washer Name Role Phone Judith Gill MD Primary Care Provider [phone] [phone] Encounter Details Date Type Department Care Team Description 10/23/2023 Orders Only Medical Records [address] [place] [address] Deven Hernandez DO 175 [facility] [address] [facility] [place] [address] Social History Tobacco Use Types Packs/Day Years [...] Name Priority Date/Time Associated Diagnosis Comments OUTSIDE COLONOSCOPY Routine 10/21/2023 documented in this encounter Results * OUTSIDE COLONOSCOPY (10/21/2023) Deven Hernandez DO RADIOLOGY documented in this encounter Visit Diagnoses Not on filedocumented in this encounter Care Teams Dyer And Washer Relationship Specialty Start Date End Date Judith Gill MD PCP - General Internal Medicine 07/31/22 documented as of this encounter
--- OUTSIDE RECORDS SUMMARY | 2024-08-17 14:27 | XMS_ITS | Encounter Summary ---
Author Organization [facility] Address [address] [place] [address] Care Team Providers Care Pot Annealer Name Role Phone Tom Burnett MD Primary Care Provider U Geneva Dodson MD Primary Care Provider Judith Bills MD Primary Care Provider [phone]- [phone] [facility], Pcp Primary Care Provider Judith Sellers MD Primary Care Provider +1- [phone] Encounter Details Date Type Department Care Team Description 06/12/2017 Release of Information Medical Records [address] [place] [id number] Abstract, Provider Social History Tobacco Use Types Packs/Day Years Used Date Smoking Tobacco: Never Assessed Sex Assigned at Date Recorded Not on file Job Start Date Occupation Industry Not on file Not on file Not on file documented as of this encounter Plan of Treatment Not on file documented as of this encounter Visit Diagnoses Not on filedocumented in this encounter Care Teams Pot Annealer Relationship Specialty Start Date End Date Tom Burnett MD PCP - General Internal Medicine 12/22/1611/11 Geneva March MD PCP - General Internal Medicine 11/12/20 12/23/20 Judith Gill MD PCP - General Internal Medicine 12/24/20 04/03/22 [facility], Pcp PCP - General Internal Medicine 04/04/22 07/30/22 Judith Gill MD PCP - General Internal Medicine 07/31/22 documented as of this encounter
--- OUTSIDE RECORDS SUMMARY | 2024-08-17 14:27 | XMS_ITS | Encounter Summary ---
Author Organization [facility] Address [address] [place] [address] Care Team Providers Care Display Screen Fabricator Name Role Phone Judith Gill MD Primary Care Provider [phone]- [phone] [facility], [facility] Primary Care Provider [facility] Judith Gill MD Primary Care Provider [phone]- [phone] Reason for Visit * Reason Onset Date Comments refill request 11/25/2021 Encounter Details Date Type Department Care Team Description 11/25/2021 Refill Internal Medicine - [address], [address] [place] [address] Judith Gill MD [address] [place] [phone] refill request Social History Tobacco Use [...] Telephone Encounter - Christina Begum M.A. - 11/25/2021 12:10 PM EDT Patient needs a prescription to be sent to the pharmacy * Telephone Encounter - Mitzi Alaniz - 11/25/2021 11:10 AM EDT Arelis 07/31/21 Nov 01/31/22 documented in this encounter Plan of Treatment Not on file documented as of this encounter Visit Diagnoses Not on filedocumented in this encounter Care Teams Display Screen Fabricator Relationship Specialty Start Date End Date Judith Gill MD PCP - General Internal Medicine 12/24/20 04/03/22 [facility], Pcp PCP - General Internal Medicine 04/04/22 07/30/22 Judith Gill MD PCP - General Internal Medicine 07/31/22 documented as of this encounter
--- OUTSIDE RECORDS SUMMARY | 2024-08-17 14:27 | XMS_ITS | Encounter Summary ---
Author Organization [facility] Address [address] [place] [address] Care Team Providers Care Foundry Melt Supervisor Name Role Phone Judith Gill MD Primary Care Provider [phone]- [phone] Reason for Visit * Reason Comments E-prescribe Rx Request Encounter Details Date Type Department Care Team Description 11/12/2022 Refill Gastroenterology - [address] [place] [phone] Dayana Katz DScPAS E-prescribe Rx Request Social [...] suspected to have Coronavirus/COVID-19? No / Unsure 11/04/2022 8:55 AM EDT documented as of this encounter Miscellaneous Notes * Telephone Encounter - Jonah Gonzalez M.A. - 11/12/2022 10:50 AM EDT Arelis- 09/2021- 05/2023 90 day documented in this encounter Plan of Treatment Not on file documented as of this encounter Visit Diagnoses Not on filedocumented in this encounter Care Teams Foundry Melt Supervisor Relationship Specialty Start Date End Date Judith Gill MD PCP - General Internal Medicine 07/31/22 documented as of this encounter
--- OUTSIDE RECORDS SUMMARY | 2024-08-17 14:27 | XMS_ITS | Encounter Summary ---
Author Organization [facility] Address [facility] [place] [address] Care Team Providers Care Veneer Glue Spreader Name Role Phone Judith Gill MD Primary Care Provider [phone]- [phone] [facility], Pcp Primary Care Provider Unavailabl e Judith Gill MD Primary Care Provider +1- [phone] Encounter Details Date Type Department Care Team Description 10/14/2021 Orders Only General Surgery - [place] 175 [facility] [address] [place] [phone] Terrence Kay MD 175 [facility] [address] [place] [address] Splenic lesion; Epigastric pain Social History Tobacco Use Types Packs/Day Years [...] Procedure Name Priority Date/Time Associated Diagnosis Comments NUCLEAR SCAN OF LIVER SPLEEN STAT 10/11/2021 Splenic lesion Epigastric pain documented in this encounter Results * NUCLEAR SCAN OF LIVER SPLEEN (10/11/2021) Terrence SOTO documented in this encounter Visit Diagnoses Diagnosis Splenic lesion Disease of spleen, unspecified Epigastric pain Abdominal pain, epigastric documented in this encounter Care Teams Veneer Glue Spreader Relationship Specialty Start Date End Date Judith Gill MD PCP - General Internal Medicine 12/24/20 04/03/22 [facility], Pcp PCP - General Internal Medicine 04/04/22 07/30/22 Judith Gill MD PCP - General Internal Medicine 07/31/22 documented as of this encounter
--- OUTSIDE RECORDS SUMMARY | 2024-08-17 14:27 | XMS_ITS | Encounter Summary ---
Author Organization [facility] Address [address] [place] [address] Care Team Providers Care Pottery Decoration Designer Name Role Phone Judith Gill MD Primary Care Provider [phone] Encounter Details Date Type Department Care Team Description 08/14/2022 Telephone Internal Medicine - [address], [address] [place] [address] Judith Gill MD [address] [place] [phone] Social History Tobacco Use Types Packs/Day [...] suspected to have Coronavirus/COVID-19? No / Unsure 07/31/2022 12:51 PM EDT documented as of this encounter Plan of Treatment Not on file documented as of this encounter Visit Diagnoses Not on filedocumented in this encounter Care Teams Pottery Decoration Designer Relationship Specialty Start Date End Date Judith Gill MD PCP - General Internal Medicine 07/31/22 documented as of this encounter
--- OUTSIDE RECORDS SUMMARY | 2024-08-17 14:27 | XMS_ITS | Encounter Summary ---
Author Organization [facility] Address [facility] [place] [address] Care Team Providers Care Cloth Spreader Name Role Phone Judith Gill MD Primary Care Provider [phone]- [phone] [facility], [facility] Primary Care Provider [facility] Judith Booth MD Primary Care Provider [phone]- [phone] Reason for Visit * Reason Onset Date Comments Provider Call Back 03/11/2022 Encounter Details Date Type Department Care Team Description 03/11/2022 Telephone General Surgery - [place] [address] [phone] Terrence Kay MD [address] [phone] Provider Call Back Social History Tobacco Use [...] encounter Miscellaneous Notes * Telephone Encounter - Torie Hyde - 03/11/2022 1:17 PM EST I called and lvm to advise pt this was ordered. * Telephone Encounter - Torie Hyde - 03/11/2022 11:16 AM EST Please advise. * Telephone Encounter - Sujata Lennon - 03/11/2022 9:43 AM EST Patient called and is reminding Dr. Kay to make the referral for the patient's MRI for the spleen and schedule in for mid March. documented in this encounter Plan of Treatment Not on file documented as of this encounter Visit Diagnoses Not on filedocumented in this encounter Care Teams Cloth Spreader Relationship Specialty Start Date End Date Judith Gill MD PCP - General Internal Medicine 12/24/20 04/03/22 [facility], Pcp PCP - General Internal Medicine 04/04/22 07/30/22 Judith Gill MD PCP - General Internal Medicine 07/31/22 documented as of this encounter
--- OUTSIDE RECORDS SUMMARY | 2024-08-17 14:27 | XMS_ITS | Encounter Summary ---
Author Organization [facility] Address [address] [place] [address] Care Team Providers Care Videogame Tester Name Role Phone Judith Gill MD Primary Care Provider [phone]- [phone] [facility], [facility] Care [facility] Judith Gill MD Primary Care Provider [phone]- [phone] Reason for Visit * Reason Onset Date Comments Medication 02/01/2021 Encounter Details Date Type Department Care Team Description 02/01/2021 Telephone Internal Medicine - [address], [address] [place] [address] Judith Gill MD [address] [place] [phone] Medication Social History Tobacco Use Types Packs/Day [...] Exposure Response Date Recorded In the last month, have you been in contact with someone who was confirmed or suspected to have Coronavirus / COVID-19? No / Unsure 02/04/2021 9:53 AM EST documented as of this encounter Miscellaneous Notes * Telephone Encounter - Liane Whitt M.A. - 02/07/2021 10:03 AM EST Pt advised of Barbara Dawn' message below. She understannds and will contact Mock Up Assembler. * Telephone Encounter - Susan Dawn PA-C - 02/07/2021 8:50 AM EST Patient would need to see TEST AUTOMATION ARCHITECT for a flare up. PCP had declined to fill this medication in my absence. 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 * Telephone Encounter - Terrence Valdivia - 02/01/2021 1:16 PM EDT Patient would like script to be: E-PRESCRIBED/FAXED TO PHARMACY When was the patients last office visit in Adult Medicine?: 01/30/21 When was the last time the patient saw their PCP? (the patient hasn't met Dr. Judith Gill yet) Does patient have an upcoming appointment? Yes 07/31/21 (THE MEDICATION IS NOT ON THE MED LIST AND IS IDENTIFIED BELOW): {MED LIST:11963) Med name: Valcyclovir HCL Dosage: 1 gram tablet # of tablets: 14 Local pharmacy with request for 30 -day supply Instructions: Take 1 tablet by mouth twice a day for 7 days. Did you check the pharmacy information above?: YES Patients current insurance carrier: Payor: [employer] / Plan: PPO $0 [place] [id number] / Product Type: POS [id number] Insurance ID #: [id number] documented in this encounter Plan of Treatment Not on file documented as of this encounter Visit Diagnoses Not on filedocumented in this encounter Care Teams Videogame Tester Relationship Specialty Start Date End Date Judith Gill MD PCP - General Internal Medicine 12/24/20 04/03/22 [facility], Pcp PCP - General Internal Medicine 04/04/22 07/30/22 Judith Gill MD PCP - General Internal Medicine 07/31/22 documented as of this encounter
--- OUTSIDE RECORDS SUMMARY | 2024-08-17 14:27 | XMS_ITS | Encounter Summary ---
Author Organization [facility] Address [address] [place] [address] Care Team Providers Care Building Carpenter Helper Name Role Phone Judith Gill MD Primary Care Provider [phone] [phone] Encounter Details Date Type Department Care Team Description 08/06/2022 Telephone Gastroenterology - [place] 175 [facility] [address] [place] [address] Kishan Verdugo MD [address] [place] [address] Social History Tobacco Use Types Packs/Day Years [...] encounter Miscellaneous Notes * Telephone Encounter - Eriberto Houser - 08/06/2022 8:48 AM EDT I have been unable to reach this patient by phone to schedule a colonoscopy. A letter is being sent. documented in this encounter Plan of Treatment Not on file documented as of this encounter Visit Diagnoses Not on filedocumented in this encounter Care Teams Building Carpenter Helper Relationship Specialty Start Date End Date Judith Gill MD PCP - General Internal Medicine 07/31/22 documented as of this encounter
--- OUTSIDE RECORDS SUMMARY | 2024-08-17 14:27 | XMS_ITS | Encounter Summary ---
Author Organization [facility] Address [address] [place] [address] Care Team Providers Care Tax Analyst Name Role Phone Judith Gill MD Primary Care Provider [phone]- [phone] [facility], Pcp Primary Care Provider [facility] Judith Gill MD Primary Care Provider +1- [phone] Encounter Details Date Type Department Care Team Description 01/15/2022 Orders Only Internal Medicine - [address], [address] [place] [address] Judith Gill MD [address] [place] [phone] Routine medical exam Social History Tobacco Use Types Packs/Day Years [...] Procedure Name Priority Date/Time Associated Diagnosis Comments DXA BONE DENSITY STUDY 1+ SITS AXIAL SKEL Routine 01/14/2022 Routine medical exam documented in this encounter Results * DXA BONE DENSITY STUDY 1+ SITS AXIAL SKEL (01/14/2022) Judith Gill MD DEXA documented in this encounter Visit Diagnoses Diagnosis Routine medical exam Routine general medical examination at a health care facility documented in this encounter Care Teams Tax Analyst Relationship Specialty Start Date End Date Judith Gill MD PCP - General Internal Medicine 12/24/20 04/03/22 [facility], Pcp PCP - General Internal Medicine 04/04/22 07/30/22 Judith Gill MD PCP - General Internal Medicine 07/31/22 documented as of this encounter
== END 2024-08-17 13:53 | disposition home or self-care (01) ==
LOC: HO.HOSX 13:52
PROVIDERS: PCP Internal Medicine; Visit Provider Orthopaedic Surgery
DX: S83.241A Other tear of medial meniscus, current injury, right knee, initial encounter (principal)
CPT/HCPCS: 73562

== ENCOUNTER → 2024-08-17 13:59 | Outpatient (BNV) | payer OTHER, SELFPAY | PROVIDERS: PCP Internal Medicine; Visit Provider Radiology Diagnostic Radiology | DX: M17.11 Unilateral primary osteoarthritis, right knee (principal) | CPT/HCPCS: 73562 ==

== ENCOUNTER 2024-09-08 12:42 | Outpatient (REF) | payer OTHER, SELFPAY ==
--- NOTE | ~2024-09-08 | MR_ITS ---
EXAMINATION: MR KNEE WITHOUT CONTRAST, RIGHT CLINICAL INFORMATION: Anteromedial knee pain for 2 months, swelling, no recent injury COMPARISON: X-ray August 17, 2024 TECHNIQUE: MRI of the knee without contrast was performed using routine sequences on a high-field scanner. FINDINGS: Menisci: Lateral meniscus: Oblique intermediate signal extends to the femoral surface and anterior horn. The inferior margin of the posterior horn is degenerated and frayed. The body of the meniscus is moderately extruded from the joint line. On T2 coronal images, there is linear fluid signal at the meniscocapsular junction with the tibial coronary ligament that could represent a small undersurface tear in the anterior body (coronal PD fat sat image 13-14). Medial meniscus: Inner free margin of the posterior horn demonstrates mild intermediate signal consistent with degeneration/fraying. No linear signal extends to an articular surface. There is mild extrusion of the medial meniscal body. ACL/PCL: ACL and PCL demonstrate streaky increased signal but appear grossly intact. Extensor mechanism: There is a physiologic volume of joint fluid. There is physiologic signal in the suprapatellar fat pad. The fat pads are also within normal limits. There is mild intermediate signal in the deep proximal fibers of patellar tendon. MCL/LCL: There is mild thickening and increased signal in proximal MCL. MCL is bowed by the extruded meniscus. MCL is intact. There is increased signal on fluid sensitive sequences in the soft tissues interposed between IT band and lateral femoral condyle. LCL complex is intact. Articular cartilage: Lateral compartment There is heterogeneous signal in the articular cartilage overlying the central weightbearing region of the lateral femoral condyle. There is a bilobed central osteophyte in the posterior central weightbearing region of the lateral femoral condyle extending through more than half of the cartilage thickness. There is a 3 mm linear high signal coursing through the central articular cartilage of the lateral tibial plateau probably representing a fissure, full-thickness. Medial compartment There is focal fissuring involving less than half of the articular cartilage thickness at the middle third region of the medial femoral condyle, near the intercondylar notch. Patellofemoral There is a full-thickness fissure in the articular cartilage at the junction of the middle third and lower third patella, at the junction of median ridge and medial facet. Upper third medial facet of the trochlea demonstrates a partial thickness articular cartilage defect extending through more than half of the cartilage thickness. Otherwise, there is mild diffuse thinning of trochlear cartilage. Bones/Marrow: Small medium sized marginal osteophyte are present along the medial and lateral joint line, not regions of the femoral condyles, and tibial spines. Soft tissues: A small amount of fluid is present in a Oliva's cyst. MR/MR knee RT wo con IMPRESSION: Mild osteoarthritis with articular cartilage defects as detailed above. Anterior horn lateral meniscus tear. Probable tear at the meniscocapsular junction with tibial coronary ligament in the body of the lateral meniscus. Very mild tendinopathy of the proximal patellar tendon. Changes consistent with a grade 1 sprain of proximal MCL. Patient denies recent injury and synovitis could be a chronic change from a remote injury. IT band friction syndrome: There is increased fluid signal in the soft tissues interposed between lateral femoral condyle and IT band. Electronically signed by: Ruben Sarmiento MD 09/08/2024 03:59 PM EDT
== END 2024-09-08 12:43 | disposition home or self-care (01) ==
LOC: HO.MRI 12:42
PROVIDERS: PCP Internal Medicine; Visit Provider Orthopaedic Surgery
DX: S83.241A Other tear of medial meniscus, current injury, right knee, initial encounter (principal)
CPT/HCPCS: 73721

== ENCOUNTER → 2024-09-08 12:47 | Outpatient (BNV) | payer OTHER, SELFPAY | PROVIDERS: PCP Internal Medicine; Visit Provider Radiology Diagnostic Radiology | DX: M23.241 Derangement of anterior horn of lateral meniscus due to old tear or injury, right knee (principal) | CPT/HCPCS: 73721 ==

== ENCOUNTER 2024-09-27 14:48 | Outpatient (AMB) | payer OTHER, SELFPAY ==
--- NOTE | 2024-09-27 14:57 | A.OFFVIS_ITS ---
Vital Signs 09/27/24 15:00 Height 5 ft Weight 180 lb BMI 35.2 Intake Visit Reasons: OV-Rt knee MRI review Intake Note: Carmela is a 74 year old male who presents with complaints of progressively worsening right knee pain and giving way. The patient describes her pain as sharp in nature. Most of the pain is along the medial aspect of her knee. She has failed the last 6 weeks of conservative treatment which has included a home exercise program, Tylenol, Celebrex, a knee brace and application of ice. 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 Allergies tramadol (From [employer]) Allergy (Unknown, Verified 09/27/24 14:58) syncope Medication List - Last Reconciled 09/28/24 by Duane Soria MD atorvastatin 40 mg PO DAILY celecoxib 200 mg PO DAILY lisinopril-hydrochlorothiazide 20-25 mg 1 tab PO DAILY nystatin topical DAILY omeprazole 20 mg PO DAILY solifenacin 10 mg PO DAILY valacyclovir 1,000 mg PO TID PFSH Social History Patient Tobacco Use Status: Former Tobacco user Current occupational status: retired Current occupation: rt handed Physical Exam Vital Signs: BMI result Body Mass Index 35.2 Const Other: Well-nourished well-developed very friendly female awake alert and oriented x3 in no acute distress Extrem Other: Bilateral lower extremity examination shows good capillary refill, no skin lesions noted, normal sensation light touch Right knee examination shows a minimal effusion, mild crepitus with range of motion, tenderness along her medial and lateral joint lines, positive Amna's test, no instability Results Reviewed Results Reviewed: Standing full weight-bearing x-rays of the patient's right knee show mild diffuse joint space narrowing, no acute bony abnormalities MRI of the patient's right knee shows mild diffuse degenerative changes as well as tearing of her medial and lateral menisci Assessment & Plan Assessment & Plan (1) Tear of medial meniscus of right knee: Code(s): S83.241A - Other tear of medial meniscus, current injury, right knee, initial encounter Category: Medical Plan Ms. Linton presents with progressively worsening right knee pain and mechanical symptoms due to tearing of her medial and lateral menisci. I had a lengthy discussion with the patient regarding the treatment options. At this point she has failed continued non operative treatments. The risks and benefits of right knee arthroscopic surgery were discussed at length with the patient. The patient wishes to proceed with surgery. Surgery will involve right knee arthroscopic partial medial and lateral meniscectomies. The patient does understand that she may not get 100% relief from the procedure depending on the severity of her degenerative changes. She will be scheduled for next available date. She will follow up as instructed. Feel free to call me at any time should questions regarding her orthopedic management arise. I spent 20 minutes in reviewing the patient's records and imaging studies, seeing the patient and documenting in the medical record. Coding Level of Care Code Est Pt Level 3 (95394) Complex EM visit Add On G2211 Diagnoses Tear of medial meniscus of right knee S83.241A
[2024-09-27 15:00] VITALS: BMI 35.2
--- OUTSIDE RECORDS SUMMARY | 2024-09-27 15:47 | XMS_ITS | Data Portability ---
Author Organization [place] - [facility],, DAYANA BEY MD Address [address] [place] [address] Care Team Providers Care Infection Control Specialist Name Role Phone TIFFANY MILIAN Primary Care Provider Assessment No assessment recorded. Plan of Treatment Reminders Order Date Submit Date Provider Last Modified By Organization Details Last Modified Time Details Appointments None recorded. Lab herpes simplex, culture, unspecifie d specimen - right vulva 2024 025 [employer] [facility] (Centralized Electronic Ordering - All Locations), Patient Can Go To The Location Of Their Choice, [id number] 16:06:30 biopsy, endometria l 2024 025 [facility] ([facility] Order[facility] - All Locations), Patient Can Go To The Location Of Their Choice, [address] 5 07:16:45 pap test, thinprep, cervical 2021 022 [facility] ([facility] Order[facility] - All Locations), Patient Can Go To The Location Of Their Choice, [address] 07:44:41 Referral None recorded. Procedures biopsy, endometriu m (PROC) 2024 025 [email or web address] In-Office Order, Internal Use Only DO Not Attach Compendium DO Not Attach Compendium, Do Not Delete/merge, [address]14 15:39:27 Surgeries None recorded. Imaging US, pelvis, transabdom inal + transvagin al - pmb for a week 2023 024 [facility] (Central Scheduling Radiology), [address] [place], [address], 4 08:46:36 MAMMO, screening, digital, bilateral 2021 [facility] (Mammography) , [address] [place], [address], 3 13:24:37 bone density 2021 [facility] (Central Scheduling Radiology), [address] [place], [address], 4 07:22:38 Medication Orders valacyclov ir 1 gram tablet 2024 025 [facility]/Pharmacy #[id number], [address] [place], [address], 5 13:30:17 acyclovir 5 % topical ointment 2024 025 smacmillan 1 [facility]/Pharmacy #[id number], [address] [place], [address], 5 14:02:07 Patient TargetsNo targets recorded. Patient Instructions Encounter Date Encounter Id Patient Instructions Last Modified By Organization Details Last Modified Time 01/21/2022 [id number] atrophic vaginitis: care instructions Not available 01/21/2022 10:29:49 learning about healthy weight Not available 01/21/2022 10:29:49 She is here for annual exam, is doing well, recently returned from [facility]. She appears to be doing well. Monthly self breast exam was taught, and stressed, and is advised to call if she discovers any new mass in the breast. Not available 01/21/2022 10:30:00 03/01/2024 [id number] vaginal bleeding after menopause: care instructions Not [...] 25 minutes Not available 03/01/2024 14:44:33 04/12/2024 [id number] postmenopausal bleeding information Not available 04/12/2024 14:42:42 endometrial biopsy: about this test [email or web address] Not available 04/12/2024 14:42:42 She is here [...] cancer is found we will refer to [facility], and discussed possible hysterectomy in that case. She understands. All questions answered. Not available 04/12/2024 14:56:03 04/19/2024 [id number] She is here to discuss the results [...] All questions answered. 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 Will refer to [facility] for consultation and management. Face to face discussion, chart review and coordination of care: 25 minutes Not available 04/19/2024 15:50:51 08/15/2024 [id number] shingles: care instructions Not available 08/15/2024 13:30:15 [...] Tissu e Sourc e: 1: THINP REP FAMILY PRACTITIONER PAP TEST, CERVI BEBETO: Final Diagn osis: [...] rep Imagi ng Syste m with rosa marina or reji marie Perfo rmed at [facility] ate Refer ence Labor atory depar tment of Cytol ogy, [address] [place] Clini bebeto Histo ry (othe r): Z12.4 , LPS 12/[address], routi ne scree n Phone #: [phone], On-Ca ll Patho logis t: [id number] Not Available [facility] (Centralized Electronic Ordering - All Locations) Patient Can Go To The Location Of Their Choice, [id number] 01/23/2022 10:25:18 04/12/19 25 04/12/2024 [facility] SURGI BEBETO PATHO LOGY results Patiwilly nt Name: CARMELA LINTON Lab Acces monica [...] compo nent is perfo rmed by [facility], [address], [place] [address] . This test was devel oped, and its perfo rmanc e eve cteri stics deter mined by [employer] . It has not been clear ed or [...] [facility] [place] [facility] , [address], [place] (CLIA #[id number] 2). Its perfo rmanc e eve cteri stics deter mined by [facility]. Shanika Doss M.D. Medic al Direc tor of Surgi bebeto Patho logy, Antonia good M.D. Medic al Direc tor Cytop athol ogy Phone #: [phone], On-Ca ll Patho logis t: [id number] Not Available [facility] (Centralized Electronic Ordering - All Locations) Patient Can Go To The Location Of Their Choice, [id number] 04/19/2024 12:38:33 04/12/19 25 04/12/2024 [employer] [...] . Misma tch repai r immun ohist gordon istry (MMR IHC): Retai lorena nucle ar [...] [address], [place] [address] . This test was devel oped, and its perfo rmanc e eve cteri stics deter mined by [employer] . It has not been clear ed or [...] Avenu e, [place] (CLIA #[id number] 2). Its perfo rmanc e eve cteri stics deter mined by [facility]. Shanika Doss M.D. Medic al Direc tor of Surgi bebeto Patho Antonia webster M.D. Medic al Direc tor Cytop athol ogy Phone #: [phone], On-Ca ll Patho logis t: [id number] Not Available [facility] (Centralized Electronic Ordering - All Locations) Patient Can Go To The Location Of Their Choice, [id number] 05/03/2024 11:20:30 08/16/1908/18/2024 HSV CULTU RE AND TYPIN G hsv culture/type COMMEN T Negat ct No Herpe s simpl ex virus isola jacey. Not Available [facility] ([facility]) [address] [facility], [place], [address], 08/18/2024 16:06:30 05/15/19 23 05/15/2022 MAMMO , scree christiano, digit al, bilat eral No observ ation record ed. [facility] [address] [place] [address], [address], 05/16/2022 08:54:30 03/17/20 24 03/15/2024 US, pelvi s, trans abdom inal + trans vagin al No observ ation record ed. [email or web address] [address], [address], 03/17/2024 10:41:52 Result Notes None recorded. Problems Name Problem SNOMED Code Status Onset Date Resolution Date Notes Provider Name and Address Organization Details Recorded Time Candidiasis of skin 23044090 Active Dayana Bey MD [address], [place], , [place] - [facility], 5 15:53:04 Menopausal syndrome 492479765 Active Dayana Bey MD [address], [place], , [place] - [facility], 5 09:05:05 Complex endometrial hyperplasia 550766210 Active 2016 Dayana Bey MD [address], [place], , [place] [facility], 7 11:19:20 Polyp of corpus uteri 29339001 Active 2016 Dayana Bey MD [address], [place], , [place] - [facility], 7 12:19:18 Postmenopausa l bleeding 66124446 Active 2016 Dayana Bey MD [address], [place], , [place] - [facility], 7 12:19:29 Essential hypertension 84834983 Active 2016 Valerie quevedo [place] - [facility], 7 13:17:12 Anogenital hidradenitis suppurativa 824783069 Active Not Available [facility] 3 03:01:06 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 Procedures Surgical History Date Name Laterality Status Provider Name and Address Organization Details Recorded Time 04/12/19 25 Endometrial Biopsy completed Dayana eBy MD [address], [place], [address], [place] - [facility], 04/12/2024 14:54:20 12/30/19 24 Most Recent Mammogram completed Sasha Lowery [place] - [facility], 03/01/2024 13:46:16 12/30/19 24 Most Recent Bone Density completed Sasha Lowery [place] - [facility], 03/01/2024 13:46:25 03/25/20 16 Endometrial Biopsy completed Dayana Bey MD [address], [place], [address], [place] [facility], 03/25/2016 13:50:12 03/30/19 09 Other completed Dayana Bey MD [address], [place], [address], [place] [facility], 07/09/2012 14:33:12 03/30/18 76 Tonsillectomy completed Sasha Lowery [place] - [facility], 07/09/2012 14:25:04 Imaging Results None recorded. Procedure Notes None recorded. Medical Equipment None Reported. Allergies Allergen ID Allergen Name Allergen Category Reaction Reaction Severity Criticality Documentation Date Start Date Code Code System Note Provider Name and Address Organization Details Recorded Time 7661 Ultram medicatio n other severe Not available 07/09/2012 58885 6 RxNorm weak and sleep y Sasha quevedo [place] - [facility], 3 14:25:04 Medications Name Sig Start Date [...] Not Available valacyclovi r 1 gram tablet TAKE 1 TABLET BY MOUTH THREE TIMES A DAY FOR 7 DAYS active Not Available Not Available No t Available meloxicam 15 mg tablet 04/28 completed Not [...] Updated DateTime 5 152.4 cm 35.4 kg/m2 61931.6 6 g 97.4 [degF] 55 /min 129 mm[Hg] 49 mm[Hg] Sasha Rosa in [facility], 5 14:36:51 Date Recorded Body height Body mass index (BMI) Body weight Heart rate Systolic blood pressure Diastolic blood pressure Provider Name and Address Organization Details Last Updated DateTime 5 152.4 cm 35.3 kg/m2 76815.2 2 g 58 /min 155 mm[Hg] 51 mm[Hg] Sasha Rosa in [facility], 5 14:54:30 Date Recorded Body height Body mass index (BMI) Body weight Heart rate Systolic blood pressure Diastolic blood pressure Provider Name and Address Organization Details Last Updated DateTime 5 152.4 cm 36.2 kg/m2 98295.0 3 g 74 /min 131 mm[Hg] 51 mm[Hg] Sasha Rosa in [facility], 5 13:04:42 Date Recorded Body weight Body mass index (BMI) Body height Body temperature Heart rate Systolic blood pressure Diastolic blood pressure Provider Name and Address Organization Details Last Updated DateTime 2 05866.3 8 g 34.2 kg/m2 152.4 cm 97.2 [degF] 69 /min 135 mm[Hg] 52 mm[Hg] Sasha Rosa in [facility], 2 10:02:26 Date Recorded Body weight Body mass index (BMI) Body height Heart rate Systolic blood pressure Diastolic blood pressure Provider Name and Address Organization Details Last Updated DateTime 4 60755.9 4 g 35.4 kg/m2 152.4 cm 69 /min 125 mm[Hg] 55 mm[Hg] Sasha Lowery [place] - [facility], 4 13:42:28 Social History Question Answer Notes LastModified by Organizat ion Details LastModified Time Tobacco Smoking Status Former Smoker over 15 yrs ago Not Available [employer] 01/31/2020 03:19:42 How Many Years Have You Consumed Alcohol? 50 Information not available 01/21/2022 What Is Your Level Of Caffeine Consumption? Occasional [id number] Information not available 01/31/2020 In The 14 [...] Type Of Diet Are You Following? REGULAR [id number] Information not available 01/31/2020 Which Illicit Or Recreational Drugs Have You Used? Yes Marijuana On Weekends [id number] Information not available 01/31/2020 Do You Reside In Or Have You Traveled To An Area Where Ebola Virus Transmission Is Active? No [id number] Information not available 01/31/2020 Education 2 Year College Information not available 07/09/2012 What Is The Highest Grade Or Level Of School You Have Completed Or The Highest Degree You Have Received? [id number] Information not available 01/21/2022 How Many Days [...] available 01/21/2022 Are You Sexually Active? No [id number] Information not available 01/31/2020 At What Age Did You Start Smoking Tobacco? 18 Information not available 01/21/2022 How Much Tobacco Do You Smoke? No [id number] Information not available 01/31/2020 General Stress Level Low Information not available 07/09/2012 How Many Years Have You Smoked Tobacco? 33 [id number] Information not available 01/31/2020 Have You Recently [...] is your level of alcohol consumption? Occasional [id number] Information not available 01/31/2020 Do you or have you ever used smokeless tobacco? Never used smokeless tobacco [id number] Information not available 01/31/2020 Are you currently employed? 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 Never used electronic cigarettes [id number] Information not available 01/31/2020 What is your exercise level? Moderate [id number] Information not available 01/31/2020 Mental Status Question Answer Note LastModified by Organization D etails LastModified Time Do you feel stressed (tense, restless, nervous, or anxious, or unable to sleep at night)? EQ1411-1 Information not available 01/21/2022 Family History Relationship Description Onset Age of this Age Resolved Age Notes LastModified by Organization Details LastModified Time Father Myocardial infarction previo usly record ed as Heart Attack ([place]) Not available 08/11/2014 14:42:51 Mother Problem lung/ copd (previ ously record ed as Other) Not available 08/11/2014 14:42:51 Medical History Condition Response Anesthesia complications N High Blood Pressure Y Candidate for MyRisk panel N Autoimmune Condition N Thyroid Problems N Kidney or Bladder Problems N GI Problems N Lung Disease N Depression N Defects or Inherited Disease N History of Ovarian Cancer N Anemia N History of Breast Cancer N GENARO [...] Time influenza, unspecified formulation 6 completed Valerie Careyki null, [place] [facility], 02/18/2016 13:37:31 pneumococcal, unspecified formulation 6 completed Sasha Meczywor null, [place] [facility], 03/25/2016 13:29:20 Influenza, split virus, quadrivalent, preservative 7 completed Sasha Meczywor null, [place] [facility], 09/08/2017 13:14:34 Pneumococcal Conjugate, unspecified formulation 7 completed Sasha Meczywor null, [place] [facility], 09/08/2017 13:15:30 influenza, unspecified formulation 8 completed Valerie Potorski null, [place] [facility], 12/29/2017 13:32:45 Influenza, split virus, quadrivalent, preservative 9 completed Sasha Meczywor null, [place] [facility], 04/28/2019 14:33:16 Influenza, split virus, [...] Meczywor null, [place] - [facility], 01/21/2022 10:03:33 COVID-19, mRNA, LNP-S, PF, 30 mcg/0.3 mL dose, hanna-sucrose 2 completed Sasha Meczywor null, [place] [facility], 01/21/2022 10:03:33 Influenza, adjuvanted, trivalent, PF 4 completed Sasha Meczywor null, [place] - [facility], 03/01/2024 13:42:05 zoster recombinant 3 completed Sasha Meczywor null, [place] [facility], 03/01/2024 13:42:05 Influenza, adjuvanted, quadrivalent, PF 3 completed Sasha Meczywor null, [place] - [facility], 03/01/2024 13:42:05 COVID-19, mRNA, LNP-S, PF, 50 mcg/0.5 mL 4 completed Sasha Meczywor null, [place] - [facility], 03/01/2024 13:42:05 COVID-19, mRNA, LNP-S, PF, 50 mcg/0.5 mL 3 completed Sasha Meczywor null, [place] - [facility], 03/01/2024 13:42:05 Past Encounters Encounter ID Performer Location Encounter Start Date Encounter Closed Date Diagnosis/Indication Diagnosis SNOMED-CT Code Diagnosis ICD10 Code Diagnosis Note [id number] MD DAYANA Herman MD [address] [place] [address] 07/09/2012 14:07:52 07/09/2012 16:06:14 [id number] MD DAYANA Herman MD [address] [place] [address] 03/24/2014 10:38:35 03/24/2014 11:39:24 Candidiasis of skin 57377179 [id number] MD DAYANA Herman MD [address] [place] [address],[address] [address] 08/11/2014 13:59:37 08/11/2014 16:11:48 Specialized medical examination 54481860 Screening for malignant neoplasm of rectum 008482648 Screening mammography 13272032 [id number] MD DAYANA Herman MD [address] [place] [address],[address] [address] 02/18/2016 13:23:38 02/18/2016 16:13:04 Acute lower urinary tract infection 064125396 R30.0 Postmenopa usal bleeding 70229685 N95.0 [id number] MD DAYANA Herman MD [address] [place] [address],[address] [address] 03/25/2016 13:22:00 03/25/2016 15:17:36 Endometrium thickened 727603709 R93.8 Postmenopa usal bleeding 01638473 N95.0 [id number] MD DAYANA Herman MD [address] [place] [address],[address] [address] 04/02/2016 10:44:29 04/03/2016 10:35:26 Complex endometrial hyperplasia 894294843 N85.02 Polyp of corpus uteri 11 543039 N84.0 Postmenopa usal bleeding 79986433 N95.0 Cares for self 122278562 Z76.89 [id number] MD DAYANA Herman MD [address] [place] [address],[address] [address] 06/02/2016 13:02:10 06/02/2016 16:24:23 Polyp of corpus uteri 47042060 N84.0 Endometria l hyperplasia 959664445 N85.00 [id number] MD DAYANA Herman MD [address] [place] [address] 06/24/2016 13:00:56 06/24/2016 14:34:38 Polyp of corpus uteri 10922367 N84.0 Complex en dometrial hyperplasia 483329262 N85.02 [id number] MD DAYANA Herman MD [address] [place] [address],[facility] [place] [address] 09/08/2017 12:59:41 09/08/2017 15:26:23 Screening for malignant neoplasm of cervix 679989072 Z12.4 Screening mammography 24 951574 Z12.31 Menopausal syndrome 1237 64221 N95.9 Cares for self 430674679 Z76.89 [id number] MD DAYANA Herman MD [address] [place] [address],[facility] [place] [address] 12/29/2017 13:20:54 12/29/2017 14:55:38 Anogenital hidradenitis suppurativa 538126109 L73.2 Climacteric arthritis 77 452059 M13.851 [id number] MD DAYANA Herman MD [address] [place] [address],[facility] [place] [address] 04/28/2019 14:21:07 04/28/2019 15:35:51 Dysuria 00774680 R30.0 [id number] MD DAYANA Herman MD [address] [place] [address],[facility] [place] [address] 12/26/2019 10:32:43 12/26/2019 11:17:29 Screening for malignant neoplasm of cervix 975599663 Z12.4 Screening mammography 24 195931 Z12.31 Screening for osteoporosis 210813766 Z13.820 [id number] MD DAYANA Herman MD [address] [place] [address] [place] [address] 01/21/2022 09:57:40 01/21/2022 12:08:16 Screening for malignant neoplasm of cervix 812290924 Z12.4 Screening mammography 24 198961 Z12.31 Screening for osteoporosis 252833435 N95.8 [id number] MD DAYANA Herman MD [address] [place] [address],[facility] [place] [address] 03/01/2024 13:34:46 03/02/2024 10:00:03 Postmenopausal bleeding 73512854 N95.0 [id number] MD DAYANA Herman MD [address], [place] [address] 04/12/2024 14:27:00 04/12/2024 15:39:09 Postmenopausal bleeding 04108661 N95.0 [id number] MD DAYANA Herman MD [address],[facility] [place] [address] 04/19/2024 14:40:51 04/19/2024 15:53:28 Endometrioid carcinoma of endometrium 1778695910 C54.1 [id number] MD DAYANA Herman MD [address],[facility] [place] [address] 08/15/2024 12:56:29 08/15/2024 15:31:53 Herpes zoster 6446155 B02.9 Ulceration of vulva 6864 0004 N76.6 Herpetic u lceration of vulva 77289032 A60.04 A60.09 Health Concerns Section Related Observation LastModified by Organization Detai ls LastModified Time None Recorded Concern Status LastModified by Organization Details LastModified Time None Recorded Advance Directives Directive None Recorded Payers Insurance Date Sequence Insurance Name Policy Number Policy Payan Covered Member ID Payan Member ID Guarantor Name 03/01/2024 1 [facility] ([facility] Carmela Linton [id number] Carmela Linton 03/01/2024 2 [place] [id number] Carmela Linton [id number] Carmela Linton 03/01/2024 1 [facility] PREMIUM SAVER 1999 [id number] Carmela Linton [id number] Carmela Linton 03/01/2024 1 [place] [employer] Carmela Linton [id number] Carmela Linton 08/15/2024 1 [employer] (MEDICARE REPLACEMENT /ADVANTAGE - PPO) [id number] Carmela Linton [id number] Carmela Linton Notes Date Note Type Note Provider Name and Address Organization Details Recorded Time 01/21/2022 text/html She is here for annual exam, is doing well, recently returned from [facility]. Dayana Bey MD [address], [place], [address], [place] - [facility], 01/21/2022 10:30:19 03/01/2024 text/html She is here [...] a steroid injection. Dayana Bey MD [address] [facility],[address], [place], [address], [place] [facility], 03/01/2024 14:46:10 04/12/2024 text/html She is here [...] and C again. Dayana Bey MD [address], [place], [address], [place] [facility], 04/12/2024 14:56:19 04/19/2024 text/html She is here to discuss the results of her recent endometrial biopsy, it shows FIGO grade 3, favor poorly differentiated endometrioid carcinoma. The emb was done for pmb, the sonogram shows a normal size uterus, and a 1 cm endometrium. Dayana Bey MD [address] [facility],[address], [place], [address], [place] - [facility], 04/19/2024 15:51:06 08/15/2024 text/html She is here for a small cluster of tender blisters on her right labia that she first noted on Thursday, it is Thursday now she has a past history of herpes and has been taking acyclovir without improvement, she feels that this is not typical of a herpes infection. Dayana Bey MD [address] [facility],[address], [place], [address], [place] [facility], 08/15/2024 14:05:34 OBGyn Episode No OBEpisode recorded.
--- OUTSIDE RECORDS SUMMARY | 2024-09-27 15:47 | XMS_ITS | Clinical Summary ---
Author Organization 175 [facility] Address [address] [place] [address] Phone Care Team Providers Care Acute Care Nurse Name Role Phone Judith Gill MD Primary Care Provider [phone] Allergies Active Allergy Reactions Criticality Noted Date Comments Tramadol Disorientated Medium 06/08/2017 Medications solifenacin (VESICARE) 5 mg tablet 09/09/2021 Active multivitamin (MULTIPLE VITAMINS ORAL) Multi Vitamin Active lisinopril-hydr oCHLOROthiazide (PRINZIDE,ZESTO RETIC) 20-25 mg per tablet TAKE 1 TABLET BY MOUTH EVERY DAY. 90 tablet 3 03/04/2024 Active vibegron (GEMTESA) 75 mg tablet tablet Take 1 tablet (75 mg total) by mouth 1 (one) time each day. Active celecoxib (CeleBREX) 200 mg capsule Take 1 capsule (200 mg total) by mouth 1 (one) time each day. 90 capsule 07/25/2024 Active omeprazole OTC (PriLOSEC OTC) 20 mg EC tablet Take 1 tablet (20 mg total) by mouth 1 (one) time each day. Do not crush, chew, or split. 90 tablet 3 07/25/2024 Active atorvastatin (LIPITOR) 40 mg tablet TAKE 1 TABLET BY MOUTH EVERY DAY 90 tablet 1 07/27/2024 Active Active Problems Problem Noted Date Diagnosed Date Endometrial cancer (CMS/HCC V24, CMS/HCC V28) Assessment & Plan (07/25/2024 9:45 AM [...] Encounters Date Type Department Care Team Description 08/19/2024 Telephone Breast Care [address] [place] [address] Susan Campos MA 07/25/2024 8:45 AM EDT Office Visit Internal Medicine - [place] [address] [place] [phone] Judith Gill MD Mixed hyperlipidemia (Primary Dx); Prediabetes; Hyperglycemia; Encounter for subsequent annual wellness visit (AWV) in Medicare patient; Endometrial cancer ([facility] V24, [facility] V28) 07/25/2024 Telephone [facility] [address] [place] [address] Gustavo Azar MD 07/04/2024 11:00 AM EDT Office Visit [facility] [address] [place] [phone] Gustavo Azar MD Endometrial cancer ([facility] V24, [facility] V28) (Primary Dx) from Last 3 Months Immunizations [...] 73 07/25/2024 8:51 AM EDT Temperature 36.4 C (97.5 F) 07/25/2024 8:51 AM EDT Respiratory Rate 20 05/09/2024 5:58 PM EST Oxygen Saturation 98% 07/25/2024 8:51 AM EDT Inhaled Oxygen Concentration - - Weight 85.3 kg (188 lb) 07/25/2024 8:51 AM EDT Height 152.4 cm (5') 05/09/2024 12:46 PM EST Body Mass Index 36.72 05/09/2024 12:46 PM EST Plan of Treatment Upcoming Encounters Date Type Department Care Team (Late st Contact Info) Description 10/03/2024 9:00 AM EDT Office Visit [facility] [address] [phone] Gustavo Azar MD [address] [place] [address] 01/05/2025 11:00 AM EDT Office Visit [facility] [address] [phone] Gustavo Azar MD [address] [place] [address] 01/24/2025 1:00 PM EDT Office Visit Internal Medicine [facility] [address] [phone] Judith Gill MD [address] [phone] Health Maintenance Due Date Last Done Comments [...] Additional history exists Breast Cancer Screening 06/25/2025 06/26/19, 05/15/2022, 04/17/2021, Additional history exists Depression Screening [...] this topic Medical Devices Implanted Type Area Student Life Coordinator Device Identifier Shelf Expiration Date Model / Serial / Lot Hemostat Absorb Surgicel 2x4in [facility] - [id number] Implanted:Qty: 1 on 05/09/2024 by Gustavo Azar MD at [facility] Hemostasis N/A: Abdomen [employer] [id number] 05/27/2026 1962 / NA / [id number] Procedures Procedure Name Priority Date/Time Associated Diagnosis Comments EXTERNAL XRAY REPORT 08/17/2024 LIPID PANEL WITH REFLEX TO DIRECT LDL [...] Recently Relevant to Health Maintenance Results * External Xray Report (08/17/2024) Anatomical Region Laterality Modality Radiographic Raina ging us Provider [facility] IMG XR PROCEDURES Final Result * (ABNORMAL) Lipid panel with reflex to direct LDL (08/03/2024 10:10 AM EDT) Cholesterol 163 0 - 200 mg/dL LAB CHEMISTRY METHOD 08/03/2024 1:16 PM EDT [facility] Triglycerides 279(H) 0 - 150 mg/dL LAB CHEMISTRY METHOD 08/03/2024 1:16 PM EDT [facility] HDL 46 >=40 mg/dL LAB CHEMISTRY METHOD 08/03/2024 1:16 PM EDT [facility] LDL Calculated 61 0 - 100 mg/dL LAB CHEMISTRY METHOD 08/03/2024 1:16 PM EDT [facility] VLDL Cholesterol David 55.8 mg/dL LAB CHEMISTRY METHOD 08/03/2024 1:16 PM EDT [facility] Non HDL Chol. (LDL+VLDL) 117 <145 mg/dL LAB CHEMISTRY METHOD 08/03/2024 1:16 PM EDT [facility] Chol/HDL Ratio 3.5 0.0 - 4.4 LAB CHEMISTRY METHOD 08/03/2024 1:16 PM EDT [facility] Blood Venous blood specimen / Unknown Venipuncture / Unknown 08/03/2024 10:10 AM EDT 08/03/2024 10:11 AM EDT us Judith Gill MD LAB BLOOD ORDERABLES Final Res ult [facility] [address] [place] [address], [place] [phone] * Magnesium (08/03/2024 10:10 AM EDT) Magnesium 1.9 1.9 - 2.6 mg/dL LAB CHEMISTRY METHOD 08/03/2024 1:07 PM EDT [facility] Blood Venous blood specimen / Unknown Venipuncture / Unknown 08/03/2024 10:10 AM EDT 08/03/2024 10:11 AM EDT Judith Gill MD LAB BLOOD ORDERABLES Final Res ult Performing Organization Address [facility]/ZIP Co de Phone Number [facility] [address] [place] [address], [place] [phone] * Hemoglobin A1c (08/03/2024 10:10 AM EDT) [facility] Hemoglobin A1C 6.1 <6.5 % LAB CHEMISTRY METHOD 08/03/2024 9:30 PM EDT [facility] Mean Bld Glu Estim. 128 mg/dL LAB CHEMISTRY METHOD 08/03/2024 9:30 PM EDT [facility] Blood Venous blood specimen / Unknown Venipuncture / Unknown 08/03/2024 10:10 AM EDT 08/03/2024 10:11 AM EDT us Judith Gill MD LAB BLOOD ORDERABLES Final Res ult Performing Organization Address City/[facility]/ZIP Co de Phone Number [facility] [address] [place] [address], [place] [phone] * (ABNORMAL) Basic metabolic panel (05/03/2024 12:00 PM EST) [facility] Sodium 136 133 - 145 mmol/L LAB CHEMISTRY METHOD 05/03/2024 1:26 PM EST [facility] Potassium 4.1 3.5 - 5.5 mmol/L LAB CHEMISTRY METHOD 05/03/2024 1:26 PM EST [facility] Chloride 104 96 - 110 mmol/L LAB CHEMISTRY METHOD 05/03/2024 1:26 PM [facility] CO2 28 21 - 32 mmol/L LAB CHEMISTRY METHOD 05/03/2024 1:26 PM [facility] Anion Gap 4 3 - 11 LAB CHEMISTRY METHOD 05/03/2024 1:26 PM [facility] Glucose 125(H) 70 - 100 mg/dL LAB CHEMISTRY METHOD 05/03/2024 1:26 PM [facility] BUN 15 5 - 25 mg/dL LAB CHEMISTRY METHOD 05/03/2024 1:26 PM [facility] Creatinine 0.76 0.50 - 1.10 mg/dL LAB CHEMISTRY METHOD 05/03/2024 1:26 PM [facility] eGFR 82 >=60 mL/min/1. 73m2 LAB CHEMISTRY METHOD 05/03/2024 1:26 PM [facility] Comment:Calculation based on the Chronic Kidney Disease Epidemiology Collaboration (CKD-EPI) equation refit without adjustment for race. BUN/Creatinine Ratio 19.7 LAB CHEMISTRY METHOD 05/03/2024 1:26 PM [facility] Calcium 9.3 8.5 - 10.5 mg/dL LAB CHEMISTRY METHOD 05/03/2024 1:26 PM [facility] Blood Venous blood specimen / Unknown Venipuncture / Unknown 05/03/2024 12:00 PM EST 05/03/2024 12:54 PM EST us Gustavo Azar MD LAB BLOOD ORDERABLES Final Resul t [facility] [address] [place] [address], * BD Bone Density DXA Axial Skeleton (02/15/2024 10:24 AM EST) Anatomical Region Laterality Modality Wrist, Hip, L-spine Bone Densito metry 02/15/2024 10:3 2 AM EST Addenda Addendum by Seamus Varner MD on 02/15/2024 10:34 AM EST HISTORY: The patient is a 73-year-old postmenopausal female with clinical concern for metabolic bone disease. FINDINGS: Dual energy [...] 132% of that of age matched controls. This yields a T-score of 0.9 and a Z-score of 2.2 and there is therefore no evidence of osteoporosis or osteopenia here. IMPRESSION: 1. There is no evidence of osteoporosis or osteopenia. There has been a decrease of 1.8% in bone mineral density in the lumbar spine since the prior examination of 01/14/2022. There has been an increase of 1.4% in bone mineral density in the right femur and an increase of 1.7% in bone mineral density in the left femur. 2. FRAX analysis yields a 10-year probability of major osteoporotic fracture of 6.6% and a 10-year probability of hip fracture of 0.4%. Code 00554 CT Teleradiology -------- FINAL REPORT -------- Dictated By: Seamus Varner Dictated Date: 02/15/2024 10:32 ET Assigned Physician: Seamus Varner Reviewed and Electronically Signed By: Seamus Varner Signed Date: 02/15/2024 10:34 ET Workstation ID: [id number] Transcribed By: Self Edit Transcribed Date: 02/15/2024 10:32 ET Impressions 02/15/2024 10:34 AM EST 1. There is no evidence of osteoporosis or osteopenia. There has been a decrease of 1.8% in bone mineral density in the lumbar spine since the prior examination of 01/14/2022. There has been an increase of 1.4% in bone mineral density in the right femur and an increase of 1.7% in bone mineral density in the left femur. 2. FRAX analysis yields a 10-year probability of major osteoporotic fracture of 6.6% and a 10-year probability of hip fracture of 0.4%. Code 45424 CT Teleradiology -------- FINAL REPORT -------- Dictated By: Seamus Varner Dictated Date: 02/15/2024 10:32 ET Assigned Physician: Seamus Varner Reviewed and Electronically Signed By: Seamus Varner Signed Date: 02/15/2024 10:34 ET Workstation ID: [id number] Transcribed By: Self Edit Transcribed Date: 02/15/2024 10:32 ET Narrative 02/15/2024 10:34 AM EST HISTORY: The patient is a 73-year-old postmenopausal female with clinical concern for metabolic bone disease. FINDINGS: Dual energy [...] 132% of that of age matched controls. This yields a T-score of 0.9 and [...] density of the femurs bilaterally is 1.122 gm/oz2vxbmc is 111% of that of young normals [...] probability of hip fracture of 0.4%. Code 56902 CT Teleradiology -------- FINAL REPORT -------- Dictated By: Seamus Varner Dictated Date: 02/15/2024 10:32 ET Assigned Physician: Seamus Varner Reviewed and Electronically Signed By: Seamus Varner Signed Date: 02/15/2024 10:34 ET Workstation ID: [id number] Transcribed By: Self Edit Transcribed Date: 02/15/2024 10:32 ET Judith Gill MD [facility] [place] [place] DXA PROCEDURES Edited Resu lt - Final * Colonoscopy (10/21/2023) Colonoscopy no interpretation , abstracted Anatomical Region Laterality Modality Other Historical Provider HEALTH MAINTENANCE Final Result * JACK SCREENING DIGITAL (06/26/2023 2:17 PM EDT) Anatomical Region Laterality Modality Mammography 06/26/2023 1:32 PM EDT Narrative 06/26/2023 2:17 PM EDT [facility] Diagnostic Imaging Department [address] [place] [address] [phone] Patient: CARMELA CARTER /Age/Sex: 1950 73 - F Unit#: [id number] Location/Status: SPDIMAM/REG CLI Mnemonic/Ordering Site: [facility] Ordering Physician: JUDITH GILL MD [facility] [place] [facility] Screening Digital - 06/26/23 - 1350 Report Status:Signed EXAM: [place] [facility] Screening Digital EXAM DATE AND TIME: 06/26/2023 1:51 PM HISTORY: Annual screening COMPARISON: Multiple exams dating back to 2003 TECHNIQUE: Bilateral digital breast tomosynthesis was performed in the CC and MLO projections. Computer aided detection with Didasco 3D 3.1 was employed. TISSUE DENSITY: b. There are scattered areas of fibroglandular density. FINDINGS: No suspicious masses, grouped microcalcifications, or areas of architectural distortion are seen. The skin and vascularity are unremarkable. IMPRESSION: Stable mammographic appearance of the breasts. No evidence of malignancy is seen. A negative mammogram in the presence of a clinically suspicious palpable abnormality does not preclude the possibility of malignancy or alter the indications for biopsy. BI-RADS: Category 1: Negative RECOMMENDATION(S): 1: Routine screening mammogram BILATERAL in 1 year. 4261F, 8441F Dictating Physician: ANNE-MARIE HAMMOND MD Electronically Signed by: ANNE-MARIE HAMMOND MD Dic Date/Time: 06/26/23 1416 Sign date/Time: 06/26/23 1417 Procedure Note Anne-Marie Hammond MD - 11/16/2023 [facility] Diagnostic Imaging Department [address] [place] [address] [phone] Patient: CARMELA CARTER /Age/Sex: 1950 73 - F Unit#: [id number] Location/Status: SPDIMAM/REG CLI Mnemonic/Ordering Site: [facility] Ordering Physician: JUDITH GILL MD [facility] [place] [facility] Screening Digital - 06/26/23 - 1350 Report Status:Signed EXAM: [facility] [place] [facility] Screening Digital EXAM DATE AND TIME: 06/26/2023 1:51 PM HISTORY: Annual screening COMPARISON: Multiple exams dating back to 2003 TECHNIQUE: Bilateral digital breast tomosynthesis was performed in the CCand MLO projections. Computer aided detection with Didasco 3D 3.1was employed. TISSUE DENSITY: b. There [...] MD IMG BI PROCEDURES Final Result * Hm Pap Smear (08/14/2014) Pap smear no interpretation [...] currently active code status orders. Care Teams Acute Care Nurse Relationship Specialty Start Date End Date Judith Gill MD [address] [place] [address] [address] [place] [address] PCP - General Internal Medicine 12/24/20
--- OUTSIDE RECORDS SUMMARY | 2024-09-27 15:47 | XMS_ITS | Clinical Summary ---
Author Organization [facility] Address [address] [place] [address] Care Team Providers Care Outside Sales Associate Name Role Phone Tom Burnett MD Primary Care Provider [phone] Allergies Active Allergy Reactions Criticality Noted Date Comments Tramadol Other (See Comments) High 06/08/2017 Medications Medication Sig Dispensed Refills Start Date End Date Status Aspirin Buf,UtUepi-JqYtgp-Rv O, 81 MG TABS Take 81 mg [...] of 1 - PCV) 2015 Influenza Vaccine (Season Ended) 2024 12/23/2019, 01/19/2019, 12/30/2016, Additional history exists RSV Adult > 60+ Yrs or (1 - 1-dose 75+ series) 2025 Hepatitis B Vaccines Aged Out No long er eligible based on patient's age to complete this topic RSV Ped < 20 months Aged Out No longe r eligible based on patient's age to complete this topic Care Teams Outside Sales Associate Relationship Specialty [place] [address] [place] [phone] PCP - General Internal Medicine 09/10/20
== END 2024-09-27 15:24 | disposition home or self-care (01) ==
LOC: HO.HOS 14:49
PROVIDERS: PCP Internal Medicine; Visit Provider Orthopaedic Surgery
DX: S83.241A Other tear of medial meniscus, current injury, right knee, initial encounter (principal)
CPT/HCPCS: 99214; G2211

== ENCOUNTER 2024-10-17 10:24 | Outpatient (AMB) | payer MEDICARE, SELFPAY ==
--- NOTE | 2024-10-17 10:29 | MHC.OFFVIS ---
Vital Signs 10/17/24 10:35 Height 5 ft Weight 180 lb BMI 35.2 Intake Visit Reasons: Inj-Rt knee cortisone inj Intake Note: Carmela is a 74 year old female who presents with complaints of progressively worsening right knee pain and giving way. The patient describes her pain as sharp in nature. Most of the pain is along the medial aspect of her knee. She has failed the last 6 weeks of conservative treatment which has included a home exercise program, Tylenol, Celebrex, a knee brace and application of ice. 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 Allergies tramadol (From [employer]) Allergy (Unknown, Verified 10/17/24 10:35) syncope Medication List - Last Reconciled 10/17/24 by Duane Soria MD atorvastatin 40 mg PO DAILY celecoxib 200 mg PO DAILY lisinopril-hydrochlorothiazide 20-25 mg 1 tab PO DAILY nystatin topical DAILY omeprazole 20 mg PO DAILY solifenacin 10 mg PO DAILY valacyclovir 1,000 mg PO TID PFSH Social History Patient Tobacco Use Status: Former Tobacco user Current occupational status: retired Current occupation: rt handed Physical Exam Vital Signs: BMI result Body Mass Index 35.2 Const Other: Well-nourished well-developed very friendly female awake alert and oriented x3 in no acute distress Extrem Other: Right knee examination shows a minimal effusion, minimal crepitus with range of motion, tenderness along her medial joint line, positive Amna's test, no instability Office Procedures AMB Joint Injection/Aspiration Joint Injection/Aspiration Primary Site: right knee Prep: site was prepped using aseptic technique Injected: 40 mg of, DepoMedrol and 1% plain lidocaine Procedure: The patient tolerated the procedure well Coding 52801 - Large joint Procedure code (CPT) selection complete Assessment & Plan Assessment & Plan (1) Tear of medial meniscus of right knee: Code(s): S83.241A - Other tear of medial meniscus, current injury, right knee, initial encounter Category: Medical Plan Ms. Linton presents with right knee pain and mechanical symptoms due to early degenerative joint disease as well as a medial meniscus tear. The patient was previously interested in right knee arthroscopic surgery. That surgery was denied by her insurance company. The risks and benefits of a right knee cortisone injection were discussed at length with the patient. The patient wished to proceed. She tolerated the injection well. She will continue with her home exercise program. She will contact me prior to her follow-up appointment in 3 months should any questions or concerns arise. I spent 20 minutes in reviewing the patient's records and imaging studies, seeing the patient and documenting in the medical record. Orders: Orders AMB Joint Injection/Aspiration Today S83.241A - Other tear of medial meniscus, current injury, right knee, initial encounter Coding Level of Care Code Est Pt Level 3 (50222) Complex EM visit Add On G2211 Diagnoses Tear of medial meniscus of right knee S83.241A CPT Codes Coding - 33716 Large joint: 45782 - Large joint ([id number])
[2024-10-17 10:35] VITALS: BMI 35.2
--- OUTSIDE RECORDS SUMMARY | 2024-10-17 11:24 | XMS_ITS | Data Portability ---
Author Organization [place] - [facility],, DAYANA BEY MD Address [address] [facility] [address] [place] [address] Care Team Providers Care Converter Skimmer Name Role Phone TIFFANY MILIAN Primary Care Provider Assessment No assessment recorded. Plan of Treatment Reminders Order Date Submit Date Provider Last Modified By Organization Details Last Modified Time Details Appointments None recorded. Lab herpes simplex, culture, unspecifie d specimen - right vulva 2024 025 MONCHO [facility] (Centralized Electronic Ordering - All Locations), Patient Can Go To The Location Of Their Choice, [id number] 16:06:30 biopsy, endometria l 2024 025 [facility] - [facility]), Patient Can Go To The Location Of Their Choice, [id number] 5 07:16:45 pap test, thinprep, cervical 2021 022 [facility] (Central[facility] Ordering - All Locations), Patient Can Go To The Location Of Their Choice, [id number] 07:44:41 Referral None recorded. Procedures biopsy, endometriu m (PROC) 2024 025 [email or web address] In-Office Order, Internal Use Only DO Not Attach Compendium DO Not Attach Compendium, Do Not Delete/merge, 43490 15:39:27 Surgeries None recorded. Imaging US, pelvis, transabdom inal + transvagin al - pmb for a week 2023 024 [facility] (Central Scheduling Radiology), [address] [place], [address], 4 08:46:36 MAMMO, screening, digital, bilateral 2021 [facility] (Mammography) , [address] [place], [address], 3 13:24:37 bone density 2021 [facility] (Central Scheduling Radiology), [address] [place], [address], 4 07:22:38 Medication Orders valacyclov ir 1 gram tablet 2024 025 [facility]/Pharmacy #[id number], [address] [place], [address], 5 13:30:17 acyclovir 5 % topical ointment 2024 025 smacmillan 1 [facility]/Pharmacy #[id number], [address] [place], [address], 5 14:02:07 Patient TargetsNo targets recorded. Patient Instructions Encounter Date Encounter Id Patient Instructions Last Modified By Organization Details Last Modified Time 01/21/2022 [id number] atrophic vaginitis: care instructions Not available 01/21/2022 10:29:49 learning about healthy weight Not available 01/21/2022 10:29:49 She is here for annual exam, is doing well, recently returned from [facility]. She appears to be doing well. Monthly self breast exam was taught, and stressed, and is advised to call if she discovers any new mass in the breast. Not available 01/21/2022 10:30:00 03/01/2024 [id number] vaginal bleeding after menopause: care instructions Not [...] 25 minutes Not available 03/01/2024 14:44:33 04/12/2024 [id number] postmenopausal bleeding information Not available 04/12/2024 14:42:42 [...] cancer is found we will refer to [facility], and discussed possible hysterectomy in that case. She understands. All questions answered. Not available 04/12/2024 14:56:03 04/19/2024 [id number] She is here to discuss the results [...] All questions answered. 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 Will refer to [facility] for consultation and management. Face to face discussion, chart review and coordination of care: 25 minutes Not available 04/19/2024 15:50:51 08/15/2024 [id number] shingles: care instructions Not available 08/15/2024 13:30:15 [...] Tissu e Sourc e: 1: THINP REP TEXTILE CONVERTER PAP TEST, CERVI BEBETO: Final Diagn osis: [...] marina or reji marie Perfo rmed at [facility] ate Refer ence Labor atory depar tment of Cytol ogy, [address] [place] Clini bebeto Histo ry (othe r): Z12.4 , LPS 12/[address], routi ne scree n Phone #: [phone], On-Ca ll Patho logis t: [id number] Not Available [facility] (Centralized Electronic Ordering - All Locations) Patient Can Go To The Location Of Their Choice, [id number] 01/23/2022 10:25:18 04/12/19 25 04/12/2024 [facility] [...] [address], [place] [address] . This test was devel oped, and its perfo rmanc e eve cteri stics deter mined by [facility] . It has not been clear ed [...] Veena Isbell, [place] (CLIA #[id number] 2). Its perfo rmanc e eve cteri stics deter mined by [facility]. Shanika Doss M.D. Medic al Direc tor of Surgi bebeto Patho logy, Antonia good M.D. Medic al Direc tor Cytop athol ogy Phone #: [phone], On-Ca ll Patho logis t: [id number] Not Available [facility] (Centralized Electronic Ordering - All Locations) Patient Can Go To The Location Of Their Choice, [id number] 04/19/2024 12:38:33 04/12/19 25 04/12/2024 [facility] SUR[facility] BEBETO PATHO LOGY results Patie nt [...] [address], [place] [address] . This test was devel oped, and its perfo rmanc e eve cteri stics deter mined by [facility] . It has not been clear ed [...] Avenu e, [place] (CLIA #[id number] 2). Its perfo rmanc e eve cteri stics deter mined by [facility]. Shanika Doss M.D. Medic al Direc tor of Surgi bebeto Patho Antonia webster M.D. Medic al Direc tor Cytop athol ogy Phone #: [phone], On-Ca ll Patho logis t: [id number] Not Available [facility] (Centralized Electronic Ordering - All Locations) Patient Can Go To The Location Of Their Choice, [id number] 05/03/2024 11:20:30 08/16/1908/18/2024 HSV CULTU RE AND TYPIN G hsv culture/type COMMEN T Negat ct No Herpe s simpl ex virus isola jacey. Not Available [facility] ([facility]) [address] [facility], [place], [address], 08/18/2024 16:06:30 05/15/19 23 05/15/2022 MAMMO , scree christiano, digit al, bilat eral No observ ation record ed. [facility] Diagnosit Imaging Dept [address] [place] [address], [address], 05/16/2022 08:54:30 03/17/20 24 03/15/2024 US, pelvi s, trans abdom inal + trans vagin al No observ ation record ed. tm[facility]wor [address], [address], 03/17/2024 10:41:52 Result Notes None recorded. Problems Name Problem SNOMED Code Status Onset Date Resolution Date Notes Provider Name and Address Organization Details Recorded Time Candidiasis of skin 38541492 Active Dayana Bey MD [address], [place], [address] , [place] - [facility], 5 15:53:04 Menopausal syndrome 568723327 Active Dayana Bey MD [address], [place], [address] , [place] [facility], 5 09:05:05 Anogenital hidradenitis suppurativa 102529169 Active Not Available [facility] 3 03:01:06 Complex endometrial hyperplasia 555109035 Active 2016 MD Tati Herman,[address], [place], [address] , [place] [facility], 7 11:19:20 Polyp of corpus uteri 92544009 Active 2016 MD Tati Herman,[address], [place], [address] , [place] [facility], 7 12:19:18 Postmenopausa l bleeding 77592011 Active 2016 Dayana Bey MD [address], [place], , [place] - [facility], 7 12:19:29 Essential hypertension 51035764 Active 2016 Valerie quevedo [place] - [facility], 7 13:17:12 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 Procedures Surgical History Date Name Laterality Status Provider Name and Address Organization Details Recorded Time 04/12/19 25 Endometrial Biopsy completed Dayana Bey MD [address], [place], [address], [place] [facility], 04/12/2024 14:54:20 12/30/19 24 Most Recent Mammogram completed Sasha Lowery [place] [facility], 03/01/2024 13:46:16 12/30/19 24 Most Recent Bone Density completed Sasha Lowery [place] [facility], 03/01/2024 13:46:25 03/25/20 16 Endometrial Biopsy completed Dayana Bey MD [address], [place], [address], [place] [facility], 03/25/2016 13:50:12 03/30/19 09 Other completed Dayana Bey MD [address], [place], [address], [place] [facility], 07/09/2012 14:33:12 03/30/18 76 Tonsillectomy completed Sasha Lowery [place] [facility], 07/09/2012 14:25:04 Imaging Results None recorded. Procedure Notes None recorded. Medical Equipment None Reported. Allergies Allergen ID Allergen Name Allergen Category Reaction Reaction Severity Criticality Documentation Date Start Date Code Code System Note Provider Name and Address Organization Details Recorded Time 7661 Ultram medicatio n other severe Not available 07/09/2012 03689 6 RxNorm weak and sleep y Sasha quevedo [place] - [facility], 3 14:25:04 Medications Name Sig Start Date [...] Body weight Body temperature Heart rate Systolic And Diastolic Provider Name and Address Organization Details Last Updated DateTime 152.4 cm 35.4 kg/m2 78363.6 6 g 97.4 [degF] 55 /min 129/49 mm[Hg] Sasha Rosa in [facility], 14:36:51 Date Recorded Body height Body mass index (BMI) Body weight Heart rate Systolic And Diastolic Provider Name and Address Organization Details Last Updated DateTime 04/19/2024 152.4 cm 35.3 kg/m2 47567.22 g 58 /min 155/51 mm[Hg] Sasha Rosa in [facility], 04/19/2024 14:54:30 Date Recorded Body height Body mass index (BMI) Body weight Heart rate Systolic And Diastolic Provider Name and Address Organization Details Last Updated DateTime 08/15/2024 152.4 cm 36.2 kg/m2 50086.03 g 74 /min 131/51 mm[Hg] Sasha Rosa in [facility], 08/15/2024 13:04:42 Date Recorded Body weight Body mass index (BMI) Body height Body temperature Heart rate Systolic And Diastolic Provider Name and Address Organization Details Last Updated DateTime 2 70245.3 8 g 34.2 kg/m2 152.4 cm 97.2 [degF] 69 /min 135/52 mm[Hg] Sasha Rosa in [facility], 2 10:02:26 Date Recorded Body weight Body mass index (BMI) Body height Heart rate Systolic And Diastolic Provider Name and Address Organization Details Last Updated DateTime 03/01/2024 55003.94 g 35.4 kg/m2 152.4 cm 69 /min 125/55 mm[Hg] Sasha Rosa in [facility], 03/01/2024 13:42:28 Social History Question Answer Notes LastModified by Organizat ion Details LastModified Time Tobacco Smoking Status Former Smoker over 15 yrs ago Not Available [facility] 01/31/2020 03:19:42 How Many Years Have You Consumed Alcohol? 50 Information not available 01/21/2022 What Is Your Level Of Caffeine Consumption? Occasional [id number] Information not available 01/31/2020 In The 14 [...] Type Of Diet Are You Following? REGULAR [id number] Information not available 01/31/2020 Which Illicit Or Recreational Drugs Have You Used? Yes Marijuana On Weekends [id number] Information not available 01/31/2020 Do You Reside In Or Have You Traveled To An Area Where Ebola Virus Transmission Is Active? No [id number] Information not available 01/31/2020 Education 2 Year College Information not available 07/09/2012 What Is The Highest Grade Or Level Of School You Have Completed Or The Highest Degree You Have Received? [id number] Information not available 01/21/2022 How Many Days [...] available 01/21/2022 Are You Sexually Active? No [id number] Information not available 01/31/2020 At What Age Did You Start Smoking Tobacco? 18 Information not available 01/21/2022 How Much Tobacco Do You Smoke? No [id number] Information not available 01/31/2020 General Stress Level Low Information not available 07/09/2012 How Many Years Have You Smoked Tobacco? 33 [id number] Information not available 01/31/2020 Have You Recently [...] is your level of alcohol consumption? Occasional [id number] Information not available 01/31/2020 Do you or have you ever used smokeless tobacco? Never used smokeless tobacco [id number] Information not available 01/31/2020 Are you currently employed? 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 Never used electronic cigarettes [id number] Information not available 01/31/2020 What is your exercise level? Moderate [id number] Information not available 01/31/2020 Mental Status Question Answer Note LastModified by Organization D etails LastModified Time Do you feel stressed (tense, restless, nervous, or anxious, or unable to sleep at night)? [id number] Information not available 01/21/2022 Family History Relationship Description Onset Age of this Age Resolved Age Notes LastModified by Organization Details LastModified Time Father Myocardial infarction previo usly record ed as Heart Attack ([place]) Not available 08/11/2014 14:42:51 Mother Problem lung/ [...] Immunizations Vaccine Type Date Status Note Provider Narciso aguilera and Address Organization Details Recorded Time influenza, unspecified formulation 6 completed Valerie quevedo [place] [facility] [...] 13:15:30 influenza, unspecified formulation 8 completed Valerie Ulloa null, [place] [facility] [...] Care, 01/21/2022 10:03:33 zoster live 4 completed Sahsa Meczywor [place], [place] [facility] [...] Sasha Meczywor null, [place] [facility], 01/21/2022 10:03:33 Influenza, adjuvanted, trivalent, PF 4 completed Sasha Meczywor [place] [facility], 03/01/2024 13:42:05 zoster recombinant 3 completed Sasha Meczywor [place], [place] [facility], 03/01/2024 13:42:05 Influenza, adjuvanted, quadrivalent, PF 3 completed Sasha Meczywor [place], [place] [facility], 03/01/2024 13:42:05 COVID-19, mRNA, LNP-S, PF, 50 mcg/0.5 mL 4 completed Sasha Meczywor null, [place] [facility], 03/01/2024 13:42:05 COVID-19, mRNA, LNP-S, PF, 50 mcg/0.5 mL 3 completed Sasha Meczywor null, [place] [facility], 03/01/2024 13:42:05 Past Encounters Encounter ID Performer Location Encounter Start Date Encounter Closed Date Diagnosis/Indication Diagnosis SNOMED-CT Code Diagnosis ICD10 Code Diagnosis Note [id number] MD DAYANA Herman MD [address] [place] [address] 07/09/2012 14:07:52 07/09/2012 16:06:14 [id number] MD DAYANA Herman MD [address] [facility] [place] [address] 03/24/2014 10:38:35 03/24/2014 11:39:24 Candidiasis of skin 91727561 [id number] MD DAYANA Herman MD [address] [place] [address] 08/11/2014 13:59:37 08/11/2014 16:11:48 Specialized medical examination 45946638 Screening for malignant neoplasm of rectum 360762010 Screening mammography 13539991 [id number] MD DAYANA Hemran MD [address] [place] [address],[facility] [place] [address] 02/18/2016 13:23:38 02/18/2016 16:13:04 Acute lower urinary tract infection 805539899 R30.0 Postmenopa usal bleeding 08700694 N95.0 [id number] MD DAYANA Herman MD [address] [place] [address],[facility] [place] [address] 03/25/2016 13:22:00 03/25/2016 15:17:36 Endometrium thickened 926983512 R93.8 Postmenopa usal bleeding 67699950 N95.0 [id number] MD DAYANA Herman MD [address] [place] [address],[facility] [place] [address] 04/02/2016 10:44:29 04/03/2016 10:35:26 Complex endometrial hyperplasia 080658127 N85.02 Polyp of corpus uteri 11 500549 N84.0 Postmenopa usal bleeding 00669893 N95.0 Cares for self 971550041 Z76.89 [id number] MD DAYANA Herman MD [address] [place] [address],[facility] [place] [address] 06/02/2016 13:02:10 06/02/2016 16:24:23 Polyp of corpus uteri 74283719 N84.0 Endometria l hyperplasia 811689515 N85.00 [id number] MD DAYANA Herman MD [address] [place] [address],[facility] [place] [address] 06/24/2016 13:00:56 06/24/2016 14:34:38 Polyp of corpus uteri 36348060 N84.0 Complex en dometrial hyperplasia 269253477 N85.02 [id number] MD DAYANA Herman MD [address] [place] [address],[facility] [place] [address] 09/08/2017 12:59:41 09/08/2017 15:26:23 Screening for malignant neoplasm of cervix 909955885 Z12.4 Screening mammography 24 236562 Z12.31 Menopausal syndrome 1237 13546 N95.9 Cares for self 674761819 Z76.89 [id number] MD DAYANA Herman MD [address] [place] [address] [place] [address] 12/29/2017 13:20:54 12/29/2017 14:55:38 Anogenital hidradenitis suppurativa 864125179 L73.2 Climacteric arthritis 77 293416 M13.851 [id number] MD DAYANA Herman MD [address] [place] [address] [place] [address] 04/28/2019 14:21:07 04/28/2019 15:35:51 Dysuria 25903522 R30.0 [id number] MD DAYANA Herman MD [address] [place] [address] [place] [address] 12/26/2019 10:32:43 12/26/2019 11:17:29 Screening for malignant neoplasm of cervix 702106142 Z12.4 Screening mammography 24 282673 Z12.31 Screening for osteoporosis 389271909 Z13.820 [id number] MD DAYANA Herman MD [address] [place] [address] [place] [address] 01/21/2022 09:57:40 01/21/2022 12:08:16 Screening for malignant neoplasm of cervix 936435154 Z12.4 Screening mammography 24 110722 Z12.31 Screening for osteoporosis 524428956 N95.8 [id number] MD DAYANA Herman MD [address] [place] [address] [place] [address] 03/01/2024 13:34:46 03/02/2024 10:00:03 Postmenopausal bleeding 07766303 N95.0 [id number] MD DAYANA Herman MD [address] [place], [place] [address], [place] [address] 04/12/2024 14:27:00 04/12/2024 15:39:09 Postmenopausal bleeding 27984821 N95.0 [id number] MD DAYANA Herman MD [address] [facility] [place] [address] 04/19/2024 14:40:51 04/19/2024 15:53:28 Endometrioid carcinoma of endometrium 7096155659 C54.1 [id number] MD DAYANA Herman MD [address] [facility] [address] 08/15/2024 12:56:29 08/15/2024 15:31:53 Herpes zoster 4204417 B02.9 Ulceration of vulva 6864 0004 N76.6 Herpetic u lceration of vulva 14324355 A60.04 A60.09 Health Concerns Section Related Observation LastModified by Organization Detai ls LastModified Time None Recorded Concern Status LastModified by Organization Details LastModified Time None Recorded Advance Directives Directive None Recorded Payers Insurance Date Sequence Insurance Name Policy Number Policy Payan Covered Member ID Payan Member ID Guarantor Name 03/01/2024 1 [facility] ([facility]) Carmela Linton [id number] Carmela Linton 03/01/2024 2 [place] [id number] Carmela Linton [id number] Carmela Linton 03/01/2024 1 [facility] [employer] 1999 [id number] Carmela Linton [id number] Carmela Linton 03/01/2024 1 [place] [employer] Carmela Linton [id number] Carmela Linton 08/15/2024 1 [employer] (MEDICARE REPLACEMENT /ADVANTAGE - PPO) [id number] Carmela Linton [id number] Carmela Linton Notes Date Note Type Note Provider Name and Address Organization Details Recorded Time 01/21/2022 text/html She is here for annual exam, is doing well, recently returned from [facility]. Dayana Bey MD [address] [facility],[address], [place], [address], [place] [facility], 01/21/2022 10:30:19 03/01/2024 text/html She is here [...] a steroid injection. Dayana Bey MD [address], [place], [address], [place] [facility], 03/01/2024 14:46:10 04/12/2024 text/html She is here [...] and C again. Dayana Bey MD [address] [facility],[address], [place], [address], [place] [facility], 04/12/2024 14:56:19 04/19/2024 text/html She is here to discuss the results of her recent endometrial biopsy, it shows FIGO grade 3, favor poorly differentiated endometrioid carcinoma. The emb was done for pmb, the sonogram shows a normal size uterus, and a 1 cm endometrium. Dayana Bey MD [address] [facility],[address], [place], [address], [place] - [facility], 04/19/2024 15:51:06 08/15/2024 text/html She is here for a small cluster of tender blisters on her right labia that she first noted on Thursday, it is Thursday now she has a past history of herpes and has been taking acyclovir without improvement, she feels that this is not typical of a herpes infection. Dayana Bey MD [address], [place], [address], [place] - [facility], 08/15/2024 14:05:34 OBGyn Episode No OBEpisode recorded.
--- OUTSIDE RECORDS SUMMARY | 2024-10-17 11:24 | XMS_ITS | Clinical Summary ---
Author Organization 175 [facility] Address 175 [place] [address] Phone Care Team Providers Care Computer Consultant Name Role Phone Judith Gill MD Primary Care Provider [phone] Allergies Active Allergy Reactions Criticality Noted Date [...] Encounters Date Type Department Care Team Description 10/11/2024 Telephone Breast Care [address] [place] [address] Gustavo Azar MD 10/03/2024 9:00 AM EDT Office Visit [facility] 271 [facility] 200 [place] [phone] Gustavo Azar MD Endometrial cancer ([facility] V24, [facility] V28) 08/19/2024 Telephone [facility] [address] [phone] Susan Campos [place] 07/25/2024 8:45 AM EDT Office Visit Internal Medicine - [place] [address] [phone] Judith Gill MD Mixed hyperlipidemia (Primary Dx); Prediabetes; Hyperglycemia; Encounter for subsequent annual wellness visit (AWV) in Medicare patient; Endometrial cancer ([facility] V24, [facility] V28) 07/25/2024 Telephone [facility] [address] [phone] Gustavo Azar MD from Last 3 Months Immunizations Name Administration [...] HISTORICAL COLONOSCOPY OTHER SURGICAL HISTORY 06/16/2016 PROCEDURE: LA DILATION & CURETTAGE DX&/THER NONOBSTETRIC; COMMENT: and hysteroscopy OTHER SURGICAL HISTORY 06/07/2010 PROCEDURE: [place] RMVL/REVJ SLING STRESS INCONTINENCE; COMMENT: Repair suprapubic [...] Sign Reading Time Taken Comments Blood Pressure 130/73 10/03/2024 9:03 AM EDT Pulse 68 10/03/2024 9:03 AM EDT Temperature 36.5 C (97.7 F) 10/03/2024 9:03 AM EDT Respiratory Rate 20 05/09/2024 5:58 PM EST Oxygen Saturation 98% 07/25/2024 8:51 AM EDT Inhaled Oxygen Concentration - - Weight 85.3 kg (188 lb) 10/03/2024 9:03 AM EDT Height 152.4 cm (5') 05/09/2024 12:46 PM EST Body Mass Index 36.72 05/09/2024 12:46 PM EST Plan of Treatment Upcoming Encounters Date Type Department Care Team (Late st Contact Info) Description 01/05/2025 11:00 AM EDT Office Visit Breast Care Center [facility] [address] [phone] Gustavo Azar MD [address] [place] [address] 01/24/2025 1:00 PM EDT Office Visit Internal Medicine [facility] [address] [phone] Judith Gill MD [address] [phone] Health Maintenance Due Date Last Done Comments Cervical Cancer Screening: Pap Smear 08/15/2015 08/14/2014 Hepatitis C Screening 03/09/2022 Social Influencers of Health Screening 03/09/2022 Zoster Vaccines (2 of 2) 07/16/2022 023, 11/14/2021, 11/29/2013 COVID-19 Vaccine ( season) 2024 11/13/2023, 01/16/2023, 01/20/2022, Additional history exists Influenza Vaccine (#1) 2024 , 01/22/2023, 01/20/2022, Additional history exists RSV Immunization Adult Patients (1 - 1-dose 75+ series) 2025 Hypertension/CHF/CAD Annual BMP Blood Test 05/03/2025 05/03/2024, 03/18/2024, 08/03/2023, Additional history exists Breast Cancer Screening 06/25/2025 06/26/19, 05/15/2022, 04/17/2021, Additional history exists Falls Risk Assessment 07/25/2025 07/25/2024, 025 Medicare Annual Wellness Visit 07/25/2025 07/25/2024 DTaP,Tdap,and Td Vaccines (3 - Td or Tdap) 12/08/2027 12/07/2017, 02/15/2008 Colorectal Cancer Screening: Colonoscopy 10/20/2028 10/21/2023 Cholesterol Screening (Lipid Panel) 08/03/2029 08/03/2024, 03/18/2024, 08/03/2023, Additional history exists Osteoporosis Screening (Bone Density Screening) 02/14/2034 02/15/2024, 01/15/2022, 12/30/2019, Additional history exists Pneumococcal Vaccine: 50+ Years Completed 03/09/2017, 11/24/2016, 01/29/2016, Additional history exists Depression Screening Completed 07/25/2024 HIB Vaccines Aged Out No longer eligi [...] this topic Medical Devices Implanted Type Area Pilot Supervisor Device Identifier Shelf Expiration Date Model / Serial / Lot Hemostat Absorb Surgicel 2x4in [facility] - [id number] Implanted:Qty: 1 on 05/09/2024 by Gustavo Azar MD at [facility] Hemostasis N/A: Abdomen [employer] [id number] 05/27/20261961 / NA / [id number] Procedures Procedure Name [...] LAB CHEMISTRY METHOD 08/03/2024 1:16 PM EDT [facility] Triglycerides 279(H) 0 - 150 mg/dL LAB CHEMISTRY METHOD 08/03/2024 1:16 PM EDT [facility] HDL 46 >=40 mg/dL LAB CHEMISTRY METHOD 08/03/2024 1:16 PM EDT [facility] LDL Calculated 61 0 - 100 mg/dL LAB CHEMISTRY METHOD 08/03/2024 1:16 PM EDT [facility] VLDL Cholesterol David 55.8 mg/dL LAB CHEMISTRY METHOD 08/03/2024 1:16 PM EDT [facility] Non HDL Chol. (LDL+VLDL) 117 <145 mg/dL LAB CHEMISTRY METHOD 08/03/2024 1:16 PM EDT [facility] Chol/HDL Ratio 3.5 0.0 - 4.4 LAB CHEMISTRY METHOD 08/03/2024 1:16 PM EDT [facility] Blood Venous blood specimen / Unknown Venipuncture / Unknown 08/03/2024 10:10 AM EDT 08/03/2024 10:11 AM EDT us Judith Gill MD LAB BLOOD ORDERABLES Final Res ult [facility] [address] [place] [address], * Magnesium (08/03/2024 10:10 AM EDT) Magnesium 1.9 1.9 - 2.6 mg/dL LAB CHEMISTRY METHOD 08/03/2024 1:07 PM EDT [facility] Blood Venous blood specimen / Unknown Venipuncture / Unknown 08/03/2024 10:10 AM EDT 08/03/2024 10:11 AM EDT Judith Gill MD LAB BLOOD ORDERABLES Final Res ult Performing Organization Address [facility]/ZIP Co de Phone Number [facility] [address] [place] [address], [place] [phone] * Hemoglobin A1c (08/03/2024 10:10 AM EDT) Pathologist [facility] Hemoglobin A1C 6.1 <6.5 % LAB CHEMISTRY METHOD 08/03/2024 9:30 PM EDT [facility] Mean Bld Glu Estim. 128 mg/dL LAB CHEMISTRY METHOD 08/03/2024 9:30 PM EDT [facility] Blood Venous blood specimen / Unknown Venipuncture / Unknown 08/03/2024 10:10 AM EDT 08/03/2024 10:11 AM EDT us Judith Gill MD LAB BLOOD ORDERABLES Final Res ult Performing Organization Address [facility]/ZIP Co de Phone Number [facility] [address] [place] [address], [place] [phone] * (ABNORMAL) Basic metabolic panel (05/03/2024 12:00 PM EST) [facility] Sodium 136 133 - 145 mmol/L LAB CHEMISTRY METHOD 05/03/2024 1:26 PM EST [facility] Potassium 4.1 3.5 - 5.5 mmol/L LAB CHEMISTRY METHOD 05/03/2024 1:26 PM EST [facility] Chloride 104 96 - 110 mmol/L LAB CHEMISTRY METHOD 05/03/2024 1:26 PM EST [facility] CO2 28 21 - 32 mmol/L LAB CHEMISTRY METHOD 05/03/2024 1:26 PM EST [facility] Anion Gap 4 3 - 11 LAB CHEMISTRY METHOD 05/03/2024 1:26 PM [facility] Glucose 125(H) 70 - 100 mg/dL LAB CHEMISTRY METHOD 05/03/2024 1:26 PM [facility] BUN 15 5 - 25 mg/dL LAB CHEMISTRY METHOD 05/03/2024 1:26 PM [facility] Creatinine 0.76 0.50 - 1.10 mg/dL LAB CHEMISTRY METHOD 05/03/2024 1:26 PM [facility] eGFR 82 >=60 mL/min/1. 73m2 LAB CHEMISTRY METHOD 05/03/2024 1:26 PM [facility] Comment:Calculation based on the Chronic Kidney Disease Epidemiology Collaboration (CKD-EPI) equation refit without adjustment for race. BUN/Creatinine Ratio 19.7 LAB CHEMISTRY METHOD 05/03/2024 1:26 PM [facility] Calcium 9.3 8.5 - 10.5 mg/dL LAB CHEMISTRY METHOD 05/03/2024 1:26 PM [facility] Blood Venous blood specimen / Unknown Venipuncture / Unknown 05/03/2024 12:00 PM EST 05/03/2024 12:54 PM EST us Gustavo Azar MD LAB BLOOD ORDERABLES Final Resul t [facility] [address] [place] [address], * BD Bone Density DXA Axial Skeleton [...] probability of hip fracture of 0.4%. Code [address] CT [facility] -------- FINAL REPORT -------- Dictated By: Seamus Varner Dictated Date: 02/15/2024 10:32 ET Assigned Physician: Seamus Varner Reviewed and Electronically Signed By: Seamus Varner Signed Date: 02/15/2024 10:34 ET Workstation ID: [id number] Transcribed By: Self Edit Transcribed Date: 02/15/2024 [...] probability of hip fracture of 0.4%. Code [address]267 CT [facility] -------- FINAL REPORT -------- Dictated By: Seamus Varner Dictated Date: 02/15/2024 10:32 ET Assigned Physician: Seamus Varner Reviewed and Electronically Signed By: Seamus Varner Signed Date: 02/15/2024 10:34 ET Workstation ID: [id number] Transcribed By: Self Edit Transcribed Date: 02/15/2024 [...] density of the femurs bilaterally is 1.122 gm/ip7dvkkh is 111% of that of young normals [...] probability of hip fracture of 0.4%. Code [address]08 [facility] -------- FINAL REPORT -------- Dictated By: Seamus Varner Dictated Date: 02/15/2024 10:32 ET Assigned Physician: Seamus Varner Reviewed and Electronically Signed By: Seamus Varner Signed Date: 02/15/2024 10:34 ET Workstation ID: [id number] Transcribed By: Self Edit Transcribed Date: 02/15/2024 10:32 ET Judith Gill MD IM DXA PROCEDURES Edited Resu lt - Final * Colonoscopy (10/21/2023) Colonoscopy no interpretation , abstracted Anatomical Region Laterality Modality Other Historical Provider [facility] Final Result * JACK SCREENING DIGITAL (06/26/2023 2:17 PM EDT) Anatomical Region Laterality Modality Mammography 06/26/2023 1:32 PM EDT Narrative 06/26/2023 2:[address] [facility] Diagnostic Imaging Department [address] [place] [address] Patient: CARMELA CARTERO.B./Age/Sex: 1950 - - F Unit#: [id number] Location/Status: SPDIMAM/REG CLI Mnemonic/Ordering Site: [facility] Ordering Physician: JUDITH GILL MD [facility] Screening Digital - 06/26/23 - 1350 Report Status:Signed EXAM: [facility] Screening Digital EXAM DATE AND TIME: 06/26/2023 1:51 PM HISTORY: Annual screening COMPARISON: Multiple exams dating back to 2003 TECHNIQUE: Bilateral digital breast tomosynthesis was performed in the CC and MLO projections. Computer aided detection with Gameology 3D 3.1 was employed. TISSUE DENSITY: b. [...] Procedure Note Anne-Marie Hammond MD - 11/16/2023 [facility] Diagnostic Imaging Department [address] [place] [address] Patient: CARMELA CARTER.O.B./Age/Sex: 1950 - 73 - F Unit#: [id number] Location/Status: SPDIMAM/REG CLI Mnemonic/Ordering Site: [facility] Ordering Physician: JUDITH GILL MD [facility] Screening Digital - 06/26/23 - 1350 Report Status:Signed EXAM: [facility] Screening Digital EXAM DATE AND TIME: 06/26/2023 1:51 PM HISTORY: Annual screening COMPARISON: Multiple exams dating back to 2003 TECHNIQUE: Bilateral digital breast tomosynthesis was performed in the CCand MLO projections. Computer aided detection with Game[employer] 3D 3.1was employed. TISSUE DENSITY: b. There [...] currently active code status orders. Care Teams Computer Consultant Relationship Specialty Start Date End Date Judith Gill MD [address] [place] [address] [address] [place] [address] PCP - General Internal Medicine 12/24/20
--- OUTSIDE RECORDS SUMMARY | 2024-10-17 11:24 | XMS_ITS | Clinical Summary ---
Author Organization [facility] Address [address] [place] [address] Care Team Providers Care Damage Assessor Name Role Phone Tom Burnett MD Primary Care Provider [phone] Allergies Active Allergy Reactions Criticality Noted Date Comments Tramadol Other (See Comments) High 06/08/2017 Medications Medication Sig Dispensed Refills Start Date End Date Status Aspirin Buf,YpUykf-XzFrjc-Ea O, 81 MG TABS Take 81 mg [...] 1 - PCV) 2015 Influenza Vaccine (#1) 2024 0, 01/19/2019, 12/30/2016, Additional history exists RSV Adult > 60+ Yrs or (1 - 1-dose 75+ series) 2025 Hepatitis B Vaccines Aged Out No long er eligible based on patient's age to complete this topic RSV Ped < 20 months Aged Out No longe r eligible based on patient's age to complete this topic Care Teams Damage Assessor Relationship Specialty [place] [address] [place] [id number] PCP - General Internal Medicine 09/10/20
== END 2024-10-17 10:56 | disposition home or self-care (01) ==
LOC: HO.HOS 10:24
PROVIDERS: PCP Internal Medicine; Visit Provider Orthopaedic Surgery
DX: S83.241A Other tear of medial meniscus, current injury, right knee, initial encounter (principal)
CPT/HCPCS: 20610; 99213

== ENCOUNTER → 2024-10-17 10:24 | Outpatient (BNVA) | payer MEDICARE, SELFPAY | PROVIDERS: PCP Internal Medicine; Visit Provider Orthopaedic Surgery | DX: M25.561 Pain in right knee (principal); S83.241A Other tear of medial meniscus, current injury, right knee, initial encounter; M17.11 Unilateral primary osteoarthritis, right knee | CPT/HCPCS: 20610; 99212; J1010; J2003 ==

== ENCOUNTER 2024-12-28 08:26 | Outpatient (AMB) | payer MEDICARE, SELFPAY ==
--- NOTE | 2024-12-28 08:38 | MHC.OFFVIS ---
Intake Visit Reasons: Right shoulder pain and weakness Intake Note: Carmela is a 74 year old female who presents with complaints of progressively worsening right shoulder pain and weakness. The patient describes her pain as sharp in nature. Her pain has gotten worse over the last few months in spite of continued non operative treatments. She has failed the last 6 weeks of conservative treatment which has included Tylenol, Celebrex, physical therapy exercises and a home exercise program. She reports weakness when lifting her right hand above shoulder height. She denies any numbness or tingling in either upper extremity. Allergies tramadol (From [facility]) Allergy (Unknown, Verified 12/28/24 08:43) syncope Medication List - Last Reconciled 12/28/24 by Duane Soria MD atorvastatin 40 mg PO DAILY celecoxib 200 mg PO DAILY lisinopril-hydrochlorothiazide 20-25 mg 1 tab PO DAILY nystatin topical DAILY omeprazole 20 mg PO DAILY solifenacin 10 mg PO DAILY valacyclovir 1,000 mg PO TID PFSH Social History Patient Tobacco Use Status: Former Tobacco user Current occupational status: retired Current occupation: rt handed Physical Exam Const Other: Well-nourished well-developed very friendly female awake alert and oriented x3 in no acute distress Extrem Other: Bilateral upper extremity examination shows good capillary refill, no skin lesions noted, normal sensation light touch Right shoulder examination shows decreased range of motion when compared to her left shoulder, 4/5 strength with supraspinatus testing, positive impingement signs, no instability Results Reviewed Results Reviewed: X-rays of the patient's right shoulder show severe acromioclavicular joint narrowing, a type 2 acromion, no acute bony abnormalities Assessment & Plan Assessment & Plan (1) Rotator cuff insufficiency of right shoulder: Code(s): M25.311 - Other instability, right shoulder Category: Medical Plan Ms. Linton presents with progressively worsening right shoulder pain and weakness due to impingement syndrome and possible rotator cuff tearing. Thus, I will send the patient for an MRI of her right shoulder for further evaluation. I will see her back once the MRI is completed to discuss the findings and treatment options. Feel free to call me at any time should questions regarding her orthopedic management arise. I spent 22 minutes in reviewing the patient's records and imaging studies, seeing the patient and documenting in the medical record. Orders: Orders XR shoulder RT min 2V Today M25.511 - Pain in right shoulder MR shoulder RT wo con 12/29/24 M25.311 - Other instability, right shoulder Coding Level of Care Code Est Pt Level 3 (56725) Complex EM visit Add On G2211 Diagnoses Rotator cuff insufficiency of right shoulder M25.311
--- OUTSIDE RECORDS SUMMARY | 2024-12-28 08:58 | XMS_ITS | Clinical Summary ---
Author Organization [facility] Address [address] [place] [address] Care Team Providers Care Blind Hooker Name Role Phone Tom Burnett MD Primary Care Provider [phone] Allergies Active Allergy Reactions Criticality Noted Date Comments Tramadol Other (See Comments) High 06/08/2017 Medications Medication Sig Dispensed Refills Start Date End Date Status Aspirin Buf,VuBxoz-DmCgwp-Uo O, 81 MG TABS Take 81 mg [...] age to complete this topic Care Teams Blind Hooker Relationship Specialty [place] [address] [place] [id number] PCP - General Internal Medicine 09/10/20
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
== END 2024-12-28 08:55 | disposition home or self-care (01) ==
LOC: HO.HOS 08:27
PROVIDERS: PCP Internal Medicine; Visit Provider Orthopaedic Surgery
DX: M25.311 Other instability, right shoulder (principal)
CPT/HCPCS: 99213; G2211

== ENCOUNTER → 2024-12-28 08:29 | Outpatient (BNV) | payer MEDICARE, SELFPAY | PROVIDERS: Visit Provider Radiology Diagnostic Radiology | DX: M25.511 Pain in right shoulder (principal) | CPT/HCPCS: 73030 ==

== ENCOUNTER 2024-12-28 10:58 | Outpatient (REF) | payer MEDICARE, SELFPAY ==
--- NOTE | ~2024-12-28 | XR_ITS ---
EXAMINATION: XR SHOULDER, RIGHT CLINICAL INFORMATION: M25.511 - Pain in right shoulder COMPARISON: None available. TECHNIQUE: Two views of the right shoulder. FINDINGS: Normal bone mineralization. No fracture, dislocation, or suspicious bone lesion. Normal alignment. The glenohumeral joint is normal. The AC joint demonstrates mild spurring. There is a type I acromion. No undersurface spurring. The subacromial space is preserved. Remainder of the soft tissue and bony structures appear normal. XR/XR shoulder RT min 2V IMPRESSION: 1. Mild spurring of the AC joint. Otherwise normal right shoulder. Electronically signed by: Smith Epstein MD 12/28/2024 08:41 AM EDT RP
--- OUTSIDE RECORDS SUMMARY | 2024-12-29 12:53 | XMS_ITS | Clinical Summary ---
Author Organization 175 [facility] Address [address] [place] [address] Phone Care Team Providers Care Computer Builder Name Role Phone Judith Gill MD Primary Care Provider [phone] Allergies Active Allergy Reactions Criticality Noted Date [...] Team Description 11/16/2024 Telephone Breast Care [address] [address] Gustavo Azar MD 10/11/[address] [address] Gustavo Azar MD 10/03/2024 9:00 AM EDT Office Visit [address] [address] Gustavo Azar MD Endometrial cancer ([facility] V24, [facility] V28) from Last 3 Months Immunizations Immunization [...] HISTORICAL COLONOSCOPY OTHER SURGICAL HISTORY 06/16/2016 PROCEDURE: [place] DILATION & CURETTAGE DX&/THER NONOBSTETRIC; COMMENT: and hysteroscopy OTHER SURGICAL HISTORY 06/07/2010 PROCEDURE: [place] RMVL/REVJ SLING STRESS INCONTINENCE; COMMENT: Repair suprapubic [...] AM EDT Office Visit Breast Care Center [facility] [address] [place] [address] Gustavo Azar MD [address] [place] [address] 01/24/2025 1:00 PM EDT Office Visit Internal Medicine [facility] [address] [phone] Judith Gill MD [address] [phone] Health Maintenance Due Date Last Done Comments [...] this topic Medical Devices Implanted Type Area Lotus Notes Administrator Device Identifier Shelf Expiration Date Model / Serial / Lot Hemostat Absorb Surgicel 2x4in Fibrillar - Sna - [id number] Implanted:Qty: 1 on 05/09/2024 by Gustavo Azar MD at [facility] Hemostasis N/A: Abdomen [employer] [id number] 05/27/2026 1962 / NA / [id number] Procedures Procedure Name Priority Date/Time Associated Diagnosis Comments LIPID PANEL WITH REFLEX TO DIRECT LDL Routine 08/03/2024 10:10 AM EDT Mixed hyperlipidemia Prediabetes Hyperglycemia BASIC METABOLIC PANEL Routine 05/03/2024 12:00 PM EST Endometrial cancer (CMS/HCC V24, CMS/HCC V28) BD BONE DENSITY DXA AXIAL SKELETON Routine 02/15/2024 10:24 AM EST Postmenopausal state HM COLONOSCOPY Routine 10/21/2023 [facility] SCREENING DIGITAL Routine 06/26/2023 2:17 PM EDT Encounter for screening mammogram for malignant neoplasm of breast PAP SMEAR Routine 08/14/2014 from Last 3 Months or Most Recently Relevant to Health Maintenance Results * (ABNORMAL) Lipid panel with reflex to direct LDL (08/03/2024 10:10 AM EDT) Cholesterol 163 0 - 200 mg/dL LAB CHEMISTRY METHOD 08/03/2024 1:16 PM EDT [facility] Triglycerides 279(H) 0 - 150 mg/dL LAB CHEMISTRY METHOD 08/03/2024 1:16 PM EDT [facility] HDL 46 >=40 mg/dL LAB CHEMISTRY METHOD 08/03/2024 1:16 PM EDT [facility] LDL Calculated 61 0 - 100 mg/dL LAB CHEMISTRY METHOD 08/03/2024 1:16 PM EDT [facility] VLDL Cholesterol David 55.8 mg/dL LAB CHEMISTRY METHOD 08/03/2024 1:16 PM EDT [facility] Non HDL Chol. (LDL+VLDL) 117 <145 mg/dL LAB CHEMISTRY METHOD 08/03/2024 1:16 PM EDT [facility] Chol/HDL Ratio 3.5 0.0 - 4.4 LAB CHEMISTRY METHOD 08/03/2024 1:16 PM EDT [facility] Blood Venous blood specimen / Unknown Venipuncture / Unknown 08/03/2024 10:10 AM EDT 08/03/2024 10:11 AM EDT us Judith Gill MD LAB BLOOD ORDERABLES Final Res ult [facility] [address] [place] [address], [place] [phone] * (ABNORMAL) Basic metabolic panel (05/03/2024 12:00 PM EST) Sodium 136 133 - 145 mmol/L LAB CHEMISTRY METHOD 05/03/2024 1:26 PM [facility] Potassium 4.1 3.5 - 5.5 mmol/L LAB CHEMISTRY METHOD 05/03/2024 1:26 PM [facility] Chloride 104 96 - 110 mmol/L LAB CHEMISTRY METHOD 05/03/2024 1:26 PM [facility] CO2 28 21 - 32 mmol/L LAB CHEMISTRY METHOD 05/03/2024 1:26 PM [facility] Anion Gap 4 3 - 11 LAB CHEMISTRY METHOD 05/03/2024 1:26 PM [facility] Glucose 125(H) 70 - 100 mg/dL LAB CHEMISTRY METHOD 05/03/2024 1:26 PM [facility] BUN 15 5 - 25 mg/dL LAB CHEMISTRY METHOD 05/03/2024 1:26 PM [facility] Creatinine 0.76 0.50 - 1.10 mg/dL LAB CHEMISTRY METHOD 05/03/2024 1:26 PM EST [facility] eGFR 82 >=60 mL/min/1. 73m2 LAB CHEMISTRY METHOD 05/03/2024 1:26 PM EST [facility] Comment:Calculation based on the Chronic Kidney Disease Epidemiology Collaboration (CKD-EPI) equation refit without adjustment for race. BUN/Creatinine Ratio 19.7 LAB CHEMISTRY METHOD 05/03/2024 1:26 PM EST [facility] Calcium 9.3 8.5 - 10.5 mg/dL LAB CHEMISTRY METHOD 05/03/2024 1:26 PM EST [facility] Blood Venous blood specimen / Unknown Venipuncture / Unknown 05/03/2024 12:00 PM EST 05/03/2024 12:54 PM EST us Gustavo Azar MD LAB BLOOD ORDERABLES Final Resul t [facility] [address] [place] [address], * BD Bone Density DXA Axial Skeleton [...] probability of hip fracture of 0.4%. Code [address] CT Teleradiology -------- FINAL REPORT -------- Dictated By: Seamus Varner Dictated Date: 02/15/2024 10:32 ET Assigned Physician: Seamus Varner Reviewed and Electronically Signed By: Seamus Varner Signed Date: 02/15/2024 10:34 ET Workstation ID: [id number] Transcribed By: Self Edit Transcribed Date: 02/15/2024 [...] probability of hip fracture of 0.4%. Code [address]754 CT Teleradiology -------- FINAL REPORT -------- Dictated By: Seamus Varner Dictated Date: 02/15/2024 10:32 ET Assigned Physician: Seamus Varner Reviewed and Electronically Signed By: Seamus Varner Signed Date: 02/15/2024 10:34 ET Workstation ID: [id number] Transcribed By: Self Edit Transcribed Date: 02/15/2024 [...] density of the femurs bilaterally is 1.122 gm/mv9kigje is 111% of that of young normals [...] probability of hip fracture of 0.4%. Code [address] CT Teleradiology -------- FINAL REPORT -------- Dictated By: Seamus Varner Dictated Date: 02/15/2024 10:32 ET Assigned Physician: Seamus Varner Reviewed and Electronically Signed By: Seamus Varner Signed Date: 02/15/2024 10:34 ET Workstation ID: [id number] Transcribed By: Self Edit Transcribed Date: 02/15/2024 10:32 ET Judith Gill MD IMG DXA PROCEDURES Edited Resu lt - Final * Colonoscopy (10/21/2023) Colonoscopy no interpretation , abstracted Anatomical Region Laterality Modality Other us Historical Provider [facility] Final Result * ALYSE SCREENING DIGITAL (06/26/2023 2:17 PM EDT) Anatomical Region Laterality Modality Mammography 06/26/2023 1:32 PM EDT Narrative 06/26/2023 2:17 PM EDT [facility] Diagnostic Imaging Department [address] [place] [address] Patient: RAULCARMELAO.B./Age/Sex: 1950 - 73 - F Unit#: [id number] Location/Status: SPDIMAM/REG CLI Mnemonic/Ordering Site: DIGSC/SPMAM Ordering Physician: JUDITH GILL MD Alyse Screening Digital - 06/26/23 - 7477 Report Status:Signed EXAM: [facility] Screening Digital EXAM DATE AND TIME: 06/26/2023 1:51 PM HISTORY: Annual screening COMPARISON: Multiple exams dating back to 2003 TECHNIQUE: Bilateral digital breast tomosynthesis was performed in the CC and MLO projections. Computer aided detection with [employer] 3D 3.1 was employed. TISSUE DENSITY: b. [...] screening mammogram BILATERAL in 1 year. 3341F, 7050F Dictating Physician: ANNE-MARIE HAMMOND MD Electronically Signed by: ANNE-MARIE HAMMOND MD Dic Date/Time: 06/26/23 1416 Sign date/Time: 06/26/23 1417 Procedure Note Anne-Marie Hammond MD - 11/16/2023 [facility] Diagnostic Imaging Department [address] [place] [address] Patient: RAULCARMELAO.B./Age/Sex: 1950 - 73 - F Unit#: [id number] [facility]ing [facility] Ordering Physician: JUDITH GILL MD [facility] Screening Digital - 06/26/23 - 1350 Report Status:Signed EXAM: [facility] Screening Digital EXAM DATE AND TIME: 06/26/2023 1:51 PM HISTORY: Annual screening COMPARISON: Multiple exams dating back to 2003 TECHNIQUE: Bilateral digital breast tomosynthesis was performed in the CCand MLO projections. Computer aided detection with [employer]CAD [employer] AI 3D 3.1was employed. TISSUE DENSITY: b. [...] active code status orders. Care Teams Computer Builder Relationship Specialty Start Date End Date Judith Gill MD [address] [place] [phone] PCP - General Internal Medicine 12/24/20
--- OUTSIDE RECORDS SUMMARY | 2024-12-29 12:53 | XMS_ITS | Clinical Summary ---
Author Organization [facility] Address [address] [place] [address] Care Team Providers Care National Accounts Recruiter Name Role Phone Tom Burnett MD Primary Care Provider [phone] Allergies Active Allergy Reactions Criticality Noted Date Comments Tramadol Other (See Comments) High 06/08/2017 Medications Medication Sig Dispensed Refills Start Date End Date Status Aspirin Buf,SkUhkj-EoCqub-Sc O, 81 MG TABS Take 81 mg [...] age to complete this topic Care Teams National Accounts Recruiter Relationship Specialty [place] [address] [place] [phone] PCP - General Internal Medicine 09/10/20
--- OUTSIDE RECORDS SUMMARY | 2024-12-29 12:53 | XMS_ITS | Data Portability ---
Author Organization [facility], Main Office Address [address] [facility] [address] [place] [address] Care Team Providers Care Crop Insurance Claims Adjuster Name Role Phone EFREN STOUT Handle Maker ZAK TAMEZ Food Processor SOSA RICHARDSON Urologist GILLES PRESTON Wet Process Head Miller [phone] LUIS CORRAL Primary Care Provider Assessment Encounter [...] marielle) PCR 2019 020 [facility], [address], [address] , [place], [address], 0 10:13:05 unlisted lab - covid-19 (novel coronavi marielle) PCR 2019 020 [facility], [address], [place], [address], 0 10:15:07 lipid panel, serum 2019 020 [facility], [address], [place], [address], 1 17:21:25 culture, urine 2019 [facility], [address], [place], [address], 0 08:20:58 urinalys is, complete 2019 [facility], [address], [place], [address], 0 03:04:08 urinalys is, dipstick 2019 [email or web address] In-Office Order, Internal Use Only DO Not Attach Compendium DO Not Attach Compendium, Do Not Delete/merge, [id number] 0 13:30:[address] referral - Intermit tent upper abdomina l pain with radiatio n into the back over the last few years now getting stronger and more frequent . Not related to food or activity . Each episode lasting less than 30 minutes. 2020 021 tfrisino Gilles Koantonioranda, [address] [facility], [place], [address], 1 10:09:11 physical therapis t referral - At risk for falling 2019 020 yadirao [facility], [address], [place], [address], 0 16:44:53 Procedures None recorded . Surgeries None recorded . Imaging electroc ardiogra m 2020 021 acennerazzo In-Office Order, Internal Use Only DO Not Attach Compendium DO Not Attach Compendium, Do Not Delete/merge, [id number] 1 16:08:59 XR, cervical spine - Neck pain starting late April . R/o DJD 2019 020 MONCHO [facility], [address] [place], [address], 0 13:07:51 US, kidney - Right flank pain for 1 week worse with movement s r/o kidney stones and hydronep hrosis 2019 020 tfrisino [facility], [address] [place], [address], 0 11:39:11 Medication Orders Celebrex 100 mg capsule 2020 021 INTERFACE-20 [id number] [facility] #[id number], [address], [place], [id number], 2 08:40:44 atorvast atin 20 mg tablet 2019 020 INTERFACE [facility] #[id number], [address], [place], [id number], 0 18:41:09 gabapent in 300 mg capsule 2019 020 [email or web address] [facility] #[id number], [address] [place], [place], [id number], 0 14:57:36 atorvast atin 10 mg tablet 2019 020 acennerazzo [facility] #41573, [address] [place], [place], [id number], 0 18:41:11 Patient TargetsNo targets recorded. Patient Instructions Encounter Date Encounter Id Patient Instructions Last Modified By Organization Details Last Modified Time 05/10/2019 [id number] Urinary Tract Infection (UTI) in Women: Care Instructions [email or web address] Not available 05/10/2019 13:30:00 06/07/2019 [id number] neck pain: care instructions acennerazzo Not available 06/07/2019 13:15:05 high blood pressure: care instructions acennerazzo Not available 06/07/2019 13:04:32 learning about high blood pressure acennerazzo Not available 06/07/2019 13:04:32 high cholesterol: care instructions acennerazzo Not available 06/07/2019 13:12:22 01/04/2020 [id number] bladder training: care instructions acennerazzo Not available [...] under) acennerazzo Not available 01/04/2020 16:44:53 02/08/2020 [id number] lab* tfrisino Not available 02/07 10:59:26 lab* tfrisino Not available 2019 10:58:32 call or return for worsening or concerns jthabet Not available 02/08/2020 10:13:02 07/04/2020 [id number] high blood pressure: care instructions acennerazzo Not available 07/04/2020 16:08:59 learning about high blood pressure acennerazzo Not available 07/04/2020 16:08:59 high cholesterol: care instructions acennerazzo Not available 07/04/2020 15:44:40 Reason for Referral Physical Therapist Referral for Adult health examination At risk for falling Referring Physician: Brendan Burnett Family [facility], Encounter Date: 01/04/2020 Wet Process Head Miller Referral for Upper abdominal pain Intermittent upper [...] Go To The Location Of Their Choice, 05/12/2019 08:20:58 05/10/19 20 05/10/2019 cultu re, urine special requests NONE Not Available [facility] (Centralized Electronic Ordering - All Locations) Patient Can Go To The Location Of Their Choice, 05/12/2019 08:20:58 05/10/19 20 05/12/2019 cultu re, urine culture NO GROWTH Not Available [facility] (Centralized Electronic Ordering - All Locations) Patient Can Go To The Location Of Their Choice, 05/12/2019 08:20:58 05/10/19 20 05/12/2019 cultu re, urine report status FINAL 2019 Not Available [facility] (Centralized Electronic Ordering - All Locations) Patient Can Go To The Location Of Their Choice, 05/12/2019 08:20:58 05/10/1905/10/2019 urina lysis , dipst ick Leukocytes Negati ve Not Available In-Office Order Internal Use Only DO Not Attach Compendium DO Not Attach Compendium, Do Not Delete/merge, 05/10/2019 13:05:01 05/10/1905/10/2019 urina lysis , dipst ick Nitritie negati ve Not Available In-Office Order Internal Use Only DO Not Attach Compendium DO Not Attach Compendium, Do Not Delete/merge, 05/10/2019 13:05:01 05/10/1905/10/2019 urina lysis , dipst ick Urobilinogen .2 Not Available In-Of fice Order Internal Use Only DO Not Attach Compendium DO Not Attach Compendium, Do Not Delete/merge, 05/10/2019 13:05:01 05/10/1905/10/2019 urina lysis , dipst ick Protein Negati ve Not Available In-Office Order Internal Use Only DO Not Attach Compendium DO Not Attach Compendium, Do Not Delete/merge, 05/10/2019 13:05:01 05/10/19 20 05/10/2019 urina lysis , dipst ick pH 7.0 Not Available In-Office Order Internal Use Only DO Not Attach Compendium DO Not Attach Compendium, Do Not Delete/merge, [id number] 05/10/2019 13:05:01 05/10/19 20 05/10/2019 urina lysis , dipst ick Blood Negati ve Not Available In-Office Order Internal Use Only DO Not Attach Compendium DO Not Attach Compendium, Do Not Delete/merge, [id number] 05/10/2019 13:05:01 05/10/19 20 05/10/2019 urina lysis , dipst ick Specific [place] 1.010 Not Available In-Off ice Order Internal Use Only DO Not Attach Compendium DO Not Attach Compendium, Do Not Delete/merge, [id number] 05/10/2019 13:05:01 05/10/19 20 05/10/2019 urina lysis , dipst ick Ketone Negati ve Not Available In-Office Order Internal Use Only DO Not Attach Compendium DO Not Attach Compendium, Do Not Delete/merge, [id number] 05/10/2019 13:05:01 05/10/19 20 05/10/2019 urina lysis , dipst ick Bilirubin Negati ve Not Available In-Office Order Internal Use Only DO Not Attach Compendium DO Not Attach Compendium, Do Not Delete/merge, [id number] 05/10/2019 13:05:01 05/10/19 20 05/10/2019 urina lysis , dipst ick Glucose Negati ve Not Available In-Office Order Internal Use Only DO Not Attach Compendium DO Not Attach Compendium, Do Not Delete/merge, [id number] 05/10/2019 13:05:01 05/10/19 20 05/10/2019 urina lysis , dipst ick Appearance Cloudy Not Available In-Offi ce Order Internal Use Only DO Not Attach Compendium DO Not Attach Compendium, Do Not Delete/merge, 05/10/2019 13:05:01 05/10/19 20 05/10/2019 urina lysis , dipst ick Color Yellow Not Available In-Office Order Internal Use Only DO Not Attach Compendium DO Not Attach Compendium, Do Not Delete/merge, [id number] 05/10/2019 13:05:01 05/30/19 20 05/30/2019 CMP, serum or plasm a comments [facility] nd [address] [place] [address]. [place] [address] Medic al Dire brandon plascencia MD Not Available [facility] [address] [place] [address], [address], 05/30/2019 11:52:54 05/30/19 20 05/30/2019 CMP, serum or plasm a glucose 90 mg/dL 70-100 Refer ence range appli cable to fasti ng speci mens only Not Available [facility] [address] [place] [address], [address], 05/30/2019 11:52:54 05/30/1905/30/2019 CMP, serum or plasm a BUN 16 mg/dL 5-25 Not Available [facility] [address] [place] [address], [address], 05/30/2019 11:52:54 05/30/1905/30/2019 CMP, serum or plasm a creat 0.58 mg/dL 0.5-1. 1 Not Available [facility] [address] [place] [address], [address], 05/30/2019 11:52:54 05/30/1905/30/2019 CMP, serum or plasm a glomerular filtration rate > 60 If patie nt is Afric an-Am yeny n, multi ply resul t by 1.21 Chron ic Kidne y Disea se: < 60 ml/mi n/1.7 3 squar e meter s Kidne y Failu re: < 15 ml/mi n/1.7 3 squar e meter s Not Available [facility] [address] [place] [address], [address], 05/30/2019 11:52:54 05/30/1905/30/2019 CMP, serum or plasm a sodium 139 mEq/L 135-14 5 Not Available [facility] [address] [place] [address], [address], 05/30/2019 11:52:54 05/30/19 20 05/30/2019 CMP, serum or plasm a potassium 4.2 mmol/ L 3.5-5. 5 Not Available [facility] [address] [place], [address], 05/30/2019 11:52:54 05/30/1905/30/2019 CMP, serum or plasm a chloride 106 mmol/ L 96-110 Not Available [facility] [address] [place], [address], 05/30/2019 11:52:54 05/30/1905/30/2019 CMP, serum or plasm a CO2 27 mmol/ L 21-32 Not Available [facility] [address] [place], [address], 05/30/2019 11:52:54 05/30/1905/30/2019 CMP, serum or plasm a anion gap 6 3-11 Not Available [facility] [address] [place], [address], 05/30/2019 11:52:54 05/30/1905/30/2019 CMP, serum or plasm a calcium 9.1 mg/dL 8.5-10 .5 Not Available [facility] [address] [place], [address], 05/30/2019 11:52:54 05/30/1905/30/2019 CMP, serum or plasm a total protein 7.1 g/dL 6.0-8. 0 Not Available [facility] [address] [place], [address], 05/30/2019 11:52:54 05/30/1905/30/2019 CMP, serum or plasm a albumin 3.6 g/dL 3.2-5. 0 Not Available [facility] [address] [place], [address], 05/30/2019 11:52:54 05/30/1905/30/2019 CMP, serum or plasm a bili,total 0.5 mg/dL 0.0-1. 4 Not Available [facility] [address] [place], [address], 05/30/2019 11:52:54 05/30/1905/30/2019 CMP, serum or plasm a SGOT 16 U/L 10-42 Not Available [facility] [address] [place] [address], [address], 05/30/2019 11:52:54 05/30/1905/30/2019 CMP, serum or plasm a SGPT 26 U/L 10-60 Not Available [facility] [address] [place] [address], [address], 05/30/2019 11:52:54 05/30/1905/30/2019 CMP, serum or plasm a alk phos 62 U/L 42-121 Not Available [facility] [address] [place] [address], [address], 05/30/2019 11:52:54 05/30/1905/30/2019 lipid panel , serum comments [facility] a [facility] of [facility] Of [address] [place] [address] Medic al Direc brandon plascencia MD Not Available [facility] [address] [place] [address], [address], 05/30/2019 11:52:57 05/30/1905/30/2019 lipid panel , serum cholesterol 171 mg/dL 0-200 Not Available [facility] [address] [place] [address], [address], 05/30/2019 11:52:57 05/30/1905/30/2019 lipid panel , serum triglyceride s 185 mg/dL 0-150 high Not Available [facility] [address] [place] [address], [address], 05/30/2019 11:52:57 05/30/1905/30/2019 lipid panel , serum HDL cholesterol 56 mg/dL >40 Not Available [facility] [address] [place] [address], [address], 05/30/2019 11:52:57 05/30/1905/30/2019 lipid panel , serum LDL calculated 78 mg/dL 0-100 Not Available [facility] [address] [place] [address], [address], 05/30/2019 11:52:57 05/30/1905/30/2019 lipid panel , serum TC-HDLC ratio 3.1 mg/dL 0-4.4 Not Available [facility] [address] [place] [address], [place], [address], 05/30/2019 11:52:57 01/02/2001/02/2020 CBC w/ auto diff [...] Choice, 01/02/2020 15:29:01/02/2001/02/2020 CBC w/ auto diff MCH 31.6 pg (27.0- 34.0) Not Available [facility] (Centralized Electronic Ordering - All Locations) Patient Can Go To The Location Of Their Choice, 01/02/2020 15:29:01/02/2001/02/2020 CBC w/ auto diff MCHC 32.7 g/dL (33.0- 37.0) low Not Available [facility] (Centralized Electronic Ordering - All Locations) Patient Can Go To The Location Of Their Choice, 01/02/2020 15:29:01/02/2001/02/2020 CBC w/ auto diff plt 384 K/mm3 (150-4 60) Not Available [facility] (Centralized Electronic Ordering - All Locations) Patient Can Go To The Location Of Their Choice, 01/02/2020 15:29:01/02/2001/02/2020 CBC w/ auto diff RDW-SD 44.9 fL (<47.0 ) Not Available [facility] (Centralized Electronic Ordering - All Locations) Patient Can Go To The Location Of Their Choice, 01/02/2020 15::01/02/2001/02/2020 CBC w/ auto diff MPV 9.1 fL [...] Choice, 01/02/2020 15:29:01/02/2001/02/2020 CBC w/ auto diff abs. NRBC 0.0 [...] 01/02/2020 20:40:44 01/02/2001/02/2020 lipid panel , serum non HDL cholesterol (calc) 162 mg/dL (<160) high Not Available [facility] (Centralized Electronic Ordering - All Locations) Patient Can Go To The Location Of Their Choice, [id number] 01/02/2020 20:40:44 02/16/20 20 02/18/2020 SARS CoV 2 RNA (COVI D-19) , QL, lab tester-P CR, respi rator y speci men covid-19, [...] TEST PERFO RMED BY [facility], ENRIQUETA ANCELENA Y Not Available [facility] (Centralized Electronic Ordering - All Locations) Patient Can Go To The Location Of Their Choice, [facility] 02/18/2020 10:14:35 04/06/19 21 04/06/2020 lipid panel , serum cholesterol, total 187 mg/dL (<200) Not Available [facility] (Centralized Electronic Ordering - All Locations) Patient Can Go To The Location Of Their Choice, [facility] 04/06/2020 17:21:25 04/06/1904/06/2020 lipid panel , serum triglyceride 210 mg/dL (<150) high Fasti ng Not Available [facility] (Centralized Electronic Ordering - All Locations) Patient Can Go To The Location Of Their Choice, [facility] 04/06/2020 17:21:25 04/06/19 21 04/06/2020 lipid panel , serum HDL chol 52 mg/dL (>39) Not Available [facility] (Centralized Electronic Ordering - All Locations) Patient Can Go To The Location Of Their Choice, [facility] 04/06/2020 17:21:25 04/06/1904/06/2020 lipid panel , serum LDL cholesterol, calculated 93 mg/dL (0-130 ) Not Available [facility] (Centralized Electronic Ordering - All Locations) Patient Can Go To The Location Of Their Choice, [facility] 04/06/2020 17:21:25 04/06/1904/06/2020 lipid panel , serum non HDL cholesterol (calc) 135 mg/dL (<160) Not Available [facility] (Centralized Electronic Ordering - All Locations) Patient Can Go To The Location Of Their Choice, [facility] 04/06/2020 17:21:25 06/08/1906/08/2019 XR, cervi bebeto spine Cervic al Spine [...] nodule stable since at least 018. WSN: [id number] Orderi ng Physic marysol: Brendan Goodson Dictat ed By: Ab Delgado MD Dictat ed Date/T jaclyn: 1:04 pm Review ed By: Ab Delgado MD Signed By: Ab Delgado MD Signed Date/T jaclyn: 1:04 pm Transc ribed By: SWAPNIL Transc ribed Date/T jaclyn: 1:01 pm Patien t Class: Outpat ient [facility] (Outpt Imaging) [address] [place], [address], 06/22/2019 07:21:31 12/30/19 20 12/30/2019 bone densi ty No observ ation record ed. [address] Diagnosit Imaging Dept [address] [place], [address], 01/02/2020 08:41:53 12/30/19 20 12/30/2019 MAMMO , scree christiano, digit al, bilat eral No observ ation record ed. [address] [facility] [address] [place], [address], 01/02/2020 08:41:53 01/11/20 20 12/30/2019 bone densi ty No observ ation record ed. daniel Not Available 12/28 19:44:42 07/05/19 21 07/05/2020 elect anne lafleur am No observ ation record ed. [email or web address] In-Office Order Internal Use Only DO Not Attach Compendium DO Not Attach Compendium, Do Not Delete/merge, [id number] 07/06/2020 14:43:50 07/05/19 21 elect anne lafleur am No observ ation record ed. [facility] In-Office Order Internal Use Only DO Not Attach Compendium DO Not Attach Compendium, Do Not Delete/merge, [id number] 07/04/2020 16:05:08 08/01/19 21 07/31/2020 XR, chest , 2 view No observ ation record ed. [address], [address], 07/31/2020 18:47:11 08/09/19 21 08/08/2020 US, abdom en No observ ation record ed. [address], [address], 08/09/2020 08:10:37 Result Notes Documentation Provider Name and Address Organization Details Recorded Time Xr, Cervical Spine : Cervical Spine 3 Views or Less Reason: cervicalgia COMPARISON: 03/01/2019 and chest films dating back to 10/16/2006 FINDINGS: Stable anterolisthesis C4-C5 and C7-T1. Stable disc space narrowing and endplate osteophytes throughout the cervical spine. Findings are most significant at C6-C7 Stable facet arthrosis throughout the cervical spine. 0.3 cm right apical pulmonary nodule IMPRESSION: Stable degenerative changes throughout the cervical spine Right apical pulmonary nodule stable since at least 06/24/2017. 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 9 13:35:28 Urinary incontin ence 269223349 Completed 10/24/2015 Brendan Burnett MD [address], [place], [address] , [facility] 6 17:09:31 Body mass index 30+ - obesity 086117040 Active Not Available [facility] 2 08:40:45 Pain of joint of wrist 377652335 Completed 11/24/2016 Ninfa quevedo, [facility] 7 14:58:56 Female urinary stress incontin ence 70052146 Active sees Dr Richardson Not Available [facility] 2 08:40:45 Urge incontin ence of urine 05519262 Active followed by urology Not Available [facility] 2 08:40:45 Anogenit al hidraden itis suppurat medardo 030164890 Active Not Available [facility] 2 08:40:45 Candidia sis of skin 91017584 Active Not Available [facility] 2 08:40:45 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 1 15:40:17 Acute pharyngi tis 091669414 Completed 200710/11/2013 RESOLVED DATE: 08/20/19 08; RECORDED 08/20/19 08 1:38PM BY BRENDAN YOUNG MD, ANNOTATI ON/ADDEN DUM Brendan Burnett MD [address], [place], [address] , [facility] 6 17:09:31 General examinat ion of patient Completed 200710/11/2013 RECORDED 08/20/19 08 1:38PM BY BRENDAN YOUNG MD, ANNOTATI ON/ADDEN DUM Brendan Burnett MD [address], [place], [address] , [facility] 6 17:09:31 Acute pharyngi tis 022425627 Completed 200711/07/2013 RESOLVED DATE: 08/20/19 08; RECORDED 08/20/19 08 1:38PM BY BRENDAN YOUNG MD, ANNOTATI ON/ADDEN DUM Brendan Burnett MD [address], [place], [address] , [facility] 6 17:09:31 General examinat ion of patient Completed 200711/07/2013 RECORDED 08/20/19 08 1:38PM BY BRENDAN YOUNG MD, ANNOTATI ON/ADDEN DUM Brendan Burnett MD [address], [place], [address] , [facility] 6 17:09:31 Screenin g for malignan t neoplasm of colon Completed 200710/11/2013 RECORDED 02/15/20 08 9:45AM BY JOYCE VAZQUEZ, DEENA ON/ADDEN DUM Brendan Burnett MD [address], [place], [address] , [facility] 6 17:09:31 Administ ration of bacteria l and viral vaccine Completed 200710/11/2013 RECORDED 02/15/20 08 3:19PM BY ROSY REYES, OFFICE VISIT Brendan Burnett MD [address] [facility] [address], [place], [address] , [facility] 6 17:09:31 Screenin g for malignan t neoplasm of colon Completed 200711/07/2013 RECORDED 02/15/20 08 9:45AM BY DEENA ROMERO ON/ADDEN DUM Brendan Burnett MD [address] [facility] [address], [place], [address] , [facility] 6 17:09:31 Administ ration of bacteria l and viral vaccine Completed 200711/07/2013 RECORDED 02/15/20 08 3:19PM BY ROSY REYES, OFFICE VISIT Brendan Burnett MD [address] [facility] [address], [place], [address] , [facility] 6 17:09:31 Contact dermatit is 62079083 Completed 200810/11/2013 RECORDED 10/04/19 09 10:05AM BY DEENA SALMERON ON/JADEEN SHANTHI Burnett MD [address] [facility] [address], [place], [address] , [facility] 6 17:09:31 Amnesia [id number] Completed 200810/11/2013 RECORDED 10/04/19 09 10:04AM BY DEENA SALMERON ON/ADDCODY Burnett MD [address] [facility] [address], [place], [address] , [facility] 6 17:09:31 Clinical finding Completed 200810/11/2013 RECORDED 10/04/19 09 10:04AM BY DEENA SALMERON ON/RA Burnett MD [address] [facility] [address], [place], [address] , [facility] 6 17:09:31 Pain of joint 97323443 Completed 200810/11/2013 IMPRESSI ON: LEFT BUTTOCKS PAIN WITH PYRIFORM IS PAIN, PT WAS TAUGHT HOW TO STRETCH, USE MOTRIN 800MG TID AND STRETCH, CALL IF NOT BETTER; RECORDED 10/04/19 09 10:04AM BY DEENA SALMERON ON/RA Burnett MD [address] [address], [place], [address] , [facility] 6 17:09:31 Hearing loss 19092464 Completed 200810/11/2013 RECORDED 10/04/19 09 10:05AM BY DEENA SALMERON/RA Burnett MD [address] [address], [place], [address] , [facility] 6 17:09:31 Contact dermatit is 34055816 Completed 200811/07/2013 RECORDED 10/04/19 09 10:05AM BY DEENA SALMERON/RA Burnett MD [address] [address], [place], [address] , [facility] 6 17:09:31 Amnesia 37192574 Completed 200811/07/2013 RECORDED 10/04/19 09 10:04AM BY DEENA SALMERON/RA Burnett MD [address] [address], [place], [address] , [facility] 6 17:09:31 Clinical finding Completed 200811/07/2013 RECORDED 10/04/19 09 10:04AM BY DEENA SALMERON ON/RA Burnett MD [address] [address], [place], [address] , [facility] 6 17:09:31 Pain of joint 02869305 Completed 200811/07/2013 IMPRESSI ON: LEFT BUTTOCKS PAIN WITH PYRIFORM IS PAIN, PT WAS TAUGHT HOW TO STRETCH, USE MOTRIN 800MG TID AND STRETCH, CALL IF NOT BETTER; RECORDED 10/04/19 09 10:04AM BY DEENA SALMERON ON/RA Burnett MD [address] [address], [place], [address] , [facility] 6 17:09:31 Hearing loss 83447913 Completed 200811/07/2013 RECORDED 10/04/19 09 10:05AM BY DEENA SALMERON/RA Burnett MD [address] [address], [place], [address] , [facility] 6 17:09:31 Screenin g for malignan t neoplasm of breast Completed 201110/11/2013 RECORDED 11/14/19 12 12:57PM BY DEENA ZARATE/RA Burnett MD [address] [address], [place], [address] , [facility] 6 17:09:31 Adult health examinat ion Completed 201110/11/2013 RECORDED 11/14/19 12 12:57PM BY DEENA ZARATE/RA Burnett MD [address] [address], [place], [address] , [facility] 6 17:09:31 Sciatica 94432534 Completed 201110/11/2013 RECORDED 11/14/19 12 12:57PM BY DEENA ZARATE/RA Burnett MD [address] [facility] [address], [place], [address] , [facility] 6 17:09:31 Dermatop hytosis of the perianal area Completed 201110/11/2013 RECORDED 11/14/19 12 12:57PM BY DEENA ZARATE ON/RA Burnett MD [address] [facility] [address], [place], [address] , [facility] 6 17:09:31 Acute upper respirat ory infectio n [id number] Completed 201110/11/2013 IMPRESSI ON: SORE THROAT WITH COUGH STARTED ONE DAY AGO, NORMAL EXAM, APPEARS VIRAL; RECORDED 11/14/19 12 12:57PM BY DEENA ZARATE ON/RA Burnett MD [address] [address], [place], [address] , [facility] 6 17:09:31 Screenin g for malignan t neoplasm of breast Completed 201111/07/2013 RECORDED 11/14/19 12 12:57PM BY DEENA ZARATE/RA Burnett MD [address] [address], [place], [address] , [facility] 6 17:09:31 Sciatica [id number] Completed 201111/07/2013 RECORDED 11/14/19 12 12:57PM BY DEENA ZARATE ON/RA Burnett MD [address] [address], [place], [address] , [facility] 6 17:09:31 Dermatop hytosis of the perianal area Completed 201111/07/2013 RECORDED 11/14/19 12 12:57PM BY DEENA ZARATE/ADDCODY Burnett MD [address] [facility] [address], [place], [address] , [facility] 6 17:09:31 Acute upper respirat ory infectio n [id number] Completed 201111/07/2013 IMPRESSI ON: SORE THROAT WITH COUGH STARTED ONE DAY AGO, NORMAL EXAM, APPEARS VIRAL; RECORDED 11/14/19 12 12:57PM BY DEENA ZARATE ON/RA Burnett MD [address] [facility] [address], [place], [address] , [facility] 6 17:09:31 Essentia l hyperten monica [id number] Completed 201210/11/2013 RECORDED 04/22/19 13 1:46AM BY RONALD REYES MA, DEENA ON/RA Burnett MD [address] [facility] [address], [place], [address] , [facility] 6 17:09:31 Essentia l hyperten monica 52708945 Completed 201211/07/2013 RECORDED 04/22/19 13 1:46AM BY RONALD REYES MA, DEENA ON/RA Burnett MD [address] [facility] [address], [place], [address] , [facility] 6 17:09:31 Influenz a vaccine needed [id number] 06 Completed 201210/11/2013 RECORDED 06/01/19 13 1:37PM BY RONALD REYES MA, DEENA ON/RA Burnett MD [address] [facility] [address], [place], [address] , [facility] 6 17:09:31 Knee pain Completed 201210/11/2013 RECORDED 06/01/19 13 1:37PM BY RONALD REYES MA, DEENA ON/RA Burnett MD [address] [facility] [address], [place], [address] , [facility] 6 17:09:31 Influenz a vaccine needed [id number] 06 Completed 201211/07/2013 RECORDED 06/01/19 13 1:37PM BY RONALD REYES MA, DEENA ON/RA Burnett MD [address] [facility] [address], [place], [address] , [facility] 6 17:09:31 Knee pain Completed 201211/07/2013 RECORDED 06/01/19 13 1:37PM BY RONALD REYES MA, DEENA HERNANDEZ/RA Burnett MD [address] [facility] [address], [place], [address] , [facility] 6 17:09:31 Syncope and collapse [id number] Completed 201210/11/2013 IMPRESSI ON: OVER THE WEEKEND [...] 10:04AM BY DEENA ZARATE/RA Burnett MD [address] [facility] [address], [place], [address] , [facility] 6 17:09:31 Syncope and collapse [id number] Completed 201211/07/2013 IMPRESSI ON: OVER THE WEEKEND [...] 06/11/19 13 10:04AM BY AHSAN SALDANA I, ANNOTATI ON/ADDEN DUM Brendan Burnett MD [address] [address], [place], [address] , [facility] 6 17:09:31 Tobacco user [id number] Completed 201301/19/2014 RECORDED 07/06/19 14 1:20PM BY AHSAN SALDANA I, OFFICE VISIT Brendan Burnett MD [address] [address], [place], [address] , [facility] 6 17:09:31 History of clinical finding in subject [id number] Completed 201301/19/2014 RECORDED 07/06/19 14 1:20PM BY AHSAN SALDANA I, OFFICE VISIT Brendan Burnett MD [address] [address], [place], [address] , [facility] 6 17:09:31 Adult health examinat ion Completed 201301/19/2014 RECORDED 07/06/19 14 1:14PM BY AHSAN SALDANA I, OFFICE VISIT Brendan Burnett MD [address] [address], [place], [address] , [facility] 6 17:09:31 Administ ration of viral vaccine Completed 201301/19/2014 RECORDED 07/06/19 14 1:39PM BY BRENDAN YOUNG MD, OFFICE VISIT Brendan Burnett MD [address] [address], [place], [address] , [facility] 6 17:09:31 Screenin g for malignan t neoplasm of breast Completed 201301/19/2014 RECORDED 08/16/19 14 3:00PM BY HEBER SEGAL, HISTORIC AL SUMMARY Brendan Burnett MD [address] [facility] [address], [place], [address] , [facility] 6 17:09:31 Polyp of corpus uteri 32506046 Active 2016 Not Available [facility] 2 08:40:45 Complex endometr ial hyperpla cortney 036948017 Active 2016 Not Available [facility] 2 08:40:45 Postmeno pausal bleeding 48145234 Active 2016 Not Available [facility] 2 08:40:45 Neck pain 29029603 Active 2018 Not Available [facility] 2 08:40:45 Pain in left knee Active 2020 Not Available [facility] 2 08:40:45 Steatoti c liver disease 621831975 Active 2020 Followed by GI Not Available [facility] 2 08:40:45 Problem Notes None recorded. Procedures Surgical History Date Name Laterality Status Provider Name and Address Organization Details Recorded Time 01/04/20 20 Six-Item Cognitive Test completed Inez Knott MA [facility] 01/04/2020 15:00:50 12/30/19 20 Most Recent Mammogram completed [facility] 01/02/2020 08:41:48 12/30/19 20 Mammogram screening completed [facility] 01/02/2020 08:41:42 12/30/19 20 Dxa bone density josé vrt fx completed [facility] 01/02/2020 08:41:15 12/10/19 19 Mini-Cog Test completed Ahsan Garcia [facility] 12/09/2018 13:07:35 01/19/20 18 Date of Last Colonoscopy completed Marylou Saldana [facility] 01/18/2018 15:00:01 01/19/20 18 colonoscopy completed Marylou Saldana [facility] 01/18/2018 14:59:45 12/08/19 18 Most Recent Bone Density completed Marylou Saldana [facility] 12/15/2017 14:14:35 12/02/19 18 Mini-Cog Test completed Katie Deras MA [facility] 12/01/2017 13:12:11 11/25/19 17 Fall Risk Assessment completed Ninfa Burnette MA [facility] 11/24/2016 15:13:38 11/25/19 17 Mini-Cog Test completed Ninfaharrison Burnette [facility] 11/24/2016 15:15:21 06/17/19 17 Hysteroscopy completed Ronald rodríguez MA [facility] 02/08/2020 09:40:17 06/17/19 17 Dilation and curettage completed Ronald rodríguez MA [facility] 02/08/2020 09:40:12 09/28/19 16 Fall Risk Assessment completed Dayana Del Cid [facility] 09/28/2015 14:42:10 09/28/19 16 Mini-Cog Test completed Dayana Del Cid [facility] 09/28/2015 14:42:10 09/28/19 16 Advanced Care Planning completed Dayana Del Cid [facility] 09/28/2015 14:42:10 08/12/19 15 Date of Last Pap Smear completed Dayana Del Cid [facility] 09/28/2015 14:42:09 06/08/19 11 repair of stress incontinence by suprapubic sling completed Ronald rodríguez MA [facility] 02/08/2020 09:39:54 Tonsillectomy completed Brendan Burnett MD [address], [address], [facility] 01/19/2014 14:56:33 Imaging Results None recorded. Procedure Notes None recorded. Medical Equipment None Reported. Allergies Allergen ID Allergen Name Allergen Category Reaction Reaction Severity Criticality Documentation Date Start Date Code Code System Note Provider Name and Address Organization Details Recorded Time 7678 Ultram medicatio n Not available Not available Not available 10/11/2013 48873 6 RxNorm Synco pe Chavezkhushbu [place], [facility] [address] [facility] [address], [place], [address], [facility] 5 22:23:38 Medications Name Sig Start Date [...] 10 9:13AM BY BRENDAN YOUNG MD, ANNOTATI ON/RA DUM; Not Available Not Available Not Available [...] 10 9:13AM BY BRENDAN YOUNG MD, ANNOTATI ON/ADDEN DUM; Not Available [...] 10 9:13AM BY BRENDAN YOUNG MD, ANNOTATI ON/ADDEN DUM; Not Available [...] RECORDED 06/01/19 13 11:09AM BY DEENA SHANKAR ON/; Not Available Not Available Not Available nitrofura [...] 10 9:13AM BY BRENDAN YOUNG MD, DEENA ON/ DUM; Not Available Not Available Not Available [...] Not Available No t Available Fluzone High-Dose 3091-2731 (PF) 180 mcg/0.5 mL intramusc ular syringe TO BE ADMINIST ERED BY PHARMACI ST FOR IMMUNIZA TION 11/24 completed Not Available Not Available Not Available Fish Oil 1,000 mg (120 mg-180 mg) capsule Take 1 capsule every day by oral route as directed . 06/01 completed Not Available Not Available Not Available Fluad Quad 5208-5078 (65yr up)(PF) 60 mcg (15 mcg x 4)/0.5mL IM syringe ADM 0.5ML IM UTD 01/03 completed Not Available Not Available Not Available Vitals Date Recorded Body height Body mass index (BMI) Body weight Body temperature Oxygen saturation Oxygen saturation in Arterial blood by Pulse oximetry Heart rate Systolic And Diastolic Provider Name and Address Organization Details Last Updated DateTime 0 152.4 cm 29.5 kg/m2 11600.4 5 g 98.2 [degF] 98 % 98 % 57 /min 116/63 mm[Hg] Katie Deras MA [facility] 0 13:03:05 Date Recorded Body height Body mass index (BMI) Body weight Heart rate Oxygen saturation Oxygen saturation in Arterial blood by Pulse oximetry Body temperature Systolic And Diastolic Provider Name and Address Organization Details Last Updated DateTime 0 152.4 cm 29.9 kg/m2 84695.6 3 g 60 /min 98 % 98 % 97.5 [degF] 114/62 mm[Hg] Ahsan Garcia [facility] 0 12:52:21 Date Recorded Body height Body mass index (BMI) Body weight Heart rate Oxygen saturation Oxygen saturation in Arterial blood by Pulse oximetry Body temperature Systolic And Diastolic Provider Name and Address Organization Details Last Updated DateTime 1 152.4 cm 31.6 kg/m2 50710.9 6 g 60 /min 98 % 98 % 97.52 [degF] 100/64 mm[Hg] Inez Knott MA [facility] 1 15:35:01 Date Recorded Body height Body mass index (BMI) Body weight Heart rate Oxygen saturation Oxygen saturation in Arterial blood by Pulse oximetry Body temperature Systolic And Diastolic Provider Name and Address Organization Details Last Updated DateTime 0 152.4 cm 30.1 kg/m2 15480.2 2 g 56 /min 98 % 98 % 97.88 [degF] 122/61 mm[Hg] Inez Knott MA [facility] 0 15:02:48 Date Recorded Body height Provider Name an d Address Organization Details Last Updated DateTime 02/08/2020 152.4 cm Ronald Vega MA [facility] 02/08/2020 09:37:46 Social History Question Answer Notes LastModified by Organizat ion Details LastModified Time Tobacco Smoking Status Former Smoker Not Available [facility] 01/31/2020 03:36:37 Do You Have An Advance Directive? No [id number] Information not available 01/31/2020 Is Blood Transfusion Acceptable In An Emergency? Yes [id number] Information not available 01/31/2020 What Is Your Level Of Caffeine Consumption? Moderate [id number] Information not available 01/31/2020 How Much Tobacco Do You Chew? None [id number] Information not available 01/31/2020 What Type Of Diet Are You Following? REGULAR [id number] Information not available 01/31/2020 Which Illicit Or Recreational Drugs Have You Used? No [id number] Information not available 01/31/2020 Live Alone Or With Others? With Others Roommate [email or web address] Information not available 01/19/2014 Do You Take [...] Or Greater Than 100 Degrees Fahrenheit? No [email or web address] Information not available 01/04/2020 Are You Or Anyone In Your Household A Health Care Provider Or Emergency Responder? No [email or web address] Information not available 01/04/2020 To The Best Of Your Knowledge Have You Been In Close Proximity To Any Individual Who Tested Positive For COVID-19? Yes Information not available 02/08/2020 What Was The Date Of Your Most Recent Tobacco Screening? 01/04/2020 [id number] Information not available 01/31/2020 How Many Children Do You Have? 1 Daughter [id number] Information not available 01/31/2020 Seat Belts Used Routinely Yes Information not available 09/28/2015 Are You Sexually Active? No [id number] Information not available 01/31/2020 Smoke Alarm In Home Yes Information not available 09/28/2015 Are You Passively Exposed To Smoke? No Information not available 09/28/2015 Do You Use Sunscreen Routinely? Yes [id number] Information not available 01/31/2020 Sex: Unknown Functional Status Question Answer Note LastModified by Organizat ion Details LastModified Time What is your level of alcohol consumption? Occasional [id number] Information not available 01/31/2020 Do you or have you ever used smokeless tobacco? Never used smokeless tobacco [id number] Information not available 01/31/2020 Are you currently employed? No retired February 2015 Information not available 02/08/2020 Are you able to care for yourself independently ? 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 Never used electronic cigarettes [id number] Information not available 01/31/2020 What is your exercise level? Moderate walking [id number] Information not available 01/31/2020 Mental Status None [...] Details Recorded Time zoster live 4 completed Kimi Kamara null, [facility] 07/26/2021 15:00:52 influenza, unspecified formulation 6 completed Kimi Kamara null, [facility] 07/26/2021 15:00:52 pneumococcal, unspecified formulation 6 completed Kimi Kamara null, [facility] 07/26/2021 15:00:52 Tdap 8 completed Kimi Kamara null, [facility] 07/26/2021 15:00:52 Influenza, high-dose, trivalent, PF 9 completed Kimi Kamara null, [facility] 07/26/2021 15:00:52 Influenza, split virus, quadrivalent, preservative 0 completed Kimi Kamara null, [facility] 07/26/2021 15:00:52 Influenza, adjuvanted, quadrivalent, PF 1 completed Kimi Kamara null, [facility] 07/26/2021 15:00:52 Influenza, split virus, quadrivalent, PF 5 completed Not Available [facility] 04/16/2019 02:22:01 COVID-19, mRNA, LNP-S, PF, 30 mcg/0.3 mL dose, hanna-sucrose 2 completed Kimi Kamara null, [facility] 07/26/2021 15:00:52 Pneumococcal conjugate PCV 13 6 completed Not Available [facility] 04/16/2019 02:21:36 Influenza, high-dose, trivalent, PF 7 completed Not Available [facility] 04/16/2019 02:22:21 pneumococcal polysaccharide PPV23 7 completed Not Available [facility] 04/16/2019 02:21:26 Influenza, high-dose, trivalent, PF 8 completed Not Available [facility] 04/16/2019 02:22:14 Influenza, split virus, trivalent, PF 4 completed Not Available [facility] 04/16/2019 02:21:57 Influenza, split virus, trivalent, preservative 6 completed Kimi Kamara null, [facility] 07/26/2021 15:00:52 Influenza, split virus, trivalent, preservative 7 completed Kimi Kamara null, [facility] 07/26/2021 15:00:52 Tdap 8 completed Kimi Kamara null, [facility] 07/26/2021 15:00:52 Influenza, split virus, trivalent, preservative 8 completed Kimi Kamara null, [facility] 07/26/2021 15:00:52 Influenza, split virus, trivalent, preservative 0 completed Kimi Kamara null, [facility] 07/26/2021 15:00:52 Influenza, split virus, trivalent, preservative 2 completed Kimi Kamara null, [facility] 07/26/2021 15:00:52 Past Encounters Encounter ID Performer Location Encounter Start Date Encounter Closed Date Diagnosis/Indication Diagnosis SNOMED-CT Code Diagnosis ICD10 Code Diagnosis IMO Codes Diagnosis Note [id number] auto[facility]Comm erce [address] [facility] [address] [place] [address] 03/04/2006 00:00:00 [id number] autoEComm erce [address] [facility] [address] [place] [address] 03/04/2005 00:00:00 [id number] autoEComm erce [address] [place] [address] 09/01/2006 00:00:00 [id number] autoEComm erce [address] [facility] [address] [place] [address] 11/04/2006 00:00:00 [id number] autoEComm erce [address] [facility] [address] [place] [address] 01/18/2007 00:00:00 [id number] auto[facility] erce [address] [facility] [address] [place] [address] 02/04/2007 00:00:00 [id number] autoEComm erce [address] [facility],[address] [place] [address] 08/20/2007 00:00:00 [id number] autoEComm erce [address] [facility],[address] [place] [address] 09/24/2007 00:00:00 [id number] autoEComm erce [address] [facility],[address] [place] [address] 02/15/2008 00:00:00 [id number] autoEComm erce [address] [facility],[address] [place] [address] 04/20/2008 00:00:00 [id number] autoEComm erce [address] [facility],[address] [place] [address] 10/03/2008 00:00:00 [id number] autoEComm erce [address] [facility],[address] [place] [address] 10/16/2009 00:00:00 [id number] autoEComm erce [address] [facility],[address] [place] [address] 08/20/2010 00:00:00 [id number] autoEComm erce [address] [facility],[address] [place] [address] 11/05/2010 00:00:00 [id number] autoEComm erce [address] [facility],[address] [place] [address] 11/14/2011 00:00:00 [id number] autoEComm erce [address] [facility],[address] [place], [place] [address] 05/31/2012 00:00:00 [id number] autoEComm erce [address] [facility],[address] [place] [address] 06/10/2012 00:00:00 [id number] autoEComm erce [address] [facility],[address] [place] [address] 07/05/2013 00:00:00 [id number] Brendan Burnett MD Main Office [address] [address] [place] [address] 01/19/2014 14:14:21 01/19/2014 15:22:41 Needs influenza immunization 023982454 Essential hypertension 70434958 Body mass index 30+ - obesity 740585047 [id number] Brendan Burnett MD Main Office [facility] [address] [place] [address] 07/24/2014 15:01:58 07/24/2014 15:34:52 Adult health examination 402468865 Hyperlipidemia 99071565 Essential hypertension 98547074 [id number] Brendan Burnett MD Main Office [facility] [address] [place] [address] 11/24/2014 15:32:09 11/24/2014 16:16:30 Pain of joint of wrist 844484076 advised her to take NSAIDs on a regular basis and to make an appointmen t with hand surgery. [id number] Brendan Burnett MD Main Office [address] [place] [address] [place] [address] 01/22/2015 15:05:46 01/22/2015 15:44:00 Essential hypertension 60703285 I10 Needs infl uenza immunization 020633018 Z23 Hyperlipidemia 09853801 E78.5 check labs next visit [id number] Brendan Burnett MD Main Office [address] [facility] [address] [place] [address] 09/28/2015 14:22:20 09/28/2015 15:44:50 Body mass index 30+ - obesity 645366766 Z68.39 Hyperlipidemia 51209361 E78.5 check labs next visit Essential hypertension 66108217 I10 Major depr ession single episode, 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 Adult heal th examination 508997031 Z00.00 UTD with colonoscop y, bone density and mammogram. Will give pneumovax today. At [facility] risk for falls 602788280 Z91.81 Administra tion of pneumococcal vaccine 57152677 Z23 [id number] Brendan Burnett MD Main Office [address] [facility] [address] [place] [address] 2016 11:32:38 2016 12:01:49 Essential hypertension 89653077 I10 good control; continue current meds Chest pain 13889340 R07. 9 She had 2 episodes of CP and has concerns because her father in his 60's of heart disease. We will get a stress test to look at this further. [id number] Juan Pablo Hernández PA-C Main Office [address] [facility] [address] [place] [address] 06/09/2016 13:59:14 06/09/2016 14:50:51 Pre-surgery evaluation 953135649 Z01.818 Endometria l hyperplasia 153886178 N85.00 Essential hypertension 61707341 I10 Hyperlipidemia 88206337 E78.5 [id number] Brendan Burnett MD Main Office [address] [facility] [address] [place] [address] 11/24/2016 14:58:00 11/24/2016 15:56:20 Adult health examination 581779217 Z00.00 UTD with colonoscop y, bone density and mammogram. Will give pneumovax today. Influenza vaccine needed 1350902708 106 Z23 Administra tion of pneumococcal vaccine 62168827 Z23 Hyperlipidemia 13896404 E78.5 [id number] Brendan Burnett MD Main Office [address] [address] [place] [address] 06/24/2017 12:45:12 06/24/2017 13:21:20 Essential hypertension 65072734 I10 good control; continue current meds Hyperlipidemia 49712681 E78.5 Started a new cholestero l med (lipitor) 6 months ago so will check cholestero l level. 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 [id number] Brendan Burnett MD Main Office [address] [place] [address] 12/01/2017 12:59:34 12/01/2017 14:11:33 Adult health examination 720721767 Z00.00 UTD with colonoscop y, bone density and mammogram. Will give pneumovax today. 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 Upper resp iratory infection 39655803 J06.9 Symptomati c treatment Hyperlipidemia 08065927 E78.5 Started a new cholestero l med (lipitor) 6 months ago so will check cholestero l level. [id number] Brendan Burnett MD Main Office [address] [address] [place] [address] 12/09/2018 12:53:45 12/09/2018 14:52:38 Adult health examination 725420512 Z00.00 UTD with colonoscop y (due again in 2022), bone density and mammogram. Urge incon tinence of urine 89213899 N39.41 Hyperlipidemia 54113634 E78.5 We will cut back on her atorvastat in from 40 to 20 mg and recheck her lipids next appointmen t. Essential hypertension 15695690 I10 good control; continue current meds [id number] Brendan Burnett MD Main Office [address] [facility] [address] [place] [address] 03/01/2019 12:33:51 03/01/2019 13:20:57 Neck pain 10441078 M54.2 [id number] Brendan Burnett MD Main Office [address] [address] [place] [address] 05/10/2019 12:37:55 05/10/2019 13:25:31 Dysuria 95265360 R30.0 Right flank pain 4653977 09 R10.9 Possible muscle pain vs kidney stone. She will try NSAIDs and we will get an U/S. [id number] Brendan Burnett MD Main Office [address] [place] [address] 06/07/2019 12:43:05 06/07/2019 13:18:43 Essential hypertension 35228488 I10 good control; continue current meds Hyperlipidemia 35105083 E78.5 Will cut dose of lipitor to 10 mg daily and follow her lipid level. 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 Influenza vaccine needed 1260453113 106 Z23 Had at her pharmacy Essential hypertension 82700543 I10 good control; continue current meds Female uri nary stress incontinence 22401799 N39.[address] Richardson. On meds and currently under control. Hyperlipidemia [id number] E78.5 Will increase her lipitor from 10 to 20 mg. [id number] Brendan Burnett MD [facility] [address] [facility] [address] [place] [address] 02/08/2020 09:05:48 02/08/2020 11:28:24 Exposure to viral disease [id number] Z03.818 1 week ago was exposed to friend with sx of covid/ fever. friends result is pending. Patient currently has no symptoms. She will also be traveling to [place] on 02/19 for the holidays and would like to be tested before she goes. [id number] Brendan Burnett MD Main Office [address] [facility] [address] [facility] [place] [address] 07/04/2020 15:29:16 07/04/2020 15:56:48 Essential hypertension [id number] I10 good control; continue current meds Hyperlipidemia [id number] E78.5 Increased her dose of atorvastat in from 10 to 20 mg 6 months ago and LDL at goal. Pain in left knee [id number] M25.562 Probable OA. Seen by ortho in the past. Upper abdominal pain [id number] R10.10 Chronic and intermitte nt. Health Concerns Section Related Observation LastModified by Organization Detai ls LastModified Time None Recorded Concern Status LastModified by Organization Details LastModified Time None Recorded Advance Directives Directive N: Payers Insurance Date Sequence Insurance Name Policy Number Policy Payan Covered Member ID Payan Member ID Guarantor Name 02/11/2021 1 [employer] (MEDICARE REPLACEMENT /ADVANTAGE - PPO) [id number] Sosa Linton [id number] Sosa Linton 10/22/2020 2 [place] [id number] Sosa Linton [id number] Sosa Linton 02/11/2021 2 [place] Sosa Linton [id number] Sosa Linton 10/15/2020 1 [facility] Sosa Linton [id number] Sosa Linton 10/15/2020 1 [facility] [id number] Sosa Linton [id number] Sosa Linton Notes Date Note Type Note Provider Name and Address Organization Details Recorded Time 0 text/html ROS as noted in the HPI She was treated for a presumed UTI 04/28 with abx for dysuria. This improved but a few days later she developed right flank pain which has persisted. She gets the pain with certain movements. Hasn't taken any meds. Denies f/c or n/v. Brendan Burnett MD [address] [facility] [address], [place], [address], [facility] 05/10/2019 13:30:37 0 text/html HyperlipidemiaReported by PatientHPIFor type of hyperlipidemia, patient reportshypercholesterolemia . For duration, patient reportschronic. For control, patient reportsusually well controlledandat goal. For current therapy, patient reportscurrently taking: (lipitor). For compliance, patient reportscompliant,compliant with diet, andexercises. For complications, patient reportsno coronary artery disease,no peripheral artery disease, andno cardiovascular disease. Hypertension F/UReported by PatientHPIFor associated symptoms, patient reportsno dizziness,no lightheadedness,no chest pain,no shortness of breath,no palpitations,no edema, andno calf pain with exertion. For lifestyle, patient reportsregular exerciseandlimiting/avoidin g salt. For medications, patient reportstaking medications as directedandno side effects from medication. She has been having neck pain at the left side for about 10 days. Denies radiation. Meds (NSAIDs, flexeril) not helping. No weakness. There day and night. Has a burning sensation in the area but no rash. Brendan Burnett MD [address] [facility] [address], [place], [address], [facility] 06/07/2019 13:25:59 0 text/html Medicare Annual Wellness VisitReported by PatientSocial/Behavioral HistoryFor diet and nutrition, patient reportshealthy diet. For fracture risk, patient reportsno history of fractures. For physical activity, patient reportsexercises on a regular basis (walks 2 miles 3-4 times balance)anddiscussed exercise habits.Mental Status:For depression risk, patient reportsnever feels sad, empty, or tearful,no loss of interest in activities,no significant changes in weight,no sleep disturbances or insomnia,no agitation,no loss of energy,no feelings of worthlessness or guilt,no thoughts of suicide,no history of depression, andno history of mood disorders. For orientation, patient reportsno disorientation to time,no disorientation to date, andno disorientation to place. For concentration and memory, patient reportsno decreased concentrating ability,no memory lapses or loss, anddoes not forget words.Functional AbilityFor activities of daily living, patient reportsable to bathe with limited or no assistance,able to contol urination and bowels,able to dress with limited or no assistance,able to feed self with limited or no assistance,able to get out of chair or bed with limited or no assistance,able to groom with limited or no assistance, andable to toilet with limited or no assistance. For instrumental activities of daily living, patient reportsable to do house work with limited or no assistance,able to grocery shop with limited or no assistance,able to manage medications with limited or no assistance,able to manage money with limited or no assistance,able to prepare meals with limited or no assistance, andable to use the phone with limited or no assistance. For falls risk assessment, patient reportsno frequent falls while walking,no fall in the past year,no fall since last visit, andno dizziness/vertigo. Brendan Burnett MD [address], [address], [facility] 01/04/2020 18:43:08 0 text/html COVID-19 Symptoms July 2019Reported by PatientPhone visit: last thu she took a friend to a 's appt. they wore maska but her car is small. Over the weekend her friend had cold sx, risky behaviors and fever. patient has no symptoms. Was exposed 1 week ago today. GABRIELA Garnett [address], [address], [facility]/08/2020 10:19:08 1 text/html HyperlipidemiaReported by PatientHPIFor type of hyperlipidemia, patient reportshypercholesterolemia . For duration, patient reportschronic. For control, patient reportsusually well controlledandat goal. For current therapy, patient reportscurrently taking: (lipitor). For compliance, patient reportscompliant,compliant with diet, andexercises. For complications, patient reportsno coronary artery disease,no peripheral artery disease, andno cardiovascular disease. Hypertension F/UReported by PatientHPIFor associated symptoms, patient reportsno dizziness,no lightheadedness,no chest pain,no shortness of breath,no palpitations,no edema, andno calf pain with exertion. For lifestyle, patient reportsregular exerciseandlimiting/avoidin g salt. For medications, patient reportstaking medications as directedandno side effects from medication. She has been having intermittent upper abdominal [...] currently manageable with NSAIDs. Brendan Burnett MD [address] [address], [place], [address], [facility] 07/04/2020 16:46:59 OBGyn Episode No OBEpisode recorded.
== END 2024-12-28 10:59 | disposition home or self-care (01) ==
LOC: HO.HOSX 10:58
PROVIDERS: Visit Provider Orthopaedic Surgery
DX: M25.311 Other instability, right shoulder (principal); M25.511 Pain in right shoulder
CPT/HCPCS: 73030; 99212

== ENCOUNTER 2025-01-20 05:50 | Day surgery (SDC) | payer MEDICARE, SELFPAY ==
--- OUTSIDE RECORDS SUMMARY | 2024-12-07 16:26 | XMS_ITS | Encounter Summary ---
Author Organization [facility] Address [address] [place] [address] Care Team Providers Care Fruit Raiser Name Role Phone Judith Gill MD Primary Care Provider [phone] Encounter Details Date Type Department Care Team (Late st Contact Info) Description 11/16/2024 Telephone Breast Care Center [facility] [address] [place] [phone] Gustavo Azar MD [address] [place] [address] Social History Tobacco Use Types Packs/Day Years Used Date Smoking Tobacco: Former Cigarettes Smokeless Tobacco: Never Alcohol Use Standard Drinks/Week Comments Not Currently [...] Orientation Straight 05/04/2024 10 :08 AM EST documented as of this encounter Progress Notes * Donaldo Merino - 11/16/2024 10:08 AM EDT PATIENT CALLED IN STATING THAT SHE HAD AN BIOPSY DONE AND HAS A FEW QUESTIONS. - ARE THE RESULTS IN? -WHICH LAB WAS IT SENT TO? - WHICH PART OF THE BODY WAS THE TISSUE TAKEN FROM FOR THE BIOPSY? PLEASE CONTACT PATIENT. documented in this encounter Plan of Treatment Upcoming Encounters Date Type Department Care Team (Late st Contact Info) Description 01/05/2025 11:00 AM EDT Office Visit [facility] [place] [address] [place] [phone] Gustavo Azar MD [address] [place] [address] 01/24/2025 1:00 PM EDT Office Visit Internal Medicine [facility] [address] [phone] Judith Gill MD [address] [phone] documented as of this encounter Visit Diagnoses Not on filedocumented in this encounter Additional Health Concerns Assessment Noted Time PHQ-9 Depression Total Score: 0 07/26/19 25 8:58 AM EDT A fall risk assessment has been complete d for the patient 07/25/2024 8:55 AM EDT documented as of this encounter Care Teams Fruit Raiser Relationship Specialty Start Date End Date Judith Gill MD [address] [phone] PCP - General Internal Medicine 12/24/20 documented as of this encounter
--- OUTSIDE RECORDS SUMMARY | 2024-12-07 16:26 | XMS_ITS | Clinical Summary ---
Author Organization [facility] Address [address] [place] [address] Care Team Providers Care Medical Assistant Instructor Name Role Phone Tom Burnett MD Primary Care Provider [phone] Allergies Active Allergy Reactions Criticality Noted Date Comments Tramadol Other (See Comments) High 06/08/2017 Medications Medication Sig Dispensed Refills Start Date End Date Status Aspirin Buf,XoAhan-HfQidg-Ws O, 81 MG TABS Take 81 mg [...] age to complete this topic Care Teams Medical Assistant Instructor Relationship Specialty [place] [address] [place] [id number] PCP - General Internal Medicine 09/10/20
--- OUTSIDE RECORDS SUMMARY | 2024-12-07 16:26 | XMS_ITS ---
Author Name [facility] Organization Unknown Care Team Organization Name Specialty Phone Email Start Date End Da te [facility] uJdith Gill Primary Care 09/05/2022 11/16/[address] [facility] Susan Dawn Primary Care 02/04/20222023
--- OUTSIDE RECORDS SUMMARY | 2024-12-07 16:26 | XMS_ITS | Clinical Summary ---
Author Organization 175 [facility] Address [address] [place] [address] Phone Care Team Providers Care Leather Leveler Name Role Phone Judith Gill MD Primary Care Provider Allergies Active Allergy Reactions Criticality Noted Date [...] EVERY DAY 90 tablet 1 07/27/2024 Active nystatin (MYCOSTATIN) 100,000 unit/gram powder APPLY LOCAL TWICE A DAY 15 g 5 10/17/2024 Active Active Problems Problem Noted Date Diagnosed [...] Encounters Date Type Department Care Team Description 11/16/2024 Telephone Breast Care [address] [phone] Gustavo Azar MD 10/11/[address] [phone] Gustavo Azar MD 10/03/2024 9:00 AM EDT Office Visit [address] [phone] Gustavo Azar MD Endometrial cancer ([facility] V24, [facility] V28) from Last 3 Months Immunizations Name Administration [...] HISTORICAL COLONOSCOPY OTHER SURGICAL HISTORY 06/16/2016 PROCEDURE: VA DILATION & CURETTAGE DX&/THER NONOBSTETRIC; COMMENT: and hysteroscopy OTHER SURGICAL HISTORY 06/07/2010 PROCEDURE: [place] RMVL/REVJ SLING STRESS INCONTINENCE; COMMENT: Repair suprapubic [...] AM EDT Office Visit Breast Care Center [facility] [address] [place] [phone] Gustavo Azar MD [address] [place] [address] 01/24/2025 1:00 PM EDT Office Visit Internal Medicine [facility] 175 [facility] 200 [place] [phone] Judith Gill MD 175 [facility] [address] [place] [phone] Health Maintenance Due Date Last Done Comments [...] 06/26/19 24, 05/15/2022, 04/17/2021, Additional history exists Falls Risk [...] this topic Medical Devices Implanted Type Area Aircraft Machinist Helper Device Identifier Shelf Expiration Date Model / Serial / Lot Hemostat Absorb Surgicel 2x4in Fibrillar - Sna - [id number] Implanted:Qty: 1 on 05/09/2024 by Gustavo Azar MD at [facility] Hemostasis N/A: Abdomen [employer] [id number] 05/27/2026 1962 / NA / [id number] Procedures Procedure Name Priority Date/Time Associated Diagnosis Comments LIPID PANEL WITH REFLEX TO DIRECT LDL Routine 08/03/2024 10:10 AM EDT Mixed hyperlipidemia Prediabetes Hyperglycemia BASIC METABOLIC PANEL Routine 05/03/2024 12:00 PM EST Endometrial cancer (CMS/HCC V24, CMS/HCC V28) BD BONE DENSITY DXA AXIAL SKELETON Routine 02/15/2024 10:24 AM EST Postmenopausal state HM COLONOSCOPY Routine 10/21/2023 ALYSE SCREENING DIGITAL Routine 06/26/2023 2:17 PM EDT Encounter for screening mammogram for malignant neoplasm of breast PAP SMEAR Routine 08/14/2014 from Last 3 Months or Most Recently Relevant to Health Maintenance Results * (ABNORMAL) Lipid panel with reflex to direct LDL (08/03/2024 10:10 AM EDT) Cholesterol 163 0 - 200 mg/dL LAB CHEMISTRY METHOD 08/03/2024 1:[address] [facility] Triglycerides 279(H) 0 - 150 mg/dL LAB CHEMISTRY METHOD 08/03/2024 1:[address] [facility] HDL 46 >=40 mg/dL LAB CHEMISTRY METHOD 08/03/2024 1:[address] [facility] LDL Calculated 61 0 - 100 mg/dL LAB CHEMISTRY METHOD 08/03/2024 1:[address] [facility] VLDL Cholesterol David 55.8 mg/dL LAB CHEMISTRY METHOD 08/03/2024 1:[address] [facility] Non HDL Chol. (LDL+VLDL) 117 <145 mg/dL LAB CHEMISTRY METHOD 08/03/2024 1:[address] [facility] Chol/HDL Ratio 3.5 0.0 - 4.4 LAB CHEMISTRY METHOD 08/03/2024 1:[address] [facility] Blood Venous blood specimen / Unknown Venipuncture / Unknown 08/03/2024 10:10 AM EDT 08/03/2024 10:11 AM EDT us Judith Gill MD LAB BLOOD ORDERABLES Final Res ult [facility] [address] [place] [address], [place] [phone] * (ABNORMAL) Basic metabolic panel (05/03/2024 12:00 PM EST) Sodium 136 133 - 145 mmol/L LAB CHEMISTRY METHOD 05/03/2024 1:26 PM [facility] Potassium 4.1 3.5 - 5.5 mmol/L LAB CHEMISTRY METHOD 05/03/2024 1:26 PM [facility] Chloride 104 96 - 110 [...] LAB CHEMISTRY METHOD 05/03/2024 1:[address] [facility] eGFR 82 >=60 mL/min/1. 73m2 LAB CHEMISTRY METHOD 05/03/2024 1:[address] [facility] Comment:Calculation based on the Chronic Kidney Disease Epidemiology Collaboration (CKD-EPI) equation refit without adjustment for race. BUN/Creatinine Ratio 19.7 LAB CHEMISTRY METHOD 05/03/2024 1:[address] [facility] Calcium 9.3 8.5 - 10.5 mg/dL LAB CHEMISTRY METHOD 05/03/2024 1:[address] [facility] Blood Venous blood specimen / Unknown Venipuncture / Unknown 05/03/2024 12:00 PM EST 05/03/2024 12:54 PM EST us Gustavo Azar MD LAB BLOOD ORDERABLES Final Resul t [facility] [address] [place] [address], * BD Bone Density DXA Axial Skeleton [...] probability of hip fracture of 0.4%. Code [address]13 CT Teleradiology -------- FINAL REPORT -------- Dictated By: Seamus Varner Dictated Date: 02/15/2024 10:32 ET Assigned Physician: Seamus Varner Reviewed and Electronically Signed By: Seamus Varner Signed Date: 02/15/2024 10:34 ET Workstation ID: [id number] Transcribed By: Self Edit Transcribed Date: 02/15/2024 [...] probability of hip fracture of 0.4%. Code [address]245 CT Teler[facility] -------- FINAL REPORT -------- Dictated By: Seamus Varner Dictated Date: 02/15/2024 10:32 ET Assigned Physician: Seamus Varner Reviewed and Electronically Signed By: Seamus Varner Signed Date: 02/15/2024 10:34 ET Workstation ID: [id number] Transcribed By: Self Edit Transcribed Date: 02/15/2024 [...] density of the femurs bilaterally is 1.122 gm/nf6zeauz is 111% of that of young normals [...] probability of hip fracture of 0.4%. Code [address]01 CT [facility] -------- FINAL REPORT -------- Dictated By: Seamus Varner Dictated Date: 02/15/2024 10:32 ET Assigned Physician: Seamus Varner Reviewed and Electronically Signed By: Seamus Varner Signed Date: 02/15/2024 10:34 ET Workstation ID: [id number] Transcribed By: Self Edit Transcribed Date: 02/15/2024 10:32 ET Judith Gill MD IMG DXA PROCEDURES Edited Resu lt - Final * Colonoscopy (10/21/2023) HM Colonoscopy no interpretation , abstracted Anatomical Region Laterality Modality Other us Historical Provider [facility] Final Result * ALYSE SCREENING DIGITAL (06/26/2023 2:17 PM EDT) Anatomical Region Laterality Modality Mammography 06/26/2023 1:32 PM EDT Narrative 06/26/2023 2:17 PM EDT [facility] Diagnostic Imaging Department [address] [place] [address] Patient: CARMELA CARTER D.O.B./Age/Sex: 1950 73 - F Unit#: [id number] Location/Status: SPDIMAM/REG CLI Mnemonic/Ordering Site: [facility] Ordering Physician: JUDITH GILL MD Alyse Screening Digital - 06/26/23 - 1040 Report Status:Signed EXAM: Alyse Screening Digital EXAM DATE AND TIME: 06/26/2023 1:51 PM HISTORY: Annual screening COMPARISON: Multiple exams dating back to 2003 TECHNIQUE: Bilateral digital breast tomosynthesis was performed in the CC and MLO projections. Computer aided detection with Rong360 3D 3.1 was employed. TISSUE DENSITY: b. [...] Routine screening mammogram BILATERAL in 1 year. 0861F, 7097F Dictating Physician: ANNE-MARIE HAMMOND MD Electronically Signed by: ANNE-MARIE HAMMOND MD Dic Date/Time: 06/26/23 1416 Sign date/Time: 06/26/23 1417 Procedure Note Anne-Marie Hammond MD - 11/16/2023 [facility] Diagnostic Imaging Department [address] [place] [address] Patient: RAULCARMELA D.O.B./Age/Sex: 1950 - 73 - F Unit#: [id number] Location/Status: [facility] CLI Mnemonic/Ordering Site: [facility] Ordering Physician: JUDITH GILL MD [facility] Screening Digital - 06/26/23 - 1350 Report Status:Signed EXAM: [facility] Screening Digital EXAM DATE AND TIME: 06/26/2023 1:51 PM HISTORY: Annual screening COMPARISON: Multiple exams dating back to 2003 TECHNIQUE: Bilateral digital breast tomosynthesis was performed in the CCand MLO projections. Computer aided detection with [employer] 3D 3.1was employed. TISSUE DENSITY: b. There [...] currently active code status orders. Care Teams Leather Leveler Relationship Specialty Start Date End Date Judith Gill MD [address] [place] [phone] PCP - General Internal Medicine 12/24/20
[2025-01-10 12:10] VITALS: BP 126/63; PULSE 62; RESP 20; O2SAT 97; BMI 36.1
[2025-01-20] VITALS (7 sets, daily range): BP systolic 139–156; BP diastolic 61–74; PULSE 69–85; RESP 16–19; TEMP 36.1–36.7; O2SAT 96–99; BMI 36.0
--- NOTE | 2025-01-20 07:10 | PC.NURSE ---
small abrasion to right knee. no signs or symptoms of infection. md dye aware. ok to proceed.
[2025-01-20] MEDS: Lactated Ringers 1,000 ML 100 ML IVCONT (07:25)
--- NOTE | 2025-01-20 07:25 | HO.ANESPROP2 ---
Documented by User: Torie Thomson NP 01/18/25 09:45 HPI - Anesthesia Eval Consult details Narrative: 74yo F for Right Knee Arthroscopy,with partial medial meniscectomy,and lateral meniscectomy PMFSH Active Problems Active Problems: All Active Problems Rotator cuff insufficiency of right shoulder (Acute) Right shoulder pain (Acute) Tear of medial meniscus of right knee (Acute) Right knee pain (Acute) Past Medical History Medical History (Updated 01/10/25 @ 12:03 by Kaya Saucedo RN) Urge incontinence Pulmonary nodule DDD (degenerative disc disease), cervical Pre-diabetes Endometrial cancer GERD (gastroesophageal reflux disease) Elevated cholesterol HTN (hypertension) Surgical History Surgical History (Updated 01/06/25 @ 12:27 by Kaya Saucedo RN) Hx of tonsillectomy Hx of hysterectomy History of pubovaginal sling Hx of dilation and curettage H/O colonoscopy Social History Social History Are you a primary career agent to a significant other at home: No Do you presently have visiting nurse or other home services: No Patient Tobacco Use Status: Former Tobacco user Tobacco use type: Cigarette Years Smoked: 20 Use of substances other than those prescribed or required for medical reasons: Yes Substance Use Type Other:: occasional use-smokes Substance Use Frequency: Occasionally Have you been hit, kicked, punched, or otherwise hurt by someone within the past year? If so, by whom?: No Spiritual Healthcare Practices: no Uatsdin Healthcare Practices: no Cultural Healthcare Practices: no Are you DNR?: No Advance Directives: No Advance Directives Information Provided: Yes Patient : No FDLMP: n/a : No Poor oral hygiene: No Current occupational status: retired Current occupation: rt handed Meds Allergies Allergy/AdvReac Type Severity Reaction Status Date / Time tramadol (From Ultram) Allergy Intermediate disoriented Verified 01/10/25 12:25 /lethargy Active Medications: Current Medications Cefazolin Sodium/Dextrose (Ancef) 2 gm in 50 mls @ 100 mls/hr IV PREOP ONE Stop: 01/20/25 06:11 Home Medications ?Medication ?Instructions ?Recorded ?Confirmed ?Last Taken ?Type atorvastatin 40 mg tablet 40 mg PO BEDTIME 08/17/24 01/20/25 Unknown History celecoxib 200 mg capsule 200 mg PO DAILY PRN Pain 08/17/24 01/10/25 01/16/25 History lisinopril 20 1 tab PO QAM 08/17/24 01/20/25 Unknown History mg-hydrochlorothiazide 25 mg tablet nystatin 100,000 unit/gram topical 1 appl topical DAILY 08/17/24 01/20/25 Unknown History powder omeprazole 20 mg capsule,delayed 20 mg PO QAM 08/17/24 01/20/25 Unknown History release solifenacin 10 mg tablet 10 mg PO QAM 08/17/24 01/20/25 Unknown History valacyclovir 1 gram tablet 1,000 mg PO TID PRN cold sores 08/17/24 01/20/25 Unknown History calcium carbonate 500 mg PO QAM 01/10/25 01/20/25 Unknown History glucosamine sulf dipot 1 cap PO QAM 01/10/25 01/10/25 01/16/25 History chlr,msm,chond 550 mg-C 30 mg-claudine 1 mg capsule (Glucosamine Chondroitin) multivitamin 1 tab PO QAM 01/10/25 01/20/25 Unknown History Exam Height,Weight and Vital Signs: Height 5 ft Weight 83.915 kg Last Vital Signs Pulse 62 01/10/25 12:10 Resp 20 01/10/25 12:10 BP 126/63 01/10/25 12:10 Pulse Ox 97 01/10/25 12:10 O2 Del Method Room Air 01/10/25 12:10 Assessment and Plan Assessment Anesthesia Assessment: Chart Reviewed Documented by User: Carlita Garcia DO 01/20/25 07:53 [facility] Past Medical History Medical History (Updated 01/10/25 @ 12:03 by Kaya Saucedo RN) Urge incontinence Pulmonary nodule DDD (degenerative disc disease), cervical Pre-diabetes Endometrial cancer GERD (gastroesophageal reflux disease) Elevated cholesterol HTN (hypertension) Family History Family history of problems with anesthesia: No Surgical History Surgical History (Updated 01/06/25 @ 12:27 by Kaya Saucedo RN) Hx of tonsillectomy Hx of hysterectomy History of pubovaginal sling Hx of dilation and curettage H/O colonoscopy History of Problems with Anesthesia: No Social History Social History Are you a primary career agent to a significant other at home: No Do you presently have visiting nurse or other home services: No Patient Tobacco Use Status: Former Tobacco user Tobacco use type: Cigarette Years Smoked: 20 Use of substances other than those prescribed or required for medical reasons: Yes Substance Use Type Other:: occasional use-smokes Substance Use Frequency: Occasionally Have you been hit, kicked, punched, or otherwise hurt by someone within the past year? If so, by whom?: No Spiritual Healthcare Practices: no Uatsdin Healthcare Practices: no Cultural Healthcare Practices: no Are you DNR?: No Advance Directives: No Advance Directives Information Provided: Yes Patient : No FDLMP: n/a : No Poor oral hygiene: No Current occupational status: retired Current occupation: rt handed Meds Allergies Allergy/AdvReac Type Severity Reaction Status Date / Time tramadol (From [facility]) Allergy Intermediate disoriented Verified 01/10/25 12:25 /lethargy Home Medications ?Medication ?Instructions ?Recorded ?Confirmed ?Last Taken ?Type atorvastatin 40 mg tablet 40 mg PO BEDTIME 08/17/24 01/20/25 Unknown History celecoxib 200 mg capsule 200 mg PO DAILY PRN Pain 08/17/24 01/10/25 01/16/25 History lisinopril 20 1 tab PO QAM 08/17/24 01/20/25 Unknown History mg-hydrochlorothiazide 25 mg tablet nystatin 100,000 unit/gram topical 1 appl topical DAILY 08/17/24 01/20/25 Unknown History powder omeprazole 20 mg capsule,delayed 20 mg PO QAM 08/17/24 01/20/25 Unknown History release solifenacin 10 mg tablet 10 mg PO QAM 08/17/24 01/20/25 Unknown History valacyclovir 1 gram tablet 1,000 mg PO TID PRN cold sores 08/17/24 01/20/25 Unknown History calcium carbonate 500 mg PO QAM 01/10/25 01/20/25 Unknown History glucosamine sulf dipot 1 cap PO QAM 01/10/25 01/10/25 01/16/25 History chlr,msm,chond 550 mg-C 30 mg-claudine 1 mg capsule (Glucosamine Chondroitin) multivitamin 1 tab PO QAM 01/10/25 01/20/25 Unknown History Exam Exam Date and Time: 01/20/25 0725 Airway Mallampati Class: I TM Dist: >3cm Neck ROM: Full Loose/Missing/Broken Teeth: No (patient denies any loose or broken teeth) Heart: S1S2 Lungs: CTAB Assessment and Plan Assessment Anesthesia Assessment: Anesthesia Plan Discussed and Chart Reviewed Final Anesthetic Review Family History of Problems with Anesthesia: No History of Problems with Anesthesia: No NPO: Yes ASA Class: II Final Preanesthetic Review: No Changes in Pt Med Stat, Meds/Allgs Chart Reviewed, Consent Obtained/Reviewed and Anes Risks/Benef Reviewed Patient Risk: Low Procedure Risk: Low Anesthetic Plan Anesthetic Plan: GA and Agree w/ Assess. and Plan Disposition: Standard PACU
--- NOTE | 2025-01-20 08:39 | PM.OP ---
Brief Operative Note Date of Service: 01/20/25 Pre-op diagnosis: Right knee medial meniscus tear, right knee lateral meniscus tear, right knee degenerative joint disease Post-op diagnosis: same Procedure: Right knee arthroscopic partial medial and lateral meniscectomies, right knee arthroscopic chondroplasty of the undersurface of the patella as well as the medial femoral condyle Implants: None Surgeon: Duane Soria MD Anesthesia: GLMA Was an Centerless Grinder Operator used for this Procedure?: No Estimated blood loss (mL): 10 Pathology: none sent Condition: stable Disposition: PACU
--- NOTE | 2025-01-20 08:40 | W.PM.OPN ---
Operative Note Operative Note Date of Service: 01/20/25 Narrative: After the patient was identified as Carmela Linton and her right knee was initialed by myself they were brought to the operating room where general anesthesia was induced by the anesthesiologist in routine fashion. The patient was given 2 g of IV Ancef for infection prophylaxis. A formal time-out was completed. The patient's right lower extremity was prepped and draped in sterile fashion. Marcaine with epinephrine was injected into the planned incision sites as well as their right knee joint. A # 11 scalpel blade was used to make an anterolateral portal 1 cm proximal to the joint line and 1 cm lateral to the patellar tendon. Blunt trocar technique was used into the suprapatellar pouch with the knee in extension. Diagnostic arthroscopy showed multiple bands of thickened plica which would be excised at the end of the procedure. There were no loose bodies or abnormalities found in either the medial or lateral gutters. There were diffuse grades 1 and 2 degenerative changes of the undersurface of the patella as well as grades 1 and 2 degenerative changes of the trochlear groove. The patient's knee was flexed to 45 degrees and a valgus force was placed upon it. The medial compartment was entered. An anteromedial portal was made 1 cm proximal to the joint line and 1 cm medial to the patellar tendon. Probing of the medial meniscus showed a radial tear of the posterior horn. A partial medial meniscectomy was performed using the arthroscopic shaver. Following the partial meniscectomy the remainder of the meniscus tissue was stable. There were diffuse grades 2 and 3 degenerative changes of the medial femoral condyle as well as diffuse grades 1 and 2 degenerative changes of the medial tibial plateau. The articular surface of the medial femoral condyle was made smooth using the arthroscopic shaver. The articular surface of the medial tibial plateau was already smooth so no chondroplasty was indicated. The patient's knee was then placed into a neutral position. There was no injury to the anterior cruciate ligament. The patient's knee was then placed into the figure of 4 position and the lateral compartment was entered. There were minimal degenerative changes of the lateral femoral condyle and lateral tibial plateau. There was a radial tear of the anterior horn of the lateral meniscus. A partial lateral meniscectomy was performed using the arthroscopic shaver. Following the partial meniscectomy the remainder of the meniscus tissue was stable. The patient's knee was once again brought into extension and the suprapatellar pouch was entered. The arthroscopic shaver and the ArthroCare Wand were used to excise the thickened bands of plica. The undersurface of the patella was then made smooth using the arthroscopic shaver. The articular surface of the trochlear groove was already smooth so no chondroplasty was indicated. The knee joint was irrigated and then drained. All arthroscopic instruments were removed. The 2 portals were closed with 3-0 nylon interrupted suture. The knee joint was injected with Marcaine. Dry sterile dressing and Jesus bandages were placed over the patient's knee. The patient was awoken and extubated in the operating room. They were transferred to the recovery room in stable condition.
== END 2025-01-20 09:55 | disposition home or self-care (01) ==
PROVIDERS: PCP Internal Medicine; Visit Provider Orthopaedic Surgery
PROC: (CPT 29870; principal; 2025-01-20 07:30)
DX: S83.281A Other tear of lateral meniscus, current injury, right knee, initial encounter (principal); S83.241A Other tear of medial meniscus, current injury, right knee, initial encounter; M17.11 Unilateral primary osteoarthritis, right knee; M67.51 Plica syndrome, right knee; M25.511 Pain in right shoulder; M25.311 Other instability, right shoulder; X58.XXXA Exposure to other specified factors, initial encounter; Y93.9 Activity, unspecified; Y92.9 Unspecified place or not applicable; Y99.9 Unspecified external cause status; Z79.899 Other long term (current) drug therapy; Z88.5 Allergy status to narcotic agent; Z87.891 Personal history of nicotine dependence
CPT/HCPCS: 29880; 29876; J0131; J0165; J0690; J0696; J1100; J2003; J2371; J2405; J2704; J2795; J3010

== ENCOUNTER → 2025-01-20 05:50 | Outpatient (BNV) | payer MEDICARE, SELFPAY | PROVIDERS: PCP Internal Medicine; Visit Provider Orthopaedic Surgery | DX: S83.241A Other tear of medial meniscus, current injury, right knee, initial encounter (principal); S83.281A Other tear of lateral meniscus, current injury, right knee, initial encounter | CPT/HCPCS: 29881 ==

== ENCOUNTER 2025-02-02 11:47 | Outpatient (AMB) | payer MEDICARE, SELFPAY ==
--- OUTSIDE RECORDS SUMMARY | 2025-01-30 15:25 | XMS_ITS | Encounter Summary ---
Author Organization [facility] Address [address] [place] [address] Care Team Providers Care Sql Engineer Name Role Phone Judith Gill MD Primary Care Provider [phone] Encounter Details Date Type Department Care Team (Late Contact Info) Description 01/30/2025 3:25 PM EST Lab Draw Station - [address] [address] Leukocytosis, unspecified type; Endometrial cancer (CMS/HCC V24, CMS/HCC V28) Social History Tobacco Use Types Packs/Day Years Used Date Smoking Tobacco: Former Cigarettes Smokeless Tobacco: Never Alcohol Use Standard Drinks/Week Comments Not Currently 0 (1 standard drink = 0.6 oz pur e alcohol) Interpersonal Safety Answer Date Record ed Physical Abuse Unrecognized value 05/09/2024 Verbal Abuse Unrecognized value 05/09/2024 Comments No Sex and Gender Information Value Date Recorded Sex Assigned at Female 05/04/2024 10:08 AM EST Legal Sex Female 4:08 PM EST Gender Identity Female 05/04/2024 10:08 AM EST Sexual Orientation Straight 05/04/2024 10 :08 AM EST documented as of this encounter Plan of Treatment Upcoming Encounters Date Type Department Care Team (Late Contact Info) Description 02/09/2025 10:45 AM EST [facility]ointment [facility] [address] [place] [phone] 02/13/2025 4:00 PM EST Appointment [facility] CT Scan [address] [place] [phone] 04/11/2025 11:40 AM EST Office Visit [facility] [address] [place] [phone] Gustavo Azar MD [address] [place] [address] documented as of this encounter Procedures Procedure Name Priority Date/Time Associated Diagnosis Comments CBC WITH AUTO DIFFERENTIAL Routine 01/30/2025 3:27 PM EST Leukocytosis, unspecified type CBC AND DIFFERENTIAL Routine 01/30/2025 3:27 PM EST Leukocytosis, unspecified type CANCER ANTIGEN 125 Routine 01/30/2025 3: 27 PM EST Endometrial cancer (CMS/HCC V24, CMS/HCC V28) documented in this encounter Results * (ABNORMAL) CBC auto differential (01/30/2025 3:27 PM EST) WBC 11.5(H) 4.8 - 10.8 K/mcL LAB HEMETOLOGY METHOD 01/30/2025 4:51 PM [facility] RBC 4.20 3.80 - 4.80 M/mcL LAB HEMETOLOGY METHOD 01/30/2025 4:51 PM [facility] Hemoglobin 12.8 11.5 - 16.0 g/dL LAB HEMETOLOGY METHOD 01/30/2025 4:51 PM [facility] Hematocrit 37.9 35.0 - 47.0 % LAB HEMETOLOGY METHOD 01/30/2025 4:51 PM [facility] MCV 91.3 79.0 - 98.0 FL LAB HEMETOLOGY METHOD 01/30/2025 4:51 PM [facility] MCH 30.8 27.0 - 32.0 pcg LAB HEMETOLOGY METHOD 01/30/2025 4:51 PM [facility] MCHC 33.8 32.0 - 37.0 g/dL LAB HEMETOLOGY METHOD 01/30/2025 4:51 PM [facility] RDW 12.7 11.0 - 15.0 % LAB HEMETOLOGY METHOD 01/30/2025 4:51 PM [facility] Platelets 436(H) 130 - 400 K/mcL LAB HEMETOLOGY METHOD 01/30/2025 4:51 PM [facility] MPV 9.4 7.0 - 11.0 FL LAB HEMETOLOGY METHOD 01/30/2025 4:51 PM [facility] NRBC 0.0 <1.0 % LAB HEMETOLOGY METHOD 01/30/2025 4:51 PM [facility] NRBC Absolute 0.00 <0.10 K/mcL LAB HEMETOLOGY METHOD 01/30/2025 4:51 PM [facility] Neutrophils Relative 58.5 % LAB HEMETOLOGY METHOD 01/30/2025 4:51 PM [facility] Lymphocytes Relative 28.3 % LAB HEMETOLOGY METHOD 01/30/2025 4:51 PM [facility] Monocytes Relative 8.1 % LAB HEMETOLOGY METHOD 01/30/2025 4:51 PM [facility] Eosinophils Relative 3.6 % LAB HEMETOLOGY METHOD 01/30/2025 4:51 PM [facility] Basophils Relative 1.0 % LAB HEMETOLOGY METHOD 01/30/2025 4:51 PM [facility] Immature Granulocytes Relative 0.5 % LAB HEMETOLOGY METHOD 01/30/2025 4:51 PM [facility] Neutrophils Absolute 6.74 1.50 - 7.00 K/mcL LAB HEMETOLOGY METHOD 01/30/2025 4:51 PM [facility] Lymphocytes Absolute 3.26 1.00 - 5.00 K/mcL LAB HEMETOLOGY METHOD 01/30/2025 4:51 PM EST [facility] Monocytes Absolute 0.93 0.20 - 1.00 K/mcL LAB HEMETOLOGY METHOD 01/30/2025 4:51 PM EST [facility] Eosinophils Absolute 0.41 0.00 - 0.50 K/[facility] LAB HEMETOLOGY METHOD 01/30/2025 4:51 PM EST [facility] Basophils Absolute 0.11 0.00 - 0.20 K/[facility] LAB HEMETOLOGY METHOD 01/30/2025 4:51 PM EST [facility] Immature Granulocytes Absolute 0.06(H) 0.00 - 0.03 K/[facility] LAB HEMETOLOGY METHOD 01/30/2025 4:51 PM EST [facility] Blood Venous blood specimen / Unknown Venipuncture / Unknown 01/30/2025 3:27 PM EST 01/30/2025 3:27 PM EST us Judith Gill MD LAB BLOOD ORDERABLES Final Res ult [facility] [address] [place] [address], * Cancer antigen 125 (01/30/2025 3:27 PM EST) CA 125 10.2 <35.0 unit/mL LAB CHEMISTRY METHOD 01/30/2025 6:59 PM EST [facility] Blood Venous blood specimen / Unknown Venipuncture / Unknown 01/30/2025 3:27 PM EST 01/30/2025 3:27 PM EST Narrative [facility] - 01/30/2025 6:59 PM EST The Siemens Advia Centaur Chemiluminescent Immunoassay is used. Results obtained with different assay methods or kits cannot be used interchangeably. Results cannot be interpreted as absolute evidence of the presence or absence of malignant disease. us Gustavo Azar MD LAB BLOOD ORDERABLES Final Resul t [facility] [address] [place] [address], documented in this encounter Visit Diagnoses Diagnosis Leukocytosis, unspecified type Endometrial cancer (CMS/[facility] V24, CMS/HCC V28) Malignant neoplasm of corpus uteri, except isthmus documented in this encounter Additional Health Concerns Assessment Noted Time PHQ-9 Depression Total Score: 0 07/26/19 8:58 AM EDT A fall risk assessment has been complete d for the patient 07/25/2024 8:55 AM EDT documented as of this encounter Care Teams Sql Engineer Relationship Specialty Start Date End Date Judith Gill MD [address] [place] [phone] PCP - General Internal Medicine 12/24/20 documented as of this encounter
--- NOTE | 2025-02-02 11:50 | MHC.OFFVIS ---
Intake Visit Reasons: PO-Rt Knee 01/20/25 DR Allergies tramadol (From Ultra) Allergy (Intermediate, Verified 01/10/25 12:25) disoriented/lethargy Medication List - Last Reconciled 02/02/25 by Jacob Pendleton PA-C atorvastatin 40 mg PO BEDTIME calcium carbonate 500 mg PO QAM celecoxib 200 mg PO DAILY PRN glucos sul [id number] 550-30-1 mg (Glucosamine Chondroitin) 1 cap PO QAM lisinopril-hydrochlorothiazide 20-25 mg 1 tab PO QAM multivitamin 1 tab PO QAM nystatin 1 appl topical DAILY omeprazole 20 mg PO QAM oxycodone 5 mg PO Q6H PRN solifenacin 10 mg PO QAM valacyclovir 1,000 mg PO TID PRN HPI HPI PO-Rt Knee 01/20/25 DR: Details: 74-year-old female returns to the office today status post right knee arthroscopy with Dr. Soria on 01/20/2025. The patient states she is doing well and has no pain. She is ambulating without assistance and has no concerns. [facility] Medical History (Updated 01/10/25 @ 12:03 by Kaya Saucedo RN) Urge incontinence Pulmonary nodule DDD (degenerative disc disease), cervical Pre-diabetes Endometrial cancer GERD (gastroesophageal reflux disease) Elevated cholesterol HTN (hypertension) Surgical History (Updated 01/06/25 @ 12:27 by Kaya Saucedo RN) Hx of tonsillectomy Hx of hysterectomy History of pubovaginal sling Hx of dilation and curettage H/O colonoscopy Social History Are you a primary child care attendant to a significant other at home: No Do you presently have visiting nurse or other home services: No Patient Tobacco Use Status: Former Tobacco user Tobacco use type: Cigarette Years Smoked: 20 Current occupational status: retired Current occupation: rt handed Review of Systems Const All systems reviewed & are unremarkable except as noted in HPI and below Physical Exam Extrem Other: Right knee incisions are clean dry and intact. No erythema or drainage. No effusion. She has full range of motion with good quad activation. Calf supple and nontender neurovascularly intact. Results Reviewed Results Reviewed: Brief Operative Note Date of Service: 01/20/25 Pre-op diagnosis: Right knee medial meniscus tear, right knee lateral meniscus tear, right knee degenerative joint disease Post-op diagnosis: same Procedure: Right knee arthroscopic partial medial and lateral meniscectomies, right knee arthroscopic chondroplasty of the undersurface of the patella as well as the medial femoral condyle Implants: None Surgeon: Duane Soria MD Assessment & Plan Assessment & Plan (1) Tear of medial meniscus of right knee: Code(s): S83.241A - Other tear of medial meniscus, current injury, right knee, initial encounter Category: Medical Plan: Sutures removed today Steri-Strips applied. I offered a course of physical therapy to work on motion, strength and conditioning exercises which she declined at this time. She will work on exercises on her own at home. The patient will refrain from repetitive for the next 4-6 weeks, at which point they will return to see Dr. Soria, sooner if needed. Coding Level of Care Code Global (36976) Diagnoses Tear of medial meniscus of right knee S83.241A
--- OUTSIDE RECORDS SUMMARY | 2025-02-02 14:45 | XMS_ITS | Encounter Summary ---
Author Organization [facility] Address [address] [place] [address] Care Team Providers Care Fitness And Wellness Manager Name Role Phone Judith Gill MD Primary Care Provider [phone] Encounter Details Date Type Department Care Team (Late Contact Info) Description 01/24/2025 Results Follow-Up Internal Medicine - [place] [address] [facility] [address] [place] [phone] Judith Gill MD [address] [place] [phone] Social History Tobacco Use Types Packs/Day Years [...] AM EST Appointment [facility] [address] [place] [phone] 02/13/2025 4:00 PM EST Appointment [facility] CT Scan [address] [place] [phone] 04/11/2025 11:40 AM EST Office Visit [facility] [address] [place] [phone] Gustavo Azar MD [address] [place] [address] documented as of this encounter Visit Diagnoses Diagnosis Leukocytosis, unspecified type- Primary documented in this encounter Additional Health Concerns Assessment Noted Time PHQ-9 Depression Total Score: 0 07/26/19 8:58 AM EDT A fall risk assessment has been complete d for the patient 07/25/2024 8:55 AM EDT documented as of this encounter Care Teams Fitness And Wellness Manager Relationship Specialty Start Date End Date Judith Gill MD [address] [phone] PCP - General Internal Medicine 12/24/20 documented as of this encounter
--- OUTSIDE RECORDS SUMMARY | 2025-02-02 14:45 | XMS_ITS | Clinical Summary ---
Author Organization [facility] Address [address] [place] [address] Care Team Providers Care Calibration Tester Name Role Phone Tom Burnett MD Primary Care Provider [phone] Allergies Active Allergy Reactions Criticality Noted Date Comments Tramadol Other (See Comments) High 06/08/2017 Medications Medication Sig Dispensed Refills Start Date End Date Status Aspirin Buf,[id number]-Hq O, 81 MG TABS Take 81 mg [...] age to complete this topic Care Teams Calibration Tester Relationship Specialty [place] [address] [place] [id number] PCP - General Internal Medicine 09/10/20
--- OUTSIDE RECORDS SUMMARY | 2025-02-02 14:45 | XMS_ITS | Data Portability ---
Author Organization 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 ZAK TAMEZ Tow Operator SOSA RICHARDSON Urologist GILLES PRESTON Gas Usage Meter Clerk LUIS CORRAL Primary Care Provider Assessment Encounter [...] marielle) PCR 2019 020 [facility], [address], [address] , [place], [address], 0 10:13:05 unlisted lab - covid-19 (novel coronavi marielle) PCR 2019 020 [facility], [address], [place], [address], 0 10:15:07 lipid panel, serum 2019 020 [facility], [address], [place], [address], 1 17:21:25 culture, urine 2019 [facility], [address], [place], [address], 0 08:20:58 urinalys is, complete 2019 [facility], [address], [place], [address], 0 03:04:08 urinalys is, dipstick 2019 [email or web address] In-Office Order, Internal Use Only DO Not Attach Compendium DO Not Attach Compendium, Do Not Delete/merge, [id number] 0 13:30:[address] referral - Intermit tent upper abdomina l pain with radiatio n into the back over the last few years now getting stronger and more frequent . Not related to food or activity . Each episode lasting less than 30 minutes. 2020 021 tfrisino Gilles Koantonioranda, [address] [facility], [place], [address], 1 10:09:11 physical therapis t referral - At risk for falling 2019 020 [facility]adirao [facility], [address], [place], [address], 0 16:44:53 Procedures None recorded . Surgeries None recorded . Imaging electroc ardiogra m 2020 021 [email or web address] In-Office Order, Internal Use Only DO Not Attach Compendium DO Not Attach Compendium, Do Not Delete/merge, [id number] 1 16:08:59 XR, cervical spine - Neck pain starting late April . R/o DJD 2019 020 [facility]CHO [facility], [address] [place], [address], 0 13:07:51 US, kidney - Right flank pain for 1 week worse with movement s r/o kidney stones and hydronep hrosis 2019 020 tfrisino [facility], [address] [place], [address], 0 11:39:11 Medication Orders Celebrex 100 mg capsule 2020 021 INTERFACE-20 [id number] [facility] #99062, [address] [place], [place], [id number], 2 08:40:44 atorvast atin 20 mg tablet 2019 020 INTERFACE [facility] #27950, [address], [place], [phone], 0 18:41:09 gabapent in 300 mg capsule 2019 020 [email or web address] [facility] #32200, [address], [place], [id number], 0 14:57:36 atorvast atin 10 mg tablet 2019 020 [email or web address] [facility] #46998, [address], [place], [id number], 0 18:41:11 Patient TargetsNo targets recorded. Patient Instructions Encounter Date Encounter Id Patient Instructions Last Modified By Organization Details Last Modified Time 05/10/2019 [id number] Female Urinary Tract Infection (UTI): Care Instructions [email or web address] Not available 05/10/2019 13:30:00 06/07/2019 [id number] neck pain: care instructions acennerazzo Not available 06/07/2019 13:15:05 high blood pressure: care instructions acennerazzo Not available 06/07/2019 13:04:32 learning about high blood pressure acennerazzo Not available 06/07/2019 13:04:32 high cholesterol: care instructions acennerazzo Not available 06/07/2019 13:12:22 01/04/2020 [id number] bladder training: care instructions acennerazzo Not available [...] under) acennerazzo Not available 01/04/2020 16:44:53 02/08/2020 [id number] lab* tfrisino Not available 02/07 10:59:26 lab* tfrisino Not available 2019 10:58:32 call or return for worsening or concerns jthabet Not available 02/08/2020 10:13:02 07/04/2020 [id number] high blood pressure: care instructions acennerazzo Not available 07/04/2020 16:08:59 learning about high blood pressure acennerazzo Not available 07/04/2020 16:08:59 high cholesterol: care instructions acennerazzo Not available 07/04/2020 15:44:40 Reason for Referral Physical Therapist Referral for Adult health examination At risk for falling Referring Physician: Brendan [facility], Encounter Date: 01/04/2020 Gas Usage Meter Clerk Referral for Upper abdominal pain Intermittent upper [...] Go To The Location Of Their Choice, [id number] 05/12/2019 08:20:58 05/10/19 20 05/10/2019 cultu re, [...] Go To The Location Of Their Choice, [id number] 05/12/2019 08:20:58 05/10/1905/10/2019 urina lysis , dipst [...] DO Not Attach Compendium, Do Not Delete/merge, [id number] 05/10/2019 13:05:01 05/10/19 20 05/10/2019 urina lysis , dipst ick Blood Negati ve Not Available In-Office Order Internal Use Only DO Not Attach Compendium DO Not Attach Compendium, Do Not Delete/merge, [id number] 05/10/2019 13:05:01 05/10/19 20 05/10/2019 urina lysis , dipst ick Specific Spurger 1.010 Not Available In-Off ice Order Internal Use Only DO Not Attach Compendium DO Not Attach Compendium, Do Not Delete/merge, [id number] 05/10/2019 13:05:01 05/10/19 20 05/10/2019 urina lysis , dipst ick Ketone Negati ve Not Available In-Office Order Internal Use Only DO Not Attach Compendium DO Not Attach Compendium, Do Not Delete/merge, [id number] 05/10/2019 13:05:01 05/10/19 20 05/10/2019 urina lysis , dipst ick Bilirubin Negati ve Not Available In-Office Order Internal Use Only DO Not Attach Compendium DO Not Attach Compendium, Do Not Delete/merge, [id number] 05/10/2019 13:05:01 05/10/19 20 05/10/2019 urina lysis , dipst ick Glucose Negati ve Not Available In-Office Order Internal Use Only DO Not Attach Compendium DO Not Attach Compendium, Do Not Delete/merge, [id number] 05/10/2019 13:05:01 05/10/19 20 05/10/2019 urina lysis , dipst ick Appearance Cloudy Not Available In-Offi ce Order Internal Use Only DO Not Attach Compendium DO Not Attach Compendium, Do Not Delete/merge, [id number] 05/10/2019 13:05:01 05/10/19 20 05/10/2019 urina lysis , dipst ick Color Yellow Not Available In-Office Order Internal Use Only DO Not Attach Compendium DO Not Attach Compendium, Do Not Delete/merge, [id number] 05/10/2019 13:05:01 05/30/19 20 05/30/2019 CMP, serum or plasm a comments [facility] nd [address] [place] [address]. [place] [address] Medic al Dire brandon plascencia MD Not Available [facility] [address] [place] [address], [address], 05/30/2019 11:52:54 05/30/19 20 05/30/2019 CMP, serum or plasm a glucose 90 mg/dL 70-100 Refer ence range appli cable to fasti ng speci mens only Not Available [facility] [address] [place] [address], [address], 05/30/2019 11:52:54 05/30/1905/30/2019 CMP, serum or plasm a BUN 16 mg/dL 5-25 Not Available [facility] [address] [place] [address], [address], 05/30/2019 11:52:54 05/30/1905/30/2019 CMP, serum or plasm a creat 0.58 mg/dL 0.5-1. 1 Not Available [facility] [address] [place] [address], [address], 05/30/2019 11:52:54 05/30/1905/30/2019 CMP, serum or plasm a glomerular filtration rate > 60 If patie nt is Afric an-Am yeny n, multi ply resul t by 1.21 Chron ic Kidne y Disea se: < 60 ml/mi n/1.7 3 squar e meter s Kidne y Failu re: < 15 ml/mi n/1.7 3 squar e meter s Not Available [facility] [address] [place] [address], [address], 05/30/2019 11:52:54 05/30/1905/30/2019 CMP, serum or plasm a sodium 139 mEq/L 135-14 5 Not Available [facility] [address] [place] [address], [address], 05/30/2019 11:52:54 05/30/19 20 05/30/2019 CMP, serum or plasm a potassium 4.2 mmol/ L 3.5-5. 5 Not Available [facility] [address] [place], [address], 05/30/2019 11:52:54 05/30/1905/30/2019 CMP, serum or plasm a chloride 106 mmol/ L 96-110 Not Available [facility] [address] [place], [address], 05/30/2019 11:52:54 05/30/1905/30/2019 CMP, serum or plasm a CO2 27 mmol/ L 21-32 Not Available [facility] [address] [place], [address], 05/30/2019 11:52:54 05/30/1905/30/2019 CMP, serum or plasm a anion gap 6 3-11 Not Available [facility] [address] [place], [address], 05/30/2019 11:52:54 05/30/1905/30/2019 CMP, serum or plasm a calcium 9.1 mg/dL 8.5-10 .5 Not Available [facility] [address] [place], [address], 05/30/2019 11:52:54 05/30/1905/30/2019 CMP, serum or plasm a total protein 7.1 g/dL 6.0-8. 0 Not Available [facility] [address] [place], [address], 05/30/2019 11:52:54 05/30/1905/30/2019 CMP, serum or plasm a albumin 3.6 g/dL 3.2-5. 0 Not Available [facility] [address] [place], [address], 05/30/2019 11:52:54 05/30/1905/30/2019 CMP, serum or plasm a bili,total 0.5 mg/dL 0.0-1. 4 Not Available [facility] [address] [place], [address], 05/30/2019 11:52:54 05/30/1905/30/2019 CMP, serum or plasm a SGOT 16 U/L 10-42 Not Available [facility] [address] [place] [address], [address], 05/30/2019 11:52:54 05/30/1905/30/2019 CMP, serum or plasm a SGPT 26 U/L 10-60 Not Available [facility] [address] [place] [address], [address], 05/30/2019 11:52:54 05/30/1905/30/2019 CMP, serum or plasm a alk phos 62 U/L 42-121 Not Available [facility] [address] [place] [address], [address], 05/30/2019 11:52:54 05/30/1905/30/2019 lipid panel , serum comments [facility] [address] [place] [address] Medic al Direc brandon plascencia MD Not Available [facility] [address] [place] [address], [address], 05/30/2019 11:52:57 05/30/1905/30/2019 lipid panel , serum cholesterol 171 mg/dL 0-200 Not Available [facility] [address] [place] [address], [address], 05/30/2019 11:52:57 05/30/1905/30/2019 lipid panel , serum triglyceride s 185 mg/dL 0-150 high Not Available [facility] [address] [place] [address], [address], 05/30/2019 11:52:57 05/30/1905/30/2019 lipid panel , serum HDL cholesterol 56 mg/dL >40 Not Available [facility] [address] [place] [address], [address], 05/30/2019 11:52:57 05/30/1905/30/2019 lipid panel , serum LDL calculated 78 mg/dL 0-100 Not Available [facility] [address] [place] [address], [address], 05/30/2019 11:52:57 05/30/1905/30/2019 lipid panel , serum TC-HDLC ratio 3.1 mg/dL 0-4.4 Not Available [facility] [address] [place] [address], [place], [address], 05/30/2019 11:52:57 01/02/2001/02/2020 CBC w/ auto diff [...] Go To The Location Of Their Choice, [id number] 01/02/2020 20:40:44 02/16/20 20 02/18/2020 SARS CoV 2 RNA (COVI D-19) , QL, instrument technician-P CR, respi rator y speci men covid-19, [...] Go To The Location Of Their Choice, [address] 02/18/2020 10:14:35 04/06/19 21 04/06/2020 lipid panel , serum cholesterol, total 187 mg/dL (<200) Not Available [facility] (Centralized Electronic Ordering - All Locations) Patient Can Go To The Location Of Their Choice, [address] 04/06/2020 17:21:25 04/06/1904/06/2020 lipid panel , serum triglyceride 210 mg/dL (<150) high Fasti ng Not Available [facility] (Centralized Electronic Ordering - All Locations) Patient Can Go To The Location Of Their Choice, [facility] 04/06/2020 17:21:25 04/06/19 21 04/06/2020 lipid panel , serum HDL chol 52 mg/dL (>39) Not Available [facility] (Centralized Electronic Ordering - All Locations) Patient Can Go To The Location Of Their Choice, [address] 04/06/2020 17:21:25 04/06/1904/06/2020 lipid panel , serum LDL cholesterol, calculated 93 mg/dL (0-130 ) Not Available [facility] (Centralized Electronic Ordering - All Locations) Patient Can Go To The Location Of Their Choice, [id number] 04/06/2020 17:21:25 04/06/1904/06/2020 lipid panel , serum non HDL cholesterol (calc) 135 mg/dL (<160) Not Available [facility] (Centralized Electronic Ordering - All Locations) Patient Can Go To The Location Of Their Choice, [id number] 04/06/2020 17:21:25 06/08/1906/08/2019 XR, cervi bebeto spine [...] nodule stable since at least 018. WSN: [id number] Orderi ng Physic marysol: Brendan Goodson Dictat ed By: Ab Delgado MD Dictat ed Date/T jaclyn: 1:04 pm Review ed By: Ab Delgado MD Signed By: Ab Delgado MD Signed Date/T jaclyn: 1:04 pm Transc ribed By: SWAPNIL Transc ribed Date/T jaclyn: 1:01 pm Patien t Class: Outpat ient [facility] (Outpt Imaging) [address] [place], [address], 06/22/2019 07:21:31 12/30/19 20 12/30/2019 bone densi ty No observ ation record ed. [address] [facility]osit Imaging Dept [address] [place], [address], 01/02/2020 08:41:53 12/30/19 20 12/30/2019 MAMMO , scree christiano, digit al, bilat eral No observ ation record ed. [address] [facility] [address] [place], [address], 01/02/2020 08:41:53 01/11/20 20 12/30/2019 bone densi ty No observ ation record ed. daniel Not Available 12/28 19:44:42 07/05/19 21 07/05/2020 norma lafleur am No observ ation record ed. [email or web address] In-Office Order Internal Use Only DO Not Attach Compendium DO Not Attach Compendium, Do Not Delete/merge, [id number] 07/06/2020 14:43:50 07/05/19 21 norma lafleur am No observ ation record ed. [facility] In-Office Order Internal Use Only DO Not Attach Compendium DO Not Attach Compendium, Do Not Delete/merge, [id number] 07/04/2020 16:05:08 08/01/19 21 07/31/2020 XR, chest , 2 view No observ ation record ed. [address], [address], 07/31/2020 18:47:11 08/09/19 21 08/08/2020 US, abdom en No observ ation record ed. [address], [address], 08/09/2020 08:10:37 Result Notes Documentation Provider Name [...] nodule stable since at least 06/24/2017. WSN: [id number] Ordering Physician: Brendan Burnett Dictated By: Ezequiel Delgado MD Dictated Date/Time: 06/08/19 1:04 pm Reviewed By: Ezequiel Delgado MD Signed By: Ezequiel Delgado MD Signed Date/Time: 06/08/19 1:04 pm Transcribed By: SWAPNIL Transcribed Date/Time: 06/08/19 1:01 pm Patient Class: Outpatient Ahsan quevedo 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 Active Not Available [facility] 2 08:40:45 Hyperlip idemia 48017672 Active Not Available [facility] 2 08:40:45 Essentia l hyperten monica 08992568 Active Not Available [facility] 2 08:40:45 Major depressi on single episode, in partial remissio n 80625235 Completed 12/09/2018 Brendan Burnett MD [address], [place], [address] , [facility] 9 13:35:28 Urinary incontin ence 293110661 Completed 10/24/2015 Brendan Burnett MD [address], [place], [address] , [facility] 6 17:09:31 Body mass index 30+ - obesity 019110228 Active Not Available [facility] 2 08:40:45 Pain of joint of wrist 028618292 Completed 11/24/2016 Ninfa quevedo, 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 Not Available [facility] 2 08:40:45 Exposure to SARS-CoV -2 Completed 07/04/2020 Removal Reason: Problem added by user raya ferrer from the COVID-19 watch flag Brendan Burnett MD [address] [facility] [address], [place], [address] , [facility] 1 15:40:17 Acute pharyngi tis 887272828 Completed 200710/11/2013 RESOLVED DATE: 08/20/19 08; RECORDED 08/20/19 08 1:38PM BY BRENDAN YOUNG MD, ANNOTATI ON/ADDEN DUM Brendan Burnett MD [address], [place], [address] , [facility] 6 17:09:31 General examinat ion of patient Completed 200710/11/2013 RECORDED 08/20/19 08 1:38PM BY BRENDAN YOUNG MD, ANNOTATI ON/ADDEN DUM Brendan Burentt MD [address], [place], [address] , [facility] 6 17:09:31 Acute pharyngi tis 123187938 Completed 200711/07/2013 RESOLVED DATE: 08/20/19 08; RECORDED 08/20/19 08 1:38PM BY BRENDAN YOUNG MD, ANNOTATI ON/ADDEN DUM Brendan Burnett MD [address], [place], [address] , [facility] 6 17:09:31 General examinat ion of patient Completed 200711/07/2013 RECORDED 08/20/19 08 1:38PM BY BRENDAN YOUNG MD, ANNOTMELODY ON/ADDEN DUM Brendan Burnett MD [address], [place], [address] , [facility] 6 17:09:31 Screenin g for malignan t neoplasm of colon Completed 200710/11/2013 RECORDED 02/15/20 08 9:45AM BY JOYCE VAZQUEZ, DEENA ON/ADDEN DUM Brendan Burnett MD [address], [place], [address] , [facility] 6 17:09:31 Administ ration of bacteria l and viral vaccine Completed 200710/11/2013 RECORDED 02/15/20 08 3:19PM BY ROSY REYES, OFFICE VISIT Brendan Burnett MD [address] [facility] [address], [place], [address] , [facility] 6 17:09:31 Screenin g for malignan t neoplasm of colon Completed 200711/07/2013 RECORDED 02/15/20 08 9:45AM BY DEENA ROMERO ON/ADDEN DUM Brendan Burnett MD [address] [facility] [address], [place], [address] , [facility] 6 17:09:31 Administ ration of bacteria l and viral vaccine Completed 200711/07/2013 RECORDED 02/15/20 08 3:19PM BY ROSY REYES, OFFICE VISIT Brendan Burnett MD [address] [facility] [address], [place], [address] , [facility] 6 17:09:31 Contact dermatit is 38897851 Completed 200810/11/2013 RECORDED 10/04/19 09 10:05AM BY DEENA SALMERON ON/JADEEN SHANTHI Burnett MD [address] [facility] [address], [place], [address] , [facility] 6 17:09:31 Amnesia 27463850 Completed 200810/11/2013 RECORDED 10/04/19 09 10:04AM BY DEENA SALMERON ON/ADDEN SHANTHI Burnett MD [address] [facility] [address], [place], [address] , [facility] 6 17:09:31 Clinical finding Completed 200810/11/2013 RECORDED 10/04/19 09 10:04AM BY DEENA SALMERON ON/RA Burnett MD [address] [facility] [address], [place], [address] , [facility] 6 17:09:31 Pain of joint 39672998 Completed 200810/11/2013 IMPRESSI ON: LEFT BUTTOCKS PAIN WITH PYRIFORM IS PAIN, PT WAS TAUGHT HOW TO STRETCH, USE MOTRIN 800MG TID AND STRETCH, CALL IF NOT BETTER; RECORDED 10/04/19 09 10:04AM BY DEENA SALMERON ON/RA Burnett MD [address] [address], [place], [address] , [facility] 6 17:09:31 Hearing loss 28443098 Completed 200810/11/2013 RECORDED 10/04/19 09 10:05AM BY DEENA SALMERON ON/RA Burnett MD [address] [address], [place], [address] , [facility] 6 17:09:31 Contact dermatit is 48059412 Completed 200811/07/2013 RECORDED 10/04/19 09 10:05AM BY DEENA SALMERON/RA Burnett MD [address] [address], [place], [address] , [facility] 6 17:09:31 Amnesia 99234412 Completed 200811/07/2013 RECORDED 10/04/19 09 10:04AM BY DEENA SALMERON ON/RA Burnett MD [address] [address], [place], [address] , [facility] 6 17:09:31 Clinical finding Completed 200811/07/2013 RECORDED 10/04/19 09 10:04AM BY DEENA SALMERON ON/RA Burnett MD [address] [address], [place], [address] , [facility] 6 17:09:31 Pain of joint 46601412 Completed 200811/07/2013 IMPRESSI ON: LEFT BUTTOCKS PAIN WITH PYRIFORM IS PAIN, PT WAS TAUGHT HOW TO STRETCH, USE MOTRIN 800MG TID AND STRETCH, CALL IF NOT BETTER; RECORDED 10/04/19 09 10:04AM BY DEENA SALMERON ON/RA Burnett MD [address] [address], [place], [address] , [facility] 6 17:09:31 Hearing loss 55434515 Completed 200811/07/2013 RECORDED 10/04/19 09 10:05AM BY DEENA SALMERON/RA Burnett MD [address] [address], [place], [address] , [facility] 6 17:09:31 Screenin g for malignan t neoplasm of breast Completed 201110/11/2013 RECORDED 11/14/19 12 12:57PM BY DEENA ZARATE/RA Burnett MD [address] [address], [place], [address] , [facility] 6 17:09:31 Adult health examinat ion Completed 201110/11/2013 RECORDED 11/14/19 12 12:57PM BY DEENA ZARATE/RA Burnett MD [address] [address], [place], [address] , [facility] 6 17:09:31 Sciatica 47203842 Completed 201110/11/2013 RECORDED 11/14/19 12 12:57PM BY DEENA ZARATE/RA Burnett MD [address] [facility] [address], [place], [address] , [facility] 6 17:09:31 Dermatop hytosis of the perianal area Completed 201110/11/2013 RECORDED 11/14/19 12 12:57PM BY DEENA ZARATE ON/RA Burnett MD [address] [facility] [address], [place], [address] , [facility] 6 17:09:31 Acute upper respirat ory infectio n 43797816 Completed 201110/11/2013 IMPRESSI ON: SORE THROAT WITH COUGH STARTED ONE DAY AGO, NORMAL EXAM, APPEARS VIRAL; RECORDED 11/14/19 12 12:57PM BY DEENA ZARATE ON/RA Burnett MD [address] [address], [place], [address] , [facility] 6 17:09:31 Screenin g for malignan t neoplasm of breast Completed 201111/07/2013 RECORDED 11/14/19 12 12:57PM BY DEENA ZARATE/RA Burnett MD [address] [address], [place], [address] , [facility] 6 17:09:31 Sciatica 73537806 Completed 201111/07/2013 RECORDED 11/14/19 12 12:57PM BY DEENA ZARATE ON/RA Burnett MD [address] [address], [place], [address] , [facility] 6 17:09:31 Dermatop hytosis of the perianal area Completed 201111/07/2013 RECORDED 11/14/19 12 12:57PM BY DEENA ZARATE/RA Burnett MD [address] [facility] [address], [place], [address] , [facility] 6 17:09:31 Acute upper respirat ory infectio n 52080844 Completed 201111/07/2013 IMPRESSI ON: SORE THROAT WITH COUGH STARTED ONE DAY AGO, NORMAL EXAM, APPEARS VIRAL; RECORDED 11/14/19 12 12:57PM BY DEENA ZARATE ON/RA Burnett MD [address] [facility] [address], [place], [address] , [facility] 6 17:09:31 Essentia l hyperten monica 33165270 Completed 201210/11/2013 RECORDED 04/22/19 13 1:46AM BY RONALD REYES MA, DEENA ON/RA Burnett MD [address] [facility] [address], [place], [address] , [facility] 6 17:09:31 Essentia l hyperten monica 95002650 Completed 201211/07/2013 RECORDED 04/22/19 13 1:46AM BY RONALD REYES MA, DEENA ON/RA Burnett MD [address] [facility] [address], [place], [address] , [facility] 6 17:09:31 Influenz a vaccine needed [id number] 06 Completed 201210/11/2013 RECORDED 06/01/19 13 1:37PM BY RONALD REYES MA, ANNOTMELODY ON/RA Burnett MD [address] [facility] [address], [place], [address] , [facility] 6 17:09:31 Knee pain Completed 201210/11/2013 RECORDED 06/01/19 13 1:37PM BY RONALD REYES MA, BLANCAATI ON/RA Burnett MD [address] [facility] [address], [place], [address] , [facility] 6 17:09:31 Influenz a vaccine needed [id number] 06 Completed 201211/07/2013 RECORDED 06/01/19 13 1:37PM BY RONALD REYES MA, DEENA ON/RA Burnett MD [address] [facility] [address], [place], [address] , [facility] 6 17:09:31 Knee pain Completed 201211/07/2013 RECORDED 06/01/19 13 1:37PM BY RONALD REYES MA, DEENA ON/RA Burnett MD [address] [facility] [address], [place], [address] , [facility] 6 17:09:31 Syncope and collapse 277672109 Completed 201210/11/2013 IMPRESSI ON: OVER THE WEEKEND [...] ; RECORDED 06/11/19 13 10:04AM BY DEENA ZARATE ON/RA Burnett MD [address] [facility] [address], [place], [address] , [facility] 6 17:09:31 Syncope and collapse 411835113 Completed 201211/07/2013 IMPRESSI ON: OVER THE WEEKEND [...] ANNOTATI ON/ADDEN DUM Brendan Burnett MD [address] [address], [place], [address] , [facility] 6 17:09:31 Tobacco user [id number] Completed 201301/19/2014 RECORDED 07/06/19 14 1:20PM BY AHSAN SALDANA I, OFFICE VISIT Brendan Burnett MD [address] [address], [place], [address] , [facility] 6 17:09:31 History of clinical finding in subject [id number] Completed 201301/19/2014 RECORDED 07/06/19 14 1:20PM BY AHSAN SALDANA I, OFFICE VISIT Brendan Burnett MD [address] [address], [place], [address] , [facility] 6 17:09:31 Adult health examinat ion Completed 201301/19/2014 RECORDED 07/06/19 14 1:14PM BY AHSAN SALDANA I, OFFICE VISIT Brendan Burnett MD [address] [address], [place], [address] , [facility] 6 17:09:31 Administ ration of viral vaccine Completed 201301/19/2014 RECORDED 07/06/19 14 1:39PM BY BRENDAN YOUNG MD, OFFICE VISIT Brendan Burnett MD [address] [address], [place], [address] , [facility] 6 17:09:31 Screenin g for malignan t neoplasm of breast Completed 201301/19/2014 RECORDED 08/16/19 14 3:00PM BY HEBER SEGAL, BENIIC AL SUMMARY Brendan Burnett MD [address] [facility] [address], [place], [address] , [facility] 6 17:09:31 Polyp of corpus uteri 98852620 Active 2016 Not Available [facility] 2 08:40:45 Complex endometr ial hyperpla cortney 097415868 Active 2016 Not Available [facility] 2 08:40:45 Postmeno pausal bleeding 41491653 Active 2016 Not Available [facility] 2 08:40:45 Neck pain 47927188 Active 2018 Not Available [facility] 2 08:40:45 Pain in left knee Active 2020 Not Available [facility] 2 08:40:45 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 Procedures Surgical History Date Name Laterality Status Provider Name and Address Organization Details Recorded Time 01/04/20 20 Six-Item Cognitive Test completed Inez Knott MA [facility] 01/04/2020 15:00:50 12/30/19 20 Most Recent Mammogram completed [facility] 01/02/2020 08:41:48 12/30/19 20 Mammogram screening completed [facility] 01/02/2020 08:41:42 12/30/19 20 Dxa bone density josé vrt fx completed [facility] 01/02/2020 08:41:15 12/10/19 19 Mini-Cog Test completed Ahsan Garcia [facility] 12/09/2018 13:07:35 01/19/20 18 Date of Last Colonoscopy completed Marylou Saldana [facility] 01/18/2018 15:00:01 01/19/20 18 colonoscopy completed Marylou Saldana [facility] 01/18/2018 14:59:45 12/08/19 18 Most Recent Bone Density completed Marylou Saldana [facility] 12/15/2017 14:14:35 12/02/19 18 Mini-Cog Test completed Katie Deras MA [facility] 12/01/2017 13:12:11 11/25/19 17 Fall Risk Assessment completed Ninfa Burnette MA [facility] 11/24/2016 15:13:38 11/25/19 17 Mini-Cog Test completed Ninfa Burnette MA [facility] 11/24/2016 15:15:21 06/17/19 17 Hysteroscopy completed Ronald rodríguez MA [facility] 02/08/2020 09:40:17 06/17/19 17 Dilation and curettage completed Ronald rodríguez MA [facility] 02/08/2020 09:40:12 09/28/19 16 Fall Risk Assessment completed Dayana Del Cid [facility] 09/28/2015 14:42:10 09/28/19 16 Mini-Cog Test completed Dayana Del Cid [facility] 09/28/2015 14:42:10 09/28/19 16 Advanced Care Planning completed Dayana Del Cid [facility] 09/28/2015 14:42:10 08/12/19 15 Date of Last [facility] 09/28/2015 14:42:09 06/08/19 11 repair of stress incontinence by suprapubic sling completed Ronald rodríguez MA [facility] 02/08/2020 09:39:54 Tonsillectomy completed Brendan Burnett MD [address], [address], [facility] 01/19/2014 14:56:33 Imaging Results None recorded. Procedure Notes None recorded. Medical Equipment None Reported. Allergies Allergen ID Allergen Name Allergen Category Reaction Reaction Severity Criticality Documentation Date Start Date Code Code System Note Provider Name and Address Organization Details Recorded Time 7678 Ultram medicatio n Not available Not available Not available 10/11/2013 56105 6 RxNorm Synco pe Gabriel Corrales, [facility] [address] [facility] [address], [place], [address], [facility] 5 22:23:38 Medications Name Sig Start Date [...] RECORDED 06/01/19 13 11:09AM BY DEENA SHANKAR /; Not Available Not Available Not Available nitrofura [...] 10 9:13AM BY BRENDAN YOUNG MD, DEENA ON/; Not Available Not Available Not Available Zostavax [...] Not Available No t Available Fluzone High-Dose 4039-7623 (PF) 180 mcg/0.5 mL intramusc ular syringe TO BE ADMINIST ERED BY PHARMACI ST FOR IMMUNIZA TION 11/24 completed Not Available Not Available Not Available Fish Oil 1,000 mg (120 mg-180 mg) capsule Take 1 capsule every day by oral route as directed . 06/01 completed Not Available Not Available Not Available Fluad Quad 6765-1246 (65yr up)(PF) 60 mcg (15 mcg x [...] Updated DateTime 0 152.4 cm 29.5 kg/m2 88678.4 5 g 98.2 [degF] 98 % 98 % 57 /min 116/63 mm[Hg] Katie Deras MA [facility] 0 13:03:05 Date Recorded Body height Body mass index (BMI) Body weight Heart rate Oxygen saturation Oxygen saturation in Arterial blood by Pulse oximetry Body temperature Systolic And Diastolic Provider Name and Address Organization Details Last Updated DateTime 0 152.4 cm 29.9 kg/m2 46511.6 3 g 60 /min 98 % 98 % 97.5 [degF] 114/62 mm[Hg] Ahsan Garcia [facility] 0 12:52:21 Date Recorded Body height Body mass index (BMI) Body weight Heart rate Oxygen saturation Oxygen saturation in Arterial blood by Pulse oximetry Body temperature Systolic And Diastolic Provider Name and Address Organization Details Last Updated DateTime 1 152.4 cm 31.6 kg/m2 70074.9 6 g 60 /min 98 % 98 % 97.52 [degF] 100/64 mm[Hg] Inez Knott MA [facility] 1 15:35:01 Date Recorded Body height Body mass index (BMI) Body weight Heart rate Oxygen saturation Oxygen saturation in Arterial blood by Pulse oximetry Body temperature Systolic And Diastolic Provider Name and Address Organization Details Last Updated DateTime 0 152.4 cm 30.1 kg/m2 68275.2 2 g 56 /min 98 % 98 % 97.88 [degF] 122/61 mm[Hg] Inez Knott MA [facility] 0 15:02:48 Date Recorded Body height Provider Name an d Address Organization Details Last Updated DateTime 02/08/2020 152.4 cm Ronald Vega MA [facility] 02/08/2020 09:37:46 Social History Question Answer Notes LastModified by Organizat ion Details LastModified Time Tobacco Smoking Status Former Smoker Not Available [facility] 01/31/2020 03:36:37 Do You Have An Advance Directive? No [id number] Information not available 01/31/2020 Is Blood Transfusion Acceptable In An Emergency? Yes [id number] Information not available 01/31/2020 What Is Your Level Of Caffeine Consumption? Moderate [id number] Information not available 01/31/2020 How Much Tobacco Do You Chew? None [id number] Information not available 01/31/2020 What Type Of Diet Are You Following? REGULAR [id number] Information not available 01/31/2020 Which Illicit Or Recreational Drugs Have You Used? No [id number] Information not available 01/31/2020 Live Alone Or [...] Or Greater Than 100 Degrees Fahrenheit? No [email or web address] Information not available 01/04/2020 Are You Or Anyone In Your Household A Health Care Provider Or Emergency Responder? No [email or web address] Information not available 01/04/2020 To The Best Of Your Knowledge Have You Been In Close Proximity To Any Individual Who Tested Positive For COVID-19? Yes Information not available 02/08/2020 What Was The Date Of Your Most Recent Tobacco Screening? 01/04/2020 [id number] Information not available 01/31/2020 How Many Children Do You Have? 1 Daughter [id number] Information not available 01/31/2020 Seat Belts Used Routinely Yes Information not available 09/28/2015 Are You Sexually Active? No [id number] Information not available 01/31/2020 Smoke Alarm In Home Yes Information not available 09/28/2015 Are You Passively Exposed To Smoke? No Information not available 09/28/2015 Do You Use Sunscreen Routinely? Yes [id number] Information not available 01/31/2020 Sex: Unknown Functional Status Question Answer Note LastModified by Organizat ion Details LastModified Time What is your level of alcohol consumption? Occasional [id number] Information not available 01/31/2020 Do you or have you ever used smokeless tobacco? Never used smokeless tobacco [id number] Information not available 01/31/2020 Are you currently employed? No retired February 2015 Information not available 02/08/2020 Are you able to care for yourself independently ? 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 Never used electronic cigarettes [id number] Information not available 01/31/2020 What is your exercise level? Moderate walking [id number] Information not available 01/31/2020 Mental Status None [...] zoster live 4 completed Kimi Kamara null, [facility] 07/26/2021 15:00:52 influenza, unspecified formulation 6 completed Kimi Kamara null, [facility] 07/26/2021 15:00:52 pneumococcal, unspecified formulation 6 completed Kimi Kamara null, [facility] 07/26/2021 15:00:52 Tdap 8 completed Kimi Kamara null, [facility] 07/26/2021 15:00:52 Influenza, high-dose, trivalent, PF 9 completed Kimi Kamara null, [facility] 07/26/2021 15:00:52 Influenza, split virus, quadrivalent, preservative 0 completed Kimi Kamara null, [facility] 07/26/2021 15:00:52 Influenza, adjuvanted, quadrivalent, PF 1 completed Kimi Kamara null, [facility] 07/26/2021 15:00:52 Influenza, split virus, quadrivalent, PF 5 completed Not Available [facility] 04/16/2019 02:22:01 COVID-19, mRNA, LNP-S, PF, 30 mcg/0.3 mL dose, hanna-sucrose 2 completed Kimi Kamara null, [facility] 07/26/2021 15:00:52 Pneumococcal conjugate PCV 13 6 completed Not Available [facility] 04/16/2019 02:21:36 Influenza, high-dose, trivalent, PF 7 completed Not Available [facility] 04/16/2019 02:22:21 pneumococcal polysaccharide PPV23 7 completed Not Available [facility] 04/16/2019 02:21:26 Influenza, high-dose, trivalent, PF 8 completed Not Available [facility] 04/16/2019 02:22:14 Influenza, split virus, trivalent, PF 4 completed Not Available [facility] 04/16/2019 02:21:57 Influenza, split virus, trivalent, preservative 6 completed Kimi Kamara null, [facility] 07/26/2021 15:00:52 Influenza, split virus, trivalent, preservative 7 completed Kimi Kamara null, [facility] 07/26/2021 15:00:52 Tdap 8 completed Kimi Kamara null, [facility] 07/26/2021 15:00:52 Influenza, split virus, trivalent, preservative 8 completed Kimi Kamara null, [facility] 07/26/2021 15:00:52 Influenza, split virus, trivalent, preservative 0 completed Kimi Kamara null, [facility] 07/26/2021 15:00:52 Influenza, split virus, trivalent, preservative 2 completed Kimi Kamara null, [facility] 07/26/2021 15:00:52 Past Encounters Encounter ID Performer Location Encounter Start Date Encounter Closed Date Diagnosis/Indication Diagnosis SNOMED-CT Code Diagnosis ICD10 Code Diagnosis IMO Codes Diagnosis Note [id number] [facility] [address] [facility] [address] [place] [address] 03/04/2006 00:00:00 [id number] auto[facility] erce [address] [facility] [address] [place] [address] 03/04/2005 00:00:00 [id number] [facility] erce [address] [facility] [address] [place] [address] 09/01/2006 00:00:00 [id number] auto[facility] erce [address] [facility] [address] [place] [address] 11/04/2006 00:00:00 [id number] autoEComm erce [address] [facility] [place] [address] 01/18/2007 00:00:00 [id number] autoEComm erce [address] [facility] [place] [address] 02/04/2007 00:00:00 [id number] autoEComm erce [address] [facility] [place] [address] 08/20/2007 00:00:00 [id number] autoEComm erce [address] [facility] [place] [address] 09/24/2007 00:00:00 [id number] auto[facility]Comm erce [address] [facility] [place] [address] 02/15/2008 00:00:00 [id number] auto[facility] erce [address] [facility] [place] [address] 04/20/2008 00:00:00 [id number] autoEComm erce [address] [facility] [place] [address] 10/03/2008 00:00:00 [id number] auto[facility] erce [address] [facility] [place] [address] 10/16/2009 00:00:00 [id number] autoEComm erce [address] [facility] [place] [address] 08/20/2010 00:00:00 [id number] auto[facility] erce [address] [facility] [place], [place] [address] 11/05/2010 00:00:00 [id number] auto[facility]Comm erce [address] [facility] [place] [address] 11/14/2011 00:00:00 [id number] autoEComm erce [address] [facility] [place], [place] [address] 05/31/2012 00:00:00 [id number] autoEComm erce [address] [facility] [place], [place] [address] 06/10/2012 00:00:00 [id number] autoEComm erce [address] [facility] [place] [address] 07/05/2013 00:00:00 [id number] Brendan Burnett MD Main Office [facility] [address] [place] [address] 01/19/2014 14:14:21 01/19/2014 15:22:41 Needs influenza immunization 365271236 Essential hypertension 43104372 Body mass index 30+ - obesity 639487401 [id number] Brendan Burnett MD Main Office [facility] [address] [place] [address] 07/24/2014 15:01:58 07/24/2014 15:34:52 Adult health examination 139147582 Hyperlipidemia 53385590 Essential hypertension 37851557 [id number] Brendan Burnett MD Main Office [facility] [address] [place] [address] 11/24/2014 15:32:09 11/24/2014 16:16:30 Pain of joint of wrist 335019661 advised her to take NSAIDs on a regular basis and to make an appointmen t with hand surgery. 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 Adult heal th examination 340307451 Z00.00 UTD with colonoscop y, bone density and mammogram. Will give pneumovax today. At [facility] risk for falls 393832713 Z91.81 Administra tion of pneumococcal vaccine 56583794 Z23 [id number] Brendan Burnett MD Main Office [address] [address] [place] [address] 2016 11:32:38 2016 12:01:49 Essential hypertension 69008451 I10 good control; continue current meds Chest pain 19249245 R07. 9 She had 2 episodes of CP and has concerns because her father in his 60's of heart disease. We will get a stress test to look at this further. [id number] Juan Pablo Henrández PA-C Main Office [address] [address] [place] [address] 06/09/2016 13:59:14 06/09/2016 14:50:51 Pre-surgery evaluation 218027385 Z01.818 Endometria l hyperplasia 982495197 N85.00 Essential hypertension 81310420 I10 Hyperlipidemia 61717245 E78.5 [id number] Brendan Burnett MD Main Office [address] [facility] [address] [place] [address] 11/24/2016 14:58:00 11/24/2016 15:56:20 Adult health examination 638026217 Z00.00 UTD with colonoscop y, bone density and mammogram. Will give pneumovax today. Influenza vaccine needed 7096193783 106 Z23 Administra tion of pneumococcal vaccine 21834993 Z23 Hyperlipidemia 82074234 E78.5 [id number] Brendan Burnett MD Main Office [address] [address] [place] [address] 06/24/2017 12:45:12 06/24/2017 13:21:20 Essential hypertension 27659465 I10 good control; continue current meds Hyperlipidemia 92154721 E78.5 Started a new cholestero l med (lipitor) 6 months ago so will check cholestero l level. 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 [id number] Brendan Burnett MD Main Office [address] [place] [address] 12/01/2017 12:59:34 12/01/2017 14:11:33 Adult health examination 195949944 Z00.00 UTD with colonoscop y, bone density and mammogram. Will give pneumovax today. 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 Upper resp iratory infection 30693651 J06.9 Symptomati c treatment Hyperlipidemia 22437613 E78.5 Started a new cholestero l med (lipitor) 6 months ago so will check cholestero l level. [id number] Brendan Burnett MD Main Office [address] [address] [place] [address] 12/09/2018 12:53:45 12/09/2018 14:52:38 Adult health examination 585895486 Z00.00 UTD with colonoscop y (due again in 2022), bone density and mammogram. Urge incon tinence of urine 43993614 N39.41 Hyperlipidemia 87643699 E78.5 We will cut back on her atorvastat in from 40 to 20 mg and recheck her lipids next appointmen t. Essential hypertension 71217109 I10 good control; continue current meds [id number] Brendan Burnett MD Main Office [address] [facility] [address] [place] [address] 03/01/2019 12:33:51 03/01/2019 13:20:57 Neck pain 63791442 M54.2 [id number] Brendan Burnett MD Main Office [address] [address] [place] [address] 05/10/2019 12:37:55 05/10/2019 13:25:31 Dysuria 56263593 R30.0 Right flank pain 8099427 09 R10.9 Possible muscle pain vs kidney stone. She will try NSAIDs and we will get an U/S. [id number] Brendan Burnett MD Main Office [address] [place] [address] 06/07/2019 12:43:05 06/07/2019 13:18:43 Essential hypertension 98925569 I10 good control; continue current meds Hyperlipidemia 74444758 E78.5 Will cut dose of lipitor to 10 mg daily and follow her lipid level. Postherpet ic neuralgia 1762679 B02.29 Has not had a rash but will treat presumptiv ankita Neck pain 37918742 M54.2 [id number] Brendan Burnett MD Main Office [address] [place] [address] 01/04/2020 14:27:50 01/04/2020 15:31:52 Adult health examination 010766702 Z00.00 UTD with colonoscop y (due again in 2022), bone density and mammogram. Influenza vaccine needed 7292454098 106 Z23 Had at her pharmacy Essential hypertension 48818052 I10 good control; continue current meds Female uri nary stress incontinence 22881228 N39.[address] Richardson. On meds and currently under control. Hyperlipidemia 65838408 E78.5 Will increase her lipitor from 10 to 20 mg. [id number] [facility] [address] [facility] [address] [place] [address] 02/08/2020 09:05:48 02/08/2020 11:28:24 Exposure to viral disease 6960381892 00289 Z03.818 1 week ago was exposed to friend with sx of covid/ fever. friends result is pending. Patient currently has no symptoms. She will also be traveling to [place] on 02/19 for the holidays and would like to be tested before she goes. [id number] Brendan Burnett MD Main Office [address] [facility] [address] [facility] [place] [address] 07/04/2020 15:29:16 07/04/2020 15:56:48 Essential hypertension 82315771 I10 good control; continue current meds Hyperlipidemia 07562563 E78.5 Increased her dose of atorvastat in from 10 to 20 mg 6 months ago and LDL at goal. Pain in left knee 231669 6981 12400 M25.562 Probable OA. Seen by ortho in the past. Upper abdominal pain 831 96569 R10.10 Chronic and intermitte nt. Health Concerns Section Related Observation LastModified by Organization Detai ls LastModified Time None Recorded Concern Status LastModified by Organization Details LastModified Time None Recorded Advance Directives Directive N: Payers Insurance Date Sequence Insurance Name Policy Number Policy Payan Covered Member ID Payan Member ID Guarantor Name 02/11/2021 1 [employer] (MEDICARE REPLACEMENT /ADVANTAGE - PPO) [id number] Sosa Linton [id number] Sosa Linton 10/22/2020 2 [place] [id number] Sosa Linton [id number] Sosa Linton 02/11/2021 2 [place] Sosa Linton [id number] Sosa Linton 10/15/2020 1 [facility] Sosa Linton [id number] Sosa Linton 10/15/[address] [facility] [id number] Sosa Linton [id number] Sosa Linton Notes Date Note Type Note [...] f/c or n/v. Brendan Burnett MD [address] [facility] [address], [place], [address], [facility] 05/10/2019 13:30:37 0 text/html HyperlipidemiaReported by PatientHPIFor [...] but no rash. Brendan Burnett MD [address] [facility] [address], [place], [address], [facility] 06/07/2019 13:25:59 0 text/html Medicare Annual Wellness [...] last visit, andno dizziness/vertigo. Brendan Burnett MD [address], [address], [facility] 01/04/2020 18:43:08 0 text/html COVID-19 Symptoms July 2019Reported by PatientPhone visit: last thu she took a friend to a 's appt. they wore maska but her car is small. Over the weekend her friend had cold sx, risky behaviors and fever. patient has no symptoms. Was exposed 1 week ago today. GABRIELA Garnett [address], [address], [facility] 02/08/2020 10:19:08 1 text/html HyperlipidemiaReported by PatientHPIFor type [...] currently manageable with NSAIDs. Brendan Burnett MD [address] [address], [place], [address], [facility] [place] 07/04/2020 16:46:59 OBGyn Episode No OBEpisode recorded.
--- OUTSIDE RECORDS SUMMARY | 2025-02-02 14:45 | XMS_ITS | Data Portability ---
Author Organization [place] - [facility],, DAYANA BEY MD Address [address] [place] [address] Care Team Providers Care Technical Lead Name Role Phone TIFFANY MILIAN Primary Care Provider Assessment No assessment recorded. Plan of Treatment Reminders Order Date Submit Date Provider Last Modified By Organization Details Last Modified Time Details Appointments None recorded. Lab wet mount, vaginal 2024 025 [email or web address] 1 In-Office Order, Internal Use Only DO Not Attach Compendium DO Not Attach Compendium, Do Not Delete/merge, [id number] 14:04:50 herpes simplex, culture, unspecifie d specimen 2024 025 MONCHO [facility] (Centralized Electronic Ordering - All Locations), Patient Can Go To The Location Of Their Choice, [id number] 14:06:26 herpes simplex, culture, unspecifie d specimen - right vulva 2024 025 MONCHO [facility] (Centralized Electronic Ordering - All Locations), Patient Can Go To The Location Of Their Choice, [id number] 5 16:06:30 biopsy, endometria l 2024 025 [email or web address] [facility] (Centralized Electronic Ordering - All Locations), Patient Can Go To The Location Of Their Choice, [id number] 5 07:16:45 Referral None recorded. Procedures biopsy, endometriu m (PROC) 2024 025 [email or web address] In-Office Order, Internal Use Only DO Not Attach Compendium DO Not Attach Compendium, Do Not Delete/merge, [id number] 15:39:27 Surgeries None recorded. Imaging US, pelvis, transabdom inal + transvagin al - pmb for a week 2023 024 [facility] (Central Scheduling Radiology), [address], [place], [address], 4 08:46:36 Medication Orders fluconazol e 150 mg tablet 2024 025 [id number] [address] [place], [address], 5 14:04:52 valacyclov ir 1 gram tablet 2024 025 [id number] [address] [place], [address], 5 13:30:17 acyclovir 5 % topical ointment 2024 025 [email or web address] 1 [id number] [address] [place], [address], 5 14:02:07 Patient TargetsNo targets recorded. Patient Instructions Encounter Date Encounter Id Patient Instructions Last Modified By Organization Details Last Modified Time 03/01/2024 [id number] vaginal bleeding after menopause: care instructions Not [...] 25 minutes Not available 03/01/2024 14:44:33 04/12/2024 [id number] postmenopausal bleeding information [email or web address] Not available 04/12/2024 14:42:42 endometrial biopsy: about [...] cancer is found we will refer to nurse obgyn oncology, and discussed possible hysterectomy in that case. She understands. All questions answered. Not available 04/12/2024 14:56:03 04/19/2024 [id number] She is here to discuss the results [...] All questions answered. 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 Will refer to nurse obgyn oncology for consultation and management. Face to face discussion, chart review and coordination of care: 25 minutes Not available 04/19/2024 15:50:51 08/15/2024 [id number] shingles: care instructions Not available 08/15/2024 13:30:15 [...] care: 25 minutes Not available 08/15/2024 14:01:15 01/30/2025 [id number] vaginal yeast infection: care instructions Not available 01/30/2025 14:04:50 genital herpes: care instructions Not available 01/30/2025 14:04:50 She is here for a one week histroy of vulvar discomfort and some vaginal pruritus. She had IV antibiotics 10 days ago for her knee meniscus surgery. She has a past histroy of herpes but herrera not think this feel like that. Wet natalie show yeast, rx diflucan. Also she has a singular vulvar lesion, HSV culture is taken but it it too late in the cycle for valtrex to be useful it if it is herpes. All questions answered. Face to face discussion, chart review and coordination of care: 25 minutes Not available 01/30/2025 14:08:53 Reason for Referral None Reported. Results Created Date Observation Date Name Description Value Unit Range Abnormal Flag Note LastModifiedBy Organization Detail LastModifiedTime 04/12/19 25 04/12/2024 [facility] results Patie nt Name: CARMELA LINTON Acces monica #: [id number] Christianne nt : 1949 (Age: 74) Colle ction [...] type. HER2/ ivone stain ing is negat brittney (scor e 0-1+) . There is nucle [...] follo ws: Kerat in cockt ail: Posit brittney in both low-g rade and high- grade tumor . p53: Incre ased, heter ogene ous stain ing in both low and high- grade tumor , inter prete d as wild- type. PAX8: Posit brittney in low-g rade tumor and negat brittney in high- grade tumor . p16: Patch y, heter ogene ous stain ing. Ki-67 : 85% proli ferat ion in both low and high- grade tumor . p63: Mostl y negat brittney. WT1: Mostl y negat brittney, membr anous posit ivity in high- grade tumor . ER: Stron gly posit brittney in low-g rade tumor , mostl y negat brittney in high- grade tumor . LIBERTY: Stron g membr anous posit ivity in low-g rade tumor , patch y membr anous stain ing in high- grade tumor . PAX2: Focal nucle ar posit ivity in high- grade tumor and negat brittney in low-g rade tumor . GATA3 : Rare focal nucle ar posit ivity in high- grade tumor ; negat brittney in low-g rade tumor . Chrom ogran in: Negat brittney. INSM1 : Heter ogene ous nucle ar posit ivity in high- grade tumor ; negat brittney in low-g rade tumor . BAF 47 (INI1 ): Retai lorena. BRG1: Retai lorena. Her-2 /ivone: Negat brittney membr anous stain ing in high grade [...] compo nent is perfo rmed by [facility] [place], [address], [place] [address] . This test was devel opmaria fernanda, and its perfo rmanc e eve cteri stics deter mined by [facility] [place]. It has not been clear ed or appro radha by the U.S. Food and Drug Admin istra tion. The FDA has deter mined that such clear ance or appro alfa is not neces lionel. This test is used for clini bebeto purpo ses. It shoul d not be regar ded as inves tigat ional or for resea [facility]. The posit brittney and negat brittney contr ols have been revie wed and are satis facto ry. Prima ry Patho logis t:David greco M.D. elect tonyyaya fowlerharrison sujata d out by: Tunde greco M.D. [...] atory , [address], [place] (CLIA #[id number]). Its perfo rmanc e eve cteri stics deter mined by [facility]. Shanika Doss M.D. [facility]urg[facility] bebet[facility] Patho logy, Antonia good M.D. Medic al Dire[facility] tor Cytop athol ogy Phone #: [phone], On-Ca Patho logis t: [id number] Not Available [facility] (Centralized Electronic Ordering - All Locations) Patient Can Go To The Location Of Their Choice, [id number] 04/19/2024 12:38:33 04/12/19 25 04/12/2024 [facility] results Patiwilly nt Name: CARMELA LINTON Mike Acces monica #: [id number] Aprylwilly nt : 1949 (Age: 74) Colle ction [...] type. HER2/ ivone stain ing is negat brittney (scor e 0-1+) . There is nucle [...] follo ws: Kerat in cockt ail: Posit brittney in both low-g rade and high- grade tumor . p53: Incre ased, heter ogene ous stain ing in both low and high- grade tumor , inter prete d as wild- type. PAX8: Posit brittney in low-g rade tumor and negat brittney in high- grade tumor . p16: Patch y, heter ogene ous stain ing. Ki-67 : 85% proli ferat ion in both low and high- grade tumor . p63: Mostl y negat brittney. WT1: Mostl y negat brittney, membr anous posit ivity in high- grade tumor . ER: Stron gly posit brittney in low-g rade tumor , mostl y negat brittney in high- grade tumor . LIBERTY: Stron g membr anous posit ivity in low-g rade tumor , patch y membr anous stain ing in high- grade tumor . PAX2: Focal nucle ar posit ivity in high- grade tumor and negat brittney in low-g rade tumor . GATA3 : Rare focal nucle ar posit ivity in high- grade tumor ; negat brittney in low-g rade tumor . Chrom ogran in: Negat brittney. INSM1 : Heter ogene ous nucle ar posit ivity in high- grade tumor ; negat brittney in low-g rade tumor . BAF 47 (INI1 ): Retai lorena. BRG1: Retai lorena. Her-2 /ivone: Negat brittney membr anous stain ing in high grade [...] ical compo nent is perfo rmed by [facility] [place], [facility] [address], [place] [address] . This test was barbara gay, and its perfo rmanc e eve cteri stics deter mined by [facility]. It has not been clear ed or appro radha by the U.S. Food and Drug Admin istra tion. The FDA has deter mined that such clear ance or appro alfa is not neces lionel. This test is used for clini bebeto purpo ses. It shoul d not be regar ded as inves tigat ional or for resea rch. The posit brittney and negat brittney contr ols have been revie wed and are satis facto ry. Prima ry Patho logis t:David greco M.D. elect ronic ally sujata d out by: Tunde greco M.D. / GM Proce dures /Adde nda Adden dum Statu s: Sujata d Out Date Order ed: Date Compl ete: By: Tunde greco M.D. Date Repor jacey: Adden dum Diagn osis: Posit brittney for MLH1 hyper methy latio n (outs [...] ing is perfo rmed at [facility] , [address], [place] (CLIA #[id number]). Its perfo rmanc e eve cteri stics deter mined by [facility]. Shanika Doss M.D. [facility] al [facility] of Surgi bebeto Patho Antonia webster M.D. Medic al Direc tor Cytop athol ogy Phone #: [phone], On-Ca ll Patho logis t: [id number] Not Available [facility] (Centralized Electronic Ordering - All Locations) Patient Can Go To The Location Of Their Choice, [id number] 05/03/2024 11:20:30 08/16/19 25 08/18/2024 HSV CULTU RE AND TYPIN G hsv culture/type COMMEN T Negat brittney No Herpe s simpl ex virus isola jacey. Not Available [facility] ([facility]) [address], [place], [address], 08/18/2024 16:06:30 01/31/20 25 01/30/2025 wet mount , vagin al Clue Cells negati ve Not Available In-Office Order Internal Use Only DO Not Attach Compendium DO Not Attach Compendium, Do Not Delete/merge, [id number] 01/30/2025 14:02:15 01/31/20 25 01/30/2025 wet mount , vagin al Trichomonas negati ve Not Available In-Office Order Internal Use Only DO Not Attach Compendium DO Not Attach Compendium, Do Not Delete/merge, [id number] 01/30/2025 14:02:15 01/31/20 25 01/30/2025 wet mount , vagin al Hyphae positi ve Not Available In-Office Order Internal Use Only DO Not Attach Compendium DO Not Attach Compendium, Do Not Delete/merge, [id number] 01/30/2025 14:02:15 01/31/20 25 01/30/2025 wet mount , vagin al atrophic epithelium positi ve Not Available In-Office Order Internal Use Only DO Not Attach Compendium DO Not Attach Compendium, Do Not Delete/merge, [id number] 01/30/2025 14:02:15 03/17/20 24 03/15/2024 US, pelvi s, trans abdom inal + trans vagin al No observ ation record ed. [email or web address], [place], [address], 03/17/2024 10:41:52 Result Notes None recorded. Problems Name Problem SNOMED Code Status Onset Date Resolution Date Notes Provider Name and Address Organization Details Recorded Time Candidiasis of skin 32344708 Active Dayana Bey MD [address], [place], [address] , [place] [facility], 5 15:53:04 Menopausal syndrome 404942026 Active Dayana Bey MD [address], [place], [address] , [place] - [facility], 5 09:05:05 Anogenital hidradenitis suppurativa 355457308 Active Not Available [facility] 3 03:01:06 Complex endometrial hyperplasia 867135433 Active 2016 Dayana Bey MD [address], [place], [address] , [place] - [facility], 7 11:19:20 Polyp of corpus uteri 69721985 Active 2016 Dayana Bey MD [address], [place], [address] , [place] - [facility], 7 12:19:18 Postmenopausa l bleeding 91160423 Active 2016 Dayana Bey MD [address], [place], , [place] - [facility], 7 12:19:29 Essential hypertension 09807570 Active 2016 Valerie quevedo [place] - [facility], 7 13:17:12 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 Procedures Surgical History Date Name Laterality Status Provider Name and Address Organization Details Recorded Time 04/12/19 25 Endometrial Biopsy completed Dayana Bey MD [address], [place], [address], [place] - [facility], 04/12/2024 14:54:20 12/30/19 24 Most Recent Mammogram completed Sasha Rosa in [facility], 03/01/2024 13:46:16 12/30/19 24 Most Recent Bone Density completed Sasha Lowery [place] - [facility], 03/01/2024 13:46:25 03/25/20 16 Endometrial Biopsy completed Dayana Bey MD [address], [place], [address], [place] [facility], 03/25/2016 13:50:12 03/30/19 09 Other completed Dayana Bey MD [address], [place], [address], [place] [facility], 07/09/2012 14:33:12 03/30/18 76 Tonsillectomy completed Sasha Lowery [place] - [facility], 07/09/2012 14:25:04 Imaging Results None recorded. Procedure Notes None recorded. Medical Equipment None Reported. Allergies Allergen ID Allergen Name Allergen Category Reaction Reaction Severity Criticality Documentation Date Start Date Code Code System Note Provider Name and Address Organization Details Recorded Time 7661 Ultram medicatio n other severe Not available 07/09/2012 47971 6 RxNorm weak and sleep y Sasha quevedo [place] - [facility], 3 14:25:04 Medications Name Sig Start Date Stop Date Status Note LastModified by Organization Details LastModified Time celecoxib 200 mg capsule TAKE 1 CAPSULE BY MOUTH 1 TIME EACH DAY. active Not Available Not Available No [...] Available Not Available fluconazole 150 mg tablet Take 1 tablet every day by oral route for 1 day. 2024 active Not Available Not Available Not Avai lable valacyclovi r 1 gram tablet TAKE 1 [...] omeprazole 20 mg capsule,del ayed release TAKE ONE CAPSULE BY MOUTH EVERY DAY 01/30 completed Not Available Not Available Not Available lisinopril 20 mg-hydrochl orothiazide 25 mg [...] Not Available No t Available Fluad Quad 5508-2344(6 5yr up)(PF) 60 mcg (15 mcg x 4)/0.5mL IM syringe ADM 0.5ML IM UTD active Not Available Not Available No t Available Vitals Date Recorded Body height Body mass index (BMI) Body weight Body temperature Heart rate Systolic And Diastolic Provider Name and Address Organization Details Last Updated DateTime 152.4 cm 35.4 kg/m2 51354.6 6 g 97.4 [degF] 55 /min 129/49 mm[Hg] Sasha Rosa in [facility], 14:36:51 Date Recorded Body height Body mass index (BMI) Body weight Heart rate Systolic And Diastolic Provider Name and Address Organization Details Last Updated DateTime 04/19/2024 152.4 cm 35.3 kg/m2 94059.22 g 58 /min 155/51 mm[Hg] Sasha Lowery [place] - [facility], 04/19/2024 14:54:30 Date Recorded Body height Body mass index (BMI) Body weight Heart rate Systolic And Diastolic Provider Name and Address Organization Details Last Updated DateTime 08/15/2024 152.4 cm 36.2 kg/m2 64990.03 g 74 /min 131/51 mm[Hg] Sasha Lowery [place] - [facility], 08/15/2024 13:04:42 Date Recorded Body height Body mass index (BMI) Body weight Heart rate Systolic And Diastolic Provider Name and Address Organization Details Last Updated DateTime 01/30/2025 152.4 cm 35.8 kg/m2 50976.84 g 79 /min 140/57 mm[Hg] Sasha Lowery [place] - [facility], 01/30/2025 13:51:48 Date Recorded Body weight Body mass index (BMI) Body height Heart rate Systolic And Diastolic Provider Name and Address Organization Details Last Updated DateTime 03/01/2024 82367.94 g 35.4 kg/m2 152.4 cm 69 /min 125/55 mm[Hg] Sasha Beverley [facility], 03/01/2024 13:42:28 Social History Question Answer Notes LastModified by Organizat ion Details LastModified Time Tobacco Smoking Status Former Smoker over 15 yrs ago Not Available [facility] 01/31/2020 03:19:42 How Many Years Have You Consumed Alcohol? 50 Information not available 01/21/2022 What Is Your Level Of Caffeine Consumption? Occasional [id number] Information not available 01/31/2020 In The 14 [...] Type Of Diet Are You Following? REGULAR [id number] Information not available 01/31/2020 Which Illicit Or Recreational Drugs Have You Used? Yes Marijuana On Weekends [id number] Information not available 01/31/2020 Do You Reside In Or Have You Traveled To An Area Where Ebola Virus Transmission Is Active? No [id number] Information not available 01/31/2020 Education 2 Year College Information not available 07/09/2012 What Is The Highest Grade Or Level Of School You Have Completed Or The Highest Degree You Have Received? [id number] Information not available 01/21/2022 How Many Days In The Past Year Have You Had A Heavy Drinking Consumption (4+ Female, 5+ Male)? 0 [email or web address] Information not available 02/18/2016 Are There Any [...] Date Of Your Most Recent Tobacco Screening? 01/30/2025 Information not available 01/30/2025 What Is Your Relationship Status? Information not available 01/21/2022 Are You Sexually Active? No [id number] Information not available 01/31/2020 At What Age Did You Start Smoking Tobacco? 18 Information not available 01/21/2022 How Much Tobacco Do You Smoke? No [id number] Information not available 01/31/2020 General Stress Level Low Information not available 07/09/2012 How Many Years Have You Smoked Tobacco? 33 [id number] Information not available 01/31/2020 Have You Recently [...] is your level of alcohol consumption? Occasional [id number] Information not available 01/31/2020 Do you or have you ever used smokeless tobacco? Never used smokeless tobacco [id number] Information not available 01/31/2020 Are you currently employed? 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 Never used electronic cigarettes [id number] Information not available 01/31/2020 What is your exercise level? Moderate [id number] Information not available 01/31/2020 Mental Status Question Answer Note LastModified by Organization D etails LastModified Time Do you feel stressed (tense, restless, nervous, or anxious, or unable to sleep at night)? [id number] Information not available 01/21/2022 Family History Relationship Description Onset Age of this Age Resolved Age Notes LastModified by Organization Details LastModified Time Father Myocardial infarction previo usly record ed as Heart Attack ([place]) Not available 08/11/2014 14:42:51 Mother Problem lung/ [...] unspecified formulation 6 completed JOYCE Piper in [facility], 02/18/2016 13:37:31 pneumococcal, unspecified formulation 6 completed JOYCE Petty in [facility], 03/25/2016 13:29:20 Influenza, split virus, quadrivalent, preservative 7 completed JOYCE Petty in [facility], 09/08/2017 13:14:34 Pneumococcal Conjugate, unspecified formulation 7 completed JOYCE Petty in [facility], 09/08/2017 13:15:30 influenza, unspecified formulation 8 completed [...] adjuvanted, quadrivalent, PF 3 completed Sasha Meczywor sae, [place] - [facility], 03/01/2024 13:42:05 COVID-19, mRNA, LNP-S, PF, 50 mcg/0.5 mL 4 completed Sasha Meczywor null, [place] - [facility], 03/01/2024 13:42:05 COVID-19, mRNA, LNP-S, PF, 50 mcg/0.5 mL 3 completed Sasha Meczywor null [place] - [facility], 03/01/2024 13:42:05 Past Encounters Encounter ID Performer Location Encounter Start Date Encounter Closed Date Diagnosis/Indication Diagnosis SNOMED-CT Code Diagnosis ICD10 Code Diagnosis IMO Codes Diagnosis Note [id number] MD DAYANA Herman MD [address] [place] [address], [address] [place] [address] 07/09/2012 14:07:52 07/09/2012 16:06:14 [id number] MD DAYANA Herman MD [address] [place] [address],[address] [place] [address] 03/24/2014 10:38:35 03/24/2014 11:39:24 Candidiasis of skin 82553384 [id number] MD DAYANA Herman MD [address] [place] [address], [address] [place] [address] 08/11/2014 13:59:37 08/11/2014 16:11:48 Specialized medical examination 10414844 Screening for malignant neoplasm of rectum 341680747 Screening mammography 30498139 [id number] MD DAYANA Herman MD [address] [place] [address], [address] [place] [address] 02/18/2016 13:23:38 02/18/2016 16:13:04 Acute lower urinary tract infection 253431309 R30.0 Postmenopa usal bleeding 21031342 N95.0 [id number] MD DAYANA Herman MD [address] [facility] [place] [address] 03/25/2016 13:22:00 03/25/2016 15:17:36 Endometrium thickened 990759710 R93.8 Postmenopa usal bleeding 91098079 N95.0 [id number] MD DAYANA Herman MD [address] [place] [address], [address] [facility] [place] [address] 04/02/2016 10:44:29 04/03/2016 10:35:26 Complex endometrial hyperplasia 016962176 N85.02 Polyp of corpus uteri 11 300634 N84.0 Postmenopa usal bleeding 33730215 N95.0 Cares for self 875374845 Z76.89 [id number] MD DAYANA Herman MD [address] [place] [address],[facility] [place] [address] 06/02/2016 13:02:10 06/02/2016 16:24:23 Polyp of corpus uteri 64745415 N84.0 Endometria l hyperplasia 239924216 N85.00 [id number] MD DAYANA Herman MD [address] [place] [address],[facility] [place] [address] 06/24/2016 13:00:56 06/24/2016 14:34:38 Polyp of corpus uteri 27586315 N84.0 Complex en dometrial hyperplasia 835586418 N85.02 [id number] MD DAYANA Herman MD [address] [place] [address],[facility] [place] [id number] 09/08/2017 12:59:41 09/08/2017 15:26:23 Screening for malignant neoplasm of cervix 235305167 Z12.4 Screening mammography 24 819425 Z12.31 Menopausal syndrome 1237 11677 N95.9 Cares for self 757724877 Z76.89 [id number] MD DAYANA Herman MD [address] [place] [address], [place] [address] 12/29/2017 13:20:54 12/29/2017 14:55:38 Anogenital hidradenitis suppurativa 704847465 L73.2 Climacteric arthritis 77 118595 M13.851 [id number] MD DAYANA Herman MD [address] [place] [address] [place] [id number] 04/28/2019 14:21:07 04/28/2019 15:35:51 Dysuria 75170770 R30.0 [id number] MD DAYANA Herman MD [address] [place] [address] [place] [address] 12/26/2019 10:32:43 12/26/2019 11:17:29 Screening for malignant neoplasm of cervix 204817877 Z12.4 Screening mammography 24 803825 Z12.31 Screening for osteoporosis 365313124 Z13.820 [id number] MD DAYANA Herman MD [address] [place] [address] [place] [address] 01/21/2022 09:57:40 01/21/2022 12:08:16 Screening for malignant neoplasm of cervix 643724722 Z12.4 Screening mammography 24 270947 Z12.31 Screening for osteoporosis 908236868 N95.8 [id number] MD DAYANA Herman MD [address] [place] [address] [place] [address] 03/01/2024 13:34:46 03/02/2024 10:00:03 Postmenopausal bleeding 05478943 N95.0 [id number] MD DAYANA Herman MD [address] [place] [address] [place] [id number] 04/12/2024 14:27:00 04/12/2024 15:39:09 Postmenopausal bleeding 74897867 N95.0 [id number] MD DAYANA Herman MD [address] [place] [address] [place] [id number] 04/19/2024 14:40:51 04/19/2024 15:53:28 Endometrioid carcinoma of endometrium [id number] C54.1 [id number] MD DAYANA Herman MD [address] [place] [address] [place] [id number] 08/15/2024 12:56:29 08/15/2024 15:31:53 Herpes zoster [id number] B02.9 [id number] Ulceration of vulva 6864 0004 N76.6 90009 Herpetic u lceration of vulva [id number] A60.04 A60.09 [id number] MD DAYANA Herman MD [address] [facility] [address] [place] [id number] 01/30/2025 13:45:28 01/30/2025 15:35:59 Candidal vulvovaginitis [id number] B37.31 Herpetic u lceration of vulva [id number] A60.04 [id number] Health Concerns Section Related Observation LastModified by Organization Detai ls LastModified Time None Recorded Concern Status LastModified by Organization Details LastModified Time None Recorded Advance Directives Directive None Recorded Payers Insurance Date Sequence Insurance Name Policy Number Policy Payan Covered Member ID Payan Member ID Guarantor Name 11/21/2024 1 [facility] ([place]) Carmela Linton [id number] Carmela Linton 11/21/2024 [address] 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 Dayana Bey MD [address] [facility],[address], [place], [address], [place] [facility], 03/01/2024 14:46:10 04/12/2024 text/html She is here for emb for PMB, the sono shows an endometrial thickness of 1.0 cm. She has a past history of hyperplastic endometrial polyp without atypia. __ Note from 03/01/24: She is here for a one week history of red vaginal bleeding, it was like a flow at first, now is more like mucous every day .In 2016 she had a D and C to [...] and C again. Dayana Bey MD [address] [facility],[address], [place], [id number], [place] [facility], 04/12/2024 14:56:19 04/19/2024 text/html She is here to discuss the results of her recent endometrial biopsy, it shows FIGO grade 3, favor poorly differentiated endometrioid carcinoma. The emb was done for pmb, the sonogram shows a normal size uterus, and a 1 cm endometrium. Dayana Bey MD [address], [place], [address], [place] [facility], 04/19/2024 15:51:06 08/15/2024 text/html She is here for a small cluster of tender blisters on her right labia that she first noted on Thursday, it is Thursday now she has a past history of herpes and has been taking acyclovir without improvement, she feels that this is not typical of a herpes infection. Dayana Bey MD [address] [facility],[address], [place], [address], [place] [facility], 08/15/2024 14:05:34 01/30/2025 text/html She is here for a one week histroy of vulvar discomfort and some vaginal pruritus. She had IV antibiotics 10 days ago for her knee meniscus surgery. She has a past histroy of herpes but herrera not think this feel like that. Dayana Bey MD [address] [facility],[address], [place], [address], [place] [facility], 01/30/2025 14:41:47 OBGyn Episode No OBEpisode recorded.
--- OUTSIDE RECORDS SUMMARY | 2025-02-02 14:45 | XMS_ITS | Clinical Summary ---
Author Organization 175 [facility] Address [address] [place] [address] Phone Care Team Providers Care Hydraulic Auto Jack Mechanic Name Role Phone Judith Gill MD Primary Care Provider [phone] Allergies Active Allergy Reactions Criticality Noted Date Comments Tramadol Disorientated Medium 06/08/2017 Medications solifenacin (VESICARE) 5 mg tablet 2 Active multivitamin (MULTIPLE VITAMINS ORAL) Multi Vitamin Active vibegron (GEMTESA) 75 mg tablet tablet Take 1 tablet (75 mg total) by mouth 1 (one) time each day. Active nystatin (MYCOSTATIN) 100,000 unit/gram powder APPLY LOCAL TWICE A DAY 15 g 5 5 Active atorvastatin (LIPITOR) 40 mg tablet Take 1 tablet (40 mg total) by mouth 1 (one) time each day. 90 tablet 3 5 Active lisinopril-hydr oCHLOROthiazide (PRINZIDE,ZESTO RETIC) 20-25 mg per tablet Take 1 tablet by mouth 1 (one) time each day. 90 tablet 3 5 Active lisinopril-hydr oCHLOROthiazide (PRINZIDE,ZESTO RETIC) 20-25 mg per tablet TAKE 1 TABLET BY MOUTH EVERY DAY. 90 tablet 3 4 01/25/20 25 Discontinu ed(Reorder ) celecoxib (CeleBREX) 200 mg capsule Take 1 capsule (200 mg total) by mouth 1 (one) time each day. 90 capsule 5 10/28/20 25 Discontinu ed(Ineffec tive) omeprazole OTC (PriLOSEC OTC) 20 mg EC tablet Take 1 tablet (20 mg total) by mouth 1 (one) time each day. Do not crush, chew, or split. 90 tablet 3 5 01/25/20 Discontinu ed( ) atorvastatin (LIPITOR) 40 mg tablet TAKE 1 TABLET BY MOUTH EVERY DAY 90 tablet 1 5 01/25/20 Discontinu ed(Reorder ) Active Problems Problem Noted Date Diagnosed Date Endometrial cancer ([facility] V24, [facility] V28) Assessment & Plan (07/25/2024 9:45 AM [...] Encounters Date Type Department Care Team Description 01/30/2025 3:25 PM EST Lab Draw Station - [address] [phone] Leukocytosis, unspecified type; Endometrial cancer (CMS/HCC V24, CMS/HCC V28) 01/30/2025 Results Follow-Up Internal Medicine [address] [address] Judith Gill MD 01/24/2025 1:00 PM EDT Office Visit Internal Medicine [address] [address] Judith Gill MD Mixed hyperlipidemia (Primary Dx); Hidradenitis suppurativa of anus; Prediabetes; Pulmonary nodule; Breast cancer screening by mammogram 01/24/2025 Results Follow-Up [address] [address] Judith Gill MD 01/15/2025 10:59 AM EDT - 01/15/2025 11:59 PM EDT Hospital Encounter [facility] MRI [address] [place] [address] Other instability, right shoulder Discharge Disposition: Home or Self Care 01/05/2025 11:00 AM EDT Office Visit [facility] [address] [place] [phone] Gustavo Azar MD Endometrial cancer (CMS/HCC V24, CMS/HCC V28) (Primary Dx) 11/16/2024 Telephone [facility] [address] [place] [address] Gustavo Azar MD from Last 3 Months Immunizations Immunization Administration [...] HISTORICAL COLONOSCOPY OTHER SURGICAL HISTORY 06/16/2016 PROCEDURE: MT DILATION & CURETTAGE DX&/THER NONOBSTETRIC; COMMENT: and hysteroscopy OTHER SURGICAL HISTORY 06/07/2010 PROCEDURE: MT RMVL/REVJ SLING STRESS INCONTINENCE; COMMENT: Repair suprapubic [...] Sign Reading Time Taken Comments Blood Pressure 139/76 01/24/2025 12:57 PM EDT Pulse 58 01/24/2025 12:57 PM EDT Temperature 36.6 C (97.8 F) 01/24/2025 12:57 PM EDT Respiratory Rate 18 01/24/2025 12:57 PM EDT Oxygen Saturation 96% 01/24/2025 12:57 PM EDT Inhaled Oxygen Concentration - - Weight 80.7 kg (178 lb) 01/24/2025 12:57 PM EDT Height 152.4 cm (5') 01/24/2025 12:57 PM EDT Body Mass Index 34.76 01/24/2025 12:57 PM EDT Plan of Treatment Upcoming Encounters Date Type Department Care Team (Late st Contact Info) Description 02/09/2025 10:45 AM EST [facility]ointment [facility] [address] [phone] 02/13/2025 4:00 PM EST Appointment [facility] CT Scan [address] [place] [phone] 04/11/2025 11:40 AM EST Office Visit [address] [phone] Gustavo Azar MD [address] [place] [address] Health Maintenance Due Date Last Done Comments [...] Patients (1 - 1-dose 75+ series) 2025 Breast Cancer Screening 06/25/2025 06/26/19 24, 05/15/2022, 04/17/2021, Additional history exists Falls Risk Assessment 07/25/2025 07/25/2024, 025 Medicare Annual Wellness Visit 07/25/2025 07/25/2024 Hypertension/CHF/CAD Annual BMP Blood Test 01/24/2026 01/24/2025, 05/03/2024, 03/18/2024, Additional history exists DTaP,Tdap,and Td Vaccines (3 - Td or [...] this topic Medical Devices Implanted Type Area Data Analysis Assistant Device Identifier Shelf Expiration Date Model / Serial / Lot Hemostat Absorb Surgicel 2x4in Fibrillar - Sna - [id number] Implanted:Qty: 1 on 05/09/2024 by Gustavo Azar MD at [facility] Hemostasis N/A: Abdomen J [employer] [id number] 05/27/2026 1962 / NA / [id number] Procedures Procedure Name Priority Date/Time Associated Diagnosis Comments CBC WITH AUTO DIFFERENTIAL Routine 01/30/2025 3:27 PM EST Leukocytosis, unspecified type CANCER ANTIGEN 125 Routine 01/30/2025 3: 27 PM EST Endometrial cancer (CMS/HCC V24, CMS/HCC V28) CBC AND DIFFERENTIAL Routine 01/30/2025 3:27 PM EST Leukocytosis, unspecified type CBC WITH AUTO DIFFERENTIAL Routine 01/24/2025 1:25 PM EDT Mixed hyperlipidemia Hidradenitis suppurativa of anus Prediabetes Pulmonary nodule CBC AND DIFFERENTIAL Routine 01/24/2025 1:25 PM EDT Mixed hyperlipidemia Hidradenitis suppurativa of anus Prediabetes Pulmonary nodule COMPREHENSIVE METABOLIC PANEL Routine 01/24/2025 1:25 PM EDT Mixed hyperlipidemia Hidradenitis suppurativa of anus Prediabetes Pulmonary nodule MR SHOULDER WO CONTRAST RIGHT Routine 01/15/2025 11:47 AM EDT Other instability, right shoulder LIPID PANEL WITH REFLEX TO DIRECT LDL Routine 08/03/2024 10:10 AM EDT Mixed hyperlipidemia Prediabetes Hyperglycemia BD BONE DENSITY DXA AXIAL SKELETON Routine 02/15/2024 10:24 AM EST Postmenopausal state HM COLONOSCOPY Routine 10/21/2023 JACK SCREENING DIGITAL Routine 06/26/2023 2:17 PM EDT Encounter for screening mammogram for malignant neoplasm of breast HM PAP SMEAR Routine 08/14/2014 from Last 3 Months or Most Recently Relevant to Health Maintenance Results * (ABNORMAL) CBC auto differential (01/30/2025 3:27 PM EST) Only the most recent of2 resultswithin the time period is included. WBC 11.5(H) 4.8 - 10.8 K/[facility] LAB HEMETOLOGY METHOD 01/30/2025 4:[address] [facility] RBC 4.20 3.80 - 4.80 M/mcL LAB HEMETOLOGY METHOD 01/30/2025 4:[address] [facility] Hemoglobin 12.8 11.5 - 16.0 g/dL LAB HEMETOLOGY METHOD 01/30/2025 4:[address] [facility] Hematocrit 37.9 35.0 - 47.0 % LAB HEMETOLOGY METHOD 01/30/2025 4:[address] [facility] MCV 91.3 79.0 - 98.0 FL LAB HEMETOLOGY METHOD 01/30/2025 4:[address] [facility] MCH 30.8 27.0 - 32.0 pcg LAB HEMETOLOGY METHOD 01/30/2025 4:[address] [facility] MCHC 33.8 32.0 - 37.0 g/dL LAB HEMETOLOGY METHOD 01/30/2025 4:[address] [facility] RDW 12.7 11.0 - 15.0 % LAB HEMETOLOGY METHOD 01/30/2025 4:[address] [facility] Platelets 436(H) 130 - 400 K/mcL LAB HEMETOLOGY METHOD 01/30/2025 4:[address] [facility] MPV 9.4 7.0 - 11.0 FL LAB HEMETOLOGY METHOD 01/30/2025 4:[address] [facility] NRBC 0.0 <1.0 % LAB HEMETOLOGY METHOD 01/30/2025 4:[address] [facility] NRBC Absolute 0.00 <0.10 K/mcL LAB HEMETOLOGY METHOD 01/30/2025 4:[address] [facility] Neutrophils Relative 58.5 % LAB HEMETOLOGY METHOD 01/30/2025 4:[address] [facility] Lymphocytes Relative 28.3 % LAB HEMETOLOGY METHOD 01/30/2025 4:[address] [facility] Monocytes Relative 8.1 % LAB HEMETOLOGY METHOD 01/30/2025 4:[address] [facility] Eosinophils Relative 3.6 % LAB HEMETOLOGY METHOD 01/30/2025 4:[address] [facility] Basophils Relative 1.0 % LAB HEMETOLOGY METHOD 01/30/2025 4:[address] [facility] Immature Granulocytes Relative 0.5 % LAB HEMETOLOGY METHOD 01/30/2025 4:[address] [facility] Neutrophils Absolute 6.74 1.50 - 7.00 K/mcL LAB HEMETOLOGY METHOD 01/30/2025 4:[address] [facility] Lymphocytes Absolute 3.26 1.00 - 5.00 K/mcL LAB HEMETOLOGY METHOD 01/30/2025 4:[address] [facility] Monocytes Absolute 0.93 0.20 - 1.00 K/mcL LAB HEMETOLOGY METHOD 01/30/2025 4:[address] [facility] Eosinophils Absolute 0.41 0.00 - 0.50 K/mcL LAB HEMETOLOGY METHOD 01/30/2025 4:[address] [facility] Basophils Absolute 0.11 0.00 - 0.20 K/mcL LAB HEMETOLOGY METHOD 01/30/2025 4:[address] [facility] Immature Granulocytes Absolute 0.06(H) 0.00 - 0.03 K/mcL LAB HEMETOLOGY METHOD 01/30/2025 4:[address] [facility] Blood Venous blood specimen / Unknown Venipuncture / Unknown 01/30/2025 3:27 PM EST 01/30/2025 3:27 PM EST us Judith Gill MD LAB BLOOD ORDERABLES Final Res ult [facility] [address] [place] [address], [place] [phone] * Cancer antigen 125 (01/30/2025 3:27 PM EST) CA 125 10.2 <35.0 unit/mL LAB CHEMISTRY METHOD 01/30/2025 6:59 PM EST [facility] Blood Venous blood specimen / Unknown Venipuncture / Unknown 01/30/2025 3:27 PM EST 01/30/2025 3:27 PM EST Narrative [facility] - 01/30/2025 6:59 PM EST The Siemens Advia yepptaur Chemiluminescent Immunoassay is used. Results obtained with different assay methods or kits cannot be used interchangeably. Results cannot be interpreted as absolute evidence of the presence or absence of malignant disease. Gustavo Azar MD LAB BLOOD ORDERABLES Final Resul t Performing Organization Address [facility] Co de Phone Number [facility] [address] [place] [address], [place] [phone] * (ABNORMAL) Comprehensive metabolic panel (01/24/2025 1:25 PM EDT) Pathologist [facility] Sodium 136 133 - 145 mmol/L LAB CHEMISTRY METHOD 01/24/2025 3:10 PM EDT [facility] Potassium 4.2 3.5 - 5.5 mmol/L LAB CHEMISTRY METHOD 01/24/2025 3:10 PM EDT [facility] Chloride 101 96 - 110 mmol/L LAB CHEMISTRY METHOD 01/24/2025 3:10 PM EDT [facility] CO2 27 21 - 32 mmol/L LAB CHEMISTRY METHOD 01/24/2025 3:10 PM EDT [facility] Anion Gap 8 3 - 11 LAB CHEMISTRY METHOD 01/24/2025 3:10 PM EDT [facility] Glucose 118(H) 70 - 100 mg/dL LAB CHEMISTRY METHOD 01/24/2025 3:[address] [facility] BUN 16 5 - 25 mg/dL LAB CHEMISTRY METHOD 01/24/2025 3:[address] [facility] Creatinine 0.71 0.50 - 1.10 mg/dL LAB CHEMISTRY METHOD 01/24/2025 3:[address] [facility] eGFR 89 >=60 mL/min/1. 73m2 LAB CHEMISTRY METHOD 01/24/2025 3:[address] [facility] Comment:Calculation based on the Chronic Kidney Disease Epidemiology Collaboration (CKD-EPI) equation refit without adjustment for race. BUN/Creatinine Ratio 22.5 LAB CHEMISTRY METHOD 01/24/2025 3:[address] [facility] Calcium 10.0 8.5 - 10.5 mg/dL LAB CHEMISTRY METHOD 01/24/2025 3:[address] [facility] AST (SGOT) 17 10 - 42 unit/L LAB CHEMISTRY METHOD 01/24/2025 3:[address] [facility] ALT (SGPT) 32 10 - 60 unit/L LAB CHEMISTRY METHOD 01/24/2025 3:[address] [facility] Alkaline Phosphatase 71 42 - 121 unit/L LAB CHEMISTRY METHOD 01/24/2025 3:[address] [facility] Total Protein 7.7 6.0 - 8.0 g/dL LAB CHEMISTRY METHOD 01/24/2025 3:[address] [facility] Albumin 4.0 3.2 - 5.0 g/dL LAB CHEMISTRY METHOD 01/24/2025 3:[address] [facility] Total Bilirubin 0.6 0.0 - 1.4 mg/dL LAB CHEMISTRY METHOD 01/24/2025 3:[address] [facility] Blood Venous blood specimen / Unknown Venipuncture / Unknown 01/24/2025 1:25 PM EDT 01/24/2025 1:25 PM EDT us Judith Gill MD LAB BLOOD ORDERABLES Final Res ult [facility] [address] [place] [address], [place] [phone] * MR Shoulder wo Contrast Right (01/15/2025 11:47 AM EDT) Anatomical Region Laterality Modality Upper Extremities, Shoulder Right Magn etic Resonance 01/19/2025 3:27 AM EDT Impressions 01/19/2025 3:34 AM EDT 1. Findings suspicious for calcific tendinitis 2. Supraspinatus and infraspinatus tendinosis with possible superimposed partial thickness tearing 3. Moderate to severe AC joint arthropathy with downsloping acromion -------- FINAL REPORT -------- Dictated By: Bekah Bauer Dictated Date: 01/19/2025 03:27 ET Assigned Physician: Bekah Bauer Reviewed and Electronically Signed By: Bekah Bauer Signed Date: 01/19/2025 03:34 ET Workstation ID: [id number] Transcribed By: Self Edit Transcribed Date: 01/19/2025 03:27 ET Narrative 01/19/2025 3:34 AM EDT INDICATION: instability possible impingement/rotator cuff tearing COMPARISON: None TECHNIQUE: Multiplanar, multisequence MRI examination was performed of the right shoulder without intravenous contrast. FINDINGS: Rotator Cuff: Tiny focus of dark signal along the junction of the supraspinatus and infraspinatus tendons (series 6, image 14; series 2, image 9) which may represent a small focus of calcium hydroxyapatite deposition. Supraspinatus and infraspinatus tendinosis. Hyperintense signal within the anterior fibers of the distal supraspinatus tendon (series 6, image 12) and along the infraspinatus tendon fibers which may represent superimposed partial thickness tearing. Biceps Tendon: Intra-articular biceps tendinosis with surrounding tenosynovitis Labrum: Degenerative signal Bone/Cartilage: Cystic change along the greater tuberosity. Mild cartilage thinning of the glenoid and humeral head cartilage. No acute fracture or dislocation. AC Joint: Moderate to severe AC joint arthropathy with downsloping acromion Miscellaneous:Small amount of subacromial/subdeltoid bursal fluid. Right shoulder joint effusion with fluid signal extending into the proximal biceps tendon sheath. Procedure Note Bekah Bauer MD - 01/19/2025 INDICATION: instability possible impingement/rotator cuff tearing COMPARISON: None TECHNIQUE: Multiplanar, multisequence MRI examination was performed ofthe right shoulder without intravenous contrast. FINDINGS: Rotator Cuff: Tiny focus of dark signal along the junction of thesupraspinatus and infraspinatus tendons (series 6, image 14; series 2,image 9) which may represent a small focus of calcium hydroxyapatitedeposition. Supraspinatus and infraspinatus tendinosis. Hyperintensesignal within the anterior fibers of the distal supraspinatus tendon(series 6, image 12) and along the infraspinatus tendon fibers which mayrepresent superimposed partial thickness tearing. Biceps Tendon: Intra-articular biceps tendinosis with surroundingtenosynovitis Labrum: Degenerative signal Bone/Cartilage: Cystic change along the greater tuberosity. Mildcartilage thinning of the glenoid and humeral head cartilage. No acutefracture or dislocation. AC Joint: Moderate to severe AC joint arthropathy with downslopingacromion Miscellaneous:Small amount of subacromial/subdeltoid bursal fluid. Rightshoulder joint effusion with fluid signal extending into the proximalbiceps tendon sheath. IMPRESSION: 1. Findings suspicious for calcific tendinitis 2. Supraspinatus and infraspinatus tendinosis with possible superimposedpartial thickness tearing 3. Moderate to severe AC joint arthropathy with downsloping acromion -------- FINAL REPORT -------- Dictated By: Bekah Bauer Dictated Date: 01/19/2025 03:27 ET Assigned Physician: Bekah Bauer Reviewed and Electronically Signed By: Bekah Bauer Signed Date: 01/19/2025 03:34 ET Workstation ID: [id number] Transcribed By: Self Edit Transcribed Date: 01/19/2025 03:27 ET us Duane Soria MD IMG MRI PROCEDURES Final Resul t * (ABNORMAL) Lipid panel with reflex to direct LDL (08/03/2024 10:10 AM EDT) Cholesterol 163 0 - 200 mg/dL LAB CHEMISTRY METHOD 08/03/2024 1:16 PM EDT [facility] Triglycerides 279(H) 0 - 150 mg/dL LAB CHEMISTRY METHOD 08/03/2024 1:16 PM EDT [facility] HDL 46 >=40 mg/dL LAB CHEMISTRY METHOD 08/03/2024 1:16 PM EDT [facility] LDL Calculated 61 0 - 100 mg/dL LAB CHEMISTRY METHOD 08/03/2024 1:16 PM EDT [facility] VLDL Cholesterol David 55.8 mg/dL LAB CHEMISTRY METHOD 08/03/2024 1:16 PM EDT [facility] Non HDL Chol. (LDL+VLDL) 117 <145 mg/dL LAB CHEMISTRY METHOD 08/03/2024 1:16 PM EDT [facility] Chol/HDL Ratio 3.5 0.0 - 4.4 LAB CHEMISTRY METHOD 08/03/2024 1:16 PM EDT [facility] Blood Venous blood specimen / Unknown Venipuncture / Unknown 08/03/2024 10:10 AM EDT 08/03/2024 10:11 AM EDT us Judith Gill MD LAB BLOOD ORDERABLES Final Res ult [facility] [address] [place] [address], [place] [phone] * BD Bone Density DXA Axial Skeleton [...] probability of hip fracture of 0.4%. Code [address]5928 CT Teleradiology -------- FINAL REPORT -------- Dictated By: Seamus Varner Dictated Date: 02/15/2024 10:32 ET Assigned Physician: Seamus Varner Reviewed and Electronically Signed By: Seamus Varner Signed Date: 02/15/2024 10:34 ET Workstation ID: [id number] Transcribed By: Self Edit Transcribed Date: 02/15/2024 [...] probability of hip fracture of 0.4%. Code [address]7985 CT Teleradiology -------- FINAL REPORT -------- Dictated By: Seamus Varner Dictated Date: 02/15/2024 10:32 ET Assigned Physician: Seamus Varner Reviewed and Electronically Signed By: Seamus Varner Signed Date: 02/15/2024 10:34 ET Workstation ID: [id number] Transcribed By: Self Edit Transcribed Date: 02/15/2024 [...] density of the femurs bilaterally is 1.122 gm/rn5mhhpd is 111% of that of young normals [...] probability of hip fracture of 0.4%. Code 13583 CT Teleradiology -------- FINAL REPORT -------- Dictated By: Seamus Varner Dictated Date: 02/15/2024 10:32 ET Assigned Physician: Seamus Varner Reviewed and Electronically Signed By: Seamus Varner Signed Date: 02/15/2024 10:34 ET Workstation ID: [id number] Transcribed By: Self Edit Transcribed Date: 02/15/2024 10:32 ET Judith Gill MD [facility] PROCED[facility] Edited Resu lt - Final * Colonoscopy (10/21/2023) Colonoscopy no interpretation , abstracted Anatomical Region Laterality Modality Other Historical Provider [facility] Final Result * JACK SCREENING DIGITAL (06/26/2023 2:17 PM EDT) Anatomical Region Laterality Modality Mammography 06/26/2023 1:32 PM EDT Narrative 06/26/2023 2:17 PM EDT [facility] Diagnostic Imaging Department [address] [place] [address] Patient: CARMELA CARTER /Age/Sex: 1950 73 - F Unit#: [id number] Location/Status: SPDIMAM/REG CLI Mnemonic/Ordering Site: [facility] Ordering Physician: JUDITH GILL MD [facility] Screening Digital - 06/26/23 - 1350 Report Status:Signed EXAM: [facility] Screening Digital EXAM DATE AND TIME: 06/26/2023 1:51 PM HISTORY: Annual screening COMPARISON: Multiple exams dating back to 2003 TECHNIQUE: Bilateral digital breast tomosynthesis was performed in the CC and MLO projections. Computer aided detection with [employer] 3D 3.1 was employed. TISSUE DENSITY: b. [...] Routine screening mammogram BILATERAL in 1 year. 0531F, 7089F Dictating Physician: ANNE-MARIE HAMMOND MD Electronically Signed by: ANNE-MARIE HAMMOND MD Dic Date/Time: 06/26/23 1416 Sign date/Time: 06/26/23 1417 Procedure Note Anne-Marie Hammond MD - 11/16/2023 [facility] Diagnostic Imaging Department [address] [place] [address] Patient: CARMELA CARTER /Age/Sex: 1950 73 - F Unit#: [id number] Location/Status: SPDIMAM/REG CLI Mnemonic/Ordering Site: [facility] Ordering Physician: JUDITH GILL MD [facility] Screening Digital - 06/26/23 - 1350 Report Status:Signed EXAM: [facility] Screening Digital EXAM DATE AND TIME: 06/26/2023 1:51 PM HISTORY: Annual screening COMPARISON: Multiple exams dating back to 2003 TECHNIQUE: Bilateral digital breast tomosynthesis was performed in the CCand MLO projections. Computer aided detection with [employer] 3D 3.1was employed. TISSUE DENSITY: b. [...] currently active code status orders. Care Teams Hydraulic Auto Jack Mechanic Relationship Specialty Start Date End Date Judith Gill MD [address] [place] [phone] PCP - General Internal Medicine 12/24/20
--- OUTSIDE RECORDS SUMMARY | 2025-02-02 14:46 | XMS_ITS | Encounter Summary ---
Author Organization [facility] Address [address] [place] [address] Care Team Providers Care Reliability Technologist Name Role Phone Judith Gill MD Primary Care Provider [phone] Encounter Details Date Type Department Care Team (Late Contact Info) Description 01/30/2025 Results Follow-Up Internal Medicine - [place] [address] [facility] [address] [place] [phone] Judith Gill MD [address] [place] [phone] Social History Tobacco Use Types Packs/Day Years [...] AM EST Appointment [facility] at [facility] [address] [place] [phone] 02/13/2025 4:00 PM EST Appointment [facility] CT Scan [address] [place] [phone] 04/11/2025 11:40 AM EST Office Visit [facility] [address] [place] [address] Gustavo Azar MD [address] [place] [address] documented as of this encounter Visit Diagnoses Not on filedocumented in this encounter Additional Health Concerns Assessment Noted Time PHQ-9 Depression Total Score: 0 07/26/19 25 8:58 AM EDT A fall risk assessment has been complete d for the patient 07/25/2024 8:55 AM EDT documented as of this encounter Care Teams Reliability Technologist Relationship Specialty Start Date End Date Judith Gill MD [address] [phone] PCP - General Internal Medicine 12/24/20 documented as of this encounter
--- OUTSIDE RECORDS SUMMARY | 2025-02-02 14:46 | XMS_ITS | Continuity of Care Document ---
Author Organization [place] - [facility],, DAYANA TAMEZ MD Address [address] [facility] [address] [place] [address] Care Team Providers Care Assurance Services Manager Health Care Name Role Phone MAICOL TIFFANY Primary Care Provider Assessment No assessment recorded. Plan of Treatment Reminders Order Date Submit Date Provider Last Modified By Organization Details Last Modified Time Details Appointments None recorded. Lab wet mount, vaginal 2024 smacmilla n1 In-Office Order, Internal Use Only DO Not Attach Compendium DO Not Attach Compendium, Do Not Delete/merge, [id number] 14:04:50 herpes simplex, culture, unspecified specimen 2024 [facility] (Centralized Electronic Ordering - All Locations), Patient Can Go To The Location Of Their Choice, [address] 14:06:26 Referral None recorded. Procedures None recorded. Surgeries None recorded. Imaging None recorded. Medication Orders fluconazole 150 mg tablet 2024 [facility]armacy #[id number], [address] [place], [address], 14:04:52 Patient TargetsNo targets recorded. Patient Instructions Encounter Date Encounter Id Patient Instructions Last Modified By Organization Details Last Modified Time 01/30/2025 [id number] vaginal yeast infection: care instructions Not available [...] Abnormal Flag Note LastModifiedBy Organization Detail LastModifiedTime 01/31/2001/30/2025 wet mount , vagin al Clue Cells negati ve Not Available In-Office Order Internal Use Only DO Not Attach Compendium DO Not Attach Compendium, Do Not Delete/merge, [id number] 01/30/2025 14:02:15 01/31/2001/30/2025 wet mount , vagin al Trichomonas negati ve Not Available In-Office Order Internal Use Only DO Not Attach Compendium DO Not Attach Compendium, Do Not Delete/merge, [id number] 01/30/2025 14:02:15 01/31/2001/30/2025 wet mount , vagin al Hyphae positi ve Not Available In-Office Order Internal Use Only DO Not Attach Compendium DO Not Attach Compendium, Do Not Delete/merge, [id number] 01/30/2025 14:02:15 01/31/2001/30/2025 wet mount , vagin al atrophic epithelium positi ve Not Available In-Office Order Internal Use Only DO Not Attach Compendium DO Not Attach Compendium, Do Not Delete/merge, [id number] 01/30/2025 14:02:15 Result Notes None recorded. Problems Name Problem SNOMED Code Status Onset Date Resolution Date Notes Provider Name and Address Organization Details Recorded Time Candidiasis of skin 89715213 Active Dayana Tamez MD [address], [place], [address] , [place] - [facility], 15:53:04 Menopausal syndrome 133566141 Active Dayana Tamez MD [address], [place], [address] , [place] - [facility], 5 09:05:05 Anogenital hidradenitis suppurativa 814568524 Active Not Available [facility] 3 03:01:06 Complex endometrial hyperplasia 486677706 Active 2016 Dayana Tamez MD [address], [place], [address] , [place] - [facility], 7 11:19:20 Polyp of corpus uteri 49263529 Active 2016 Dayana Tamez MD [address], [place], [address] , [place] - [facility], 7 12:19:18 Postmenopausa l bleeding 78646277 Active 2016 Dayana Tamez MD [address], [place], [address] , [place] - [facility], 7 12:19:29 Essential hypertension 50458830 Active 2016 Valerie quevedo, [place] - [facility], 7 13:17:12 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 Procedures Surgical History Date Name Laterality Status Provider Name and Address Organization Details Recorded Time 04/12/19 25 Endometrial Biopsy completed Dayana Tamez MD [address], [place], [address], [place] - [facility], 04/12/2024 14:54:20 12/30/19 24 Most Recent Mammogram completed Sasha Rosa in [facility], 03/01/2024 13:46:16 12/30/19 24 Most Recent Bone Density completed Sasha Rosa in [facility], 03/01/2024 13:46:25 03/25/20 16 Endometrial Biopsy completed Dayana Tamez MD [address], [place], [address], [place] - [facility], 03/25/2016 13:50:12 03/30/19 09 Other completed Dayana Tamez MD [address], [place], [address], [place] - [facility], 07/09/2012 14:33:12 03/30/18 76 Tonsillectomy completed Sasha Rosa in [facility], 07/09/2012 14:25:04 Imaging Results None recorded. Procedure Notes None recorded. Medical Equipment None Reported. Allergies Allergen ID Allergen Name Allergen Category Reaction Reaction Severity Criticality Documentation Date Start Date Code Code System Note Provider Name and Address Organization Details Recorded Time 7661 Ultram medicatio n other severe Not available 07/09/2012 86365 6 RxNorm weak and sleep y [place] Petty in [facility], 3 14:25:04 Medications Name Sig Start Date [...] Available Not Available No t Available Fluad 2018- 65yr up(PF)45 mcg(15 mcgx3)/0.5 mL intramuscul ar syringe ADMINISTE R 0.5ML IN THE MUSCLE DIRECTED active Not Available Not Available No t Available Fluad Quad 2383-7838(6 5yr up)(PF) 60 mcg (15 mcg x 4)/0.5mL IM syringe ADM 0.5ML IM UTD active Not Available Not Available No t Available Vitals Date Recorded Body height Body mass index (BMI) Body weight Heart rate Systolic And Diastolic Provider Name and Address Organization Details Last Updated DateTime 01/30/2025 152.4 cm 35.8 kg/m2 30840.84 g 79 /min 140/57 mm[Hg] Sasha Lowery [place] - [facility], 01/30/2025 13:51:48 Social History Question Answer Notes LastModified by Organizat ion Details LastModified Time Tobacco Smoking Status Former Smoker over 15 yrs ago Not Available [employer] 01/31/2020 03:19:42 How Many Years Have You Consumed Alcohol? 50 Information not available 01/21/2022 What Is Your Level Of Caffeine Consumption? Occasional [id number] Information not available 01/31/2020 In The 14 [...] Type Of Diet Are You Following? REGULAR [id number] Information not available 01/31/2020 Which Illicit Or Recreational Drugs Have You Used? Yes Marijuana On Weekends [id number] Information not available 01/31/2020 Do You Reside In Or Have You Traveled To An Area Where Ebola Virus Transmission Is Active? No [id number] Information not available 01/31/2020 Education 2 Year College Information not available 07/09/2012 What Is The Highest Grade Or Level Of School You Have Completed Or The Highest Degree You Have Received? [id number] Information not available 01/21/2022 How Many Days [...] available 01/21/2022 Are You Sexually Active? No [id number] Information not available 01/31/2020 At What Age Did You Start Smoking Tobacco? 18 Information not available 01/21/2022 How Much Tobacco Do You Smoke? No [id number] Information not available 01/31/2020 General Stress Level Low Information not available 07/09/2012 How Many Years Have You Smoked Tobacco? 33 [id number] Information not available 01/31/2020 Have You Recently [...] is your level of alcohol consumption? Occasional [id number] Information not available 01/31/2020 Do you or have you ever used smokeless tobacco? Never used smokeless tobacco [id number] Information not available 01/31/2020 Are you currently employed? 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 Never used electronic cigarettes [id number] Information not available 01/31/2020 What is your exercise level? Moderate [id number] Information not available 01/31/2020 Mental Status Question Answer Note LastModified by Organization D etails LastModified Time Do you feel stressed (tense, restless, nervous, or anxious, or unable to sleep at night)? [id number] Information not available 01/21/2022 Family History Relationship [...] Vaccine Type Date Status Note Provider Nam willy and Address Organization Details Recorded Time influenza, unspecified formulation 6 completed Valerie Artemio [place], [place] - [facility] [...] 13:15:30 influenza, unspecified formulation 8 completed Valerie Potorslaurie null, [place] [facility] [...] [place], [place] - [facility], 03/01/2024 13:42:05 zoster recombinant 3 completed Sasha Meczywor null, [place] - [facility], 03/01/2024 13:42:05 Influenza, adjuvanted, quadrivalent, PF 3 completed Sasha Meczywor null[place] [facility], 03/01/2024 13:42:05 COVID-19, mRNA, LNP-S, PF, 50 mcg/0.5 mL 4 completed Sasha Meczywor null[place] - [facility], 03/01/2024 13:42:05 COVID-19, mRNA, LNP-S, PF, 50 mcg/0.5 mL 3 completed Sasha Meczywor null, [place] [facility], 03/01/2024 13:42:05 Past Encounters Encounter ID Performer Location Encounter Start Date Encounter Closed Date Diagnosis/Indication Diagnosis SNOMED-CT Code Diagnosis ICD10 Code Diagnosis IMO Codes Diagnosis Note [id number] MD DAYANA Herman MD [address] [facility] [place] [address] 01/30/2025 13:45:28 01/30/2025 15:35:59 Candidal vulvovaginitis 47700606 B37.31 Herpetic u lceration of vulva 01949718 A60.04 718720 Health Concerns Section Related Observation LastModified by Organization [facility] LastModified Time None Recorded Concern Status LastModified by Organization Details LastModified Time None Recorded Payers Encounter Date Sequence Insurance Name Policy Number Policy Payan Covered Member ID Payan Member ID Guarantor Name 01/30/2025 1 [employer] (MEDICARE REPLACEMENT/ ADVANTAGE - PPO) [id number] Carmela Linton [id number] Carmela Linton Notes Date Note Type Note Provider Name and Address Organization Details Recorded Time 01/30/2025 text/html She is here for a one week histroy of vulvar discomfort and some vaginal pruritus. She had IV antibiotics 10 days ago for her knee meniscus surgery. She has a past histroy of herpes but herrera not think this feel like that. Dayana Tamez MD [address] [facility],[address], [place], [address], [place] - [facility], 01/30/2025 14:41:47 OBGyn Episode No OBEpisode recorded.
== END 2025-02-02 12:12 | disposition home or self-care (01) ==
LOC: HO.HOS 11:47
PROVIDERS: PCP Internal Medicine; Visit Provider Physician Assistant
DX: S83.241A Other tear of medial meniscus, current injury, right knee, initial encounter (principal)
CPT/HCPCS: 99024

== ENCOUNTER → 2025-02-02 11:47 | Outpatient (BNVA) | payer MEDICARE, SELFPAY | PROVIDERS: PCP Internal Medicine; Visit Provider Physician Assistant | DX: Z48.02 Encounter for removal of sutures (principal); S83.241D Other tear of medial meniscus, current injury, right knee, subsequent encounter | CPT/HCPCS: 99212 ==

== ENCOUNTER 2025-02-07 10:13 | Outpatient (AMB) | payer MEDICARE, SELFPAY ==
--- NOTE | 2025-02-07 10:21 | MHC.OFFVIS ---
Intake Visit Reasons: O/V RT shoulder MRI review Intake Note: Carmela is a 74 year old female who presents with complaints of progressively worsening right shoulder pain and weakness. The patient describes her pain as sharp in nature. Her pain has gotten worse over the last few months in spite of continued non operative treatments. She has failed the last 6 weeks of conservative treatment which has included Tylenol, Celebrex, physical therapy exercises and a home exercise program. She reports weakness when lifting her right hand above shoulder height. She denies any numbness or tingling in either upper extremity. Allergies tramadol (From [facility]) Allergy (Intermediate, Verified 02/07/25 10:21) disoriented/lethargy Medication List - Last Reconciled 02/07/25 by Duane Soria MD atorvastatin 40 mg PO BEDTIME calcium carbonate 500 mg PO QAM celecoxib 200 mg PO DAILY PRN glucos sul [id number]-C-Mn 550-30-1 mg (Glucosamine Chondroitin) 1 cap PO QAM lisinopril-hydrochlorothiazide 20-25 mg 1 tab PO QAM multivitamin 1 tab PO QAM nystatin 1 appl topical DAILY omeprazole 20 mg PO QAM oxycodone 5 mg PO Q6H PRN solifenacin 10 mg PO QAM valacyclovir 1,000 mg PO TID PRN PFSH Medical History Urge incontinence Pulmonary nodule DDD (degenerative disc disease), cervical Pre-diabetes Endometrial cancer GERD (gastroesophageal reflux disease) Elevated cholesterol HTN (hypertension) Surgical History Hx of tonsillectomy Hx of hysterectomy History of pubovaginal sling Hx of dilation and curettage H/O colonoscopy Social History Are you a primary critical care nurse specialist to a significant other at home: No Do you presently have visiting nurse or other home services: No Patient Tobacco Use Status: Former Tobacco user Tobacco use type: Cigarette Years Smoked: 20 Current occupational status: retired Current occupation: rt handed Physical Exam Const Other: Well-nourished well-developed very friendly female awake alert and oriented x3 in no acute distress Extrem Other: Right shoulder examination shows decreased range of motion when compared to her left shoulder, 4+ out of 5 strength with supraspinatus testing, positive impingement signs, tenderness over her acromioclavicular joint, no instability Results Reviewed Results Reviewed: MRI of the patient's right shoulder show severe acromioclavicular joint narrowing, a type 3 acromion, signal change within the supraspinatus tendon due to rotator cuff tendinosis versus a small rotator cuff tear Assessment & Plan Assessment & Plan (1) Impingement of right shoulder: Code(s): M25.811 - Other specified joint disorders, right shoulder Category: Medical Plan Ms. Linton presents with right shoulder pain due to impingement syndrome, acromioclavicular joint arthritis and rotator cuff tendinosis versus a small rotator cuff tear. I had a lengthy discussion with the patient regarding the treatment options. At this point she has failed continued non operative treatments. The risks and benefits of right shoulder surgery were discussed at length with the patient. The patient wishes to proceed with surgery. Surgery will involve right shoulder arthroscopic distal clavicle excision, right shoulder arthroscopic acromioplasty and right shoulder mini open rotator cuff repair should a full-thickness tear be found at the time of her surgery. The patient will be scheduled for next available date. She will follow up as instructed. Feel free to call me at any time should questions regarding her orthopedic management arise. I spent 22 minutes in reviewing the patient's records and imaging studies, seeing the patient and documenting in the medical record. Coding Level of Care Code Est Pt Level 3 (41378) Complex EM visit Add On G2211 Diagnoses Impingement of right shoulder M25.811
--- OUTSIDE RECORDS SUMMARY | 2025-02-07 11:45 | XMS_ITS | Clinical Summary ---
Author Organization 175 [facility] Address [address] [place] [address] Phone Care Team Providers Care Materials Buyer Name Role Phone Judith Gill MD Primary [...] Problem Noted Date Diagnosed Date Endometrial cancer ([facility] V24, [facility] V28) Assessment & Plan (07/25/2024 9:45 [...] 3:25 PM EST Lab Draw Station - [address] [phone] Leukocytosis, unspecified type; Endometrial cancer (CMS/HCC V24, CMS/HCC V28) 01/30/2025 Results Follow-Up Internal Medicine [address] [phone] Judith Gill MD 01/24/2025 1:00 PM EDT Office Visit Internal Medicine [address] [address] Judith Gill MD Mixed hyperlipidemia (Primary Dx); Hidradenitis suppurativa of anus; Prediabetes; Pulmonary nodule; Breast cancer screening by mammogram 01/24/2025 Results Follow-Up [address] [address] Judith Gill MD 01/15/2025 10:59 AM EDT - 01/15/2025 11:59 PM EDT Hospital Encounter [facility] MRI [address] [place] [address] Other instability, right shoulder Discharge Disposition: Home or Self Care 01/05/2025 11:00 AM EDT Office Visit [facility] [address] [place] [phone] Gustavo Azar MD Endometrial cancer (CMS/HCC V24, CMS/HCC V28) (Primary Dx) 11/16/2024 Telephone [facility] [address] [place] [address] Gustavo Azar MD from Last [...] HISTORICAL COLONOSCOPY OTHER SURGICAL HISTORY 06/16/2016 PROCEDURE: UT DILATION & CURETTAGE DX&/THER NONOBSTETRIC; COMMENT: and hysteroscopy OTHER SURGICAL HISTORY 06/07/2010 PROCEDURE: UT RMVL/REVJ SLING STRESS INCONTINENCE; COMMENT: Repair suprapubic [...] AM EST [facility]ment [facility] [address] [address] 02/13/2025 4:00 PM EST Appointment [facility] CT Scan [address] [place] [phone] 04/11/2025 11:40 AM EST Office Visit [address] [phone] Gustavo Azar MD [address] [place] [address] Health Maintenance Due Date Last Done Comments [...] this topic Medical Devices Implanted Type Area Manager Mobile Device Identifier Shelf Expiration Date Model / Serial / Lot Hemostat Absorb Surgicel 2x4in Fibrillar - Sna - [id number] Implanted:Qty: 1 on 05/09/2024 by Gustavo Azar MD at [facility] Hemostasis N/A: Abdomen J [employer] [id number] 05/27/2026 1962 / NA / [id number] Procedures [...] is included. WBC 11.5(H) 4.8 - 10.8 K/[facility] LAB HEMETOLOGY METHOD 01/30/2025 4:51 PM [facility] RBC 4.20 3.80 - 4.80 M/mcL LAB HEMETOLOGY METHOD 01/30/2025 4:51 PM [facility] Hemoglobin 12.8 11.5 - 16.0 g/dL LAB HEMETOLOGY METHOD 01/30/2025 4:51 PM [facility] Hematocrit 37.9 35.0 - 47.0 % LAB HEMETOLOGY METHOD 01/30/2025 4:51 PM [facility] MCV 91.3 79.0 - 98.0 FL LAB HEMETOLOGY METHOD 01/30/2025 4:51 PM [facility] MCH 30.8 27.0 - 32.0 pcg LAB HEMETOLOGY METHOD 01/30/2025 4:51 PM [facility] MCHC 33.8 32.0 - 37.0 g/dL LAB HEMETOLOGY METHOD 01/30/2025 4:51 PM [facility] RDW 12.7 11.0 - 15.0 % LAB HEMETOLOGY METHOD 01/30/2025 4:51 PM [facility] Platelets 436(H) 130 - 400 K/mcL LAB HEMETOLOGY METHOD 01/30/2025 4:51 PM [facility] MPV 9.4 7.0 - 11.0 FL LAB HEMETOLOGY METHOD 01/30/2025 4:51 PM [facility] NRBC 0.0 <1.0 % LAB HEMETOLOGY METHOD 01/30/2025 4:51 PM [facility] NRBC Absolute 0.00 <0.10 K/mcL LAB HEMETOLOGY METHOD 01/30/2025 4:51 PM [facility] Neutrophils Relative 58.5 % LAB HEMETOLOGY METHOD 01/30/2025 4:51 PM [facility] Lymphocytes Relative 28.3 % LAB HEMETOLOGY METHOD 01/30/2025 4:51 PM [facility] Monocytes Relative 8.1 % LAB HEMETOLOGY METHOD 01/30/2025 4:51 PM [facility] Eosinophils Relative 3.6 % LAB HEMETOLOGY METHOD 01/30/2025 4:51 PM [facility] Basophils Relative 1.0 % LAB HEMETOLOGY METHOD 01/30/2025 4:51 PM [facility] Immature Granulocytes Relative 0.5 % LAB HEMETOLOGY METHOD 01/30/2025 4:51 PM [facility] Neutrophils Absolute 6.74 1.50 - 7.00 K/mcL LAB HEMETOLOGY METHOD 01/30/2025 4:51 PM [facility] Lymphocytes Absolute 3.26 1.00 - 5.00 K/mcL LAB HEMETOLOGY METHOD 01/30/2025 4:51 PM [facility] Monocytes Absolute 0.93 0.20 - 1.00 K/mcL LAB HEMETOLOGY METHOD 01/30/2025 4:51 PM [facility] Eosinophils Absolute 0.41 0.00 - 0.50 K/mcL LAB HEMETOLOGY METHOD 01/30/2025 4:51 PM [facility] Basophils Absolute 0.11 0.00 - 0.20 K/mcL LAB HEMETOLOGY METHOD 01/30/2025 4:51 PM [facility] Immature Granulocytes Absolute 0.06(H) 0.00 - 0.03 K/mcL LAB HEMETOLOGY METHOD 01/30/2025 4:51 PM [facility] Blood Venous blood specimen / Unknown Venipuncture / Unknown 01/30/2025 3:27 PM EST 01/30/2025 3:27 PM EST us Judith Gill MD LAB BLOOD ORDERABLES Final Res ult [facility] [address] [place] [address], [place] [phone] * Cancer antigen 125 (01/30/2025 3:27 PM EST) CA 125 10.2 <35.0 unit/mL LAB CHEMISTRY METHOD 01/30/2025 6:59 PM EST [facility] Blood Venous blood specimen / Unknown Venipuncture / Unknown 01/30/2025 3:27 PM EST 01/30/2025 3:27 PM EST Narrative [facility] - 01/30/2025 6:59 PM EST The Siemens Advia Traxpayaur Chemiluminescent Immunoassay is used. Results obtained with different assay methods or kits cannot be used interchangeably. Results cannot be interpreted as absolute evidence of the presence or absence of malignant disease. Gustavo Azar MD LAB BLOOD ORDERABLES Final Resul t Performing Organization Address [facility] Co de Phone Number [facility] [address] [place] [address], [place] [phone] * (ABNORMAL) Comprehensive metabolic panel (01/24/2025 1:25 PM EDT) Pathologist [facility] Sodium 136 133 - 145 mmol/L LAB CHEMISTRY METHOD 01/24/2025 3:10 PM EDT [facility] Potassium 4.2 3.5 - 5.5 mmol/L LAB CHEMISTRY METHOD 01/24/2025 3:10 PM EDT [facility] Chloride 101 96 - 110 mmol/L LAB CHEMISTRY METHOD 01/24/2025 3:10 PM EDT [facility] CO2 27 21 - 32 mmol/L LAB CHEMISTRY METHOD 01/24/2025 3:10 PM EDT [facility] Anion Gap 8 3 - 11 LAB CHEMISTRY METHOD 01/24/2025 3:10 PM EDT [facility] Glucose 118(H) 70 - 100 mg/dL LAB CHEMISTRY METHOD 01/24/2025 3:10 PM [facility] BUN 16 5 - 25 mg/dL LAB CHEMISTRY METHOD 01/24/2025 3:10 PM [facility] Creatinine 0.71 0.50 - 1.10 mg/dL LAB CHEMISTRY METHOD 01/24/2025 3:10 PM [facility] eGFR 89 >=60 mL/min/1. 73m2 LAB CHEMISTRY METHOD 01/24/2025 3:10 PM [facility] Comment:Calculation based on the Chronic Kidney Disease Epidemiology Collaboration (CKD-EPI) equation refit without adjustment for race. BUN/Creatinine Ratio 22.5 LAB CHEMISTRY METHOD 01/24/2025 3:10 PM [facility] Calcium 10.0 8.5 - 10.5 mg/dL LAB CHEMISTRY METHOD 01/24/2025 3:10 PM [facility] AST (SGOT) 17 10 - 42 unit/L LAB CHEMISTRY METHOD 01/24/2025 3:10 PM [facility] ALT (SGPT) 32 10 - 60 unit/L LAB CHEMISTRY METHOD 01/24/2025 3:10 PM [facility] Alkaline Phosphatase 71 42 - 121 unit/L LAB CHEMISTRY METHOD 01/24/2025 3:10 PM [facility] Total Protein 7.7 6.0 - 8.0 g/dL LAB CHEMISTRY METHOD 01/24/2025 3:10 PM [facility] Albumin 4.0 3.2 - 5.0 g/dL LAB CHEMISTRY METHOD 01/24/2025 3:10 PM [facility] Total Bilirubin 0.6 0.0 - 1.4 mg/dL LAB CHEMISTRY METHOD 01/24/2025 3:10 PM [facility] Blood Venous blood specimen / Unknown Venipuncture / Unknown 01/24/2025 1:25 PM EDT 01/24/2025 1:25 PM EDT us Judith Gill MD LAB BLOOD ORDERABLES Final Res ult [facility] [address] [place] [address], [place] [phone] * MR Shoulder wo Contrast Right (01/15/2025 [...] Signed Date: 01/19/2025 03:34 ET Workstation ID: [id number] Transcribed By: Self Edit Transcribed Date: 01/19/2025 [...] Signed Date: 01/19/2025 03:34 ET Workstation ID: [id number] Transcribed By: Self Edit Transcribed Date: 01/19/2025 [...] Final Res ult [facility] [address] [place] [address], [place] [phone] * BD Bone Density DXA Axial Skeleton [...] probability of hip fracture of 0.4%. Code [address]678 CT Teleradiology -------- FINAL REPORT -------- Dictated By: Seamus Varner Dictated Date: 02/15/2024 10:32 ET Assigned Physician: Seamus Varner Reviewed and Electronically Signed By: Seamus Varner Signed Date: 02/15/2024 10:34 ET Workstation ID: [id number] Transcribed By: Self Edit Transcribed Date: 02/15/2024 [...] probability of hip fracture of 0.4%. Code [address]377 CT Teleradiology -------- FINAL REPORT -------- Dictated By: Seamus Varner Dictated Date: 02/15/2024 10:32 ET Assigned Physician: Seamus Varner Reviewed and Electronically Signed By: Seamus Varner Signed Date: 02/15/2024 10:34 ET Workstation ID: [id number] Transcribed By: Self Edit Transcribed Date: 02/15/2024 [...] density of the femurs bilaterally is 1.122 gm/nr7gpyld is 111% of that of young normals [...] probability of hip fracture of 0.4%. Code [address]4087 CT Teleradiology -------- FINAL REPORT -------- Dictated By: Seamus Varner Dictated Date: 02/15/2024 10:32 ET Assigned Physician: Seamus Varner Reviewed and Electronically Signed By: Seamus Varner Signed Date: 02/15/2024 10:34 ET Workstation ID: [id number] Transcribed By: Self Edit Transcribed Date: 02/15/2024 10:32 ET Judith Gill MD [facility] DXA PROCEDURES Edited Resu lt - Final * Colonoscopy (10/21/2023) Colonoscopy no interpretation , abstracted Anatomical Region Laterality Modality Other Historical Provider [facility] Final Result * JACK SCREENING DIGITAL (06/26/2023 2:17 PM EDT) Anatomical Region Laterality Modality Mammography 06/26/2023 1:32 PM EDT Narrative 06/26/2023 2:17 PM EDT [facility] Diagnostic Imaging Department [address] [place] [address] Patient: CARMELA CARTER /Age/Sex: 1950 73 - F Unit#: [id number] Location/Status: SPDIMAM/REG CLI Mnemonic/Ordering Site: [facility] Ordering Physician: JUDITH GILL MD [facility] Screening Digital - 06/26/23 - 1350 Report Status:Signed EXAM: [facility] Screening Digital EXAM DATE AND TIME: 06/26/2023 1:51 PM HISTORY: Annual screening COMPARISON: Multiple exams dating back to 2003 TECHNIQUE: Bilateral digital breast tomosynthesis was performed in the CC and MLO projections. Computer aided detection with Tookitaki 3D 3.1 was employed. TISSUE DENSITY: b. [...] Routine screening mammogram BILATERAL in 1 year. 2521F, 7040F Dictating Physician: ANNE-MARIE HAMMOND MD Electronically Signed by: ANNE-MARIE HAMMOND MD Dic Date/Time: 06/26/23 1416 Sign date/Time: 06/26/23 1417 Procedure Note Anne-Marie Hammond MD - 11/16/2023 [facility] Diagnostic Imaging Department [address] [place] [address] Patient: CARMELA CARTER /Age/Sex: 1950 73 - F Unit#: [id number] Location/Status: SPDIMAM/REG CLI Mnemonic/Ordering Site: [facility] Ordering Physician: JUDITH GILL MD [facility] Screening Digital - 06/26/23 - 1350 Report Status:Signed EXAM: [facility] Screening Digital EXAM DATE AND TIME: 06/26/2023 1:51 PM HISTORY: Annual screening COMPARISON: Multiple exams dating back to 2003 TECHNIQUE: Bilateral digital breast tomosynthesis was performed in the CCand MLO projections. Computer aided detection with TiVUS AI 3D 3.1was employed. TISSUE DENSITY: b. [...] currently active code status orders. Care Teams Materials Buyer Relationship Specialty Start Date End Date Judith Gill MD [address] [place] [phone] PCP - General Internal Medicine 12/24/20
--- OUTSIDE RECORDS SUMMARY | 2025-02-07 11:45 | XMS_ITS | Encounter Summary ---
Author Organization [facility] Address [address] [place] [address] Care Team Providers Care Ingot Header Name Role Phone Judith Gill MD Primary Care Provider [phone] Encounter Details Date Type Department Care Team (Late Contact Info) Description 01/24/2025 Results Follow-Up Internal Medicine - [place] 175 [facility] [address] [place] [phone] Judith Gill MD [address] [place] [phone] Social History Tobacco Use Types Packs/Day Years [...] AM EST Appointment [facility] at [facility] [address] [place] [phone] 02/13/2025 4:00 PM EST Appointment [facility] CT Scan [address] [place] [phone] 04/11/2025 11:40 AM EST Office Visit [facility] [address] [place] [phone] Gustavo Azar MD [address] [place] [address] documented as of this encounter Visit Diagnoses Diagnosis Leukocytosis, unspecified type- Primary documented in this encounter Additional Health Concerns Assessment Noted Time PHQ-9 Depression Total Score: 0 07/26/19 8:58 AM EDT A fall risk assessment has been complete d for the patient 07/25/2024 8:55 AM EDT documented as of this encounter Care Teams Ingot Header Relationship Specialty Start Date End Date Judith Gill MD [address] [phone] PCP - General Internal Medicine 12/24/20 documented as of this encounter
--- OUTSIDE RECORDS SUMMARY | 2025-02-07 11:45 | XMS_ITS | Encounter Summary ---
Author Organization [facility] Address [address] [place] [address] Care Team Providers Care Per Diem Nurse Name Role Phone Judith Gill MD Primary Care Provider [phone] Encounter Details Date Type Department Care Team (Late Contact Info) Description 01/30/2025 Results Follow-Up Internal Medicine - [place] 175 [facility] [address] [place] [phone] Judith Gill MD [address] [place] [phone] Social History Tobacco Use Types Packs/Day Years [...] AM EST Appointment [facility] at [facility] [address] [place] [phone] 02/13/2025 4:00 PM EST Appointment [facility] CT Scan [address] [place] [phone] 04/11/2025 11:40 AM EST Office Visit [facility] [address] [place] [address] Gustavo Azar MD [address] [place] [address] documented as of this encounter Visit Diagnoses Not on filedocumented in this encounter Additional Health Concerns Assessment Noted Time PHQ-9 Depression Total Score: 0 07/26/19 25 8:58 AM EDT A fall risk assessment has been complete d for the patient 07/25/2024 8:55 AM EDT documented as of this encounter Care Teams Per Diem Nurse Relationship Specialty Start Date End Date Judith Gill MD [address] [phone] PCP - General Internal Medicine 12/24/20 documented as of this encounter
--- OUTSIDE RECORDS SUMMARY | 2025-02-07 11:45 | XMS_ITS | Data Portability ---
Author Organization [place] - [facility],, DAYANA BEY MD Address [address] [facility] [address] [place] [address] Care Team Providers Care Log Roper Name Role Phone TIFFANY MILIAN Primary Care Provider Assessment No assessment recorded. Plan of Treatment Reminders Order Date Submit Date Provider Last Modified By Organization Details Last Modified Time Details Appointments None recorded. Lab wet mount, vaginal 2024 025 [email or web address] 1 In-Office Order, Internal Use Only DO Not Attach Compendium DO Not Attach Compendium, Do Not Delete/merge, [id number] 14:04:50 herpes simplex, culture, unspecifie d specimen 2024 025 MONCHO [facility] (Centralized Electronic Ordering - All Locations), Patient Can Go To The Location Of Their Choice, [id number] 14:06:26 herpes simplex, culture, unspecifie d specimen - right vulva 2024 025 MONCHO [facility] (Centralized Electronic Ordering - All Locations), Patient Can Go To The Location Of Their Choice, [id number] 5 16:06:30 biopsy, endometria l 2024 025 [email or web address] [facility] (Centralized Electronic Ordering - All Locations), Patient Can Go To The Location Of Their Choice, [id number] 5 07:16:45 Referral None recorded. Procedures biopsy, endometriu m (PROC) 2024 025 [email or web address] In-Office Order, Internal Use Only DO Not Attach Compendium DO Not Attach Compendium, Do Not Delete/merge, [id number] 15:39:27 Surgeries None recorded. Imaging US, pelvis, transabdom inal + transvagin al - pmb for a week 2023 024 [facility] (Central Scheduling Radiology), [address], [place], [address], 4 08:46:36 Medication Orders fluconazol e 150 mg tablet 2024 025 [id number] [address] [facility] [place], [address], 5 05:01:44 valacyclov ir 1 gram tablet 2024 025 [id number] [address] [facility] [place], [address], 5 13:30:17 acyclovir 5 % topical ointment 2024 025 [email or web address] 1 [id number] [address] [facility] [place], [address], 5 14:02:07 Patient TargetsNo targets recorded. 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 She understands. All questions answered. Not available 04/12/2024 14:56:03 04/19/2024 [id number] She is here to discuss the results [...] All questions answered. 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 Face to face discussion, chart review and coordination of care: 25 minutes Not available 04/19/2024 15:50:51 08/15/2024 [id number] shingles: care instructions Not available 08/15/2024 13:30:15 [...] 25 minutes Not available 08/15/2024 14:01:15 01/30/2025 [id number] vaginal yeast infection: care instructions Not available [...] re[place], [address], [place] [address] . This test was devel opmaria fernanda, and its perfo rmanc e eve cteri stics deter mined by [employer]. It has not been clear ed or appro radha by the U.S. Food and Drug Admin istra tion. The FDA has deter mined that such clear ance or appro alfa is not neces lionel. This test is used for clini bebeto purpo ses. It shoul d not be regar ded as inves tigat ional or for resea [facility]. The posit brittney and negat brittney [...] Avenu e, [place] (CLIA #[id number] 2). Its perfo rmanc e eve cteri stics deter mined by [facility]. Shanika Doss M.D. Medic al Direc tor of Surgi bebeto Patho logy, Antonia good M.D. Medic al Direc tor Cytop athol ogy Phone #: [phone], On-Ca Patho logis t: [phone] Not Available [facility] (Centralized Electronic Ordering - All Locations) Patient Can Go To The Location Of Their Choice, [id number] 04/19/2024 12:38:33 04/12/19 25 04/12/2024 [facility] results Patiwilly nt [...] ical compo nent is perfo rmed by Lab[facility] vincent [place], [facility] [address], [place] [address] . This test was barbara gay, and its perfo rmanc e eve cteri stics deter mined by [employer]. It has not been clear ed [...] ing is perfo rmed at [facility] , [address], [place] (CLIA #[id number] 2). Its perfo rmanc e eve cteri stics deter mined by [facility]. Shanika Doss M.D. Medic al Direc tor of Surgi bebeto Patho Antonia webster M.D. Medic al Direc tor Cytop athol ogy Phone #: [phone], On-Ca ll Patho logis t: [id number] Not Available [facility] (Centralized Electronic Ordering - All Locations) Patient Can Go To The Location Of Their Choice, [id number] 05/03/2024 11:20:30 08/16/19 25 08/18/2024 HSV CULTU RE AND TYPIN G hsv culture/type COMMEN T Negat brittney No Herpe s simpl ex virus isola jacey. Not Available [facility] ([facility]) [address], [place], [address], 08/18/2024 16:06:30 01/31/20 25 02/01/2025 HSV CULTU RE AND TYPIN G hsv culture/type COMMEN T Test not perfo rmed. No viral trans port devic e recei radha. Not Available [facility] ([facility]) [address] [place], [address], 02/01/2025 14:06:26 01/31/20 25 02/01/[address] PROBL EM request problem COMMEN T Test not perfo rmed. No viral trans port devic e recei radha. TEST: [id number] 3 HSV Cultu re/Ty pe Panel : [id number] 0 Not Available [facility] ([facility]) [address] [place], [address], 02/01/2025 14:06:27 01/31/20 25 02/01/2025 LISET EN AUTHO RIZAT ION written authorizatio n Commen t Liset en Autho rizat ion Recei radha. Autho rizat ion recei radha from ORIGI NAL REQUI SITIO N 02-01 Logge d by Obdulia Elizabeth en Not Available [facility] ([facility]) [address] [facility], [place], [address], 02/01/2025 16:06:07 01/31/20 25 02/03/2025 HSV JESSICA hsv 1 JESSICA Negati ve negati ve Not Available [facility] ([facility]) [address] [place], [address], 02/03/2025 12:06:08 01/31/20 25 02/03/2025 HSV JESSICA hsv 2 JESSICA Positi ve negati ve abnormal Not Available [facility] ([facility]) [address] [place], [address], 02/03/2025 12:06:08 01/31/20 25 01/30/2025 wet mount , vagin al Clue Cells negati ve Not Available In-Office Order Internal Use Only DO Not Attach Compendium DO Not Attach Compendium, Do Not Delete/merge, [id number] 01/30/2025 14:02:15 01/31/20 25 01/30/2025 wet mount , vagin al Trichomonas negati ve Not Available In-Office Order Internal Use Only DO Not Attach Compendium DO Not Attach Compendium, Do Not Delete/merge, [id number] 01/30/2025 14:02:15 01/31/20 25 01/30/2025 wet mount , vagin al Hyphae positi ve Not Available In-Office Order Internal Use Only DO Not Attach Compendium DO Not Attach Compendium, Do Not Delete/merge, [id number] 01/30/2025 14:02:15 01/31/2001/30/2025 wet mount , vagin al atrophic epithelium positi ve Not Available In-Office Order Internal Use Only DO Not Attach Compendium DO Not Attach Compendium, Do Not Delete/merge, [id number] 01/30/2025 14:02:15 03/17/20 24 03/15/2024 US, pelvi s, trans abdom inal + trans vagin al No observ ation record ed. [email or web address], [place], [address], 03/17/2024 10:41:52 Result Notes None recorded. Problems Name Problem SNOMED Code Status Onset Date Resolution Date Notes Provider Name and Address Organization Details Recorded Time Candidiasis of skin 18118858 Active Dayana Bey MD [address], [place], [address] , [place] - [facility], 5 15:53:04 Menopausal syndrome 600300371 Active Dayana Bey MD [address], [place], [address] , [place] - [facility], 5 09:05:05 Anogenital hidradenitis suppurativa 696537773 Active Not Available [facility] 3 03:01:06 Complex endometrial hyperplasia 877412709 Active 2016 Dayana Bey MD [address], [place], [address] , [place] - [facility], 7 11:19:20 Polyp of corpus uteri 72709012 Active 2016 Dayana Bey MD [address], [place], [address] , [place] - [facility], 7 12:19:18 Postmenopausa l bleeding 64355745 Active 2016 Dayana Bey MD [address], [place], [address] , [place] [facility], 7 12:19:29 Essential hypertension 25677856 Active 2016 Valerie quevedo [place] - [facility], 7 13:17:12 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 Procedures Surgical History Date Name Laterality Status Provider Name and Address Organization Details Recorded Time 04/12/19 25 Endometrial Biopsy completed Dayana Bey MD [address], [place], [address], [place] - [facility], 04/12/2024 14:54:20 12/30/19 24 Most Recent Mammogram completed Sasha Rosa in [facility], 03/01/2024 13:46:16 12/30/19 24 Most Recent Bone Density completed Sasha Rosa in [facility], 03/01/2024 13:46:25 03/25/20 16 Endometrial Biopsy completed Dayana Bey MD [address], [place], [address], [place] - [facility], 03/25/2016 13:50:12 03/30/19 09 Other completed Dayana Bey MD [address], [place], [address], [place] - [facility], 07/09/2012 14:33:12 03/30/18 76 Tonsillectomy completed Sasha Lowery [place] - [facility], 07/09/2012 14:25:04 Imaging Results None recorded. Procedure Notes None recorded. Medical Equipment None Reported. Allergies Allergen ID Allergen Name Allergen Category Reaction Reaction Severity Criticality Documentation Date Start Date Code Code System Note Provider Name and Address Organization Details Recorded Time 7661 Ultram medicatio n other severe Not available 07/09/2012 97014 6 RxNorm weak and sleep y Sasha quevedo [place] - [facility], 3 14:25:04 Medications Name Sig Start Date [...] day by oral route for 1 day. 02/07 completed Not Available Not Available Not [...] Available Not Available Not Available Fluzone High-Dose 3793-4910 (PF) 180 mcg/0.5 mL intramuscul ar syringe TO BE ADMINISTE RED BY PHARMACIS T FOR IMMUNIZAT ION active Not Available Not Available No t Available Fluad 65yr up(PF)45 mcg(15 mcgx3)/0.5 mL intramuscul ar syringe ADMINISTE R 0.5ML IN THE MUSCLE DIRECTED active Not Available Not Available No t Available Fluad Quad 2166-1715(6 5yr up)(PF) 60 mcg (15 mcg x 4)/0.5mL IM syringe ADM 0.5ML IM UTD active Not Available Not Available No t Available Vitals Date Recorded Body height Body mass index (BMI) Body weight Body temperature Heart rate Systolic And Diastolic Provider Name and Address Organization Details Last Updated DateTime 152.4 cm 35.4 kg/m2 68323.6 6 g 97.4 [degF] 55 /min 129/49 mm[Hg] Sasha Lowery [place] - [facility], 14:36:51 Date Recorded Body height Body mass index (BMI) Body weight Heart rate Systolic And Diastolic Provider Name and Address Organization Details Last Updated DateTime 04/19/2024 152.4 cm 35.3 kg/m2 08947.22 g 58 /min 155/51 mm[Hg] Sasha Lowery [place] - [facility], 04/19/2024 14:54:30 Date Recorded Body height Body mass index (BMI) Body weight Heart rate Systolic And Diastolic Provider Name and Address Organization Details Last Updated DateTime 08/15/2024 152.4 cm 36.2 kg/m2 52041.03 g 74 /min 131/51 mm[Hg] Sasha Lowery [place] - [facility], 08/15/2024 13:04:42 Date Recorded Body height Body mass index (BMI) Body weight Heart rate Systolic And Diastolic Provider Name and Address Organization Details Last Updated DateTime 01/30/2025 152.4 cm 35.8 kg/m2 26430.84 g 79 /min 140/57 mm[Hg] Sasha Lowery [place] - [facility], 01/30/2025 13:51:48 Date Recorded Body weight Body mass index (BMI) Body height Heart rate Systolic And Diastolic Provider Name and Address Organization Details Last Updated DateTime 03/01/2024 42373.94 g 35.4 kg/m2 152.4 cm 69 /min 125/55 mm[Hg] Sasha Lowery [place] [facility], 03/01/2024 13:42:28 Social History Question Answer Notes LastModified by Organizat ion Details LastModified Time Tobacco Smoking Status Former Smoker over 15 yrs ago Not Available [facility] 01/31/2020 03:19:42 How Many Years Have You Consumed Alcohol? 50 Information not available 01/21/2022 What Is Your Level Of Caffeine Consumption? Occasional [id number] Information not available 01/31/2020 In The 14 [...] Type Of Diet Are You Following? REGULAR [id number] Information not available 01/31/2020 Which Illicit Or Recreational Drugs Have You Used? Yes Marijuana On Weekends [id number] Information not available 01/31/2020 Do You Reside In Or Have You Traveled To An Area Where Ebola Virus Transmission Is Active? No [id number] Information not available 01/31/2020 Education 2 Year College Information not available 07/09/2012 What Is The Highest Grade Or Level Of School You Have Completed Or The Highest Degree You Have Received? DC31140-5 Information not available 01/21/2022 How Many Days [...] available 01/21/2022 Are You Sexually Active? No [id number] Information not available 01/31/2020 At What Age Did You Start Smoking Tobacco? 18 Information not available 01/21/2022 How Much Tobacco Do You Smoke? No [id number] Information not available 01/31/2020 General Stress Level Low Information not available 07/09/2012 How Many Years Have You Smoked Tobacco? 33 [id number] Information not available 01/31/2020 Have You Recently (within The Last 12 Weeks, Or During A Current ) Traveled To Or Lived In A Zika-affected Area? No [employer] Information not available 02/18/2016 How Many Days [...] is your level of alcohol consumption? Occasional [id number] Information not available 01/31/2020 Do you or have you ever used smokeless tobacco? Never used smokeless tobacco [id number] Information not available 01/31/2020 Are you currently employed? 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 Never used electronic cigarettes [id number] Information not available 01/31/2020 What is your exercise level? Moderate [id number] Information not available 01/31/2020 Mental Status Question Answer Note LastModified by Organization D etails LastModified Time Do you feel stressed (tense, restless, nervous, or anxious, or unable to sleep at night)? GS6683-3 Information not available 01/21/2022 Family History Relationship Description Onset Age of this Age Resolved Age Notes LastModified by Organization Details LastModified Time Father Myocardial infarction previo usly record ed as Heart Attack ([place]) Not available 08/11/2014 14:42:51 Mother Problem lung/ copd (previ ously record ed as Other) Not available 08/11/2014 14:42:51 Medical History Condition Response High Blood Pressure Y Autoimmune Condition N Depression N History of Ovarian Cancer N Anxiety Disorder N Arthritis N Infertility N Kidney or Bladder Problems N Osteopenia N Asthma N Hepatitis N Anesthesia complications N Candidate for MyRisk panel N Lung Disease N Defects or Inherited Disease N BRCA testing in past N History of Cancer N Endometriosis N Thyroid Problems N GI Problems N Anemia N History of Breast Cancer N GENARO exposure N Psychiatric Illness N Diabetes N Headaches or Migraines N Heart Disease N Hypertension Y Osteoporosis [...] unspecified formulation 6 completed JOYCE Piper in [facility], 02/18/2016 13:37:31 pneumococcal, unspecified formulation 6 completed JOYCE Petty in [facility], 03/25/2016 13:29:20 Influenza, split virus, quadrivalent, preservative 7 completed JOYCE Petty in [facility], 09/08/2017 13:14:34 Pneumococcal Conjugate, unspecified formulation 7 completed JOYCE Petty in [facility], 09/08/2017 13:15:30 influenza, unspecified formulation 8 completed JOYCE Piper in [facility], 12/29/2017 13:32:45 Influenza, split virus, quadrivalent, [...] Health Care, 01/21/2022 10:03:33 Tdap 8 completed Sasah Meczywor null, [place] - [facility] [...] Sasha Meczywor null, [place] - [facility], 03/01/2024 13:42:05 COVID-19, mRNA, LNP-S, PF, 50 mcg/0.5 mL 4 completed Sasha Meczywor sae, [place] - Moe in [facility], 03/01/2024 13:42:05 COVID-19, mRNA, LNP-S, PF, 50 mcg/0.5 mL 3 completed Sasha Meczywor sae, [place] - Moe in [facility], 03/01/2024 13:42:05 Past Encounters Encounter ID Performer Location Encounter Start Date Encounter Closed Date Diagnosis/Indication Diagnosis SNOMED-CT Code Diagnosis ICD10 Code Diagnosis IMO Codes Diagnosis Note [id number] MD DAYANA Herman MD [address] [facility] [place] [address] 07/09/2012 14:07:52 07/09/2012 16:06:14 [id number] MD DAYANA Herman MD [address] [place] [address],[address] [place] [address] 03/24/2014 10:38:35 03/24/2014 11:39:24 Candidiasis of skin 88328513 [id number] MD DAYANA Herman MD [address] [facility] [place] [address] 08/11/2014 13:59:37 08/11/2014 16:11:48 Specialized medical examination 60836839 Screening for malignant neoplasm of rectum 661927756 Screening mammography 90153143 [id number] MD DAYANA Herman MD [address] [facility] [place] [address] 02/18/2016 13:23:38 02/18/2016 16:13:04 Acute lower urinary tract infection 036726812 R30.0 Postmenopa usal bleeding 21547208 N95.0 [id number] MD DAYANA Herman MD [address] [facility] [place] [address] 03/25/2016 13:22:00 03/25/2016 15:17:36 Endometrium thickened 325802417 R93.8 Postmenopa usal bleeding 24742551 N95.0 [id number] MD DAYANA Herman MD [address] [place] [address],[address] [address] 04/02/2016 10:44:29 04/03/2016 10:35:26 Complex endometrial hyperplasia 328792379 N85.02 Polyp of corpus uteri 11 015577 N84.0 Postmenopa usal bleeding 59306070 N95.0 Cares for self 554809196 Z76.89 [id number] MD DAYANA Herman MD [address] [place] [address],[address] [address] 06/02/2016 13:02:10 06/02/2016 16:24:23 Polyp of corpus uteri 84752037 N84.0 Endometria l hyperplasia 481154631 N85.00 [id number] MD DAYANA Herman MD [address] [place] [address],[address] [address] 06/24/2016 13:00:56 06/24/2016 14:34:38 Polyp of corpus uteri 49087929 N84.0 Complex en dometrial hyperplasia 283311545 N85.02 [id number] MD DAYANA Herman MD [address] [place] [address],[address] [address] 09/08/2017 12:59:41 09/08/2017 15:26:23 Screening for malignant neoplasm of cervix 080755644 Z12.4 Screening mammography 24 491375 Z12.31 Menopausal syndrome 1237 40799 N95.9 Cares for self 498682559 Z76.89 [id number] MD DAYANA Herman MD [address] [place] [address],[address] [address] 12/29/2017 13:20:54 12/29/2017 14:55:38 Anogenital hidradenitis suppurativa 371387006 L73.2 Climacteric arthritis 77 250096 M13.851 [id number] MD DAYANA Herman MD [address] [place] [address] [place] [address] 04/28/2019 14:21:07 04/28/2019 15:35:51 Dysuria 81642874 R30.0 [id number] MD DAYANA Herman MD [address] [place] [address], [place] [address] 12/26/2019 10:32:43 12/26/2019 11:17:29 Screening for malignant neoplasm of cervix 205537173 Z12.4 Screening mammography 24 893249 Z12.31 Screening for osteoporosis 684649584 Z13.820 [id number] MD DAYANA Herman MD [address] [place] [address], [place] [address] 01/21/2022 09:57:40 01/21/2022 12:08:16 Screening for malignant neoplasm of cervix 482211397 Z12.4 Screening mammography 24 967064 Z12.31 Screening for osteoporosis 155671586 N95.8 [id number] MD DAYANA Herman MD [address] [place] [address],[facility] [place] [address] 03/01/2024 13:34:46 03/02/2024 10:00:03 Postmenopausal bleeding 24348824 N95.0 [id number] MD DAYANA Herman MD [address] [place] [address],[facility] [place] [address] 04/12/2024 14:27:00 04/12/2024 15:39:09 Postmenopausal bleeding 87358883 N95.0 [id number] MD DAYANA Herman MD [address] [place] [address],[facility] [place] [address] 04/19/2024 14:40:51 04/19/2024 15:53:28 Endometrioid carcinoma of endometrium 1406847048 C54.1 [id number] MD DAYANA Herman MD [address] [place] [address],[facility] [place] [address] 08/15/2024 12:56:29 08/15/2024 15:31:53 Herpes zoster 2386413 B02.9 74741834 Ulceration of vulva 6864 0004 N76.6 28709 Herpetic u lceration of vulva 64256767 A60.04 A60.09 [id number] MD DAYANA Herman MD [address] [facility] [place] [address] 01/30/2025 13:45:28 01/30/2025 15:35:59 Candidal vulvovaginitis 90897167 B37.31 Herpetic u lceration of vulva 07787750 A60.04 [id number] Health Concerns Section Related Observation LastModified by Organization Detai ls LastModified Time None Recorded Concern Status LastModified by Organization Details LastModified Time None Recorded Advance Directives Directive None Recorded Payers Insurance Date Sequence Insurance Name Policy Number Policy Payan Covered Member ID Payan Member ID Guarantor Name 11/21/2024 1 [facility] Carmela Linton [id number] Carmela Linton 11/21/2024 2 [place] [id number] Carmela Linton [id number] Carmela Linton 11/21/2024 1 [facility] [employer] 1999 [id number] Carmela Linton [id number] Carmela Linton 11/21/2024 1 [place] [facility] Carmela Linton [id number] Carmela Linton 01/28/2025 1 [employer] (MEDICARE REPLACEMENT /ADVANTAGE - PPO) [id number] Carmela Linton [id number] Carmlea Linton Notes Date Note Type Note Provider [...] a steroid injection. Dayana Bey MD [address] [facility],[address], [place], [address], [place] - [facility], 03/01/2024 14:46:10 04/12/2024 text/html She is here [...] and C again. Dayana Bey MD [address], [place], [address], [place] - [facility], 04/12/2024 14:56:19 04/19/2024 text/html She is here to discuss the results of her recent endometrial biopsy, it shows FIGO grade 3, favor poorly differentiated endometrioid carcinoma. The emb was done for pmb, the sonogram shows a normal size uterus, and a 1 cm endometrium. Dayana Bey MD [address], [place], [address], [place] - [facility], 04/19/2024 15:51:06 08/15/2024 text/html She is here for a small cluster of tender blisters on her right labia that she first noted on Thursday, it is Thursday now she has a past history of herpes and has been taking acyclovir without improvement, she feels that this is not typical of a herpes infection. Dayana Bey MD [address], [place], [address], [place] - [facility], 08/15/2024 14:05:34 01/30/2025 text/html She is here for a one week histroy of vulvar discomfort and some vaginal pruritus. She had IV antibiotics 10 days ago for her knee meniscus surgery. She has a past histroy of herpes but herrera not think this feel like that. Dayana Bey MD [address] [facility],[address], [place] [id number], [place] - [facility], 01/30/2025 14:41:47 OBGyn Episode No OBEpisode recorded.
--- OUTSIDE RECORDS SUMMARY | 2025-02-07 11:45 | XMS_ITS | Data Portability ---
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 Name Role Phone EFREN STOUT Personal Development Mentor ZAK TAMEZ Hris Manager SOSA RICHARDSON Urologist GILLES PRESTON Production Welder LUIS CORRAL Primary Care Provider [phone] Assessment Encounter Date Assessment Date Assessment LastModified [...] marielle) PCR 2019 020 [facility], [address], [address] , [place], [address], 0 10:13:05 unlisted lab - covid-19 (novel coronavi marielle) PCR 2019 020 [facility], [address], [address], [place], [address], 0 10:15:07 lipid panel, serum 2019 020 [facility], [address], [address], [place], [address], 1 17:21:25 culture, urine 2019 [facility], [address], [address], [place], [address], 0 08:20:58 urinalys is, complete 2019 [facility], [address], [place], [address], 0 03:04:08 urinalys is, dipstick 2019 [email or web address] In-Office Order, Internal Use Only DO Not Attach Compendium DO Not Attach Compendium, Do Not Delete/merge, [id number] 0 13:30:[address] referral - Intermit tent upper abdomina l pain with radiatio n into the back over the last few years now getting stronger and more frequent . Not related to food or activity . Each episode lasting less than 30 minutes. 2020 021 tfrisino Gilles [facility], [address] [facility], [place], [address], 1 10:09:11 physical therapis t referral - At risk for falling 2019 020 [facility]ad[facility], [address], [place], [address], 0 16:44:53 Procedures None recorded . Surgeries None recorded . Imaging electroc ardiogra m 2020 021 [email or web address] In-Office Order, Internal Use Only DO Not Attach Compendium DO Not Attach Compendium, Do Not Delete/merge, [id number] 1 16:08:59 XR, cervical spine - Neck pain starting late April . R/o DJD 2019 020 MONCHO [facility], [address] [place], [address], 0 13:07:51 US, kidney - Right flank pain for 1 week worse with movement s r/o kidney stones and hydronep hrosis 2019 020 tfrisino [facility], [address] [place], [address], 0 11:39:11 Medication Orders Celebrex 100 mg capsule 2020 021 INTERFACE-20 [id number] [facility] #62035, [address] [place], [place], [id number], 2 08:40:44 atorvast atin 20 mg tablet 2019 020 INTERFACE [facility] #31156, [address] [place], [place], [id number], 0 18:41:09 gabapent in 300 mg capsule 2019 020 [email or web address] [facility] #00362, [address] [place], [place], [id number], 0 14:57:36 atorvast atin 10 mg tablet 2019 020 [email or web address] [facility] #30848, [address] [place], [place], [id number], 0 18:41:11 Patient TargetsNo targets recorded. Patient Instructions Encounter Date Encounter Id Patient Instructions Last Modified By Organization Details Last Modified Time 05/10/2019 [id number] Female Urinary Tract Infection (UTI): Care Instructions [email or web address] Not available 05/10/2019 13:30:00 06/07/2019 [id number] neck pain: care instructions acennerazzo Not available 06/07/2019 13:15:05 high blood pressure: care instructions acennerazzo Not available 06/07/2019 13:04:32 learning about high blood pressure acennerazzo Not available 06/07/2019 13:04:32 high cholesterol: care instructions acennerazzo Not available 06/07/2019 13:12:22 01/04/2020 [id number] bladder training: care instructions acennerazzo Not available [...] under) acennerazzo Not available 01/04/2020 16:44:53 02/08/2020 [id number] lab* tfrisino Not available 02/07 10:59:26 lab* tfrisino Not available 2019 10:58:32 call or return for worsening or concerns jthabet Not available 02/08/2020 10:13:02 07/04/2020 [id number] high blood pressure: care instructions acennerazzo Not available 07/04/2020 16:08:59 learning about high blood pressure acennerazzo Not available 07/04/2020 16:08:59 high cholesterol: care instructions acennerazzo Not available 07/04/2020 15:44:40 Reason for Referral Physical Therapist Referral for Adult health examination At risk for falling Referring Physician: [facility], Encounter Date: 01/04/2020 Production Welder Referral for Upper abdominal pain Intermittent upper [...] Go To The Location Of Their Choice, [id number] 05/12/2019 08:20:58 05/10/19 20 05/10/2019 cultu re, [...] Go To The Location Of Their Choice, [id number] 05/12/2019 08:20:58 05/10/1905/10/2019 urina lysis , dipst [...] DO Not Attach Compendium, Do Not Delete/merge, [id number] 05/10/2019 13:05:01 05/10/19 20 05/10/2019 urina lysis , dipst ick Blood Negati ve Not Available In-Office Order Internal Use Only DO Not Attach Compendium DO Not Attach Compendium, Do Not Delete/merge, [id number] 05/10/2019 13:05:01 05/10/19 20 05/10/2019 urina lysis , dipst ick Specific On[place] 1.010 Not Available In-Off ice Order Internal Use Only DO Not Attach Compendium DO Not Attach Compendium, Do Not Delete/merge, [id number] 05/10/2019 13:05:01 05/10/19 20 05/10/2019 urina lysis , dipst ick Ketone Negati ve Not Available In-Office Order Internal Use Only DO Not Attach Compendium DO Not Attach Compendium, Do Not Delete/merge, [id number] 05/10/2019 13:05:01 05/10/19 20 05/10/2019 urina lysis , dipst ick Bilirubin Negati ve Not Available In-Office Order Internal Use Only DO Not Attach Compendium DO Not Attach Compendium, Do Not Delete/merge, [id number] 05/10/2019 13:05:01 05/10/19 20 05/10/2019 urina lysis , dipst ick Glucose Negati ve Not Available In-Office Order Internal Use Only DO Not Attach Compendium DO Not Attach Compendium, Do Not Delete/merge, [id number] 05/10/2019 13:05:01 05/10/19 20 05/10/2019 urina lysis , dipst ick Appearance Cloudy Not Available In-Offi ce Order Internal Use Only DO Not Attach Compendium DO Not Attach Compendium, Do Not Delete/merge, [id number] 05/10/2019 13:05:01 05/10/19 20 05/10/2019 urina lysis , dipst ick Color Yellow Not Available In-Office Order Internal Use Only DO Not Attach Compendium DO Not Attach Compendium, Do Not Delete/merge, [id number] 05/10/2019 13:05:01 05/30/19 20 05/30/2019 CMP, serum or plasm a comments [facility] a [facility] nd [address] [place] [address]. [place] [address] Medic al Dire brandon plascencia MD Not Available [facility] [address] [place] [address], [address], 05/30/2019 11:52:54 05/30/19 20 05/30/2019 CMP, serum or plasm a glucose 90 mg/dL 70-100 Refer ence range appli cable to fasti ng speci mens only Not Available [facility] [address] [place] [address], [address], 05/30/2019 11:52:54 05/30/1905/30/2019 CMP, serum or plasm a BUN 16 mg/dL 5-25 Not Available [facility] [address] [place] [address], [address], 05/30/2019 11:52:54 05/30/1905/30/2019 CMP, serum or plasm a creat 0.58 mg/dL 0.5-1. 1 Not Available [facility] [address] [place] [address], [address], 05/30/2019 11:52:54 05/30/1905/30/2019 CMP, serum or plasm a glomerular filtration rate > 60 If patie nt is Afric an-Am yeny n, multi ply resul t by 1.21 Chron ic Kidne y Disea se: < 60 ml/mi n/1.7 3 squar e meter s Kidne y Failu re: < 15 ml/mi n/1.7 3 squar e meter s Not Available [facility] [address] [place] [address], [address], 05/30/2019 11:52:54 05/30/1905/30/2019 CMP, serum or plasm a sodium 139 mEq/L 135-14 5 Not Available [facility] [address] [place] [address], [address], 05/30/2019 11:52:54 05/30/19 20 05/30/2019 CMP, serum or plasm a potassium 4.2 mmol/ L 3.5-5. 5 Not Available [facility] [address] [place], [address], 05/30/2019 11:52:54 05/30/1905/30/2019 CMP, serum or plasm a chloride 106 mmol/ L 96-110 Not Available [facility] [address] [place], [address], 05/30/2019 11:52:54 05/30/1905/30/2019 CMP, serum or plasm a CO2 27 mmol/ L 21-32 Not Available [facility] [address] [place], [address], 05/30/2019 11:52:54 05/30/1905/30/2019 CMP, serum or plasm a anion gap 6 3-11 Not Available [facility] [address] [place], [address], 05/30/2019 11:52:54 05/30/1905/30/2019 CMP, serum or plasm a calcium 9.1 mg/dL 8.5-10 .5 Not Available [facility] [address] [place], [address], 05/30/2019 11:52:54 05/30/1905/30/2019 CMP, serum or plasm a total protein 7.1 g/dL 6.0-8. 0 Not Available [facility] [address] [place], [address], 05/30/2019 11:52:54 05/30/1905/30/2019 CMP, serum or plasm a albumin 3.6 g/dL 3.2-5. 0 Not Available [facility] [address] [place], [address], 05/30/2019 11:52:54 05/30/1905/30/2019 CMP, serum or plasm a bili,total 0.5 mg/dL 0.0-1. 4 Not Available [facility] [address] [place], [address], 05/30/2019 11:52:54 05/30/1905/30/2019 CMP, serum or plasm a SGOT 16 U/L 10-42 Not Available [facility] [address] [place] [address], [address], 05/30/2019 11:52:54 05/30/1905/30/2019 CMP, serum or plasm a SGPT 26 U/L 10-60 Not Available [facility] [address] [place] [address], [address], 05/30/2019 11:52:54 05/30/1905/30/2019 CMP, serum or plasm a alk phos 62 U/L 42-121 Not Available [facility] [address] [place] [address], [address], 05/30/2019 11:52:54 05/30/1905/30/2019 lipid panel , serum comments [facility], a mem[facility] r of [facility] Of [address] [place] [address] Medic al Direc brandon plascencia MD Not Available [facility] [address] [place] [address], [address], 05/30/2019 11:52:57 05/30/1905/30/2019 lipid panel , serum cholesterol 171 mg/dL 0-200 Not Available [facility] [address] [place] [address], [address], 05/30/2019 11:52:57 05/30/1905/30/2019 lipid panel , serum triglyceride s 185 mg/dL 0-150 high Not Available [facility] [address] [place] [address], [address], 05/30/2019 11:52:57 05/30/1905/30/2019 lipid panel , serum HDL cholesterol 56 mg/dL >40 Not Available [facility] [address] [place] [address], [address], 05/30/2019 11:52:57 05/30/1905/30/2019 lipid panel , serum LDL calculated 78 mg/dL 0-100 Not Available [facility] [address] [place] [address], [address], 05/30/2019 11:52:57 05/30/1905/30/2019 lipid panel , serum TC-HDLC ratio 3.1 mg/dL 0-4.4 Not Available [facility] [address] [place] [address], [place], [address], 05/30/2019 11:52:57 01/02/2001/02/2020 CBC w/ auto diff [...] Go To The Location Of Their Choice, [id number] 01/02/2020 20:40:44 02/16/20 20 02/18/2020 SARS CoV 2 RNA (COVI D-19) , QL, consulting project director-P CR, respi rator y speci men covid-19, [...] Go To The Location Of Their Choice, [id number] 02/18/2020 10:14:35 04/06/19 21 04/06/2020 lipid panel , serum cholesterol, total 187 mg/dL (<200) Not Available [facility] (Centralized Electronic Ordering - All Locations) Patient Can Go To The Location Of Their Choice, [id number] 04/06/2020 17:21:25 04/06/1904/06/2020 lipid panel , serum triglyceride 210 mg/dL (<150) high Fasti ng Not Available [facility] (Centralized Electronic Ordering - All Locations) Patient Can Go To The Location Of Their Choice, [facility] 04/06/2020 17:21:25 04/06/19 21 04/06/2020 lipid panel , serum HDL chol 52 mg/dL (>39) Not Available [facility] (Centralized Electronic Ordering - All Locations) Patient Can Go To The Location Of Their Choice, [address] 04/06/2020 17:21:25 04/06/1904/06/2020 lipid panel , serum LDL cholesterol, calculated 93 mg/dL (0-130 ) Not Available [facility] (Centralized Electronic Ordering - All Locations) Patient Can Go To The Location Of Their Choice, [id number] 04/06/2020 17:21:25 04/06/1904/06/2020 lipid panel , serum non HDL cholesterol (calc) 135 mg/dL (<160) Not Available [facility] (Centralized Electronic Ordering - All Locations) Patient Can Go To The Location Of Their Choice, [id number] 04/06/2020 17:21:25 06/08/1906/08/2019 XR, cervi bebeto spine [...] nodule stable since at least 018. WSN: [id number] Orderi ng Physic marysol: Brendan Goodson Dictat ed By: Ab Delgado MD Dictat ed Date/T jaclyn: 1:04 pm Review ed By: Ab Delgado MD Signed By: Ab Delgado MD Signed Date/T jaclyn: 1:04 pm Transc ribed By: SWAPNIL Transc ribed Date/T jaclyn: 1:01 pm Patien t Class: Outpat ient [facility] (Outpt Imaging) [address] [place], [address], 06/22/2019 07:21:31 12/30/19 20 12/30/2019 bone densi ty No observ ation record ed. [address] [facility]osit [facility] [address] [place], [address], 01/02/2020 08:41:53 12/30/19 20 12/30/2019 MAMMO , scree christiano, digit al, bilat eral No observ ation record ed. [address] [facility] [address] [place], [address], 01/02/2020 08:41:53 01/11/20 20 12/30/2019 bone densi ty No observ ation record ed. daniel Not Available 12/28 19:44:42 07/05/19 21 07/05/2020 norma lafleur am No observ ation record ed. [email or web address] In-Office Order Internal Use Only DO Not Attach Compendium DO Not Attach Compendium, Do Not Delete/merge, [id number] 07/06/2020 14:43:50 07/05/19 21 norma lafleur am No observ ation record ed. [facility] In-Office Order Internal Use Only DO Not Attach Compendium DO Not Attach Compendium, Do Not Delete/merge, [id number] 07/04/2020 16:05:08 08/01/19 21 07/31/2020 XR, chest , 2 view No observ ation record ed. [address], [address], 07/31/2020 18:47:11 08/09/19 21 08/08/2020 US, abdom en No observ ation record ed. [address], [address], 08/09/2020 08:10:37 Result Notes Documentation Provider Name [...] nodule stable since at least 06/24/2017. 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 Active Not Available [facility] 2 08:40:45 Hyperlip idemia 28792572 Active Not Available [facility] 2 08:40:45 [facility] hyperten monica 79092020 Active Not Available [facility] 2 08:40:45 Major depressi on single episode, in partial remissio n 13267835 Completed 12/09/2018 Brendan Burnett MD [address], [place], [address] , [facility] 9 13:35:28 Urinary incontin ence 422927622 Completed 10/24/2015 Brendan Burnett MD [address], [place], [address] , [facility] 6 17:09:31 Body mass index 30+ - obesity 963742731 Active Not Available [facility] 2 08:40:45 Pain of joint of wrist 913413524 Completed 11/24/2016 Ninfa quevedo, [facility] 7 14:58:56 Female urinary stress incontin ence 91722966 Active sees Dr Richardson Not Available [facility] 2 08:40:45 Urge incontin ence of urine 06096275 Active followed by urology Not Available [facility] 2 08:40:45 Anogenit al hidraden itis suppurat medardo 278659894 Active Not Available [facility] 2 08:40:45 Candidia sis of skin 39416483 Active Not Available [facility] 2 08:40:45 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 Not Available [facility] 2 08:40:45 Exposure to SARS-CoV -2 Completed 07/04/2020 Removal Reason: Problem added by user raya ferrer from the COVID-19 watch flag Brendan Burnett MD [address] [facility] [address], [place], [address] , [facility] 1 15:40:17 Acute pharyngi tis 719436881 Completed 200710/11/2013 RESOLVED DATE: 08/20/19 08; RECORDED 08/20/19 08 1:38PM BY BRENDAN YOUNG MD, ANNOTATI ON/ADDEN DUM Brendan Burnett MD [address], [place], [address] , [facility] 6 17:09:31 General examinat ion of patient Completed 200710/11/2013 RECORDED 08/20/19 08 1:38PM BY BRENDAN YOUNG MD, ANNOTATI ON/ADDEN DUM Brendan Burnett MD [address], [place], [address] , [facility] 6 17:09:31 Acute pharyngi tis 826985912 Completed 200711/07/2013 RESOLVED DATE: 08/20/19 08; RECORDED 08/20/19 08 1:38PM BY BRENDAN YOUNG MD, ANNOTATI ON/ADDEN DUM Brendan Burnett MD [address], [place], [address] , [facility] 6 17:09:31 General examinat ion of patient Completed 200711/07/2013 RECORDED 08/20/19 08 1:38PM BY BRENDAN YOUNG MD, ANNOTMELODY ON/ADDEN DUM Brendan Burnett MD [address], [place], [address] , [facility] 6 17:09:31 Screenin g for malignan t neoplasm of colon Completed 200710/11/2013 RECORDED 02/15/20 08 9:45AM BY JOYCE VAZQUEZ, DEENA ON/ADDEN DUM Brendan Burnett MD [address], [place], [address] , [facility] 6 17:09:31 Administ ration of bacteria l and viral vaccine Completed 200710/11/2013 RECORDED 02/15/20 08 3:19PM BY ROSY REYES, OFFICE VISIT Brendan Burnett MD [address] [facility] [address], [place], [address] , [facility] 6 17:09:31 Screenin g for malignan t neoplasm of colon Completed 200711/07/2013 RECORDED 02/15/20 08 9:45AM BY DEENA ROMERO ON/ADDEN DUM Brendan Burnett MD [address] [facility] [address], [place], [address] , [facility] 6 17:09:31 Administ ration of bacteria l and viral vaccine Completed 200711/07/2013 RECORDED 02/15/20 08 3:19PM BY ROSY REYES, OFFICE VISIT Brendan Burnett MD [address] [facility] [address], [place], [address] , [facility] 6 17:09:31 Contact dermatit is 76586680 Completed 200810/11/2013 RECORDED 10/04/19 09 10:05AM BY DEENA SALMERON ON/JADEEN SHANTHI Burnett MD [address] [facility] [address], [place], [address] , [facility] 6 17:09:31 Amnesia 27256155 Completed 200810/11/2013 RECORDED 10/04/19 09 10:04AM BY DEENA SALMERON ON/ADDEN SHANTHI Burnett MD [address] [facility] [address], [place], [address] , [facility] 6 17:09:31 Clinical finding Completed 200810/11/2013 RECORDED 10/04/19 09 10:04AM BY DEENA SALMERON ON/RA Burnett MD [address] [facility] [address], [place], [address] , [facility] 6 17:09:31 Pain of joint 33204255 Completed 200810/11/2013 IMPRESSI ON: LEFT BUTTOCKS PAIN WITH PYRIFORM IS PAIN, PT WAS TAUGHT HOW TO STRETCH, USE MOTRIN 800MG TID AND STRETCH, CALL IF NOT BETTER; RECORDED 10/04/19 09 10:04AM BY DEENA SALMERON ON/RA Burnett MD [address] [address], [place], [address] , [facility] 6 17:09:31 Hearing loss 24826295 Completed 200810/11/2013 RECORDED 10/04/19 09 10:05AM BY DEENA SALMERON ON/RA Burnett MD [address] [address], [place], [address] , [facility] 6 17:09:31 Contact dermatit is 04136842 Completed 200811/07/2013 RECORDED 10/04/19 09 10:05AM BY DEENA SALMERON/RA Burnett MD [address] [address], [place], [address] , [facility] 6 17:09:31 Amnesia 45371200 Completed 200811/07/2013 RECORDED 10/04/19 09 10:04AM BY DEENA SALMERON ON/RA Burnett MD [address] [address], [place], [address] , [facility] 6 17:09:31 Clinical finding Completed 200811/07/2013 RECORDED 10/04/19 09 10:04AM BY DEENA SALMERON ON/RA Burnett MD [address] [address], [place], [address] , [facility] 6 17:09:31 Pain of joint 73474363 Completed 200811/07/2013 IMPRESSI ON: LEFT BUTTOCKS PAIN WITH PYRIFORM IS PAIN, PT WAS TAUGHT HOW TO STRETCH, USE MOTRIN 800MG TID AND STRETCH, CALL IF NOT BETTER; RECORDED 10/04/19 09 10:04AM BY DEENA SALMERON ON/RA Burnett MD [address] [address], [place], [address] , [facility] 6 17:09:31 Hearing loss 78012854 Completed 200811/07/2013 RECORDED 10/04/19 09 10:05AM BY DEENA SALMERON/RA Burnett MD [address] [address], [place], [address] , [facility] 6 17:09:31 Screenin g for malignan t neoplasm of breast Completed 201110/11/2013 RECORDED 11/14/19 12 12:57PM BY DEENA ZARATE/RA Burnett MD [address] [address], [place], [address] , [facility] 6 17:09:31 Adult health examinat ion Completed 201110/11/2013 RECORDED 11/14/19 12 12:57PM BY DEENA ZARATE/RA Burnett MD [address] [address], [place], [address] , [facility] 6 17:09:31 Sciatica 43783093 Completed 201110/11/2013 RECORDED 11/14/19 12 12:57PM BY DEENA ZARATE/RA Burnett MD [address] [facility] [address], [place], [address] , [facility] 6 17:09:31 Dermatop hytosis of the perianal area Completed 201110/11/2013 RECORDED 11/14/19 12 12:57PM BY DEENA ZARATE ON/RA Burnett MD [address] [facility] [address], [place], [address] , [facility] 6 17:09:31 Acute upper respirat ory infectio n 37782454 Completed 201110/11/2013 IMPRESSI ON: SORE THROAT WITH COUGH STARTED ONE DAY AGO, NORMAL EXAM, APPEARS VIRAL; RECORDED 11/14/19 12 12:57PM BY DEENA ZARATE ON/RA Burnett MD [address] [address], [place], [address] , [facility] 6 17:09:31 Screenin g for malignan t neoplasm of breast Completed 201111/07/2013 RECORDED 11/14/19 12 12:57PM BY DEENA ZARATE/RA Burnett MD [address] [address], [place], [address] , [facility] 6 17:09:31 Sciatica 39504910 Completed 201111/07/2013 RECORDED 11/14/19 12 12:57PM BY DEENA ZARATE ON/RA Burnett MD [address] [address], [place], [address] , [facility] 6 17:09:31 Dermatop hytosis of the perianal area Completed 201111/07/2013 RECORDED 11/14/19 12 12:57PM BY DEENA ZARATE/RA Burnett MD [address] [facility] [address], [place], [address] , [facility] 6 17:09:31 Acute upper respirat ory infectio n 79691781 Completed 201111/07/2013 IMPRESSI ON: SORE THROAT WITH COUGH STARTED ONE DAY AGO, NORMAL EXAM, APPEARS VIRAL; RECORDED 11/14/19 12 12:57PM BY DEENA ZARATE ON/RA Burnett MD [address] [facility] [address], [place], [address] , [facility] 6 17:09:31 Essentia l hyperten monica 59751795 Completed 201210/11/2013 RECORDED 04/22/19 13 1:46AM BY RONALD REYES MA, DEENA ON/RA Burnett MD [address] [facility] [address], [place], [address] , [facility] 6 17:09:31 Essentia l hyperten monica 09525860 Completed 201211/07/2013 RECORDED 04/22/19 13 1:46AM BY RONALD REYES MA, DEENA ON/RA Burnett MD [address] [facility] [address], [place], [address] , [facility] 6 17:09:31 Influenz a vaccine needed [id number] 06 Completed 201210/11/2013 RECORDED 06/01/19 13 1:37PM BY RONALD REYES MA, ANNOTMELODY ON/RA Burnett MD [address] [facility] [address], [place], [address] , [facility] 6 17:09:31 Knee pain Completed 201210/11/2013 RECORDED 06/01/19 13 1:37PM BY RONALD REYES MA, BLANCAATI ON/RA Burnett MD [address] [facility] [address], [place], [address] , [facility] 6 17:09:31 Influenz a vaccine needed [id number] 06 Completed 201211/07/2013 RECORDED 06/01/19 13 1:37PM BY RONALD REYES MA, DEENA ON/RA Burnett MD [address] [facility] [address], [place], [address] , [facility] 6 17:09:31 Knee pain Completed 201211/07/2013 RECORDED 06/01/19 13 1:37PM BY RONALD REYES MA, DEENA ON/RA Burnett MD [address] [facility] [address], [place], [address] , [facility] 6 17:09:31 Syncope and collapse 222428623 Completed 201210/11/2013 IMPRESSI ON: OVER THE WEEKEND [...] BY DEENA ZARATE ON/RA Burnett MD [address] [facility] [address], [place], [address] , [facility] 6 17:09:31 Syncope and collapse [id number] Completed 201211/07/2013 IMPRESSI ON: OVER THE WEEKEND [...] ANNOTATI ON/ADDEN DUM Brendan Burnett MD [address] [address], [place], [address] , [facility] 6 17:09:31 Tobacco user [id number] Completed 201301/19/2014 RECORDED 07/06/19 14 1:20PM BY AHSAN SALDANA I, OFFICE VISIT Brendan Burnett MD [address] [address], [place], [address] , [facility] 6 17:09:31 History of clinical finding in subject [id number] Completed 201301/19/2014 RECORDED 07/06/19 14 1:20PM BY AHSAN SALDANA I, OFFICE VISIT Brendan Burnett MD [address] [address], [place], [address] , [facility] 6 17:09:31 Adult health examinat ion Completed 201301/19/2014 RECORDED 07/06/19 14 1:14PM BY AHSAN SALDANA I, OFFICE VISIT Brendan Burnett MD [address] [address], [place], [address] , [facility] 6 17:09:31 Administ ration of viral vaccine Completed 201301/19/2014 RECORDED 07/06/19 14 1:39PM BY BRENDAN YOUNG MD, OFFICE VISIT Brendan Burnett MD [address] [address], [place], [address] , [facility] 6 17:09:31 Screenin g for malignan t neoplasm of breast Completed 201301/19/2014 RECORDED 08/16/19 14 3:00PM BY HEBER SEGAL, BENIIC AL SUMMARY Brendan Burnett MD [address] [facility] [address], [place], [address] , [facility] 6 17:09:31 Polyp of corpus uteri 16053040 Active 2016 Not Available [facility] 2 08:40:45 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 Procedures Surgical History Date Name Laterality Status Provider Name and Address Organization Details Recorded Time 01/04/20 20 Six-Item Cognitive Test completed Inez Knott MA [facility] 01/04/2020 15:00:50 12/30/19 20 Most Recent Mammogram completed [facility] 01/02/2020 08:41:48 12/30/19 20 Mammogram screening completed [facility] 01/02/2020 08:41:42 12/30/19 20 Dxa bone density josé vrt fx completed [facility] 01/02/2020 08:41:15 12/10/19 19 Mini-Cog Test completed Ahsan Garcia [facility] 12/09/2018 13:07:35 01/19/20 18 Date of Last Colonoscopy completed Marylou Saldana [facility] 01/18/2018 15:00:01 01/19/20 18 colonoscopy completed Marylou Saldana [facility] 01/18/2018 14:59:45 12/08/19 18 Most Recent Bone Density completed Marylou Saldana [facility] 12/15/2017 14:14:35 12/02/19 18 Mini-Cog Test completed Katie Deras MA [facility] 12/01/2017 13:12:11 11/25/19 17 Fall Risk Assessment completed Ninfa Burnette MA [facility] 11/24/2016 15:13:38 11/25/19 17 Mini-Cog Test completed Ninfa Burnette MA [facility] 11/24/2016 15:15:21 06/17/19 17 Hysteroscopy completed Ronald rodríguez MA [facility] 02/08/2020 09:40:17 06/17/19 17 Dilation and curettage completed Ronald rodríguez MA [facility] 02/08/2020 09:40:12 09/28/19 16 Fall Risk Assessment completed Dayana Del Cid [facility] 09/28/2015 14:42:10 09/28/19 16 Mini-Cog Test completed Dayana Del Cid [facility] 09/28/2015 14:42:10 09/28/19 16 Advanced Care Planning completed Dayana Del Cid [facility] 09/28/2015 14:42:10 08/12/19 15 [facility] 09/28/2015 14:42:09 06/08/19 11 repair of stress incontinence by suprapubic sling completed Ronald rodríguez MA [facility] 02/08/2020 09:39:54 Tonsillectomy completed Brendan Burnett MD [address], [address], [facility] 01/19/2014 14:56:33 Imaging Results None recorded. Procedure Notes None recorded. Medical Equipment None Reported. Allergies Allergen ID Allergen Name Allergen Category Reaction Reaction Severity Criticality Documentation Date Start Date Code Code System Note Provider Name and Address Organization Details Recorded Time 7678 Ultram medicatio n Not available Not available Not available 10/11/2013 05275 6 RxNorm Synco pe [facility] Corrales, [facility] [address] [facility] [address], [place], [address], [facility] 5 22:23:38 Medications Name Sig Start Date [...] Not Available No t Available Fluzone High-Dose 0367-1076 (PF) 180 mcg/0.5 mL intramusc ular syringe TO BE ADMINIST ERED BY PHARMACI ST FOR IMMUNIZA TION 11/24 completed Not Available Not Available Not Available Fish Oil 1,000 mg (120 mg-180 mg) capsule Take 1 capsule every day by oral route as directed . 06/01 completed Not Available Not Available Not Available Fluad Quad 6551-2625 (65yr up)(PF) 60 mcg (15 mcg x [...] Updated DateTime 0 152.4 cm 29.5 kg/m2 69849.4 5 g 98.2 [degF] 98 % 98 % 57 /min 116/63 mm[Hg] Katie Deras MA [facility] 0 13:03:05 Date Recorded Body height Body mass index (BMI) Body weight Heart rate Oxygen saturation Oxygen saturation in Arterial blood by Pulse oximetry Body temperature Systolic And Diastolic Provider Name and Address Organization Details Last Updated DateTime 0 152.4 cm 29.9 kg/m2 09662.6 3 g 60 /min 98 % 98 % 97.5 [degF] 114/62 mm[Hg] Ahsan Garcia [facility] 0 12:52:21 Date Recorded Body height Body mass index (BMI) Body weight Heart rate Oxygen saturation Oxygen saturation in Arterial blood by Pulse oximetry Body temperature Systolic And Diastolic Provider Name and Address Organization Details Last Updated DateTime 1 152.4 cm 31.6 kg/m2 96153.9 6 g 60 /min 98 % 98 % 97.52 [degF] 100/64 mm[Hg] Inez Knott MA [facility] 1 15:35:01 Date Recorded Body height Body mass index (BMI) Body weight Heart rate Oxygen saturation Oxygen saturation in Arterial blood by Pulse oximetry Body temperature Systolic And Diastolic Provider Name and Address Organization Details Last Updated DateTime 0 152.4 cm 30.1 kg/m2 05982.2 2 g 56 /min 98 % 98 % 97.88 [degF] 122/61 mm[Hg] Inez Knott MA [facility] 0 15:02:48 Date Recorded Body height Provider Name an d Address Organization Details Last Updated DateTime 02/08/2020 152.4 cm Ronald Vega MA [facility] 02/08/2020 09:37:46 Social History Question Answer Notes LastModified by Organizat ion Details LastModified Time Tobacco Smoking Status Former Smoker Not Available [facility] 01/31/2020 03:36:37 Do You Have An Advance Directive? No [id number] Information not available 01/31/2020 Is Blood Transfusion Acceptable In An Emergency? Yes [id number] Information not available 01/31/2020 What Is Your Level Of Caffeine Consumption? Moderate [id number] Information not available 01/31/2020 How Much Tobacco Do You Chew? None [id number] Information not available 01/31/2020 What Type Of Diet Are You Following? REGULAR [id number] Information not available 01/31/2020 Which Illicit Or Recreational Drugs Have You Used? No [id number] Information not available 01/31/2020 Live Alone Or [...] Or Greater Than 100 Degrees Fahrenheit? No [email or web address] Information not available 01/04/2020 Are You Or Anyone In Your Household A Health Care Provider Or Emergency Responder? No [email or web address] Information not available 01/04/2020 To The Best Of Your Knowledge Have You Been In Close Proximity To Any Individual Who Tested Positive For COVID-19? Yes Information not available 02/08/2020 What Was The Date Of Your Most Recent Tobacco Screening? 01/04/2020 [id number] Information not available 01/31/2020 How Many Children Do You Have? 1 Daughter [id number] Information not available 01/31/2020 Seat Belts Used Routinely Yes Information not available 09/28/2015 Are You Sexually Active? No [id number] Information not available 01/31/2020 Smoke Alarm In Home Yes Information not available 09/28/2015 Are You Passively Exposed To Smoke? No Information not available 09/28/2015 Do You Use Sunscreen Routinely? Yes [id number] Information not available 01/31/2020 Sex: Unknown Functional Status Question Answer Note LastModified by Organizat ion Details LastModified Time What is your level of alcohol consumption? Occasional [id number] Information not available 01/31/2020 Do you or have you ever used smokeless tobacco? Never used smokeless tobacco [id number] Information not available 01/31/2020 Are you currently employed? No retired February 2015 Information not available 02/08/2020 Are you able to care for yourself independently ? 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 Never used electronic cigarettes [id number] Information not available 01/31/2020 What is your exercise level? Moderate walking [id number] Information not available 01/31/2020 Mental Status None [...] zoster live 4 completed Kimi Kamara null, [facility] 07/26/2021 15:00:52 influenza, unspecified formulation 6 completed Kimi Kamara null, [facility] 07/26/2021 15:00:52 pneumococcal, unspecified formulation 6 completed Kimi Kamara null, [facility] 07/26/2021 15:00:52 Tdap 8 completed Kimi Kamara null, [facility] 07/26/2021 15:00:52 Influenza, high-dose, trivalent, PF 9 completed Kimi Kamara null, [facility] 07/26/2021 15:00:52 Influenza, split virus, quadrivalent, preservative 0 completed Kimi Kamara null, [facility] 07/26/2021 15:00:52 Influenza, adjuvanted, quadrivalent, PF 1 completed Kimi Kamara null, [facility] 07/26/2021 15:00:52 Influenza, split virus, quadrivalent, PF 5 completed Not Available [facility] 04/16/2019 02:22:01 COVID-19, mRNA, LNP-S, PF, 30 mcg/0.3 mL dose, hanna-sucrose 2 completed Kimi Kamara null, [facility] 07/26/2021 15:00:52 Pneumococcal conjugate PCV 13 6 completed Not Available [facility] 04/16/2019 02:21:36 Influenza, high-dose, trivalent, PF 7 completed Not Available [facility] 04/16/2019 02:22:21 pneumococcal polysaccharide PPV23 7 completed Not Available [facility] 04/16/2019 02:21:26 Influenza, high-dose, trivalent, PF 8 completed Not Available [facility] 04/16/2019 02:22:14 Influenza, split virus, trivalent, PF 4 completed Not Available [facility] 04/16/2019 02:21:57 Influenza, split virus, trivalent, preservative 6 completed Kimi Kamara null, [facility] 07/26/2021 15:00:52 Influenza, split virus, trivalent, preservative 7 completed Kimi Kamara null, [facility] 07/26/2021 15:00:52 Tdap 8 completed Kimi Kamara null, [facility] 07/26/2021 15:00:52 Influenza, split virus, trivalent, preservative 8 completed Kimi Kamara null, [facility] 07/26/2021 15:00:52 Influenza, split virus, trivalent, preservative 0 completed Kimi Kamara null, [facility] 07/26/2021 15:00:52 Influenza, split virus, trivalent, preservative 2 completed Kimi Kamara null, [facility] 07/26/2021 15:00:52 Past Encounters Encounter ID Performer Location Encounter Start Date Encounter Closed Date Diagnosis/Indication Diagnosis SNOMED-CT Code Diagnosis ICD10 Code Diagnosis IMO Codes Diagnosis Note [id number] autoEComm erce [address] [facility] [address] [place] [address] 03/04/2006 00:00:00 [id number] autoEComm erce [address] [facility] [address] [place] [address] 03/04/2005 00:00:00 [id number] autoEComm erce [address] [facility] [address] [place] [address] 09/01/2006 00:00:00 [id number] autoEComm erce [address] [facility] [address] [place] [address] 11/04/2006 00:00:00 [id number] autoEComm erce [address] [facility] [place] [address] 01/18/2007 00:00:00 [id number] autoEComm erce [address] [facility] [place] [address] 02/04/2007 00:00:00 [id number] autoEComm erce [address] [facility] [place] [address] 08/20/2007 00:00:00 [id number] autoEComm erce [address] [facility] [place] [address] 09/24/2007 00:00:00 [id number] autoEComm erce [address] [facility] [place] [address] 02/15/2008 00:00:00 [id number] autoEComm erce [address] [facility] [place] [address] 04/20/2008 00:00:00 [id number] autoEComm erce [address] [facility] [place] [address] 10/03/2008 00:00:00 [id number] autoEComm erce [address] [facility] [place] [address] 10/16/2009 00:00:00 [id number] autoEComm erce [address] [facility] [place] [address] 08/20/2010 00:00:00 [id number] autoEComm erce [address] [facility] [place], [place] [address] 11/05/2010 00:00:00 [id number] autoEComm erce [address] [facility] [place] [address] 11/14/2011 00:00:00 [id number] autoEComm erce [address] [facility] [place], [place] [address] 05/31/2012 00:00:00 [id number] autoEComm erce [address] [facility] [place], [place] [address] 06/10/2012 00:00:00 [id number] autoEComm erce [address] [facility] [place] [address] 07/05/2013 00:00:00 [id number] Brendan Burnett MD Main Office [facility] [address] [address] [place] [address] 01/19/2014 14:14:21 01/19/2014 15:22:41 Needs influenza immunization 886141042 Essential hypertension 21673421 Body mass index 30+ - obesity 122850122 [id number] Brendan Burnett MD Main Office [facility] [address] [address] [place] [address] 07/24/2014 15:01:58 07/24/2014 15:34:52 Adult health examination 210539000 Hyperlipidemia 95869428 Essential hypertension 31244607 [id number] Brendan Burnett MD Main Office [facility] [address] [address] [place] [address] 11/24/2014 15:32:09 11/24/2014 16:16:30 Pain of joint of wrist 824550815 advised her to take NSAIDs on a regular basis and to make an appointmen t with hand surgery. [id number] Brendan Burnett MD Main Office [facility] [address] [address] [place] [address] 01/22/2015 15:05:46 01/22/2015 15:44:00 Essential hypertension 19605836 I10 Needs infl uenza immunization 758354088 Z23 Hyperlipidemia 24978870 E78.5 check labs next visit [id number] Brendan Burnett MD Main Office [address] [facility] [address] [place] [address] 09/28/2015 14:22:20 09/28/2015 15:44:50 Body mass index 30+ - obesity 181753059 Z68.39 Hyperlipidemia 26646526 E78.5 check labs next visit Essential hypertension 32407374 I10 Major depr ession single episode, 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 Adult heal th examination 420792423 Z00.00 UTD with colonoscop y, bone density and mammogram. Will give pneumovax today. At [facility] risk for falls 034484110 Z91.81 Administra tion of pneumococcal vaccine 55360596 Z23 [id number] Brendan Burnett MD Main Office [address] [address] [place] [address] 2016 11:32:38 2016 12:01:49 Essential hypertension 59038979 I10 good control; continue current meds Chest pain 60966654 R07. 9 She had 2 episodes of CP and has concerns because her father in his 60's of heart disease. We will get a stress test to look at this further. [id number] Juan Pablo Hernández PA-C Main Office [address] [address] [place] [address] 06/09/2016 13:59:14 06/09/2016 14:50:51 Pre-surgery evaluation 052534998 Z01.818 Endometria l hyperplasia 361845653 N85.00 Essential hypertension 87063886 I10 Hyperlipidemia 22509728 E78.5 [id number] Brendan Burnett MD Main Office [address] [facility] [address] [place] [address] 11/24/2016 14:58:00 11/24/2016 15:56:20 Adult health examination 578084539 Z00.00 UTD with colonoscop y, bone density and mammogram. Will give pneumovax today. Influenza vaccine needed 5562129768 106 Z23 Administra tion of pneumococcal vaccine 45739476 Z23 Hyperlipidemia 58223811 E78.5 [id number] Brendan Burnett MD Main Office [address] [address] [place] [address] 06/24/2017 12:45:12 06/24/2017 13:21:20 Essential hypertension 13516393 I10 good control; continue current meds Hyperlipidemia 31183067 E78.5 Started a new cholestero l med (lipitor) 6 months ago so will check cholestero l level. 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 [id number] Brendan Burnett MD Main Office [address] [place] [address] 12/01/2017 12:59:34 12/01/2017 14:11:33 Adult health examination 199491534 Z00.00 UTD with colonoscop y, bone density and mammogram. Will give pneumovax today. 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 Upper resp iratory infection 05335873 J06.9 Symptomati c treatment Hyperlipidemia 96620283 E78.5 Started a new cholestero l med (lipitor) 6 months ago so will check cholestero l level. [id number] Brendan Burnett MD Main Office [address] [address] [place] [address] 12/09/2018 12:53:45 12/09/2018 14:52:38 Adult health examination 481016308 Z00.00 UTD with colonoscop y (due again in 2022), bone density and mammogram. Urge incon tinence of urine 34522477 N39.41 Hyperlipidemia 22576165 E78.5 We will cut back on her atorvastat in from 40 to 20 mg and recheck her lipids next appointmen t. Essential hypertension 92811290 I10 good control; continue current meds [id number] Brendan Burnett MD Main Office [address] [facility] [address] [place] [address] 03/01/2019 12:33:51 03/01/2019 13:20:57 Neck pain 24332366 M54.2 [id number] Brendan Burnett MD Main Office [address] [address] [place] [address] 05/10/2019 12:37:55 05/10/2019 13:25:31 Dysuria 77398990 R30.0 Right flank pain 0459748 09 R10.9 Possible muscle pain vs kidney stone. She will try NSAIDs and we will get an U/S. [id number] Brendan Burnett MD Main Office [address] [place] [address] 06/07/2019 12:43:05 06/07/2019 13:18:43 Essential hypertension 24155064 I10 good control; continue current meds Hyperlipidemia 18141672 E78.5 Will cut dose of lipitor to 10 mg daily and follow her lipid level. Postherpet ic neuralgia 0222538 B02.29 Has not had a rash but will treat presumptiv ankita Neck pain 98133187 M54.2 [id number] Brendan Burnett MD Main Office [address] [place] [address] 01/04/2020 14:27:50 01/04/2020 15:31:52 Adult health examination 809298425 Z00.00 UTD with colonoscop y (due again in 2022), bone density and mammogram. Influenza vaccine needed 9630533187 106 Z23 Had at her pharmacy Essential hypertension 66039848 I10 good control; continue current meds Female uri nary stress incontinence 98230380 N39.[address] Richardson. On meds and currently under control. Hyperlipidemia 98137722 E78.5 Will increase her lipitor from 10 to 20 mg. [id number] [facility] [address] [facility] [address] [place] [address] 02/08/2020 09:05:48 02/08/2020 11:28:24 Exposure to viral disease 3319844772 86809 Z03.818 1 week ago was exposed to friend with sx of covid/ fever. friends result is pending. Patient currently has no symptoms. She will also be traveling to [place] on 02/19 for the holidays and would like to be tested before she goes. [id number] Brendan Burnett MD Main Office [address] [facility] [address] [facility] [place] [address] 07/04/2020 15:29:16 07/04/2020 15:56:48 Essential hypertension 54016900 I10 good control; continue current meds Hyperlipidemia 46099053 E78.5 Increased her dose of atorvastat in from 10 to 20 mg 6 months ago and LDL at goal. Pain in left knee 191294 3275 75284 M25.562 Probable OA. Seen by ortho in the past. Upper abdominal pain 831 45630 R10.10 Chronic and intermitte nt. Health Concerns Section Related Observation LastModified by Organization Detai ls LastModified Time None Recorded Concern Status LastModified by Organization Details LastModified Time None Recorded Advance Directives Directive N: Payers Insurance Date Sequence Insurance Name Policy Number Policy Payan Covered Member ID Payan Member ID Guarantor Name 02/11/2021 1 [employer] (MEDICARE REPLACEMENT /ADVANTAGE - PPO) [id number] Sosa Linton [id number] Sosa Linton 10/22/2020 2 [place] [id number] Sosa Linton [id number] Sosa Linton 02/11/2021 2 [place] [employer] Sosa Linton [id number] Sosa Linton 10/15/2020 1 [facility] Sosa Linton [id number] Sosa Linton 10/15/2020 1 [facility] [id number] Sosa Lniton [id number] Sosa Linton Notes Date Note Type Note [...] f/c or n/v. Brendan Burnett MD [address] [facility] [address], [place], [address], [facility] 05/10/2019 13:30:37 0 text/html HyperlipidemiaReported by PatientHPIFor [...] but no rash. Brendan Burnett MD [address] [facility] [address], [place], [address], [facility] 06/07/2019 13:25:59 0 text/html Medicare Annual Wellness [...] last visit, andno dizziness/vertigo. Brendan Burnett MD [address], [address], [facility] 01/04/2020 18:43:08 0 text/html COVID-19 Symptoms July 2019Reported by PatientPhone visit: last thu she took a friend to a 's appt. they wore maska but her car is small. Over the weekend her friend had cold sx, risky behaviors and fever. patient has no symptoms. Was exposed 1 week ago today. GABRIELA Garnett [address], [address], [facility] 02/08/2020 10:19:08 1 text/html HyperlipidemiaReported by PatientHPIFor [...] currently manageable with NSAIDs. Brendan Burnett MD [address] [address], [place], [address], [facility] 07/04/2020 16:46:59 OBGyn Episode No OBEpisode recorded.
== END 2025-02-07 10:41 | disposition home or self-care (01) ==
LOC: HO.HOS 10:13
PROVIDERS: PCP Internal Medicine; Visit Provider Orthopaedic Surgery
DX: M25.811 Other specified joint disorders, right shoulder (principal)
CPT/HCPCS: 99213; G2211

== ENCOUNTER → 2025-02-07 10:13 | Outpatient (BNVA) | payer MEDICARE, SELFPAY | PROVIDERS: PCP Internal Medicine; Visit Provider Orthopaedic Surgery | DX: M25.511 Pain in right shoulder (principal); M25.811 Other specified joint disorders, right shoulder | CPT/HCPCS: 99212 ==

== ENCOUNTER 2025-02-20 08:26 | Day surgery (SDC) | payer MEDICARE, SELFPAY ==
--- OUTSIDE RECORDS SUMMARY | 2025-02-15 23:28 | XMS_ITS | Data Portability ---
Author Organization [facility], Main Office Address [address] [facility] [address] [place] [address] Care Team Providers Care Apartment Maintenance Worker Name Role Phone EFREN STOUT Technical Mgr ZAK TAMEZ Elevator Runner SOSA RICHARDSON Urologist GILLES PRESTON Insurance Claims Processor LUIS CORRAL Primary Care Provider Assessment Encounter [...] marielle) PCR 2019 020 [facility], [address], [address] , [place], [address], 0 10:13:05 unlisted lab - covid-19 (novel coronavi marielle) PCR 2019 020 [facility], [address], [place], [address], 0 10:15:07 lipid panel, serum 2019 020 [facility], [address], [place], [address], 1 17:21:25 culture, urine 2019 [facility], [address], [place], [address], 0 08:20:58 urinalys is, complete 2019 [facility], [address], [place], [address], 0 03:04:08 urinalys is, dipstick 2019 [email or web address] In-Office Order, Internal Use Only DO Not Attach Compendium DO Not Attach Compendium, Do Not Delete/merge, [id number] 0 13:30:[address] referral - Intermit tent upper abdomina l pain with radiatio n into the back over the last few years now getting stronger and more frequent . Not related to food or activity . Each episode lasting less than 30 minutes. 2020 021 tfrisino Gilles Koantonioranda, [address] [facility], [place], [address], 1 10:09:11 physical therapis t referral - At risk for falling 2019 020 [facility], [address], [place], [address], 0 16:44:53 Procedures None recorded . Surgeries None recorded . Imaging electroc ardiogra m 2020 021 [email or web address] In-Office Order, Internal Use Only DO Not Attach Compendium DO Not Attach Compendium, Do Not Delete/merge, [id number] 1 16:08:59 XR, cervical spine - Neck pain starting late April . R/o DJD 2019 020 [facility], [address] [place], [address], 0 13:07:51 US, kidney - Right flank pain for 1 week worse with movement s r/o kidney stones and hydronep hrosis 2019 020 tfrisino [facility], [address] [place], [address], 0 11:39:11 Medication Orders Celebrex 100 mg capsule 2020 021 INTERFACE-20 [id number] [facility] #[id number], [address] [place], [place], [id number], 2 08:40:44 atorvast atin 20 mg tablet 2019 020 INTERFACE [facility] #81211, [address] [place], [place], [id number], 0 18:41:09 gabapent in 300 mg capsule 2019 020 [email or web address] [facility] #51735, [address] [place], [place], [id number], 0 14:57:36 atorvast atin 10 mg tablet 2019 020 [email or web address] [facility] #82169, [address] [place], [place], [id number], 0 18:41:11 Patient TargetsNo targets recorded. Patient Instructions Encounter Date Encounter Id Patient Instructions Last Modified By Organization Details Last Modified Time 05/10/2019 [id number] Female Urinary Tract Infection (UTI): Care Instructions [email or web address] Not available 05/10/2019 13:30:00 06/07/2019 [id number] neck pain: care instructions acennerazzo Not available 06/07/2019 13:15:05 high blood pressure: care instructions acennerazzo Not available 06/07/2019 13:04:32 learning about high blood pressure acennerazzo Not available 06/07/2019 13:04:32 high cholesterol: care instructions acennerazzo Not available 06/07/2019 13:12:22 01/04/2020 [id number] bladder training: care instructions acennerazzo Not available [...] under) acennerazzo Not available 01/04/2020 16:44:53 02/08/2020 [id number] lab* tfrisino Not available 02/07 10:59:26 lab* tfrisino Not available 2019 10:58:32 call or return for worsening or concerns jthabet Not available 02/08/2020 10:13:02 07/04/2020 [id number] high blood pressure: care instructions acennerazzo Not available 07/04/2020 16:08:59 learning about high blood pressure acennerazzo Not available 07/04/2020 16:08:59 high cholesterol: care instructions acennerazzo Not available 07/04/2020 15:44:40 Reason for Referral Physical Therapist Referral for Adult health examination At risk for falling Referring Physician: Brendan [facility]ett [facility], Encounter Date: 01/04/2020 Insurance Claims Processor Referral for Upper abdominal pain Intermittent upper [...] Go To The Location Of Their Choice, [id number] 05/12/2019 08:20:58 05/10/19 20 05/10/2019 cultu re, [...] Go To The Location Of Their Choice, [id number] 05/12/2019 08:20:58 05/10/1905/10/2019 urina lysis , dipst [...] DO Not Attach Compendium, Do Not Delete/merge, [id number] 05/10/2019 13:05:01 05/10/19 20 05/10/2019 urina lysis , dipst ick Blood Negati ve Not Available In-Office Order Internal Use Only DO Not Attach Compendium DO Not Attach Compendium, Do Not Delete/merge, [id number] 05/10/2019 13:05:01 05/10/19 20 05/10/2019 urina lysis , dipst ick Specific [place] 1.010 Not Available In-Off ice Order Internal Use Only DO Not Attach Compendium DO Not Attach Compendium, Do Not Delete/merge, [id number] 05/10/2019 13:05:01 05/10/19 20 05/10/2019 urina lysis , dipst ick Ketone Negati ve Not Available In-Office Order Internal Use Only DO Not Attach Compendium DO Not Attach Compendium, Do Not Delete/merge, [id number] 05/10/2019 13:05:01 05/10/19 20 05/10/2019 urina lysis , dipst ick Bilirubin Negati ve Not Available In-Office Order Internal Use Only DO Not Attach Compendium DO Not Attach Compendium, Do Not Delete/merge, [id number] 05/10/2019 13:05:01 05/10/19 20 05/10/2019 urina lysis , dipst ick Glucose Negati ve Not Available In-Office Order Internal Use Only DO Not Attach Compendium DO Not Attach Compendium, Do Not Delete/merge, [id number] 05/10/2019 13:05:01 05/10/19 20 05/10/2019 urina lysis , dipst ick Appearance Cloudy Not Available In-Offi ce Order Internal Use Only DO Not Attach Compendium DO Not Attach Compendium, Do Not Delete/merge, [id number] 05/10/2019 13:05:01 05/10/19 20 05/10/2019 urina lysis , dipst ick Color Yellow Not Available In-Office Order Internal Use Only DO Not Attach Compendium DO Not Attach Compendium, Do Not Delete/merge, [id number] 05/10/2019 13:05:01 05/30/19 20 05/30/2019 CMP, serum or plasm a comments [facility] nd [address] [place] [address]. [place] [address] Medic al Dire brandon plascencia MD Not Available [facility] [address] [place] [address], [address], 05/30/2019 11:52:54 05/30/19 20 05/30/2019 CMP, serum or plasm a glucose 90 mg/dL 70-100 Refer ence range appli cable to fasti ng speci mens only Not Available [facility] [address] [place] [address], [address], 05/30/2019 11:52:54 05/30/1905/30/2019 CMP, serum or plasm a BUN 16 mg/dL 5-25 Not Available [facility] [address] [place] [address], [address], 05/30/2019 11:52:54 05/30/1905/30/2019 CMP, serum or plasm a creat 0.58 mg/dL 0.5-1. 1 Not Available [facility] [address] [place] [address], [address], 05/30/2019 11:52:54 05/30/1905/30/2019 CMP, serum or plasm a glomerular filtration rate > 60 If patie nt is Afric an-Am yeny n, multi ply resul t by 1.21 Chron ic Kidne y Disea se: < 60 ml/mi n/1.7 3 squar e meter s Kidne y Failu re: < 15 ml/mi n/1.7 3 squar e meter s Not Available [facility] [address] [place] [address], [address], 05/30/2019 11:52:54 05/30/1905/30/2019 CMP, serum or plasm a sodium 139 mEq/L 135-14 5 Not Available [facility] [address] [place] [address], [address], 05/30/2019 11:52:54 05/30/19 20 05/30/2019 CMP, serum or plasm a potassium 4.2 mmol/ L 3.5-5. 5 Not Available [facility] [address] [place], [address], 05/30/2019 11:52:54 05/30/1905/30/2019 CMP, serum or plasm a chloride 106 mmol/ L 96-110 Not Available [facility] [address] [place], [address], 05/30/2019 11:52:54 05/30/1905/30/2019 CMP, serum or plasm a CO2 27 mmol/ L 21-32 Not Available [facility] [address] [place], [address], 05/30/2019 11:52:54 05/30/1905/30/2019 CMP, serum or plasm a anion gap 6 3-11 Not Available [facility] [address] [place], [address], 05/30/2019 11:52:54 05/30/1905/30/2019 CMP, serum or plasm a calcium 9.1 mg/dL 8.5-10 .5 Not Available [facility] [address] [place], [address], 05/30/2019 11:52:54 05/30/1905/30/2019 CMP, serum or plasm a total protein 7.1 g/dL 6.0-8. 0 Not Available [facility] [address] [place], [address], 05/30/2019 11:52:54 05/30/1905/30/2019 CMP, serum or plasm a albumin 3.6 g/dL 3.2-5. 0 Not Available [facility] [address] [place], [address], 05/30/2019 11:52:54 05/30/1905/30/2019 CMP, serum or plasm a bili,total 0.5 mg/dL 0.0-1. 4 Not Available [facility] [address] [place], [address], 05/30/2019 11:52:54 05/30/1905/30/2019 CMP, serum or plasm a SGOT 16 U/L 10-42 Not Available [facility] [address] [place] [address], [address], 05/30/2019 11:52:54 05/30/1905/30/2019 CMP, serum or plasm a SGPT 26 U/L 10-60 Not Available [facility] [address] [place] [address], [address], 05/30/2019 11:52:54 05/30/1905/30/2019 CMP, serum or plasm a alk phos 62 U/L 42-121 Not Available [facility] [address] [place] [address], [address], 05/30/2019 11:52:54 05/30/1905/30/2019 lipid panel , serum comments [facility], a mem[facility] r of [facility] [address] [place] [address] Medic al Direc brandon plascencia MD Not Available [facility] [address] [place] [address], [address], 05/30/2019 11:52:57 05/30/1905/30/2019 lipid panel , serum cholesterol 171 mg/dL 0-200 Not Available [facility] [address] [place] [address], [address], 05/30/2019 11:52:57 05/30/1905/30/2019 lipid panel , serum triglyceride s 185 mg/dL 0-150 high Not Available [facility] [address] [place] [address], [address], 05/30/2019 11:52:57 05/30/1905/30/2019 lipid panel , serum HDL cholesterol 56 mg/dL >40 Not Available [facility] [address] [place] [address], [address], 05/30/2019 11:52:57 05/30/1905/30/2019 lipid panel , serum LDL calculated 78 mg/dL 0-100 Not Available [facility] [address] [place] [address], [address], 05/30/2019 11:52:57 05/30/1905/30/2019 lipid panel , serum TC-HDLC ratio 3.1 mg/dL 0-4.4 Not Available [facility] [address] [place] [address], [place], [address], 05/30/2019 11:52:57 01/02/2001/02/2020 CBC w/ auto diff [...] Go To The Location Of Their Choice, [address] 01/02/2020 20:40:44 02/16/20 20 02/18/2020 SARS CoV 2 RNA (COVI D-19) , QL, 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-P CR, respi rator y speci men covid-19, [...] Go To The Location Of Their Choice, [address] 02/18/2020 10:14:35 04/06/19 21 04/06/2020 lipid panel , serum cholesterol, total 187 mg/dL (<200) Not Available [facility] (Centralized Electronic Ordering - All Locations) Patient Can Go To The Location Of Their Choice, [address] 04/06/2020 17:21:25 04/06/1904/06/2020 lipid panel , serum triglyceride 210 mg/dL (<150) high Fasti ng Not Available [facility] (Centralized Electronic Ordering - All Locations) Patient Can Go To The Location Of Their Choice, [facility] 04/06/2020 17:21:25 04/06/19 21 04/06/2020 lipid panel , serum HDL chol 52 mg/dL (>39) Not Available [facility] (Centralized Electronic Ordering - All Locations) Patient Can Go To The Location Of Their Choice, [address] 04/06/2020 17:21:25 04/06/1904/06/2020 lipid panel , serum LDL cholesterol, calculated 93 mg/dL (0-130 ) Not Available [facility] (Centralized Electronic Ordering - All Locations) Patient Can Go To The Location Of Their Choice, [address] 04/06/2020 17:21:25 04/06/1904/06/2020 lipid panel , serum non HDL cholesterol (calc) 135 mg/dL (<160) Not Available [facility] (Centralized Electronic Ordering - All Locations) Patient Can Go To The Location Of Their Choice, [address] 04/06/2020 17:21:25 06/08/1906/08/2019 XR, cervi bebeto spine [...] nodule stable since at least 018. WSN: [id number] Orderi ng Physic marysol: Brendan Goodson Dictat ed By: Ab Delgado MD Dictat ed Date/T jaclyn: 1:04 pm Review ed By: Ab Delgado MD Signed By: Ab Delgado MD Signed Date/T jaclyn: 1:04 pm Transc ribed By: SWAPNIL Transc ribed Date/T jaclyn: 1:01 pm Patien t Class: Outpat ient [facility] (Outpt Imaging) [address] [place], [address], 06/22/2019 07:21:31 12/30/19 20 12/30/2019 bone densi ty No observ ation record ed. [address] Diagnosit Imaging Dept [address] [place], [address], 01/02/2020 08:41:53 12/30/19 20 12/30/2019 MAMMO , scree christiano, digit al, bilat eral No observ ation record ed. [address] [facility] [address] [place], [address], 01/02/2020 08:41:53 01/11/20 20 12/30/2019 bone densi ty No observ ation record ed. daniel Not Available 12/28 19:44:42 07/05/19 21 07/05/2020 norma lafleur am No observ ation record ed. [email or web address] In-Office Order Internal Use Only DO Not Attach Compendium DO Not Attach Compendium, Do Not Delete/merge, [id number] 07/06/2020 14:43:50 07/05/19 21 norma lafleur am No observ ation record ed. [facility] In-Office Order Internal Use Only DO Not Attach Compendium DO Not Attach Compendium, Do Not Delete/merge, [id number] 07/04/2020 16:05:08 08/01/19 21 07/31/2020 XR, chest , 2 view No observ ation record ed. [address], [address], 07/31/2020 18:47:11 08/09/19 21 08/08/2020 US, abdom en No observ ation record ed. [address], [address], 08/09/2020 08:10:37 Result Notes Documentation Provider Name [...] nodule stable since at least 06/24/2017. WSN: [id number] Ordering Physician: Brendan Burnett Dictated By: Ezequiel Delgado MD Dictated Date/Time: 06/08/19 1:04 pm Reviewed By: Ezequiel Delgado MD Signed By: Ezequiel Delgado MD Signed Date/Time: 06/08/19 1:04 pm Transcribed By: SWAPNIL Transcribed Date/Time: 06/08/19 1:01 pm Patient Class: Outpatient Ahsan quevedo [facility] 06/22/2019 07:21:31 Problems Name Problem SNOMED Code Status Onset Date Resolution Date Notes Provider Name and Address Organization Details Recorded Time Herpes simplex 39131982 Active Not Available [facility] 2 08:40:45 Hyperlip idemia 54481105 Active Not Available [facility] 2 08:40:45 [facility] hyperten monica 70656804 Active Not Available [facility] 2 08:40:45 Major depressi on single episode, in partial remissio n 07902818 Completed 12/09/2018 Brendan Burnett MD [address], [place], [address] , [facility] 9 13:35:28 Urinary incontin ence 577724762 Completed 10/24/2015 Brendan Burnett MD [address], [place], [address] , [facility] 6 17:09:31 Body mass index 30+ - obesity 844938098 Active Not Available [facility] 2 08:40:45 Pain of joint of wrist 063002732 Completed 11/24/2016 Ninfa quevedo, 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 Not Available [facility] 2 08:40:45 Exposure to SARS-CoV -2 Completed 07/04/2020 Removal Reason: Problem added by user raya ferrer from the COVID-19 watch flag Brendan Burnett MD [address] [facility] [address], [place], [address] , [facility] 1 15:40:17 Acute pharyngi tis 690168234 Completed 200710/11/2013 RESOLVED DATE: 08/20/19 08; RECORDED 08/20/19 08 1:38PM BY BRENDAN YOUNG MD, ANNOTATI ON/ADDEN DUM Brendan Burnett MD [address], [place], [address] , [facility] 6 17:09:31 General examinat ion of patient Completed 200710/11/2013 RECORDED 08/20/19 08 1:38PM BY BRENDAN YOUNG MD, ANNOTATI ON/ADDEN DUM Brendan Burnett MD [address], [place], [address] , [facility] 6 17:09:31 Acute pharyngi tis 196966001 Completed 200711/07/2013 RESOLVED DATE: 08/20/19 08; RECORDED 08/20/19 08 1:38PM BY BRENDAN YOUNG MD, ANNOTATI ON/ADDEN DUM Brendan Burnett MD [address], [place], [address] , [facility] 6 17:09:31 General examinat ion of patient Completed 200711/07/2013 RECORDED 08/20/19 08 1:38PM BY BRENDAN YOUNG MD, ANNOTMELODY ON/ADDEN DUM Brendan Burnett MD [address], [place], [address] , [facility] 6 17:09:31 Screenin g for malignan t neoplasm of colon Completed 200710/11/2013 RECORDED 02/15/20 08 9:45AM BY JOYCE VAZQUEZ, DEENA ON/ADDEN DUM Brendan Burnett MD [address], [place], [address] , [facility] 6 17:09:31 Administ ration of bacteria l and viral vaccine Completed 200710/11/2013 RECORDED 02/15/20 08 3:19PM BY ROSY REYES, OFFICE VISIT Brendan Burnett MD [address] [facility] [address], [place], [address] , [facility] 6 17:09:31 Screenin g for malignan t neoplasm of colon Completed 200711/07/2013 RECORDED 02/15/20 08 9:45AM BY DEENA ROMERO ON/ADDEN DUM Brendan Burnett MD [address], [place], [address] , [facility] 6 17:09:31 Administ ration of bacteria l and viral vaccine Completed 200711/07/2013 RECORDED 02/15/20 08 3:19PM BY ROSY REYES, OFFICE VISIT Brendan Burnett MD [address], [place], [address] , [facility] 6 17:09:31 Contact dermatit is 87880338 Completed 200810/11/2013 RECORDED 10/04/19 09 10:05AM BY DEENA SALMERON ON/JADEEN SHANTHI Burnett MD [address], [place], [address] , [facility] 6 17:09:31 Amnesia 01161741 Completed 200810/11/2013 RECORDED 10/04/19 09 10:04AM BY DEENA SALMERON ON/ADDEN SHANTHI Burnett MD [address], [place], [address] , [facility] 6 17:09:31 Clinical finding Completed 200810/11/2013 RECORDED 10/04/19 09 10:04AM BY DEENA SALMERON ON/RA Burnett MD [address], [place], [address] , [facility] 6 17:09:31 Pain of joint 10345536 Completed 200810/11/2013 IMPRESSI ON: LEFT BUTTOCKS PAIN WITH PYRIFORM IS PAIN, PT WAS TAUGHT HOW TO STRETCH, USE MOTRIN 800MG TID AND STRETCH, CALL IF NOT BETTER; RECORDED 10/04/19 09 10:04AM BY DEENA SALMERON ON/RA Burnett MD [address] [address], [place], [address] , [facility] 6 17:09:31 Hearing loss 03999646 Completed 200810/11/2013 RECORDED 10/04/19 09 10:05AM BY DEENA SALMERON ON/RA Burnett MD [address] [address], [place], [address] , [facility] 6 17:09:31 Contact dermatit is 42627152 Completed 200811/07/2013 RECORDED 10/04/19 09 10:05AM BY DEENA SALMERON/RA Burnett MD [address] [address], [place], [address] , [facility] 6 17:09:31 Amnesia 40173935 Completed 200811/07/2013 RECORDED 10/04/19 09 10:04AM BY DEENA SALMERON ON/RA Burnett MD [address] [address], [place], [address] , [facility] 6 17:09:31 Clinical finding Completed 200811/07/2013 RECORDED 10/04/19 09 10:04AM BY DEENA SALMERON ON/RA Burnett MD [address] [address], [place], [address] , [facility] 6 17:09:31 Pain of joint 53163595 Completed 200811/07/2013 IMPRESSI ON: LEFT BUTTOCKS PAIN WITH PYRIFORM IS PAIN, PT WAS TAUGHT HOW TO STRETCH, USE MOTRIN 800MG TID AND STRETCH, CALL IF NOT BETTER; RECORDED 10/04/19 09 10:04AM BY DEENA SALMERON ON/RA Burnett MD [address] [address], [place], [address] , [facility] 6 17:09:31 Hearing loss 95165620 Completed 200811/07/2013 RECORDED 10/04/19 09 10:05AM BY DEENA SALMERON/RA Burnett MD [address] [address], [place], [address] , [facility] 6 17:09:31 Screenin g for malignan t neoplasm of breast Completed 201110/11/2013 RECORDED 11/14/19 12 12:57PM BY DEENA ZARATE/RA Burnett MD [address] [address], [place], [address] , [facility] 6 17:09:31 Adult health examinat ion Completed 201110/11/2013 RECORDED 11/14/19 12 12:57PM BY DEENA ZARATE/RA Burnett MD [address] [address], [place], [address] , [facility] 6 17:09:31 Sciatica 86264198 Completed 201110/11/2013 RECORDED 11/14/19 12 12:57PM BY DEENA ZARATE/RA Burnett MD [address], [place], [address] , [facility] 6 17:09:31 Dermatop hytosis of the perianal area Completed 201110/11/2013 RECORDED 11/14/19 12 12:57PM BY DEENA ZARATE ON/RA Burnett MD [address], [place], [address] , [facility] 6 17:09:31 Acute upper respirat ory infectio n 15132527 Completed 201110/11/2013 IMPRESSI ON: SORE THROAT WITH COUGH STARTED ONE DAY AGO, NORMAL EXAM, APPEARS VIRAL; RECORDED 11/14/19 12 12:57PM BY DEENA ZARATE ON/RA Burnett MD [address] [address], [place], [address] , [facility] 6 17:09:31 Screenin g for malignan t neoplasm of breast Completed 201111/07/2013 RECORDED 11/14/19 12 12:57PM BY DEENA ZARATE/RA Burnett MD [address] [address], [place], [address] , [facility] 6 17:09:31 Sciatica 87534157 Completed 201111/07/2013 RECORDED 11/14/19 12 12:57PM BY DEENA ZARATE ON/RA Burnett MD [address] [address], [place], [address] , [facility] 6 17:09:31 Dermatop hytosis of the perianal area Completed 201111/07/2013 RECORDED 11/14/19 12 12:57PM BY DEENA ZARATE/RA Burnett MD [address], [place], [address] , [facility] 6 17:09:31 Acute upper respirat ory infectio n 24961215 Completed 201111/07/2013 IMPRESSI ON: SORE THROAT WITH COUGH STARTED ONE DAY AGO, NORMAL EXAM, APPEARS VIRAL; RECORDED 11/14/19 12 12:57PM BY DEENA ZARATE ON/RA Burnett MD [address], [place], [address] , [facility] 6 17:09:31 Essentia l hyperten monica 82540596 Completed 201210/11/2013 RECORDED 04/22/19 13 1:46AM BY RONALD REYES MA, DEENA ON/RA Burnett MD [address], [place], [address] , [facility] 6 17:09:31 Essentia l hyperten monica 66997572 Completed 201211/07/2013 RECORDED 04/22/19 13 1:46AM BY RONALD REYES MA, DEENA ON/RA Burnett MD [address], [place], [address] , [facility] 6 17:09:31 Influenz a vaccine needed [id number] 06 Completed 201210/11/2013 RECORDED 06/01/19 13 1:37PM BY RONALD REYES MA, ANNOTMELODY ON/RA Burnett MD [address], [place], [address] , [facility] 6 17:09:31 Knee pain Completed 201210/11/2013 RECORDED 06/01/19 13 1:37PM BY RONALD REYES MA, BLANCAATI ON/RA Burnett MD [address], [place], [address] , [facility] 6 17:09:31 Influenz a vaccine needed [id number] 06 Completed 201211/07/2013 RECORDED 06/01/19 13 1:37PM BY RONALD REYES MA, DEENA ON/RA Burnett MD [address], [place], [address] , [facility] 6 17:09:31 Knee pain Completed 201211/07/2013 RECORDED 06/01/19 13 1:37PM BY RONALD REYES MA, DEENA ON/RA Burnett MD [address], [place], [address] , [facility] 6 17:09:31 Syncope and collapse [id number] Completed 201210/11/2013 IMPRESSI ON: OVER THE WEEKEND [...] BY DEENA ZARATE ON/RA Burnett MD [address], [place], [address] , [facility] 6 17:09:31 Syncope and collapse [id number] Completed 201211/07/2013 IMPRESSI ON: OVER THE WEEKEND [...] ANNOTATI ON/ADDEN DUM Brendan Burnett MD [address] [address], [place], [address] , [facility] 6 17:09:31 Tobacco user [id number] Completed 201301/19/2014 RECORDED 07/06/19 14 1:20PM BY AHSAN SALDANA I, OFFICE VISIT Brendan Burnett MD [address] [address], [place], [address] , [facility] 6 17:09:31 History of clinical finding in subject [id number] Completed 201301/19/2014 RECORDED 07/06/19 14 1:20PM BY AHSAN SALDANA I, OFFICE VISIT Brendan Burnett MD [address] [address], [place], [address] , [facility] 6 17:09:31 Adult health examinat ion Completed 201301/19/2014 RECORDED 07/06/19 14 1:14PM BY AHSAN SALDANA I, OFFICE VISIT Brendan Burnett MD [address] [address], [place], [address] , [facility] 6 17:09:31 Administ ration of viral vaccine Completed 201301/19/2014 RECORDED 07/06/19 14 1:39PM BY BRENDAN YOUNG MD, OFFICE VISIT Brendan Burnett MD [address] [address], [place], [address] , [facility] 6 17:09:31 Screenin g for malignan t neoplasm of breast Completed 201301/19/2014 RECORDED 08/16/19 14 3:00PM BY HEBER SEGAL, BENIIC AL SUMMARY Brendan Burnett MD [address], [place], [address] , [facility] 6 17:09:31 Polyp of corpus uteri 89449086 Active 2016 Not Available [facility] 2 08:40:45 Complex endometr ial hyperpla cortney 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 Procedures Surgical History Date Name Laterality Status Provider Name and Address Organization Details Recorded Time 01/04/20 20 Six-Item Cognitive Test completed Inez Knott MA [facility] 01/04/2020 15:00:50 12/30/19 20 Most Recent Mammogram completed [facility] 01/02/2020 08:41:48 12/30/19 20 Mammogram screening completed [facility] 01/02/2020 08:41:42 12/30/19 20 Dxa bone density josé vrt fx completed [facility] 01/02/2020 08:41:15 12/10/19 19 Mini-Cog Test completed Ahsan Garcia [facility] 12/09/2018 13:07:35 01/19/20 18 Date of Last Colonoscopy completed Marylou Saldana [facility] 01/18/2018 15:00:01 01/19/20 18 colonoscopy completed Marylou Saldana [facility] 01/18/2018 14:59:45 12/08/19 18 Most Recent Bone Density completed Marylou Saldana [facility] 12/15/2017 14:14:35 12/02/19 18 Mini-Cog Test completed Katie Deras MA [facility] 12/01/2017 13:12:11 11/25/19 17 Fall Risk Assessment completed Ninfa Burnette MA [facility] 11/24/2016 15:13:38 11/25/19 17 Mini-Cog Test completed Ninfa Burnette MA [facility] 11/24/2016 15:15:21 06/17/19 17 Hysteroscopy completed Ronald rodríguez MA [facility] 02/08/2020 09:40:17 06/17/19 17 Dilation and curettage completed Ronald rodríguez MA [facility] 02/08/2020 09:40:12 09/28/19 16 Fall Risk Assessment completed Dayana Del Cid [facility] 09/28/2015 14:42:10 09/28/19 16 Mini-Cog Test completed Dayana Del Cid [facility] 09/28/2015 14:42:10 09/28/19 16 Advanced Care Planning completed Dayana Del Cid [facility] 09/28/2015 14:42:10 08/12/19 15 Date of Last Pap Smear [facility] 09/28/2015 14:42:09 06/08/19 11 repair of stress incontinence by suprapubic sling completed Ronald rodríguez MA [facility] 02/08/2020 09:39:54 Tonsillectomy completed Brendan Burnett MD [address], [address], [facility] 01/19/2014 14:56:33 Imaging Results None recorded. Procedure Notes None recorded. Medical Equipment None Reported. Allergies Allergen ID Allergen Name Allergen Category Reaction Reaction Severity Criticality Documentation Date Start Date Code Code System Note Provider Name and Address Organization Details Recorded Time 7678 Ultram medicatio n Not available Not available Not available 10/11/2013 47480 6 RxNorm Synco pe [facility] Corrales, [facility] [address], [place], [address], [facility] 5 22:23:38 Medications Name Sig Start Date [...] Not Available No t Available Fluzone High-Dose 6030-0824 (PF) 180 mcg/0.5 mL intramusc ular syringe TO BE ADMINIST ERED BY PHARMACI ST FOR IMMUNIZA TION 11/24 completed Not Available Not Available Not Available Fish Oil 1,000 mg (120 mg-180 mg) capsule Take 1 capsule every day by oral route as directed . 06/01 completed Not Available Not Available Not Available Fluad Quad 4871-0935 (65yr up)(PF) 60 mcg (15 mcg x [...] Updated DateTime 0 152.4 cm 29.5 kg/m2 02198.4 5 g 98.2 [degF] 98 % 98 % 57 /min 116/63 mm[Hg] Katie Deras MA [facility] 0 13:03:05 Date Recorded Body height Body mass index (BMI) Body weight Heart rate Oxygen saturation Oxygen saturation in Arterial blood by Pulse oximetry Body temperature Systolic And Diastolic Provider Name and Address Organization Details Last Updated DateTime 0 152.4 cm 29.9 kg/m2 83664.6 3 g 60 /min 98 % 98 % 97.5 [degF] 114/62 mm[Hg] Ahsan Garcia [facility] 0 12:52:21 Date Recorded Body height Body mass index (BMI) Body weight Heart rate Oxygen saturation Oxygen saturation in Arterial blood by Pulse oximetry Body temperature Systolic And Diastolic Provider Name and Address Organization Details Last Updated DateTime 1 152.4 cm 31.6 kg/m2 53846.9 6 g 60 /min 98 % 98 % 97.52 [degF] 100/64 mm[Hg] Inez Knott MA [facility] 1 15:35:01 Date Recorded Body height Body mass index (BMI) Body weight Heart rate Oxygen saturation Oxygen saturation in Arterial blood by Pulse oximetry Body temperature Systolic And Diastolic Provider Name and Address Organization Details Last Updated DateTime 0 152.4 cm 30.1 kg/m2 76169.2 2 g 56 /min 98 % 98 % 97.88 [degF] 122/61 mm[Hg] Inez Knott MA [facility] 0 15:02:48 Date Recorded Body height Provider Name an d Address Organization Details Last Updated DateTime 02/08/2020 152.4 cm Ronald Vega MA [facility] 02/08/2020 09:37:46 Social History Question Answer Notes LastModified by Organizat ion Details LastModified Time Tobacco Smoking Status Former Smoker Not Available [facility] 01/31/2020 03:36:37 Do You Have An Advance Directive? No [id number] Information not available 01/31/2020 Is Blood Transfusion Acceptable In An Emergency? Yes [id number] Information not available 01/31/2020 What Is Your Level Of Caffeine Consumption? Moderate [id number] Information not available 01/31/2020 How Much Tobacco Do You Chew? None [id number] Information not available 01/31/2020 What Type Of Diet Are You Following? REGULAR [id number] Information not available 01/31/2020 Which Illicit Or Recreational Drugs Have You Used? No [id number] Information not available 01/31/2020 Live Alone Or [...] Or Greater Than 100 Degrees Fahrenheit? No [email or web address] Information not available 01/04/2020 Are You Or Anyone In Your Household A Health Care Provider Or Emergency Responder? No [email or web address] Information not available 01/04/2020 To The Best Of Your Knowledge Have You Been In Close Proximity To Any Individual Who Tested Positive For COVID-19? Yes Information not available 02/08/2020 What Was The Date Of Your Most Recent Tobacco Screening? 01/04/2020 [id number] Information not available 01/31/2020 How Many Children Do You Have? 1 Daughter [id number] Information not available 01/31/2020 Seat Belts Used Routinely Yes Information not available 09/28/2015 Are You Sexually Active? No [id number] Information not available 01/31/2020 Smoke Alarm In Home Yes Information not available 09/28/2015 Are You Passively Exposed To Smoke? No Information not available 09/28/2015 Do You Use Sunscreen Routinely? Yes [id number] Information not available 01/31/2020 Sex: Unknown Functional Status Question Answer Note LastModified by Organizat ion Details LastModified Time What is your level of alcohol consumption? Occasional [id number] Information not available 01/31/2020 Do you or have you ever used smokeless tobacco? Never used smokeless tobacco [id number] Information not available 01/31/2020 Are you currently employed? No retired February 2015 Information not available 02/08/2020 Are you able to care for yourself independently ? 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 Never used electronic cigarettes [id number] Information not available 01/31/2020 What is your exercise level? Moderate walking [id number] Information not available 01/31/2020 Mental Status None [...] zoster live 4 completed Kimi Kamara null, [facility] 07/26/2021 15:00:52 influenza, unspecified formulation 6 completed Kimi Kamara null, [facility] 07/26/2021 15:00:52 pneumococcal, unspecified formulation 6 completed Kimi Kamara null, [facility] 07/26/2021 15:00:52 Tdap 8 completed Kimi Kamara null, [facility] 07/26/2021 15:00:52 Influenza, high-dose, trivalent, PF 9 completed Kimi Kamara null, [facility] 07/26/2021 15:00:52 Influenza, split virus, quadrivalent, preservative 0 completed Kimi Kamara null, [facility] 07/26/2021 15:00:52 Influenza, adjuvanted, quadrivalent, PF 1 completed Kimi Kamara null, [facility] 07/26/2021 15:00:52 Influenza, split virus, quadrivalent, PF 5 completed Not Available [facility] 04/16/2019 02:22:01 COVID-19, mRNA, LNP-S, PF, 30 mcg/0.3 mL dose, hanna-sucrose 2 completed Kimi Kamara null, [facility] 07/26/2021 15:00:52 Pneumococcal conjugate PCV 13 6 completed Not Available [facility] 04/16/2019 02:21:36 Influenza, high-dose, trivalent, PF 7 completed Not Available [facility] 04/16/2019 02:22:21 pneumococcal polysaccharide PPV23 7 completed Not Available [facility] 04/16/2019 02:21:26 Influenza, high-dose, trivalent, PF 8 completed Not Available [facility] 04/16/2019 02:22:14 Influenza, split virus, trivalent, PF 4 completed Not Available [facility] 04/16/2019 02:21:57 Influenza, split virus, trivalent, preservative 6 completed Kimi Kamara null, [facility] 07/26/2021 15:00:52 Influenza, split virus, trivalent, preservative 7 completed Kimi Kamara null, [facility] 07/26/2021 15:00:52 Tdap 8 completed Kimi Kamara null, [facility] 07/26/2021 15:00:52 Influenza, split virus, trivalent, preservative 8 completed Kimi Kamara null, [facility] 07/26/2021 15:00:52 Influenza, split virus, trivalent, preservative 0 completed Kimi Kamara null, [facility] 07/26/2021 15:00:52 Influenza, split virus, trivalent, preservative 2 completed Kimi Kamara null, [facility] 07/26/2021 15:00:52 Past Encounters Encounter ID Performer Location Encounter Start Date Encounter Closed Date Diagnosis/Indication Diagnosis SNOMED-CT Code Diagnosis ICD10 Code Diagnosis IMO Codes Diagnosis Note [id number] autoEComm erce [address] [facility] [address] [place] [address] 03/04/2006 00:00:00 [id number] autoEComm erce [address] [place] [address] 03/04/2005 00:00:00 [id number] auto[facility]Comm erce [address] [place] [address] 09/01/2006 00:00:00 [id number] autoEComm erce [address] [place] [address] 11/04/2006 00:00:00 [id number] autoEComm erce [address] [facility] [place] [address] 01/18/2007 00:00:00 [id number] autoEComm erce [address] [facility] [place] [address] 02/04/2007 00:00:00 [id number] autoEComm erce [address] [facility] [place] [address] 08/20/2007 00:00:00 [id number] autoEComm erce [address] [facility] [place] [address] 09/24/2007 00:00:00 [id number] autoEComm erce [address] [facility] [place] [address] 02/15/2008 00:00:00 [id number] autoEComm erce [address] [facility] [place] [address] 04/20/2008 00:00:00 [id number] autoEComm erce [address] [facility] [place] [address] 10/03/2008 00:00:00 [id number] autoEComm erce [address] [facility] [place] [address] 10/16/2009 00:00:00 [id number] autoEComm erce [address] [facility] [place] [address] 08/20/2010 00:00:00 [id number] autoEComm erce [address] [facility] [place], [place] [address] 11/05/2010 00:00:00 [id number] autoEComm erce [address] [facility] [place] [address] 11/14/2011 00:00:00 [id number] autoEComm erce [address] [facility] [place], [place] [address] 05/31/2012 00:00:00 [id number] autoEComm erce [address] [facility] [place], [place] [address] 06/10/2012 00:00:00 [id number] autoEComm erce [address] [facility] [place] [address] 07/05/2013 00:00:00 [id number] Brendan Burnett MD Main Office [facility] [address] [place] [address] 01/19/2014 14:14:21 01/19/2014 15:22:41 Needs influenza immunization 061398442 Essential hypertension 88311487 Body mass index 30+ - obesity 149325192 [id number] Brendan Burnett MD Main Office [facility] [address] [place] [address] 07/24/2014 15:01:58 07/24/2014 15:34:52 Adult health examination 702931128 Hyperlipidemia 60344393 Essential hypertension 43900627 [id number] Brendan Burnett MD Main Office [facility] [address] [place] [address] 11/24/2014 15:32:09 11/24/2014 16:16:30 Pain of joint of wrist 827720063 advised her to take NSAIDs on a regular basis and to make an appointmen t with hand surgery. [id number] Brendan Burnett MD Main Office [facility] [address] [place] [address] 01/22/2015 15:05:46 01/22/2015 15:44:00 Essential hypertension 03826056 I10 Needs infl uenza immunization 791165168 Z23 Hyperlipidemia 99490955 E78.5 check labs next visit [id number] Brendan Burnett MD Main Office [address] [facility] [address] [place] [address] 09/28/2015 14:22:20 09/28/2015 15:44:50 Body mass index 30+ - obesity 737929708 Z68.39 Hyperlipidemia 70117797 E78.5 check labs next visit Essential hypertension 24256115 I10 Major depr ession single episode, 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 Adult heal th examination 898287543 Z00.00 UTD with colonoscop y, bone density and mammogram. Will give pneumovax today. At [facility] risk for falls 142368372 Z91.81 Administra tion of pneumococcal vaccine 17617913 Z23 [id number] Brendan Burnett MD Main Office [address] [address] [place] [address] 2016 11:32:38 2016 12:01:49 Essential hypertension 92959251 I10 good control; continue current meds Chest pain 09209173 R07. 9 She had 2 episodes of CP and has concerns because her father in his 60's of heart disease. We will get a stress test to look at this further. [id number] Juan Pablo Hernández PA-C Main Office [address] [address] [place] [address] 06/09/2016 13:59:14 06/09/2016 14:50:51 Pre-surgery evaluation 474146846 Z01.818 Endometria l hyperplasia 751642710 N85.00 Essential hypertension 06493392 I10 Hyperlipidemia 00682742 E78.5 [id number] Brendan Burnett MD Main Office [address] [facility] [address] [place] [address] 11/24/2016 14:58:00 11/24/2016 15:56:20 Adult health examination 747874272 Z00.00 UTD with colonoscop y, bone density and mammogram. Will give pneumovax today. Influenza vaccine needed 8752821791 106 Z23 Administra tion of pneumococcal vaccine 31137249 Z23 Hyperlipidemia 70011763 E78.5 [id number] Brendan Burnett MD Main Office [address] [address] [place] [address] 06/24/2017 12:45:12 06/24/2017 13:21:20 Essential hypertension 10899119 I10 good control; continue current meds Hyperlipidemia 06170689 E78.5 Started a new cholestero l med (lipitor) 6 months ago so will check cholestero l level. 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 [id number] Brendan Burnett MD Main Office [address] [place] [address] 12/01/2017 12:59:34 12/01/2017 14:11:33 Adult health examination 220598975 Z00.00 UTD with colonoscop y, bone density and mammogram. Will give pneumovax today. 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 Upper resp iratory infection 49394979 J06.9 Symptomati c treatment Hyperlipidemia 89986500 E78.5 Started a new cholestero l med (lipitor) 6 months ago so will check cholestero l level. [id number] Brendan Burnett MD Main Office [address] [address] [place] [address] 12/09/2018 12:53:45 12/09/2018 14:52:38 Adult health examination 459133147 Z00.00 UTD with colonoscop y (due again in 2022), bone density and mammogram. Urge incon tinence of urine 50426618 N39.41 Hyperlipidemia 77568247 E78.5 We will cut back on her atorvastat in from 40 to 20 mg and recheck her lipids next appointmen t. Essential hypertension 17164081 I10 good control; continue current meds [id number] Brendan Burnett MD Main Office [address] [facility] [address] [place] [address] 03/01/2019 12:33:51 03/01/2019 13:20:57 Neck pain 30684572 M54.2 [id number] Brendan Burnett MD Main Office [address] [address] [place] [address] 05/10/2019 12:37:55 05/10/2019 13:25:31 Dysuria 69883019 R30.0 Right flank pain 8730413 09 R10.9 Possible muscle pain vs kidney stone. She will try NSAIDs and we will get an U/S. [id number] Brendan Burnett MD Main Office [address] [place] [address] 06/07/2019 12:43:05 06/07/2019 13:18:43 Essential hypertension 72965119 I10 good control; continue current meds Hyperlipidemia 34712022 E78.5 Will cut dose of lipitor to 10 mg daily and follow her lipid level. 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 Influenza vaccine needed 0704216017 106 Z23 Had at her pharmacy Essential hypertension 95295301 I10 good control; continue current meds Female uri nary stress incontinence 73907832 N39.[address] Richardson. On meds and currently under control. Hyperlipidemia 32599222 E78.5 Will increase her lipitor from 10 to 20 mg. [id number] Brendan Burnett MD [employer] [facility] [address] [place] [address] 02/08/2020 09:05:48 02/08/2020 11:28:24 Exposure to viral disease 5535292545 20352 Z03.818 1 week ago was exposed to friend with sx of covid/ fever. friends result is pending. Patient currently has no symptoms. She will also be traveling to [place] on 02/19 for the holidays and would like to be tested before she goes. [id number] Brendan Burnett MD Main Office [address] [facility] [address] [facility] [address] 07/04/2020 15:29:16 07/04/2020 15:56:48 Essential hypertension 57246361 I10 good control; continue current meds Hyperlipidemia 05540301 E78.5 Increased her dose of atorvastat in from 10 to 20 mg 6 months ago and LDL at goal. Pain in left knee 958686 2402 61578 M25.562 Probable OA. Seen by ortho in the past. Upper abdominal pain 831 15785 R10.10 Chronic and intermitte nt. Health Concerns Section Related Observation LastModified by Organization Detai ls LastModified Time None Recorded Concern Status LastModified by Organization Details LastModified Time None Recorded Advance Directives Directive N: Payers Insurance Date Sequence Insurance Name Policy Number Policy Payan Covered Member ID Payan Member ID Guarantor Name 02/11/2021 1 [employer] (MEDICARE REPLACEMENT /ADVANTAGE - PPO) [id number] Sosa Linton [id number] Sosa Linton 10/22/2020 2 [place] [id number] Sosa Linton [id number] Sosa Linton 02/11/2021 2 [place] Sosa Linton [id number] Sosa Linton 10/15/2020 1 [facility] Sosa Linton [id number] Sosa Linton 10/15/2020 1 [facility] [id number] Sosa Linton [id number] Sosa Linton Notes Date Note Type Note [...] f/c or n/v. Brendan Burnett MD [address], [place], [address], [facility] 05/10/2019 13:30:37 0 text/html HyperlipidemiaReported by PatientHPIFor [...] but no rash. Brendan Burnett MD [address], [place], [address], [facility] 06/07/2019 13:25:59 0 text/html Medicare Annual Wellness [...] last visit, andno dizziness/vertigo. Brendan Burnett MD [address], [address], [facility] 01/04/2020 18:43:08 0 text/html COVID-19 Symptoms July 2019Reported by PatientPhone visit: last thu she took a friend to a 's appt. they wore maska but her car is small. Over the weekend her friend had cold sx, risky behaviors and fever. patient has no symptoms. Was exposed 1 week ago today. GABRIELA Garnett [address], [address], [facility] 02/08/2020 10:19:08 1 text/html HyperlipidemiaReported by PatientHPIFor [...] currently manageable with NSAIDs. Brendan Burnett MD [address] [address], [place], [address], [facility] [place] 07/04/2020 16:46:59 OBGyn Episode No OBEpisode recorded.
--- OUTSIDE RECORDS SUMMARY | 2025-02-15 23:28 | XMS_ITS | Clinical Summary ---
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
--- OUTSIDE RECORDS SUMMARY | 2025-02-15 23:28 | XMS_ITS | Data Portability ---
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 Plan of Treatment Reminders Order Date Submit Date Provider Last Modified By Organization Details Last Modified Time Details Appointments None recorded. Lab wet mount, vaginal 2024 025 [email or web address] 1 In-Office Order, Internal Use Only DO Not Attach Compendium DO Not Attach Compendium, Do Not Delete/merge, [id number] 14:04:50 herpes simplex, culture, unspecifie d specimen 2024 025 MONCHO [facility] (Centralized Electronic Ordering - All Locations), Patient Can Go To The Location Of Their Choice, [id number] 14:06:26 herpes simplex, culture, unspecifie d specimen - right vulva 2024 025 MONCHO [facility] (Centralized Electronic Ordering - All Locations), Patient Can Go To The Location Of Their Choice, [id number] 5 16:06:30 biopsy, endometria l 2024 025 [email or web address] [facility] (Centralized Electronic Ordering - All Locations), Patient Can Go To The Location Of Their Choice, [id number] 5 07:16:45 Referral None recorded. Procedures biopsy, endometriu m (PROC) 2024 025 [email or web address] In-Office Order, Internal Use Only DO Not Attach Compendium DO Not Attach Compendium, Do Not Delete/merge, [id number] 15:39:27 Surgeries None recorded. Imaging US, pelvis, transabdom inal + transvagin al - pmb for a week 2023 024 [facility] (Central Scheduling Radiology), [address], [place], [address], 4 08:46:36 Medication Orders fluconazol e 150 mg tablet 2024 025 [id number] [address] [facility] [place], [address], 5 05:01:44 valacyclov ir 1 gram tablet 2024 025 [id number] [address] [facility] [place], [address], 5 13:30:17 acyclovir 5 % topical ointment 2024 025 [email or web address] 1 [id number] [address] [facility] [place], [address], 5 14:02:07 Patient TargetsNo targets recorded. Patient Instructions Encounter Date Encounter Id Patient Instructions Last Modified By Organization Details Last Modified Time 03/01/2024 [id number] vaginal bleeding after menopause: care instructions Not [...] 25 minutes Not available 03/01/2024 14:44:33 04/12/2024 [id number] postmenopausal bleeding [facility] Not available 04/12/2024 14:42:42 endometrial biopsy: about [...] cancer is found we will refer to recreational programs director oncology, and discussed possible hysterectomy in that case. She understands. All questions answered. Not available 04/12/2024 14:56:03 04/19/2024 [id number] She is here to discuss the results [...] All questions answered. 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 Will refer to recreational programs director oncology for consultation and management. Face to face discussion, chart review and coordination of care: 25 minutes Not available 04/19/2024 15:50:51 08/15/2024 [id number] shingles: care instructions Not available 08/15/2024 13:30:15 [...] 25 minutes Not available 08/15/2024 14:01:15 01/30/2025 [id number] vaginal yeast infection: care instructions Not available [...] re[place], [address], [place] [address] . This test was devel opmaria fernanda, and its perfo rmanc e eve cteri stics deter mined by [employer] [facility]. It has not been clear ed or appro radha by the U.S. Food and Drug Admin istra tion. The FDA has deter mined that such clear ance or appro alfa is not neces lionel. This test is used for clini bebeto purpo ses. It shoul d not be regar ded as inves tigat ional or for [facility]. The posit brittney and negat brittney [...] is perfo rmed at [facility] [place] [facility] , [address], [place] (CLIA #[id number] 2). Its perfo rmanc e eve cteri stics deter mined by [facility]. Shanika Doss M.D. Medic al Direc tor of Surgi bebeto Patho logy, Antonia good M.D. Medic al Direc tor Cytop athol ogy Phone #: [phone], On-Ca Patho logis t: [id number] Not Available [facility] (Centralized Electronic Ordering - All Locations) Patient Can Go To The Location Of Their Choice, [id number] 04/19/2024 12:38:33 04/12/19 25 04/12/2024 [facility] SUR[facility] BEBETO PATHO LOGY results Patiwilly nt [...] ical compo nent is perfo rmed by [facility], [facility] [address], [place] [address] . This test was barbara gay, and its perfo rmanc e eve cteri stics deter mined by [employer] [facility]. It has not been clear ed [...] ing is perfo rmed at [facility] , [address], [place] (CLIA #[id number]). Its perfo rmanc e eve cteri stics deter mined by [facility]. Shanika Doss M.D. Medic al Direc tor of Surgi bebeto Patho Antonia webster M.D. Medic al Direc tor Cytop athol ogy Phone #: [phone], On-Ca ll Patho logis t: [id number] Not Available [facility] (Centralized Electronic Ordering - All Locations) Patient Can Go To The Location Of Their Choice, [id number] 05/03/2024 11:20:30 08/16/19 25 08/18/2024 HSV CULTU RE AND TYPIN G hsv culture/type COMMEN T Negat brittney No Herpe s simpl ex virus isola jacey. Not Available [facility] ([facility]) [address], [place], [address], 08/18/2024 16:06:30 01/31/20 25 02/01/2025 HSV CULTU RE AND TYPIN G hsv culture/type COMMEN T Test not perfo rmed. No viral trans port devic e recei radha. Not Available [facility] ([facility]) [address] [place], [address], 02/01/2025 14:06:26 01/31/20 25 02/01/[address] PROBL EM request problem COMMEN T Test not perfo rmed. No viral trans port devic e recei radha. TEST: [id number] 3 HSV Cultu re/Ty pe Panel : [id number] 0 Not Available [facility] ([facility]) [address] [place], [address], 02/01/2025 14:06:27 01/31/20 25 02/01/2025 LISET EN AUTHO RIZAT ION written authorizatio n Commen t Liset en Autho rizat ion Recei radha. Autho rizat ion recei radha from ORIGI NAL REQUI SITIO N 02-01 Logge d by Obdulia Elizabeth en Not Available [facility] ([facility]) [address] [facility], [place], [address], 02/01/2025 16:06:07 01/31/20 25 02/03/2025 HSV JESSICA hsv 1 JESSICA Negati ve negati ve Not Available [facility] ([facility]) [address] [place], [address], 02/03/2025 12:06:08 01/31/20 25 02/03/2025 HSV JESSICA hsv 2 JESSICA Positi ve negati ve abnormal Not Available [facility] ([facility]) [address] [place], [address], 02/03/2025 12:06:08 01/31/20 25 01/30/2025 wet mount , vagin al Clue Cells negati ve Not Available In-Office Order Internal Use Only DO Not Attach Compendium DO Not Attach Compendium, Do Not Delete/merge, [id number] 01/30/2025 14:02:15 01/31/20 25 01/30/2025 wet mount , vagin al Trichomonas negati ve Not Available In-Office Order Internal Use Only DO Not Attach Compendium DO Not Attach Compendium, Do Not Delete/merge, [id number] 01/30/2025 14:02:15 01/31/20 25 01/30/2025 wet mount , vagin al Hyphae positi ve Not Available In-Office Order Internal Use Only DO Not Attach Compendium DO Not Attach Compendium, Do Not Delete/merge, [id number] 01/30/2025 14:02:15 01/31/2001/30/2025 wet mount , vagin al atrophic epithelium positi ve Not Available In-Office Order Internal Use Only DO Not Attach Compendium DO Not Attach Compendium, Do Not Delete/merge, [id number] 01/30/2025 14:02:15 03/17/20 24 03/15/2024 US, pelvi s, trans abdom inal + trans vagin al No observ ation record ed. [email or web address], [place], [address], 03/17/2024 10:41:52 Result Notes None recorded. Problems Name Problem SNOMED Code Status Onset Date Resolution Date Notes Provider Name and Address Organization Details Recorded Time Candidiasis of skin 42568420 Active Dayana Bey MD [address], [place], [address] , [place] - [facility], 5 15:53:04 Menopausal syndrome 576970630 Active Dayana Bey MD [address], [place], [address] , [place] - [facility], 5 09:05:05 Anogenital hidradenitis suppurativa 051850277 Active Not Available [facility] 3 03:01:06 Complex endometrial hyperplasia 176397050 Active 2016 Dayana Bey MD [address], [place], [address] , [place] - [facility], 7 11:19:20 Polyp of corpus uteri 59789348 Active 2016 Dayana Bey MD [address], [place], [address] , [place] - [facility], 7 12:19:18 Postmenopausa l bleeding 58832164 Active 2016 Dayana Bey MD [address], [place], [address] , [place] - [facility], 7 12:19:29 Essential hypertension 40524971 Active 2016 Valerie quevedo [place] - [facility], 7 13:17:12 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 Procedures Surgical History Date Name Laterality Status Provider Name and Address Organization Details Recorded Time 04/12/19 25 Endometrial Biopsy completed Dayana Bey MD [address], [place], [address], [place] - [facility], 04/12/2024 14:54:20 12/30/19 24 Most Recent Mammogram completed Sasha Rosa in [facility], 03/01/2024 13:46:16 12/30/19 24 Most Recent Bone Density completed Sasha Rosa in [facility], 03/01/2024 13:46:25 03/25/20 16 Endometrial Biopsy completed Dayana Bey MD [address], [place], [address], [place] - [facility], 03/25/2016 13:50:12 03/30/19 09 Other completed Dayana Bey MD [address], [place], [address], [place] - [facility], 07/09/2012 14:33:12 03/30/18 76 Tonsillectomy completed Sasha Lowery [place] - [facility], 07/09/2012 14:25:04 Imaging Results None recorded. Procedure Notes None recorded. Medical Equipment None Reported. Allergies Allergen ID Allergen Name Allergen Category Reaction Reaction Severity Criticality Documentation Date Start Date Code Code System Note Provider Name and Address Organization Details Recorded Time 7661 Ultram medicatio n other severe Not available 07/09/2012 57492 6 RxNorm weak and sleep y Sasha quevedo [place] - [facility], 3 14:25:04 Medications Name [...] Available Not Available Not Available Fluzone High-Dose 0302-0639 (PF) 180 mcg/0.5 mL intramuscul ar syringe TO BE ADMINISTE RED BY PHARMACIS T FOR IMMUNIZAT ION active Not Available Not Available No t Available Fluad 65yr up(PF)45 mcg(15 mcgx3)/0.5 mL intramuscul ar syringe ADMINISTE R 0.5ML IN THE MUSCLE DIRECTED active Not Available Not Available No t Available Fluad Quad 4477-0730(6 5yr up)(PF) 60 mcg (15 mcg x 4)/0.5mL IM syringe ADM 0.5ML IM UTD active Not Available Not Available No t Available Vitals Date Recorded Body height Body mass index (BMI) Body weight Body temperature Heart rate Systolic And Diastolic Provider Name and Address Organization Details Last Updated DateTime 152.4 cm 35.4 kg/m2 42175.6 6 g 97.4 [degF] 55 /min 129/49 mm[Hg] Sasha Lowery [place] - [facility], 14:36:51 Date Recorded Body height Body mass index (BMI) Body weight Heart rate Systolic And Diastolic Provider Name and Address Organization Details Last Updated DateTime 04/19/2024 152.4 cm 35.3 kg/m2 35645.22 g 58 /min 155/51 mm[Hg] Sasha Lowery [place] - [facility], 04/19/2024 14:54:30 Date Recorded Body height Body mass index (BMI) Body weight Heart rate Systolic And Diastolic Provider Name and Address Organization Details Last Updated DateTime 08/15/2024 152.4 cm 36.2 kg/m2 03540.03 g 74 /min 131/51 mm[Hg] Sasha Lowery [place] - [facility], 08/15/2024 13:04:42 Date Recorded Body height Body mass index (BMI) Body weight Heart rate Systolic And Diastolic Provider Name and Address Organization Details Last Updated DateTime 01/30/2025 152.4 cm 35.8 kg/m2 23880.84 g 79 /min 140/57 mm[Hg] Sasha Lowery [place] - [facility], 01/30/2025 13:51:48 Date Recorded Body weight Body mass index (BMI) Body height Heart rate Systolic And Diastolic Provider Name and Address Organization Details Last Updated DateTime 03/01/2024 13071.94 g 35.4 kg/m2 152.4 cm 69 /min 125/55 mm[Hg] Sasha Lowery [place] - [facility], 03/01/2024 13:42:28 Social History Question Answer Notes LastModified by Organizat ion Details LastModified Time Tobacco Smoking Status Former Smoker over 15 yrs ago Not Available [facility] 01/31/2020 03:19:42 How Many Years Have You Consumed Alcohol? 50 Information not available 01/21/2022 What Is Your Level Of Caffeine Consumption? Occasional [id number] Information not available 01/31/2020 In The 14 [...] Type Of Diet Are You Following? REGULAR [id number] Information not available 01/31/2020 Which Illicit Or Recreational Drugs Have You Used? Yes Marijuana On Weekends [id number] Information not available 01/31/2020 Do You Reside In Or Have You Traveled To An Area Where Ebola Virus Transmission Is Active? No [id number] Information not available 01/31/2020 Education 2 Year College Information not available 07/09/2012 What Is The Highest Grade Or Level Of School You Have Completed Or The Highest Degree You Have Received? [id number] Information not available 01/21/2022 How Many Days [...] available 01/21/2022 Are You Sexually Active? No [id number] Information not available 01/31/2020 At What Age Did You Start Smoking Tobacco? 18 Information not available 01/21/2022 How Much Tobacco Do You Smoke? No [id number] Information not available 01/31/2020 General Stress Level Low Information not available 07/09/2012 How Many Years Have You Smoked Tobacco? 33 [id number] Information not available 01/31/2020 Have You Recently (within The Last 12 Weeks, Or During A Current ) Traveled To Or Lived In A Zika-affected Area? No [employer] Information not available 02/18/2016 How Many Days [...] is your level of alcohol consumption? Occasional [id number] Information not available 01/31/2020 Do you or have you ever used smokeless tobacco? Never used smokeless tobacco [id number] Information not available 01/31/2020 Are you currently employed? 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 Never used electronic cigarettes [id number] Information not available 01/31/2020 What is your exercise level? Moderate [id number] Information not available 01/31/2020 Mental Status Question Answer Note LastModified by Organization D etails LastModified Time Do you feel stressed (tense, restless, nervous, or anxious, or unable to sleep at night)? FL9053-4 Information not available 01/21/2022 Family History Relationship Description Onset Age of this Age Resolved Age Notes LastModified by Organization Details LastModified Time Father Myocardial infarction previo usly record ed as Heart Attack ([place]) Not available 08/11/2014 14:42:51 Mother Problem lung/ [...] unspecified formulation 6 completed JOYCE Piper in [facility], 02/18/2016 13:37:31 pneumococcal, unspecified formulation 6 completed [place] Petty in [facility], 03/25/2016 13:29:20 Influenza, split virus, quadrivalent, preservative 7 completed JOYCE Petty in [facility], 09/08/2017 13:14:34 Pneumococcal Conjugate, unspecified formulation 7 completed JOYCE Petty in [facility], 09/08/2017 13:15:30 influenza, unspecified formulation 8 completed [place] Piper in [facility], 12/29/2017 13:32:45 Influenza, split virus, quadrivalent, preservative [...] Sasha Meczywor null, [place] - [facility], 03/01/2024 13:42:05 COVID-19, mRNA, LNP-S, PF, 50 mcg/0.5 mL 4 completed Sasha Meczywor sae, [place] - Moe in [facility], 03/01/2024 13:42:05 COVID-19, mRNA, LNP-S, PF, 50 mcg/0.5 mL 3 completed Sasha Meczywor sae, [place] - Moe in [facility], 03/01/2024 13:42:05 Past Encounters Encounter ID Performer Location Encounter Start Date Encounter Closed Date Diagnosis/Indication Diagnosis SNOMED-CT Code Diagnosis ICD10 Code Diagnosis IMO Codes Diagnosis Note [id number] MD DAYANA Herman MD [address] [facility] [place] [address] 07/09/2012 14:07:52 07/09/2012 16:06:14 [id number] MD DAYANA Herman MD [address] [place] [address],[address] [place] [address] 03/24/2014 10:38:35 03/24/2014 11:39:24 Candidiasis of skin 17571520 [id number] MD DAYANA Herman MD [address] [facility] [place] [address] 08/11/2014 13:59:37 08/11/2014 16:11:48 Specialized medical examination 34040732 Screening for malignant neoplasm of rectum 295038725 Screening mammography 49224375 [id number] MD DAYANA Herman MD [address] [facility] [place] [address] 02/18/2016 13:23:38 02/18/2016 16:13:04 Acute lower urinary tract infection 531493212 R30.0 Postmenopa usal bleeding 31660794 N95.0 [id number] MD DAYANA Herman MD [address] [facility] [place] [address] 03/25/2016 13:22:00 03/25/2016 15:17:36 Endometrium thickened 022900533 R93.8 Postmenopa usal bleeding 02325036 N95.0 [id number] MD DAYANA Herman MD [address] [place] [address],[address] [address] 04/02/2016 10:44:29 04/03/2016 10:35:26 Complex endometrial hyperplasia 529508789 N85.02 Polyp of corpus uteri 11 473981 N84.0 Postmenopa usal bleeding 99351613 N95.0 Cares for self 441506288 Z76.89 [id number] MD DAYANA Herman MD [address] [place] [address],[address] [address] 06/02/2016 13:02:10 06/02/2016 16:24:23 Polyp of corpus uteri 93105028 N84.0 Endometria l hyperplasia 510086687 N85.00 [id number] MD DAYANA Herman MD [address] [place] [address],[address] [address] 06/24/2016 13:00:56 06/24/2016 14:34:38 Polyp of corpus uteri 50647495 N84.0 Complex en dometrial hyperplasia 845745319 N85.02 [id number] MD DAYANA Herman MD [address] [place] [address],[address] [address] 09/08/2017 12:59:41 09/08/2017 15:26:23 Screening for malignant neoplasm of cervix 477092290 Z12.4 Screening mammography 24 394620 Z12.31 Menopausal syndrome 1237 37260 N95.9 Cares for self 136269752 Z76.89 [id number] MD DAYANA Herman MD [address] [place] [address],[address] [address] 12/29/2017 13:20:54 12/29/2017 14:55:38 Anogenital hidradenitis suppurativa 646730076 L73.2 Climacteric arthritis 77 375222 M13.851 [id number] MD DAYANA Herman MD [address] [place] [address] [place] [address] 04/28/2019 14:21:07 04/28/2019 15:35:51 Dysuria 01078778 R30.0 [id number] MD DAYANA Herman MD [address] [place] [address], [place] [address] 12/26/2019 10:32:43 12/26/2019 11:17:29 Screening for malignant neoplasm of cervix 217508153 Z12.4 Screening mammography 24 741543 Z12.31 Screening for osteoporosis 876101137 Z13.820 [id number] MD DAYANA Herman MD [address] [place] [address], [place] [address] 01/21/2022 09:57:40 01/21/2022 12:08:16 Screening for malignant neoplasm of cervix 330139197 Z12.4 Screening mammography 24 951109 Z12.31 Screening for osteoporosis 463660246 N95.8 [id number] MD DAYANA Herman MD [address] [place] [address],[facility] [address] 03/01/2024 13:34:46 03/02/2024 10:00:03 Postmenopausal bleeding 29596580 N95.0 [id number] MD DAYANA Herman MD [address] [place] [address],[facility] [place] [address] 04/12/2024 14:27:00 04/12/2024 15:39:09 Postmenopausal bleeding 67041320 N95.0 [id number] MD DAYANA Herman MD [address] [place] [address],[facility] [place] [address] 04/19/2024 14:40:51 04/19/2024 15:53:28 Endometrioid carcinoma of endometrium 3600043396 C54.1 [id number] MD DAYANA Herman MD [address] [place] [address],[facility] [place] [address] 08/15/2024 12:56:29 08/15/2024 15:31:53 Herpes zoster 0996420 B02.9 38189172 Ulceration of vulva 6864 0004 N76.6 [id number] Herpetic u lceration of vulva 68424144 A60.04 A60.09 [id number] MD DAYANA Herman MD [address] [facility] [place] [address] 01/30/2025 13:45:28 01/30/2025 15:35:59 Candidal vulvovaginitis 51257005 B37.31 Herpetic u lceration of vulva 61490119 A60.04 [id number] Health Concerns Section Related Observation LastModified by Organization Detai ls LastModified Time None Recorded Concern Status LastModified by Organization Details LastModified Time None Recorded Advance Directives Directive None Recorded Payers Insurance Date Sequence Insurance Name Policy Number Policy Payan Covered Member ID Payan Member ID Guarantor Name 11/21/2024 1 [facility] ([facility] Carmela Linton [id number] Carmela Linton 11/21/2024 2 [place] [id number] Carmela Linton [id number] Carmela Linton 11/21/2024 1 [facility] [employer] SAVER 1999 [id number] Carmela Linton [id number] Carmela Linton 11/21/2024 1 [place] [facility] Carmela Linton [id number] Carmela Linton 01/28/2025 1 [employer] (MEDICARE REPLACEMENT /ADVANTAGE - PPO) [id number] Carmela Linton [id number] Carmela Linton Notes Date Note Type Note [...] a steroid injection. Dayana Bey MD [address] [facility],[address], [place], [address], [place] - [facility], 03/01/2024 14:46:10 04/12/2024 text/html She is here [...] and C again. Dayana Bey MD [address], [place], [address], [place] - [facility], 04/12/2024 14:56:19 04/19/2024 text/html She is here to discuss the results of her recent endometrial biopsy, it shows FIGO grade 3, favor poorly differentiated endometrioid carcinoma. The emb was done for pmb, the sonogram shows a normal size uterus, and a 1 cm endometrium. Dayana Bey MD [address], [place], [address], [place] - [facility], 04/19/2024 15:51:06 08/15/2024 text/html She is here for a small cluster of tender blisters on her right labia that she first noted on Thursday, it is Thursday now she has a past history of herpes and has been taking acyclovir without improvement, she feels that this is not typical of a herpes infection. Dayana Bey MD [address], [place], [address], [place] - [facility], 08/15/2024 14:05:34 01/30/2025 text/html She is here for a one week histroy of vulvar discomfort and some vaginal pruritus. She had IV antibiotics 10 days ago for her knee meniscus surgery. She has a past histroy of herpes but herrera not think this feel like that. Dayana Bey MD [address] [facility],[address], [facility] [address], [place] [facility], 01/30/2025 14:41:47 OBGyn Episode No OBEpisode recorded.
[2025-02-17 11:35] VITALS: BMI 35.2
[2025-02-20] VITALS (13 sets, daily range): BP systolic 117–157; BP diastolic 47–95; PULSE 68–79; RESP 13–20; TEMP 36.1–36.6; O2SAT 90–97
[2025-02-20] MEDS: Lactated Ringers 1,000 ML 100 ML IVCONT (08:56)
--- NOTE | 2025-02-20 10:48 | HO.ANESPROP2 ---
Documented by User: Merissa Clemens NP 02/17/25 10:32 HPI - Anesthesia Eval Consult details Narrative: 74 yr old female for right Shoulder Arthroscopy,distal clavicle excison,acromioplasty,possible rotator cuff repair s/p R knee arthroscopy with GA, LMA 4 on 01/21/25 PMFSH Active Problems Active Problems: All Active Problems (Updated 02/16/25 @ 08:59 by Tricia Panda RN) Impingement of right shoulder (Acute) Rotator cuff insufficiency of right shoulder (Acute) Right shoulder pain (Acute) Tear of medial meniscus of right knee (Acute) Right knee pain (Acute) Past Medical History Medical History (Updated 02/16/25 @ 08:59 by Tricia Panda RN) Polyp, corpus uteri Hidradenitis suppurativa of anus Herpes simplex Urge incontinence Pulmonary nodule DDD (degenerative disc disease), cervical Pre-diabetes Endometrial cancer GERD (gastroesophageal reflux disease) Elevated cholesterol HTN (hypertension) Family History Family history of problems with anesthesia: No Surgical History Surgical History (Updated 02/17/25 @ 11:15 by Tricia Panda RN) Hx of arthroscopy of right knee Hx of tonsillectomy Hx of hysterectomy History of pubovaginal sling Hx of dilation and curettage H/O colonoscopy History of Problems with Anesthesia: No Social History Social History Are you a primary post acute care nurse to a significant other at home: No Do you presently have visiting nurse or other home services: No Patient Tobacco Use Status: Former Tobacco user Tobacco use type: Cigarette Years Smoked: 20 Use of substances other than those prescribed or required for medical reasons: Yes Substance Use Frequency: Occasionally Advance Directives: No Advance Directives Information Provided: Yes Advance Directives on File: No Patient : No : No Current occupational status: retired Current occupation: rt handed Meds Allergies Allergy/AdvReac Type Severity Reaction Status Date / Time tramadol (From [facility]) Allergy Intermediate disoriented Verified 02/07/25 10:21 /lethargy Home Medications ?Medication ?Instructions ?Recorded ?Confirmed ?Last Taken ?Type atorvastatin 40 mg tablet 40 mg PO BEDTIME 08/17/24 02/17/25 Unknown History celecoxib 200 mg capsule 200 mg PO DAILY PRN Pain 08/17/24 02/17/25 01/16/25 History lisinopril 20 1 tab PO QAM 08/17/24 02/17/25 Unknown History mg-hydrochlorothiazide 25 mg tablet nystatin 100,000 unit/gram topical 1 appl topical DAILY 08/17/24 02/17/25 Unknown History powder omeprazole 20 mg capsule,delayed 20 mg PO QAM 08/17/24 02/20/25 02/20/25 History release solifenacin 10 mg tablet 10 mg PO QAM 08/17/24 02/17/25 Unknown History valacyclovir 1 gram tablet 1,000 mg PO TID PRN cold sores 08/17/24 02/17/25 Unknown History calcium carbonate 500 mg PO BEDTIME 01/10/25 02/17/25 Unknown History glucosamine sulf dipot 1 cap PO QAM 01/10/25 02/17/25 01/16/25 History chlr,msm,chond 550 mg-C 30 mg-claudine 1 mg capsule (Glucosamine Chondroitin) multivitamin 1 tab PO QAM 01/10/25 02/17/25 Unknown History Exam Narrative Narrative: EKG 01/20/25 NSR, rate 69 Poor R wave progression Assessment and Plan Final Anesthetic Review Family History of Problems with Anesthesia: No History of Problems with Anesthesia: No Documented by User: Carlita Garcia DO 02/20/25 10:50 [facility] Past Medical History Medical History (Updated 02/16/25 @ 08:59 by Tricia Panda RN) Polyp, corpus uteri Hidradenitis suppurativa of anus Herpes simplex Urge incontinence Pulmonary nodule DDD (degenerative disc disease), cervical Pre-diabetes Endometrial cancer GERD (gastroesophageal reflux disease) Elevated cholesterol HTN (hypertension) Family History Family history of problems with anesthesia: No Surgical History Surgical History (Updated 02/17/25 @ 11:15 by Tricia Panda RN) Hx of arthroscopy of right knee Hx of tonsillectomy Hx of hysterectomy History of pubovaginal sling Hx of dilation and curettage H/O colonoscopy History of Problems with Anesthesia: No Social History Social History Are you a primary post acute care nurse to a significant other at home: No Do you presently have visiting nurse or other home services: No Patient Tobacco Use Status: Former Tobacco user Tobacco use type: Cigarette Years Smoked: 20 Use of substances other than those prescribed or required for medical reasons: Yes Substance Use Frequency: Occasionally Advance Directives: No Advance Directives Information Provided: Yes Advance Directives on File: No Patient : No : No Current occupational status: retired Current occupation: rt handed Meds Allergies Allergy/AdvReac Type Severity Reaction Status Date / Time tramadol (From [facility]) Allergy Intermediate disoriented Verified 02/07/25 10:21 /lethargy Home Medications ?Medication ?Instructions ?Recorded ?Confirmed ?Last Taken ?Type atorvastatin 40 mg tablet 40 mg PO BEDTIME 08/17/24 02/17/25 Unknown History celecoxib 200 mg capsule 200 mg PO DAILY PRN Pain 08/17/24 02/17/25 01/16/25 History lisinopril 20 1 tab PO QAM 08/17/24 02/17/25 Unknown History mg-hydrochlorothiazide 25 mg tablet nystatin 100,000 unit/gram topical 1 appl topical DAILY 08/17/24 02/17/25 Unknown History powder omeprazole 20 mg capsule,delayed 20 mg PO QAM 08/17/24 02/20/25 02/20/25 History release solifenacin 10 mg tablet 10 mg PO QAM 08/17/24 02/17/25 Unknown History valacyclovir 1 gram tablet 1,000 mg PO TID PRN cold sores 08/17/24 02/17/25 Unknown History calcium carbonate 500 mg PO BEDTIME 01/10/25 02/17/25 Unknown History glucosamine sulf dipot 1 cap PO QAM 01/10/25 02/17/25 01/16/25 History chlr,msm,chond 550 mg-C 30 mg-claudine 1 mg capsule (Glucosamine Chondroitin) multivitamin 1 tab PO QAM 01/10/25 02/17/25 Unknown History Exam Exam Date and Time: 02/20/25 1045 Height,Weight and Vital Signs: Vital Signs Temperature 98 F 02/20/25 08:55 Pulse Rate 79 02/20/25 08:55 Respiratory Rate 16 02/20/25 08:55 Blood Pressure 135/52 L 02/20/25 08:55 Pulse Oximetry 95 02/20/25 08:55 Oxygen Delivery Method Room Air 02/20/25 08:55 Temperature 98 F 02/20/25 08:55 Pulse Rate 79 02/20/25 08:55 Respiratory Rate 16 02/20/25 08:55 Blood Pressure 135/52 L 02/20/25 08:55 Pulse Oximetry 95 02/20/25 08:55 Oxygen Delivery Method Room Air 02/20/25 08:55 Airway Mallampati Class: I TM Dist: <=3cm Neck ROM: Full Loose/Missing/Broken Teeth: No (patient denies any loose or broken teeth) Heart: S1S2 Lungs: CTAB Assessment and Plan Assessment Anesthesia Assessment: Anesthesia Plan Discussed and Chart Reviewed Final Anesthetic Review Family History of Problems with Anesthesia: No History of Problems with Anesthesia: No NPO: Yes ASA Class: II Final Preanesthetic Review: No Changes in Pt Med Stat, Meds/Allgs Chart Reviewed, Consent Obtained/Reviewed and Anes Risks/Benef Reviewed Patient Risk: Low Procedure Risk: Intermediate Anesthetic Plan Anesthetic Plan: GA, Regional Block (right brachial plexus block) and Agree w/ Assess. and Plan Disposition: Standard PACU
--- NOTE | 2025-02-20 13:03 | PM.OP ---
Brief Operative Note Date of Service: 02/20/25 Pre-op diagnosis: Right shoulder impingement syndrome, right shoulder acromioclavicular joint arthritis, possible right shoulder rotator cuff tear Post-op diagnosis: other (Right shoulder impingement syndrome, right shoulder acromioclavicular joint arthritis, right shoulder adhesive capsulitis, right shoulder long head biceps tendon tear) Procedure: Right shoulder arthroscopic distal clavicle excision, right shoulder arthroscopic acromioplasty, right shoulder arthroscopic anterior capsular release, right shoulder arthroscopic biceps tenotomy, right shoulder manipulation under anesthesia Surgeon: Duane Soria MD Anesthesia: GETA and regional Was an Cylinder Handler used for this Procedure?: No Estimated blood loss (mL): 10 Pathology: none sent Condition: stable Disposition: PACU
--- NOTE | 2025-02-20 13:04 | W.PM.OPN ---
Operative Note Operative Note Date of Service: 02/20/25 Narrative: After the patient was identified as Carmela Linton and her right shoulder was initialed by myself the patient was brought to the holding area where a right shoulder interscalene regional block was performed by the anesthesiologist in routine fashion. The patient was then brought to the operating room where general anesthesia was induced by the anesthesiologist in routine fashion. The patient was given 2 g of IV Ancef preoperatively for infection prophylaxis. Examination under anesthesia of the patient's right shoulder showed decreased passive range of motion when compared to the left shoulder. The patient's right shoulder had passive forward flexion to 130 degrees compared to 170 degrees, external rotation to 30 degrees compared to 70 degrees, and internal rotation to 40 degrees compared to 50 degrees. The patient was gently positioned in the beach chair position with all bony prominences well padded. The patient's right shoulder region and upper extremity were prepped and draped in sterile fashion. A formal time-out was completed. A #11 scalpel blade was used to make a posterior portal 2 cm inferior and 1 cm medial to the posterolateral corner of the acromion. Blunt trocar technique was used to enter the glenohumeral joint in routine fashion. An anterior portal was made just lateral to the coracoid process after proper positioning was confirmed using a spinal needle. Diagnostic arthroscopy showed minimal degenerative changes of the glenoid and humeral head articular surfaces. There was degenerative fraying of the undersurface of the supraspinatus tendon measuring approximately 10% of the tendon width. The frayed fibers were debrided using the arthroscopic shaver. Following the debridement the remainder of the fibers were intact. There was tearing of the biceps tendon measuring approximately 75% of the tendon width. Thus, a biceps tenotomy was performed using the arthroscopic biter and the arthroscopic shaver. There was inflammation of the anterior joint capsule consistent with adhesive capsulitis. The ArthroCare Wand was then used to perform an anterior capsular release between the inferior border of the bicipital groove and the superior border of the subscapularis tendon. The arthroscope was then placed from the posterior portal into the subacromial space. A lateral portal was made 2 fingerbreadths lateral to the anterior lateral corner of the acromion. The ArthroCare Wand was used to ablate soft tissues along the undersurface of the acromion as well as to excise the coracoacromial ligament. There was a sharp spur along the undersurface of the acromion which was removed using the hooded bur. The arthroscope was then placed into the lateral portal and the acromioplasty was completed with the bur in the posterior portal using the posterior aspect of the acromion as a cutting block. The ArthroCare Wand was then brought in through the anterior portal and was used to ablate soft tissues along the acromioclavicular joint and distal clavicle. The posterior and superior ligamentous structures were left intact. A distal clavicle excision of 8 mm was performed using the fluted bur. Any remaining bursal tissue was removed using the arthroscopic shaver. The subacromial space was irrigated and then drained. All arthroscopic instruments were removed. A gentle manipulation under anesthesia was then performed. Full passive range of motion was easily attained. The 3 portals were closed with 3-0 nylon interrupted suture. The subacromial space was injected with Marcaine. Dry sterile dressing was placed over all incisions. The patient's right upper extremity was placed into a sling. The patient was awoken and extubated in the operating room. The patient was transferred to the recovery room in stable condition.
== END 2025-02-20 15:27 | disposition home or self-care (01) ==
PROVIDERS: PCP Internal Medicine; Visit Provider Orthopaedic Surgery
PROC: (CPT 29805; principal; 2025-02-20 10:40)
DX: M75.41 Impingement syndrome of right shoulder (principal); M75.01 Adhesive capsulitis of right shoulder; M66.829 Spontaneous rupture of other tendons, unspecified upper arm; M19.011 Primary osteoarthritis, right shoulder; M25.511 Pain in right shoulder; M25.811 Other specified joint disorders, right shoulder; M50.30 Other cervical disc degeneration, unspecified cervical region; R91.1 Solitary pulmonary nodule; C54.1 Malignant neoplasm of endometrium; R73.03 Prediabetes; I10 Essential (primary) hypertension; E78.00 Pure hypercholesterolemia, unspecified; N39.41 Urge incontinence; K21.9 Gastro-esophageal reflux disease without esophagitis; Z90.710 Acquired absence of both cervix and uterus; Z98.890 Other specified postprocedural states; Z79.899 Other long term (current) drug therapy; Z88.5 Allergy status to narcotic agent; Z87.891 Personal history of nicotine dependence
CPT/HCPCS: 29824; 29825; 29822; 29826; J0131; J0165; J0690; J0696; J1100; J1630; J2003; J2250; J2371; J2405; J2704; J2795; J3010

== ENCOUNTER → 2025-02-20 08:26 | Outpatient (BNV) | payer MEDICARE, SELFPAY | PROVIDERS: PCP Internal Medicine; Visit Provider Orthopaedic Surgery | DX: M75.41 Impingement syndrome of right shoulder (principal); M19.011 Primary osteoarthritis, right shoulder; S46.111A Strain of muscle, fascia and tendon of long head of biceps, right arm, initial encounter | CPT/HCPCS: 29823; 29824; 29826 ==

== ENCOUNTER 2025-03-07 13:38 | Outpatient (AMB) | payer MEDICARE, SELFPAY ==
--- NOTE | 2025-03-07 13:42 | A.OFFVIS_ITS ---
Intake Visit Reasons: PO RT shoulder 02/20/25 Intake Note: Carmela is a 75 year old female who presents with complaints of mild discomfort in her right shoulder after undergoing right shoulder arthroscopic surgery on 02/20/2025. She is no longer taking narcotics for her discomfort. She continues with her home stretching program. She denies any fevers or chills. Allergies tramadol (From [facility]) Allergy (Intermediate, Verified 03/07/25 13:44) disoriented/lethargy Medication List - Last Reconciled 03/07/25 by Duane Soria MD atorvastatin 40 mg PO BEDTIME calcium carbonate 500 mg PO BEDTIME celecoxib 200 mg PO DAILY PRN glucos sul [id number] 550-30-1 mg (Glucosamine Chondroitin) 1 cap PO QAM lisinopril-hydrochlorothiazide 20-25 mg 1 tab PO QAM multivitamin 1 tab PO QAM nystatin 1 appl topical DAILY omeprazole 20 mg PO QAM oxycodone 10 mg (2 x 5 mg) PO Q4H PRN solifenacin 10 mg PO QAM valacyclovir 1,000 mg PO TID PRN PFSH Medical History Polyp, corpus uteri Hidradenitis suppurativa of anus Herpes simplex Urge incontinence Pulmonary nodule DDD (degenerative disc disease), cervical Pre-diabetes Endometrial cancer GERD (gastroesophageal reflux disease) Elevated cholesterol HTN (hypertension) Surgical History (Updated 03/07/25 @ 13:46 by ANETTE Dominguez) History of arthroscopy of right shoulder Hx of arthroscopy of right knee Hx of tonsillectomy Hx of hysterectomy History of pubovaginal sling Hx of dilation and curettage H/O colonoscopy Social History Are you a primary healthcare corporate account director to a significant other at home: No Do you presently have visiting nurse or other home services: No Patient Tobacco Use Status: Former Tobacco user Tobacco use type: Cigarette Years Smoked: 20 Current occupational status: retired Current occupation: rt handed Physical Exam Extrem Other: Right shoulder examination shows that the surgical incisions are well healed, no erythema, almost full range of motion when compared to her left shoulder, no instability Assessment & Plan Assessment & Plan (1) Right shoulder pain: Code(s): M25.511 - Pain in right shoulder Category: Medical Plan Ms. Linton is doing very well after undergoing right shoulder arthroscopic surgery on 02/20/2025. Her sutures were removed and Steri-Strips placed over her incisions. She will continue with her home stretching program. The do's and don'ts of lifting were discussed at length with the patient. She will call me prior to her follow-up appointment in 3 months should any questions or concerns arise. Feel free to contact me at any time should questions regarding her orthopedic management arise. Coding Level of Care Code Global (15103) Diagnoses Right shoulder pain M25.511
--- OUTSIDE RECORDS SUMMARY | 2025-03-07 19:14 | XMS_ITS | Encounter Summary ---
Author Organization [facility] Address [address] [place] [address] Care Team Providers Care Slot Editor Name Role Phone Judith Gill MD Primary Care Provider [phone] Encounter Details Date Type Department Care Team (Late Contact Info) Description 01/24/2025 Results Follow-Up Internal Medicine - [place] [facility] [address] [place] [phone] Judith Gill MD [address] [place] [phone] Social History Tobacco Use Types Packs/Day Years [...] Upcoming Encounters Date Type Department Care Team ([facility] Contact Info) Description 05/23/2025 4:20 PM EST Office Visit [facility] [address] [place] [phone] Gustavo Azar MD [address] [place] [address] documented as of this encounter Visit Diagnoses Diagnosis Leukocytosis, unspecified type- Primary documented in this encounter Additional Health Concerns Assessment Noted Time PHQ-9 Depression Total Score: 0 07/26/19 8:58 AM EDT A fall risk assessment has been complete d for the patient 07/25/2024 8:55 AM EDT documented as of this encounter Care Teams Slot Editor Relationship Specialty Start Date End Date Judith Gill MD [address] [phone] PCP - General Internal Medicine 12/24/20 documented as of this encounter
--- OUTSIDE RECORDS SUMMARY | 2025-03-07 19:14 | XMS_ITS | Encounter Summary ---
Author Organization [facility] Address [address] [place] [address] Care Team Providers Care Mattress Maker Name Role Phone Judith Gill MD Primary Care Provider Reason for Visit * Reason Onset Date Comments Results 03/03/2025 Encounter Details Date Type Department Care Team (Late st Contact Info) Description 03/03/2025 Results Follow-Up Breast Care [address] [phone] Angelique Ramos, RN Social History Tobacco Use Types Packs/Day Years [...] as of this encounter Progress Notes * Angelique aRmos RN - 03/03/2025 12:50 PM EST Pt is aware of recent CT results. She was also rescheduled to due provider being out of the office documented in this encounter Plan of Treatment Upcoming Encounters Date Type Department Care Team (Late st Contact Info) Description 05/23/2025 4:20 PM EST Office Visit [facility] [address] [place] [phone] Gustavo Azar MD [address] [place] [address] documented as of this encounter Visit Diagnoses Not on filedocumented in this encounter Additional Health Concerns Assessment Noted Time PHQ-9 Depression Total Score: 0 07/26/19 8:58 AM EDT A fall risk assessment has been complete d for the patient 07/25/2024 8:55 AM EDT documented as of this encounter Care Teams Mattress Maker Relationship Specialty Start Date End Date Judith Gill MD [address] [facility] [address] [place] [phone] PCP - General Internal Medicine 12/24/20 documented as of this encounter
--- OUTSIDE RECORDS SUMMARY | 2025-03-07 19:14 | XMS_ITS | Clinical Summary ---
Author Organization 175 [facility] Address [address] [place] [address] Phone Care Team Providers Care Architect Internship Name Role Phone Judith Gill MD Primary Care Provider [phone] Allergies Active Allergy Reactions Criticality Noted Date Comments Tramadol Disorientated Medium 06/08/2017 Medications solifenacin (VESICARE) 5 mg tablet 09/09/2021 Active multivitamin (MULTIPLE VITAMINS ORAL) Multi Vitamin Active vibegron (GEMTESA) 75 mg tablet tablet Take 1 tablet (75 mg total) by mouth 1 (one) time each day. Active nystatin (MYCOSTATIN) 100,000 unit/gram powder APPLY LOCAL TWICE A DAY 15 g 5 10/17/2024 Active atorvastatin (LIPITOR) 40 mg tablet Take 1 tablet (40 mg total) by mouth 1 (one) time each day. 90 tablet 3 01/24/2025 Active lisinopril-hydr oCHLOROthiazide (PRINZIDE,ZESTO RETIC) 20-25 mg per tablet Take 1 tablet by mouth 1 (one) time each day. 90 tablet 3 01/24/2025 Active omeprazole (PriLOSEC) [address] capsule Take 1 capsule (20 mg total) by mouth 1 (one) time each day. Do not crush or chew. 30 each 5 02/12/2025 Active Active Problems Problem Noted Date Diagnosed Date Endometrial cancer 04/28/2024 Assessment & Plan (07/25/2024 9:45 AM EDT): [...] Encounters Date Type Department Care Team Description 03/03/2025 Results Follow-Up Breast [address] [id number] Angelique Ramos RN 02/13/2025 3:42 PM EST - 02/13/2025 11:59 PM EST Hospital Encounter [facility] CT Scan [address] [place] [address] Endometrial cancer (CMS/HCC V24, CMS/HCC V28) Discharge Disposition: Home or Self Care 02/09/2025 10:37 AM EST - 02/09/2025 11:59 PM EST Hospital Encounter [facility] [address] [place] [address] Breast cancer screening by mammogram Discharge Disposition: Home or Self Care 02/09/2025 Results Follow-Up Internal Medicine [facility] [address] [phone] Judith Gill MD 02/08/2025 Telephone Internal Medicine [facility] [address] [address] Judith Gill MD 01/30/2025 3:25 PM EST Lab Draw Station [address] [address] Leukocytosis, unspecified type; Endometrial cancer (CMS/HCC V24, CMS/HCC V28) 01/30/2025 Results Follow-Up Internal Medicine [facility] [address] [phone] Judith Gill MD 01/24/2025 1:00 PM EDT Office Visit Internal Medicine [facility] [address] [address] Judith Gill MD Mixed hyperlipidemia (Primary Dx); Hidradenitis suppurativa of anus; Prediabetes; Pulmonary nodule; Breast cancer screening by mammogram 01/24/2025 Results Follow-Up Internal Medicine [facility] [address] [address] Judith Gill MD 01/15/2025 10:59 AM EDT - 01/15/2025 11:59 PM EDT Hospital Encounter [facility] MRI [address] [place] [address] Other instability, right shoulder Discharge Disposition: Home or Self Care 01/05/2025 11:00 AM EDT Office Visit [address] [address] Gustavo Azar MD Endometrial cancer (CMS/[facility] V24, [facility] V28) (Primary Dx) from Last 3 Months Immunizations Immunization Administration [...] HISTORICAL COLONOSCOPY OTHER SURGICAL HISTORY 06/16/2016 PROCEDURE: NC DILATION & CURETTAGE DX&/THER NONOBSTETRIC; COMMENT: and hysteroscopy OTHER SURGICAL HISTORY 06/07/2010 PROCEDURE: NC RMVL/REVJ SLING STRESS INCONTINENCE; COMMENT: Repair suprapubic [...] Orientation Straight 05/04/2024 10 :08 AM EST Last Filed Vital Signs Vital Sign Reading [...] Description 05/23/2025 4:20 PM EST Office Visit [facility] [address] [place] [address] Gustavo Azar MD [address] [place] [address] Health Maintenance Due Date Last Done Comments [...] Patients (1 - 1-dose 75+ series) 2025 Falls Risk Assessment 07/25/2025 07/25/2024, 025 Medicare [...] Additional history exists Depression Screening Completed 07/25/2024 Breast Cancer Screening Discontinued 02/10/20, 06/26/2023, 05/15/2022, Additional history exists HIB Vaccines Aged Out [...] this topic Medical Devices Implanted Type Area Sql Data Architect Device Identifier Shelf Expiration Date Model / Serial / Lot Hemostat Absorb Surgicel 2x4in Fibrillar - Sna - [id number] Implanted:Qty: 1 on 05/09/2024 by Gustavo Azar MD at [facility] Hemostasis N/A: Abdomen [facility] [employer] [id number] 05/27/2026 196 / NA / [id number] Procedures Procedure Name Priority Date/Time Associated Diagnosis Comments CT CHEST/ABDOMEN/PELVIS W CONTRAST Routine 02/13/2025 4:10 PM EST Endometrial cancer (CMS/HCC V24, CMS/HCC V28) MG MAMMO DIGITAL SCREENING W KRIS BILAT Routine 02/09/2025 10:57 AM EST Breast cancer screening by mammogram CBC WITH AUTO DIFFERENTIAL Routine 01/30/2025 3:27 [...] EST Postmenopausal state HM COLONOSCOPY Routine 10/21/2023 HM PAP SMEAR Routine 08/14/2014 from Last 3 Months or Most Recently Relevant to Health Maintenance Results * CT Chest/Abdomen/Pelvis w Contrast (02/13/2025 4:10 PM EST) Anatomical Region Laterality Modality Body Computed Tomogra phy 02/21/2025 8:42 AM EST Impressions 02/21/2025 9:24 AM EST 1. No evidence of metastatic disease in the chest. 2. No evidence of metastatic disease in the abdomen. 3. Interval improvement in the appearance of the pelvis. 4. Lesion in the spleen has been present on multiple previous studies and was previously evaluated with MRI 09/04/21 Thyroid nodule recommendation: No follow-up recommended unless deemed clinically necessary. -------- FINAL REPORT -------- Dictated By: Kevin Duke Dictated Date: 02/21/2025 08:42 ET Assigned Physician: Kevin Duke Reviewed and Electronically Signed By: Kevin Duke Signed Date: 02/21/2025 09:24 ET Workstation ID: [id number] Transcribed By: Self Edit Transcribed Date: 02/21/2025 08:43 ET Narrative 02/21/2025 9:24 AM EST EXAMINATION: CT CHEST, ABDOMEN and PELVIS WITH CONTRAST CLINICAL INFORMATION: Endometrial cancer. Restaging COMPARISON: Portions of previous 05/16/24 TECHNIQUE: Multidetector CT. Examination of the chest, abdomen and pelvis. Multidetector CT. Examination of the chest, abdomen and pelvis following IV administration of nonionic contrast. Reformatting in the coronal and sagittal planes. DLP: 1769 mGy-cm Dose optimization was performed including the use of low-dose iterative reconstruction technique with automatic exposure control based on patient size. Type of contrast: ISOVUE 370 Volume of IV contrast: 90 mL Volume of contrast discarded: 0 mL FINDINGS: LUNG: No suspicious abnormality of the trachea or mainstem bronchi. No convincing evidence of pulmonary metastasis. There are a few unchanged micronodules in the posterior right lower lobe which may represent granulomata. There are some dependent lung densities and some minor fibrotic changes. There is no honeycomb formation. MEDIASTINUM: There are no enlarged mediastinal or hilar lymph nodes. No suspicious abnormality of the esophagus. Unchanged subcentimeter left lobe thyroid nodule. CARDIAC: There is no pericardial fluid. No cardiac mass. There is fatty change of the interatrial septum. CORONARY CALCIFICATION: Marked coronary calcification VASCULAR: There is no thoracic aortic aneurysm. The main pulmonary artery is normal caliber. There is calcification in the region of the aortic valve. There is extensive arterial calcification. PLEURAL: There is no pleural fluid or pneumothorax. AXILLA/CHEST WALL: There are no enlarged axillary lymph nodes. No chest wall mass demonstrated. LIVER: Wedge-shaped low attenuation along the right-sided the falciform ligament. This is a common location for a perfusion abnormality or focal fatty change. No other suspicious focal liver lesion. BILIARY TRACT: No opaque gallstone. No biliary dilation. SPLEEN: 3.1 cm low attenuating lesion in the spleen is unchanged. PANCREAS: No suspicious abnormalities. ADRENAL GLANDS: No suspicious abnormality. KIDNEYS: There is no dilation of the intrarenal collecting system on either side. The nephrograms are symmetric. No suspicious mass. There is a nonobstructing 0.4 cm lower pole right renal calculus 13.3 cm from the skin. URINARY BLADDER: No focal abnormality. PELVIC VISCERA: The patient is post hysterectomy and nephrectomy. Fluid attenuating areas in the straight of the previous study have improved. There is no residual abnormality in the right side of the pelvis. Low attenuation in the lateral pelvic lymph node basins/obturator region 02/13/25-1.7 cm (4/190) 05/16/24-2.9 cm (4/191) GASTROINTESTINAL TRACT: No definite bowel wall thickening. No evidence of high- grade small bowel obstruction. No localized fat stranding. ABDOMINAL WALL: No significant hernia is demonstrated. There may be a tiny defect at the interface between the rectus and oblique muscles on the right (4/140). LYMPHOVASCULAR STRUCTURES AND FLUID: There is no abdominal aortic aneurysm. There are no enlarged lymph nodes. There is no free intraperitoneal fluid. MUSCULOSKELETAL: No acute or suspicious osseous abnormality. Procedure Note Kevin Duke MD - 02/21/2025 EXAMINATION: CT CHEST, ABDOMEN and PELVIS WITH CONTRAST CLINICAL INFORMATION: Endometrial cancer. Restaging COMPARISON: Portions of previous 05/16/24 TECHNIQUE: Multidetector CT. Examination of the chest, abdomen and pelvis. Multidetector CT. Examination of the chest, abdomen and pelvis followingIV administration of nonionic contrast. Reformatting in the coronal and sagittal planes. DLP: 1769 mGy-cm Dose optimization was performed including the use of low-dose iterativereconstruction technique with automatic exposure control based on patientsize. Type of contrast: ISOVUE 370 Volume of IV contrast: 90 mL Volume of contrast discarded: 0 mL FINDINGS: LUNG: No suspicious abnormality of the trachea or mainstem bronchi. No convincing evidence of pulmonary metastasis. There are a few unchanged micronodules in the posterior right lower lobewhich may represent granulomata. There are some dependent lung densities and some minor fibrotic changes.There is no honeycomb formation. MEDIASTINUM: There are no enlarged mediastinal or hilar lymph nodes. Nosuspicious abnormality of the esophagus. Unchanged subcentimeter left lobethyroid nodule. CARDIAC: There is no pericardial fluid. No cardiac mass. There is fattychange of the interatrial septum. CORONARY CALCIFICATION: Marked coronary calcification VASCULAR: There is no thoracic aortic aneurysm. The main pulmonary arteryis normal caliber. There is calcification in the region of the aorticvalve. There is extensive arterial calcification. PLEURAL: There is no pleural fluid or pneumothorax. AXILLA/CHEST WALL: There are no enlarged axillary lymph nodes. No chestwall mass demonstrated. LIVER: Wedge-shaped low attenuation along the right-sided the falciformligament. This is a common location for a perfusion abnormality or focalfatty change. No other suspicious focal liver lesion. BILIARY TRACT: No opaque gallstone. No biliary dilation. SPLEEN: 3.1 cm low attenuating lesion in the spleen is unchanged. PANCREAS: No suspicious abnormalities. ADRENAL GLANDS: No suspicious abnormality. KIDNEYS: There is no dilation of the intrarenal collecting system oneither side. The nephrograms are symmetric. No suspicious mass. There gigi nonobstructing 0.4 cm lower pole right renal calculus 13.3 cm from theskin. URINARY BLADDER: No focal abnormality. PELVIC VISCERA: The patient is post hysterectomy and nephrectomy. Fluidattenuating areas in the straight of the previous study have improved.There is no residual abnormality in the right side of the pelvis. Low attenuation in the lateral pelvic lymph node basins/obturator region 02/13/25-1.7 cm (4/) 05/16/24-2.9 cm (4/) GASTROINTESTINAL TRACT: No definite bowel wall thickening. No evidence ofhigh- grade small bowel obstruction. No localized fat stranding. ABDOMINAL WALL: No significant hernia is demonstrated. There may be atiny defect at the interface between the rectus and oblique muscles on theright (4/140). LYMPHOVASCULAR STRUCTURES AND FLUID: There is no abdominal aorticaneurysm. There are no enlarged lymph nodes. There is no freeintraperitoneal fluid. MUSCULOSKELETAL: No acute or suspicious osseous abnormality. IMPRESSION: 1. No evidence of metastatic disease in the chest. 2. No evidence of metastatic disease in the abdomen. 3. Interval improvement in the appearance of the pelvis. 4. Lesion in the spleen has been present on multiple previous studies andwas previously evaluated with MRI 09/04/21 Thyroid nodule recommendation: No follow-up recommended unless deemedclinically necessary. -------- FINAL REPORT -------- Dictated By: Kevin Duke Dictated Date: 02/21/2025 08:42 ET Assigned Physician: Kevin Duke Reviewed and Electronically Signed By: Kevin Duke Signed Date: 02/21/2025 09:24 ET Workstation ID: [id number] Transcribed By: Self Edit Transcribed Date: 02/21/2025 08:43 ET us Gustavo Azar MD IMG CT PROCEDURES Final Result * MG Mammo Digital Screening w Kris bilat (02/09/2025 10:57 AM EST) Anatomical Region Laterality Modality Breast Bilateral Mammography 02/09/2025 11:1 9 AM EST Impressions 02/09/2025 3:56 PM EST No mammographic evidence of malignancy. No suspicious interval change. A negative mammogram in the presence of a clinically suspicious palpable abnormality does not preclude the possibility of malignancy or alter the indications for biopsy. ASSESSMENT: BI-RADS 1: NEGATIVE RECOMMENDATION(S): 1: Routine screening mammogram BILATERAL in 1 year. [facility] location[facility] [address], [address] -------- FINAL REPORT -------- Dictated By: Kevin Duke Dictated Date: 02/09/2025 11:19 ET Assigned Physician: Kevin Duke Reviewed and Electronically Signed By: Kevin Duke Signed Date: 02/09/2025 15:56 ET Workstation ID: [id number] Transcribed By: Self Edit Transcribed Date: 02/09/2025 11:19 ET Narrative 02/09/2025 3:56 PM EST EXAM: SCREENING MAMMOGRAPHY, BILATERAL HISTORY: SCREENING. No additional history. COMPARISON: 06/26/23, 05/15/22, 04/17/21 TECHNIQUE: Synthesized CC and MLO projections of each breast. Tomosynthesis of each breast in the CC and MLO projections. ADDITIONAL IMAGING: None Computer-aided detection was employed with the iCAD ProFound AI 3-D. TISSUE DENSITY: There are scattered areas of fibroglandular density. (BI-RADS category B) FINDINGS: RIGHT BREAST: No suspicious mass. No suspicious calcification. No distortion. No additional suspicious right breast findings LEFT BREAST: No suspicious mass. No suspicious calcification. No distortion. No additional suspicious left breast findings Procedure Note Kevin Duke MD - 02/09/2025 EXAM: SCREENING MAMMOGRAPHY, BILATERAL HISTORY: SCREENING. No additional history. COMPARISON: 06/26/23, 05/15/22, 04/17/21 TECHNIQUE: Synthesized CC and MLO projections of each breast.Tomosynthesis of each breast in the CC and MLO projections. ADDITIONAL IMAGING: None Computer-aided detection was employed with the iCAD ProFound AI 3-D. TISSUE DENSITY: There are scattered areas of fibroglandular density.(BI-RADS category B) FINDINGS: RIGHT BREAST: No suspicious mass. No suspicious calcification. No distortion. Noadditional suspicious right breast findings LEFT BREAST: No suspicious mass. No suspicious calcification. No distortion. Noadditional suspicious left breast findings IMPRESSION: No mammographic evidence of malignancy. No suspicious interval change. A negative mammogram in the presence of a clinically suspicious palpableabnormality does not preclude the possibility of malignancy or alter theindications for biopsy. ASSESSMENT: BI-RADS 1: NEGATIVE RECOMMENDATION(S): 1: Routine screening mammogram BILATERAL in 1 year. [facility] location[facility] at [address], [address] -------- FINAL REPORT -------- Dictated By: Kevin Duke Dictated Date: 02/09/2025 11:19 ET Assigned Physician: Kevin Duke Reviewed and Electronically Signed By: Kevin Duke Signed Date: 02/09/2025 15:56 ET Workstation ID: [id number] Transcribed By: Self Edit Transcribed Date: 02/09/2025 11:19 ET us Judith Gill MD IM BI PROCEDURES Final Result * (ABNORMAL) CBC auto differential (01/30/2025 3:27 PM EST) Only the most recent of2 resultswithin the time period is included. WBC 11.5(H) 4.8 - 10.8 K/mcL LAB HEMETOLOGY METHOD 01/30/2025 4:51 PM [facility] RBC 4.20 3.80 - 4.80 M/mcL LAB HEMETOLOGY METHOD 01/30/2025 4:51 PM [facility] Hemoglobin 12.8 11.5 - 16.0 g/dL LAB HEMETOLOGY METHOD 01/30/2025 4:51 PM [facility] Hematocrit 37.9 35.0 - 47.0 % LAB HEMETOLOGY METHOD 01/30/2025 4:51 PM [facility] MCV 91.3 79.0 - 98.0 FL LAB HEMETOLOGY METHOD 01/30/2025 4:51 PM [facility] MCH 30.8 27.0 - 32.0 pcg LAB HEMETOLOGY METHOD 01/30/2025 4:51 PM [facility] MCHC 33.8 32.0 - 37.0 g/dL LAB HEMETOLOGY METHOD 01/30/2025 4:51 PM [facility] RDW 12.7 11.0 - 15.0 % LAB HEMETOLOGY METHOD 01/30/2025 4:51 PM [facility] Platelets 436(H) 130 - 400 K/mcL LAB HEMETOLOGY METHOD 01/30/2025 4:51 PM [facility] MPV 9.4 7.0 - 11.0 FL LAB HEMETOLOGY METHOD 01/30/2025 4:51 PM [facility] NRBC 0.0 <1.0 % LAB HEMETOLOGY METHOD 01/30/2025 4:51 PM [facility] NRBC Absolute 0.00 <0.10 K/mcL LAB HEMETOLOGY METHOD 01/30/2025 4:51 PM [facility] Neutrophils Relative 58.5 % LAB HEMETOLOGY METHOD 01/30/2025 4:51 PM [facility] Lymphocytes Relative 28.3 % LAB HEMETOLOGY METHOD 01/30/2025 4:51 PM [facility] Monocytes Relative 8.1 % LAB HEMETOLOGY METHOD 01/30/2025 4:51 PM [facility] Eosinophils Relative 3.6 % LAB HEMETOLOGY METHOD 01/30/2025 4:51 PM [facility] Basophils Relative 1.0 % LAB HEMETOLOGY METHOD 01/30/2025 4:51 PM [facility] Immature Granulocytes Relative 0.5 % LAB HEMETOLOGY METHOD 01/30/2025 4:51 PM [facility] Neutrophils Absolute 6.74 1.50 - 7.00 K/mcL LAB HEMETOLOGY METHOD 01/30/2025 4:51 PM [facility] Lymphocytes Absolute 3.26 1.00 - 5.00 K/mcL LAB HEMETOLOGY METHOD 01/30/2025 4:51 PM [facility] Monocytes Absolute 0.93 0.20 - 1.00 K/mcL LAB HEMETOLOGY METHOD 01/30/2025 4:51 PM [facility] Eosinophils Absolute 0.41 0.00 - 0.50 K/mcL LAB HEMETOLOGY METHOD 01/30/2025 4:51 PM [facility] Basophils Absolute 0.11 0.00 - 0.20 K/mcL LAB HEMETOLOGY METHOD 01/30/2025 4:51 PM [facility] Immature Granulocytes Absolute 0.06(H) 0.00 - 0.03 K/mcL LAB HEMETOLOGY METHOD 01/30/2025 4:51 PM EST [facility] Blood Venous blood specimen / Unknown Venipuncture / Unknown 01/30/2025 3:27 PM EST 01/30/2025 3:27 PM EST us Judith Gill MD LAB BLOOD ORDERABLES Final Res ult Performing Organization Address [facility]/ZIP Co de Phone Number [facility] [address] [place] [address], * Cancer antigen 125 (01/30/2025 3:27 PM EST) CA 125 10.2 <35.0 unit/mL LAB CHEMISTRY METHOD 01/30/2025 6:59 PM EST [facility] Blood Venous blood specimen / Unknown Venipuncture / Unknown 01/30/2025 3:27 PM EST 01/30/2025 3:27 PM EST Narrative [facility] - 01/30/2025 6:59 PM EST The Siemens Advia Centaur Chemiluminescent Immunoassay is used. Results obtained with different assay methods or kits cannot be used interchangeably. Results cannot be interpreted as absolute evidence of the presence or absence of malignant disease. us Gustavo Azar MD LAB BLOOD ORDERABLES Final Resul t Performing Organization Address [facility]/ZIP Co de Phone Number [facility] [address] [place] [address], * (ABNORMAL) Comprehensive metabolic panel (01/24/2025 1:25 PM EDT) Sodium 136 133 - 145 mmol/L LAB CHEMISTRY METHOD 01/24/2025 3:10 PM EDT [facility] Potassium 4.2 3.5 - 5.5 mmol/L LAB CHEMISTRY METHOD 01/24/2025 3:10 PM [facility] Chloride 101 96 - 110 mmol/L LAB CHEMISTRY METHOD 01/24/2025 3:10 PM [facility] CO2 27 21 - 32 mmol/L LAB CHEMISTRY METHOD 01/24/2025 3:10 PM [facility] Anion Gap 8 3 - 11 LAB CHEMISTRY METHOD 01/24/2025 3:10 PM [facility] Glucose 118(H) 70 - 100 mg/dL LAB CHEMISTRY METHOD 01/24/2025 3:10 PM [facility] BUN 16 5 - 25 mg/dL LAB CHEMISTRY METHOD 01/24/2025 3:10 PM [facility] Creatinine 0.71 0.50 - 1.10 mg/dL LAB CHEMISTRY METHOD 01/24/2025 3:10 PM [facility] eGFR 89 >=60 mL/min/1. 73m2 LAB CHEMISTRY METHOD 01/24/2025 3:10 PM [facility] Comment:Calculation based on the Chronic Kidney Disease Epidemiology Collaboration (CKD-EPI) equation refit without adjustment for race. BUN/Creatinine Ratio 22.5 LAB CHEMISTRY METHOD 01/24/2025 3:10 PM [facility] Calcium 10.0 8.5 - 10.5 mg/dL LAB CHEMISTRY METHOD 01/24/2025 3:10 PM [facility] AST (SGOT) 17 10 - 42 unit/L LAB CHEMISTRY METHOD 01/24/2025 3:10 PM [facility] ALT (SGPT) 32 10 - 60 unit/L LAB CHEMISTRY METHOD 01/24/2025 3:10 PM [facility] Alkaline Phosphatase 71 42 - 121 unit/L LAB CHEMISTRY METHOD 01/24/2025 3:10 PM [facility] Total Protein 7.7 6.0 - 8.0 g/dL LAB CHEMISTRY METHOD 01/24/2025 3:10 PM EDT [facility] Albumin 4.0 3.2 - 5.0 g/dL LAB CHEMISTRY METHOD 01/24/2025 3:10 PM EDT [facility] Total Bilirubin 0.6 0.0 - 1.4 mg/dL LAB CHEMISTRY METHOD 01/24/2025 3:10 PM EDT [facility] Blood Venous blood specimen / Unknown Venipuncture / Unknown 01/24/2025 1:25 PM EDT 01/24/2025 1:25 PM EDT us Judith Gill MD LAB BLOOD ORDERABLES Final Res ult [facility] [address] [place] [address], [place] [phone] * MR Shoulder wo Contrast Right (01/15/2025 [...] Signed Date: 01/19/2025 03:34 ET Workstation ID: [id number] Transcribed By: Self Edit Transcribed Date: 01/19/2025 [...] Signed Date: 01/19/2025 03:34 ET Workstation ID: [id number] Transcribed By: Self Edit Transcribed Date: 01/19/2025 03:27 ET us Duane Soria MD IMG MRI PROCEDURES Final Resul t * (ABNORMAL) Lipid panel with reflex to direct LDL (08/03/2024 10:10 AM EDT) Cholesterol 163 0 - 200 mg/dL LAB CHEMISTRY METHOD 08/03/2024 1:16 PM EDT [facility] Triglycerides 279(H) 0 - 150 mg/dL LAB CHEMISTRY METHOD 08/03/2024 1:16 PM EDT [facility] HDL 46 >=40 mg/dL LAB CHEMISTRY METHOD 08/03/2024 1:16 PM EDT [facility] LDL Calculated 61 0 - 100 mg/dL LAB CHEMISTRY METHOD 08/03/2024 1:16 PM EDT [facility] VLDL Cholesterol David 55.8 mg/dL LAB CHEMISTRY METHOD 08/03/2024 1:16 PM EDT [facility] Non HDL Chol. (LDL+VLDL) 117 <145 mg/dL LAB CHEMISTRY METHOD 08/03/2024 1:16 PM EDT [facility] Chol/HDL Ratio 3.5 0.0 - 4.4 LAB CHEMISTRY METHOD 08/03/2024 1:16 PM T [facility] Blood Venous blood specimen / Unknown Venipuncture / Unknown 08/03/2024 10:10 AM EDT 08/03/2024 10:11 AM EDT us Judith Gill MD LAB BLOOD ORDERABLES Final Res ult [place] [facility] ([facility]) [facility] [address] [place] [address], [place] [phone] * BD Bone Density DXA Axial Skeleton [...] probability of hip fracture of 0.4%. Code [address] CT Teleradiology -------- FINAL REPORT -------- Dictated By: Seamus Varner Dictated Date: 02/15/2024 10:32 ET Assigned Physician: Seamus Varner Reviewed and Electronically Signed By: Seamus Varner Signed Date: 02/15/2024 10:34 ET Workstation ID: [id number] Transcribed By: Self Edit Transcribed Date: 02/15/2024 [...] probability of hip fracture of 0.4%. Code 81801 CT Teleradiology -------- FINAL REPORT -------- Dictated By: Seamus Vanrer Dictated Date: 02/15/2024 10:32 ET Assigned Physician: Seamus Varner Reviewed and Electronically Signed By: Seamus Varner Signed Date: 02/15/2024 10:34 ET Workstation ID: [id number] Transcribed By: Self Edit Transcribed Date: 02/15/2024 [...] density of the femurs bilaterally is 1.122 gm/hd7gwubr is 111% of that of young normals [...] probability of hip fracture of 0.4%. Code 05333 CT Teleradiology -------- FINAL REPORT -------- Dictated By: Seamus Varner Dictated Date: 02/15/2024 10:32 ET Assigned Physician: Seamus Varner Reviewed and Electronically Signed By: Seamus Varner Signed Date: 02/15/2024 10:34 ET Workstation ID: [id number] Transcribed By: Self Edit Transcribed Date: 02/15/2024 10:32 ET Judith Gill MD [facility] [place] [facility] PROCEDURES Edited Resu lt - Final * Colonoscopy (10/21/2023) [facility] Colonoscopy no interpretation , abstracted Anatomical Region Laterality Modality Other Historical Provider HEALTH MAINTENANCE Final Result * Pap Smear (08/14/2014) [facility] Pap smear no interpretation , abstracted us Historical Provider HEALTH MAINTENANCE Final Result from [...] currently active code status orders. Care Teams Architect Internship Relationship Specialty Start Date End Date Judith Gill MD [address] [place] [address] [address] [place] [address] PCP - General Internal Medicine 12/24/20
--- OUTSIDE RECORDS SUMMARY | 2025-03-07 19:16 | XMS_ITS | Encounter Summary ---
Author Organization [facility] Address [address] [place] [address] Care Team Providers Care Customer Agent Name Role Phone Judith Gill MD Primary Care Provider [phone] Encounter Details Date Type Department Care Team (Late Contact Info) Description 01/30/2025 Results Follow-Up Internal Medicine - [place] [address] [facility] [address] [place] [phone] Judith Gill MD [address] [place] [phone] Social History Tobacco Use Types Packs/Day Years [...] Upcoming Encounters Date Type Department Care Team ([facility] Contact Info) Description 05/23/2025 4:20 PM EST Office Visit Breast Care Center [facility] [address] [place] [phone] Gustavo Azar MD [address] [place] [address] documented as of this encounter Visit Diagnoses Not on filedocumented in this encounter Additional Health Concerns Assessment Noted Time PHQ-9 Depression Total Score: 0 07/26/19 25 8:58 AM EDT A fall risk assessment has been complete d for the patient 07/25/2024 8:55 AM EDT documented as of this encounter Care Teams Customer Agent Relationship Specialty Start Date End Date Judith Gill MD [address] [place] [phone] PCP - General Internal Medicine 12/24/20 documented as of this encounter
--- OUTSIDE RECORDS SUMMARY | 2025-03-07 19:19 | XMS_ITS | Encounter Summary ---
Author Organization [facility] Address [address] [place] [address] Care Team Providers Care Ceiling Installer Name Role Phone Judith Gill MD Primary Care Provider [phone] Reason for Visit * Reason Onset Date Comments Med Refill 02/08/2025 Encounter Details Date Type Department Care Team ([facility] st Contact Info) Description 02/08/2025 Telephone Internal Medicine - [address] [place] [phone] Judith Gill MD [address] [place] [phone] Social History Tobacco Use Types Packs/Day Years [...] AM EST documented as of this encounter Ordered Prescriptions Prescription Sig Dispense Quantity Refills Last Filled Start Date End Date omeprazole (PriLOSEC) [address] capsule Take 1 capsule (20 mg total) by mouth 1 (one) time each day. Do not crush or chew. 30 each 5 02/12/2025 documented in this encounter Progress Notes * Judith Gill MD - 02/12/2025 9:20 PM EST sent * June Dickinson - 02/08/2025 1:08 PM EST Refills not on Current Medication List Patient would like script to be: E-PRESCRIBED/FAXED TO PHARMACY BY THE END OF THE DAY WHEN WAS THE PATIENT'S LAST APPOINTMENT IN ADULT MEDICINE? 01/24/2025 WHEN WAS THE LAST TIME THE PATIENT SAW THEIR PCP? Same as above Does patient have an upcoming appointment? (THE MEDICATION REQUESTED IS NOT ON THE MED LIST ABOVE) One or some of the medications requested were on the HISTORICAL MED list PREFERRED PHARMACY: [facility]/pharmacy #[id number] - JOYCE MANNING - [place] [address] [place] [address] Patient would like to reinstate this medication Med name: omeprazole OTC (PriLOSEC OTC) 20 mg Dosage: @omg # of tablets: 1 Instructions: : Take 1 tablet (20 mg total) by mouth 1 (one) time each day. Do not crush, chew, or split. Patient wants: 30-day supply Is this a mail order prescription request?: no Did you check the Pharmacy information above?: yes Patients current insurance carrier is: Payor: [employer] / Plan: [employer]VANTAGE / Product Type: *No Product type* / Insurance ID #: @[id number]@ documented in this encounter Plan of Treatment Upcoming Encounters Date Type Department Care Team (Late st Contact Info) Description 05/23/2025 4:20 PM EST Office Visit Breast Care Center [facility] [address] [place] [phone] Gustavo Azar MD [address] [place] [address] documented as of this encounter Visit Diagnoses Not on filedocumented in this encounter Additional Health Concerns Assessment Noted Time PHQ-9 Depression Total Score: 0 07/26/19 8:58 AM EDT A fall risk assessment has been complete d for the patient 07/25/2024 8:55 AM EDT documented as of this encounter Care Teams Ceiling Installer Relationship Specialty Start Date End Date Judith Gill MD [address] [phone] PCP - General Internal Medicine 12/24/20 documented as of this encounter
== END 2025-03-07 13:53 | disposition home or self-care (01) ==
LOC: HO.HOS 13:39
PROVIDERS: PCP Internal Medicine; Visit Provider Orthopaedic Surgery
DX: M25.511 Pain in right shoulder (principal)
CPT/HCPCS: 99024

== ENCOUNTER → 2025-03-07 13:38 | Outpatient (BNVA) | payer MEDICARE, SELFPAY | PROVIDERS: PCP Internal Medicine; Visit Provider Orthopaedic Surgery | DX: M25.511 Pain in right shoulder (principal) | CPT/HCPCS: 99212 ==